=== PATIENT | male | born 1960 | race Caucasian/White ===

== ENCOUNTER → 2018-02-22 08:07 | Outpatient (CLI) | payer MEDICAID, SELFPAY | PROVIDERS: PCP Family Medicine; Visit Provider Orthopaedic Surgery | DX: M25.512 Pain in left shoulder (principal); M19.012 Primary osteoarthritis, left shoulder; I10 Essential (primary) hypertension; E11.9 Type 2 diabetes mellitus without complications; Z01.818 Encounter for other preprocedural examination ==

== ENCOUNTER 2018-03-05 10:50 | Outpatient (RCR) | payer MEDICAID, SELFPAY ==
--- NOTE | 2018-02-28 08:13 | NT_ITS ---
02/28/18 Pt no showed for todays scheduled PT appt.
== END 2018-03-22 23:59 | disposition home or self-care (01) ==
LOC: PT 10:50
PROVIDERS: PCP Family Medicine; Referring Provider Orthopaedic Surgery; Visit Provider Orthopaedic Surgery
DX: M25.512 Pain in left shoulder (principal); M75.42 Impingement syndrome of left shoulder; M75.32 Calcific tendinitis of left shoulder
CPT/HCPCS: J1885

== ENCOUNTER → 2018-03-14 09:10 | Outpatient (CLI) | payer MEDICAID, SELFPAY ==
[2018-03-14 10:52] LABS: TSH (W/Ref FT4) 0.27 uIU/mL (0.358-3.74); Vitamin B12 366 pg/mL (193-986)
[2018-03-14 11:23] LABS: FREE T4 1.19 ng/dL (0.76-1.46)
[2018-03-15 12:14] LABS: Albumin 55.8 % (55.8-66.1)
== END ==
PROVIDERS: PCP Family Medicine; Visit Provider Psychiatry & Neurology Neurology
DX: G62.9 Polyneuropathy, unspecified (principal)
CPT/HCPCS: 36415; 82607; 84165; 84439; 84443

== ENCOUNTER 2018-06-11 13:38 | Outpatient (CLI) | payer MEDICAID, SELFPAY ==
--- NOTE | 2018-06-11 11:45 | DI.RAD_ITS ---
SYMPTOMS/DIAGNOSIS: RECURRENCE OF OLD BACK PAIN, LOW BACK STRAIN, S39.012A LUMBOSACRAL SPINE: Five views were obtained. There is a slight left convex lumbar scoliosis. There is bilateral L5 spondylosis with spondylolisthesis of L5 on S1 estimated at 15% of the vertebral width. Mild hypertrophic spurring of the vertebral endplates and facet joints is noted, particularly in the lower lumbar region. CONCLUSION: Mild DJD, bilateral L5 spondylolysis with associated mild spondylolisthesis of L5 on S1.
== END 2018-06-11 13:58 ==
PROVIDERS: PCP Family Medicine; Visit Provider Family Medicine
DX: M54.5 Low back pain (principal); M47.816 Spondylosis without myelopathy or radiculopathy, lumbar region; M43.17 Spondylolisthesis, lumbosacral region; S39.012A Strain of muscle, fascia and tendon of lower back, initial encounter
CPT/HCPCS: 72110

== ENCOUNTER 2018-10-21 01:08 | Outpatient (CLI) | payer MEDICAID, SELFPAY ==
--- NOTE | 2018-10-21 07:51 | DI.US_ITS ---
SYMPTOMS/DIAGNOSIS: WORSENING DIABETES, 16-POUND WEIGHT LOSS OVER 2 MONTHS, ? PANCREATIC CA ABDOMINAL ULTRASOUND: The liver shows increased echogenicity and decreased through transmission consistent with hepatic steatosis. Significant portions of the liver are nonvisualized. There is cholelithiasis. Gallbladder wall does not appear appreciably thickened and there is no pericholecystic fluid collection or biliary dilatation. Pancreas appears intact as visualized but is poorly seen. Spleen is unremarkable. Kidneys appear intact with no evidence of hydronephrosis or nephrolithiasis. Abdominal aorta and IVC of normal diameter as visualized. CONCLUSION: Technically limited study. Presumed hepatic steatosis. Cholelithiasis noted.
== END 2018-10-21 01:28 ==
PROVIDERS: PCP Family Medicine; Visit Provider Family Medicine
DX: E11.9 Type 2 diabetes mellitus without complications (principal); K80.20 Calculus of gallbladder without cholecystitis without obstruction
CPT/HCPCS: 76700

== ENCOUNTER 2018-10-23 09:43 | Outpatient (CLI) | payer MEDICAID, SELFPAY ==
--- NOTE | 2018-10-23 06:00 | DI.RAD_ITS ---
SYMPTOMS/DIAGNOSIS: LUMBAR RADICULOPATHY, TRANSFORAMINAL EPIDURAL STEROID INJECTION PAIN CLINIC: Fluoroscopy Time: 27 Images submitted from the pain clinic demonstrate needle positioning in the region of the left facet at L 4 - 5 for a left epidural steroid injection carried out by Dr. Barboza. Please see the procedure report for further information.
[2018-10-23 10:16] VITALS: BP 149/89; PULSE 97; RESP 18; TEMP 36.7; O2SAT 99
[2018-10-23] MEDS: Glycopyrrolate 0.2 MG/1 ML VIAL IJ (10:34)
[2018-10-23] MEDS: Bupivacaine 0.5% Pres-Free 10 ML VIAL IJ (10:42)
[2018-10-23] MEDS: Omnipaque 240 MG/ML 50 ML BTL IJ (10:42)
[2018-10-23 10:45] VITALS: BP 132/82; PULSE 80; RESP 20; O2SAT 97
--- NOTE | 2018-10-23 10:51 | PDOC.PAIN_ITS ---
Pain Clinic Procedure Note Current Active Problems Problem Status Onset Lumbar radiculitis Chronic LUMBAR / SACRAL TRANSFORAMINAL INJECTION ROSIO LEDESMA has been referred to the [facility] for a transforaminal nerve root block and steroid injection. COMMENTS: Patient has back pain to left lower extremity to his anterior thigh. He has disc bulging at L3-4. He had previous epidural injection for similar problem in 2014 and did well. He did have a vasovagal reaction at that time. His second injection he was pretreated with glycopyrrolate which prevented it. Of note his glucoses have been high today at 311. I spoke with PCP office and inform them and they will cover him accordingly if his glucose goes up secondary to the steroid injection. Patient was interviewed and the medical record reviewed. There were no medical, pharmacologic, radiographic or other structural contraindications to attempting fluoroscopically guided transforaminal nerve root block and epidural steroid injection. Risks and expected side effects as well as potential benefit of the procedure were reviewed and voiced concerns addressed. The printed consent form was signed and witnessed. Standard time-out procedure was performed. Patient was placed in the prone position on the fluoroscopy table and automated blood pressure cuff and pulse oximeter applied. Fluoroscopy was utilized to identify the { left/ } neural foramen between L3 and L4 . A skin jeimy was made for the needle insertion site. A Chlorhexadine prep was carried out, and sterile drapes were applied. Local anesthesia was achieved in the skin and subcutaneous tissues. A 22 gauge curved tip spinal needle was then inserted, advanced with fluoroscopic guidance into the neural foramen, confirmed on the lateral view. After negative aspiration, 2 ml of Omnipaque 240 was injected confirming position in A/P and lateral views. This showed a good spread of dye transforaminally into the epidural space. There was no vascular update with contrast injection under continuous fluoroscopy and digital substraction. 40 mg of Depo-Medrol was injected, followed by 0.5 ml of 0.5% bupivivcaine flush for the nerve root block, as well. There was no unusual discomfort expressed.The needle was withdrawn. The patient tolerated the procedure well. A Band-Aid was applied. Vital signs were stable throughout the procedure and were as recorded in nursing records. If given, dosages of intravenous drugs for anxiolysis and analgesia were documented in nursing records. Follow up plans and appointments were discussed. Post procedure instruction was given as documented in nursing records and patient was discharged in the care of an identified owner operator tanker truck driver. COMMENTS: Glycopyrrolate 0.2 mg IV given prior to Injection. Pain went from 11/29-09/01. He will follow-up as needed. He will follow-up with his PCP regarding his diabetes CC: Scott Valdes DO
[2018-10-23] MEDS: Lactated Ringers 1,000 ML 1000 ML IV (11:04)
[2018-10-23] MEDS: methylPREDNISolone ACETATE 80 MG/ML VIAL 40 MG IJ (11:04)
== END 2018-10-23 10:03 ==
PROVIDERS: PCP Family Medicine; Visit Provider Anesthesiology Pain Medicine
DX: M54.16 Radiculopathy, lumbar region (principal); E11.9 Type 2 diabetes mellitus without complications
CPT/HCPCS: 64483; 72100; J1040; Q9967

== ENCOUNTER 2018-12-17 00:08 | Outpatient (CLI) | payer MEDICAID, SELFPAY ==
[2018-12-17 12:13] VITALS: BP 130/89; PULSE 78; RESP 20; TEMP 36.6; O2SAT 100
[2018-12-17 12:59] VITALS: BP 129/80; PULSE 77; RESP 14; O2SAT 99
--- NOTE | 2018-12-17 13:00 | DI.US_ITS ---
SYMPTOMS/DIAGNOSIS: LEFT UPPER THIGH PAIN; ULTRASOUND-GUIDED NERVE BLOCK, LATERAL FEMORAL PAIN CLINIC NEEDLE GUIDANCE: Sonography was utilized by Dr. Adorno during an ultrasound-guided nerve block in the left upper thigh. Please refer to the procedure report for complete details.
--- NOTE | 2018-12-17 13:02 | PDOC.PAIN ---
Pain Clinic Procedure Note Current Active Problems Problem Status Onset Meralgia paresthetica of left side Acute ULTRASOUND GUIDED LEFT LATERAL FEMORAL CUTANEOUS NERVE BLOCK INJECTIONS Pre-Procedural Evaluation: ROSIO LEDESMA has been referred to the [facility] for an Ultrasound Guided left lateral femoral cutaneous nerve block injection for a chief complaint of left anterior thigh pain. Pre-procedure Pain Score = 6/10 Patient was interviewed and the medical record reviewed. There were no medical, pharmacologic, radiographic, or other structural contraindications to preforming an ultrasound guided injection. Risks and expected side effects as well as potential benefits of the procedure were reviewed. The patient consent form was signed and witnessed. Standard time-out procedure was performed. The use of direct ultrasound visualization of the needle (rather than a non-guided injection) was required to increase patient safety by excluding inadvertent intramuscular, intratendinous, or intraneural needle placement and minimizing bleeding by avoiding osteochondral or vascular injury from the needle. Additionally, the increased accuracy of placement may increase clinical effectiveness and will allow higher diagnostic specificity when evaluating effectiveness of this injection. Procedure Description: The patient was placed in the supine position and automated blood pressure cuff and pulse oximeter applied for monitoring during the procedure and recorded in the medical record. Pre-injection ultrasound scanning of the area of interest was performed using the linear transducer, identifying relevant anatomy, landmarks, and neurovascular structures allowing for optimal needle path. The site was then prepared in the usual sterile fashion, using thorough Chlorhexadine preparation of the skin and sterile draping. The same ultrasound transducer was then passed into the sterile field using sterile probe cover and sterile ultrasound gel. The injection target was again visualized. Skin and subcutaneous tissues were anesthetized with 2 mL of 1% Lidocaine. A 22 guage needle inch needle was placed under live ultrasound guidance, using an in-plane approach, to the target area. After visualization of the needle tip at the target area, a mixture of 4 mL 1% Lidocaine after negative aspiration for blood. Ultrasound images were captured and stored for documentation purposes. No steroid was used as his diabetes was in poor control. Post-procedure Pain Score: 0/10 Vital signs were stable throughout the procedure and were as recorded in the docflowsheet by the nursing staff. Follow up plans and appointments were discussed with the patient.Post procedure instruction was given as documented in nursing documentation and having met discharge criteria, they were discharged from the [facility]. COMMENTS: He will take it easy for a few days and then gradually increase his activity.
--- NOTE | 2018-12-17 13:08 | PDOC.PAIN_ITS ---
Pain Clinic Procedure Note Current Active Problems Problem Status Onset Meralgia paresthetica of left side Acute ULTRASOUND GUIDED LEFT LATERAL FEMORAL CUTANEOUS NERVE BLOCK INJECTIONS Pre-Procedural Evaluation: ROSIO LEDESMA has been referred to the [facility] for an Ultrasound Guided left lateral femoral cutaneous nerve block injection for a chief complaint of left anterior thigh pain. Pre-procedure Pain Score = 6/10 Patient was interviewed and the medical record reviewed. There were no medical, pharmacologic, radiographic, or other structural contraindications to preforming an ultrasound guided injection. Risks and expected side effects as well as potential benefits of the procedure were reviewed. The patient consent form was signed and witnessed. Standard time-out procedure was performed. The use of direct ultrasound visualization of the needle (rather than a non- guided injection) was required to increase patient safety by excluding inadvertent intramuscular, intratendinous, or intraneural needle placement and m inimizing bleeding by avoiding osteochondral or vascular injury from the needle. Additionally, the increased accuracy of placement may increase clinical effectiveness and will allow higher diagnostic specificity when evaluating effectiveness of this injection. Procedure Description: The patient was placed in the supine position and automated blood pressure cuff and pulse oximeter applied for monitoring during the procedure and recorded in the medical record. Pre-injection ultrasound scanning of the area of interest was performed using the linear transducer, identifying relevant anatomy, landmarks, and neurovascular structures allowing for optimal needle path. The site was then prepared in the usual sterile fashion, using thorough Chlorhexadine preparation of the skin and sterile draping. The same ultrasound transducer was then passed into the sterile field using sterile probe cover and sterile ultrasound gel. The injection target was again visualized. Skin and subcutaneous tissues were anesthetized with 2 mL of 1% Lidocaine. A 22 guage needle inch needle was placed under live ultrasound guidance, using an in- plane approach, to the target area. After visualization of the needle tip at the target area, a mixture of 4 mL 1% Lidocaine after negative aspiration for blood. Ultrasound images were captured and stored for documentation purposes. No steroid was used as his diabetes was in poor control. Post-procedure Pain Score: 0/10 Vital signs were stable throughout the procedure and were as recorded in the docflowsheet by the nursing staff. Follow up plans and appointments were discussed with the patient.Post procedure instruction was given as documented in nursing documentation and having met discharge criteria, they were discharged from the [facility]. COMMENTS: He will take it easy for a few days and then gradually increase his activity.
[2018-12-17] MEDS: Lidocaine 2% Pres-Free 5 ML VIAL IJ (13:24)
== END 2018-12-17 00:28 ==
PROVIDERS: PCP Family Medicine; Visit Provider Preventive Medicine Occupational Medicine
DX: G57.12 Meralgia paresthetica, left lower limb (principal)
CPT/HCPCS: 64450; 76942

== ENCOUNTER 2019-01-07 10:41 | Outpatient (REF) | payer MEDICAID, SELFPAY ==
[2019-01-07 13:10] LABS: Anion Gap 11.5 mmol/L (3-11); BUN 14 mg/dL (7-18); CO2 26.5 mmol/L (21.0-32.0); Calcium 9.2 mg/dL (8.5-10.1); Chloride 103 mmol/L (98-107); Glucose 182 mg/dL (70-100); Sodium 141 mmol/L (136-145)
== END 2019-01-07 11:01 ==
LOC: LBN 10:41
PROVIDERS: PCP Family Medicine; Visit Provider Family Medicine
DX: E11.9 Type 2 diabetes mellitus without complications (principal)
CPT/HCPCS: 80048

== ENCOUNTER 2019-02-28 02:24 | Outpatient (CLI) | payer MEDICAID, SELFPAY ==
--- NOTE | 2019-02-28 15:12 | DI.CT_ITS ---
SYMPTOMS/DIAGNOSIS: HEADACHE, FACIAL PAIN, 3 WEEKS PAIN BEHIND EYES AND SINUSES, CHRONIC SINUSITIS, SEASONAL ALLERGIC RHINITIS, R51, R68.89, J32.8, J30.[address]: CT examination of the paranasal sinuses was performed without contrast administration. The paranasal sinuses are clear. The ostiomeatal complexes of the maxillary antra appear intact bilaterally. The orbital structures appear intact. Appearance of the nasal cavity is unremarkable. Visualized brain is unremarkable. Mastoid air cells are well aerated and temporal bone structures appear intact. CONCLUSION: Negative sinus CT.
== END 2019-02-28 02:44 ==
PROVIDERS: PCP Family Medicine; Visit Provider Physician Assistant
DX: R51 Headache (principal); J32.8 Other chronic sinusitis; J30.2 Other seasonal allergic rhinitis
CPT/HCPCS: 70486

== ENCOUNTER 2019-05-13 01:59 | Outpatient (RCR) | payer MEDICAID, SELFPAY | END 2019-05-22 23:59 | disposition home or self-care (01) | LOC: INF 01:59 | PROVIDERS: PCP Family Medicine; Visit Provider Family Medicine | DX: E11.43 Type 2 diabetes mellitus with diabetic autonomic (poly)neuropathy (principal); Z79.4 Long term (current) use of insulin ==

== ENCOUNTER 2019-08-01 15:14 | Emergency (ER) | payer MEDICAID, SELFPAY ==
[2019-08-01 15:19] VITALS: BP 132/75; PULSE 98; RESP 18; TEMP 36.5; O2SAT 99
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
== END 2019-08-01 15:44 | disposition home or self-care (01) ==
PROVIDERS: Emergency Provider Emergency Medicine; PCP Family Medicine
DX: T82.898A Other specified complication of vascular prosthetic devices, implants and grafts, initial encounter (principal); S50.11XA Contusion of right forearm, initial encounter; Y84.8 Other medical procedures as the cause of abnormal reaction of the patient, or of later complication, without mention of misadventure at the time of the procedure; R60.0 Localized edema; E11.9 Type 2 diabetes mellitus without complications; Z79.4 Long term (current) use of insulin
CPT/HCPCS: 99282

== ENCOUNTER 2019-11-25 11:17 | Inpatient (IN) | payer MEDICAID, SELFPAY ==
[2019-11-25] VITALS (55 sets, daily range): BP systolic 86–148; BP diastolic 49–80; PULSE 76–115; RESP 13–36; TEMP 36.5–38.1; O2SAT 87–99
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
[2019-11-25] MEDS: Normal Saline 1,000 ML 1000 ML IV ×2 (11:41→12:50)
[2019-11-25 11:45] LABS: Abs Immature Grans 0.09 k/cumm (0.0-0.09); HCT 48.3 % (40.0-50.0); HGB 16.2 g/dL (13.5-17.5); Mean Corp. HGB Concentration 33.5 g/dL (32.0-36.0); Mean Corpuscular Hemoglobin 29.3 pg (27.0-33.0); Mean Corpuscular Volume 87.5 fL (80-95); Mean Platelet Volume 10.1 fL (8.0-11.0); Platelet Count 243 x1000/uL (130-400); RBC 5.52 m/cumm (4.50-6.00); RBC Distribution Width 13.7 % (11.8-14.1)
[2019-11-25 11:51] LABS: Lipase 59 U/L (73-393)
[2019-11-25 11:56] LABS: ALT 44 U/L (16-63); AST 26 U/L (15-37); Albumin 4.2 g/dL (3.4-5.0); Alkaline Phosphatase 105 U/L (46-116); Anion Gap 12.5 mmol/L (3-11); BUN 17 mg/dL (7-18); Bilirubin, Total 0.9 mg/dL (0.2-1.0); CO2 26.5 mmol/L (21.0-32.0); CREATININE 1.41 mg/dL (0.70-1.30); Calcium 9.5 mg/dL (8.5-10.1); Chloride 102 mmol/L (98-107); Estimated GFR 51.45 (mL/min/1.73m2); Glucose 213 mg/dL (74-106); Magnesium 1.8 mg/dL (1.8-2.4); Potassium 3.3 mmol/L (3.5-5.1); Sodium 141 mmol/L (136-145); Total Protein 8.3 g/dL (6.4-8.2); Troponin I < 0.05 ng/Ml (<0.06)
[2019-11-25 12:05] LABS: Absolute Eosinophil Count 0.53 k/cumm (0.0-0.7); Absolute Lymphocyte Count 0.79 k/cumm (1.2-3.4); Absolute Monocyte Count 2.37 k/cumm (0.11-0.7); Absolute Neutrophil Count 22.62 k/cumm (1.2-6.7); Diff Comment Manual Differential; RBC Morphology Normal
--- NOTE | 2019-11-25 12:15 | DI.CT_ITS ---
EXAM: CT CHEST/ABD/PEL W CLINICAL HISTORY: leukocytosis, LUQ and CP. TECHNIQUE: Imaging Protocol: Axial computed tomography images with coronal and sagittal reformatted images were created and reviewed CONTRAST MATERIAL: Intravenous: Omnipaque 350 Contrast volume:100 ml Oral: no COMPARISON: ABD PELVIS WO CONTRAST from 01/07/2018 FINDINGS: CHEST: Tracheobronchial tree: Patent where visualized. Mediastinum and Belle: No dominant adenopathy or fluid collection. Pulmonary parenchyma: No consolidation or dominant measurable mass. There is motion at the lung base s. Dependent changes and mild posterior atelectasis is present. Pleura: No effusion or pneumothorax. Lymph nodes: Within normal limits. Aorta: Thoracic portion non-dilated. There is motion at the aortic root. Heart: Coronary artery calcifications are seen. Bones: Endplate osteophytes ABDOMEN: Liver: Normal density. No measurable mass. Gallbladder and biliary tract: There is a large stone seen in the neck of the gallbladder. There is mild gallbladder wall thickening. There is no biliary dilatation.. Pancreas: Mildly atrophic. No abnormal calcifications or inflammatory process. Spleen: Normal. Kidneys: Normal size, contour and axis. No radiodense stones or obstructive uropathy. No masses seen. Small renal cysts. Adrenal glands: No masses seen. Aorta: Abdominal portion non-dilated. Mild calcification. Lymph nodes: Within normal limits. PELVIS: Bladder: Symmetric distention, no gross wall thickening. Bowel: No obstruction or bowel wall thickening. Normal appendix. Peritoneal cavity: No ascites, collection or mesenteric inflammatory response. Bones: Bilateral L5 spondylolysis and L5-S1 spondylolisthesis. Reproductive organs: Enlarged prostate.. Soft tissues: Bilateral fatty containing inguinal hernias. Evidence of prior right inguinal hernia r epair. Soft tissue edema in the anterior subcutaneous fat of the mid abdomen presumably secondary to injections. IMPRESSION: Distended gallbladder with mild wall thickening. Large stone which may be impacted in the neck of th e gallbladder. No biliary dilatation. RADIATION DOSE DELIVERED: Total DLP DATA REPOSITORY: All CT scans at this facility are submitted to the National Radiology Data Registry (NRDR) Dose Index Registry (DIR) with the [employer] (ACR). RADIATION OPTIMIZATION: All CT scans at this facility use at least one of these dose optimization te chniques: automated exposure control; mA and/or kV adjustment per patient size (includes targeted exa ms where dose is matched to clinical indication); or iterative reconstruction.
[2019-11-25] MEDS: Omnipaque 350 MG/ML 100 ML BTL IJ (13:03)
[2019-11-25] MEDS: Normal Saline - Diluent 50 ML VIAL IV (13:04)
[2019-11-25] MEDS: Ondansetron 4 MG/2 ML VIAL IVP ×2 (13:05→16:10)
[2019-11-25] MEDS: Normal Saline Flush 10 ML SYR IVP ×2 (13:06→20:57)
--- NOTE | 2019-11-25 13:08 | DI.US_ITS ---
EXAM: US ABDOMEN LIMITED CLINICAL HISTORY: RUQ pain, +[place] TECHNIQUE: Ultrasound performed using standard protocol. COMPARISON: CT CHEST/ABD/PEL W from 11/25/2019 FINDINGS: The gallbladder is distended and shows mild wall thickening. There is a trace amount of pericholecy stic fluid. The 2.2 centimeter stone is lodged in the gallbladder neck. No additional stones are se en. The common bile duct measures 4 millimeters. Patient was tender while scanning over the gallbla dder. IMPRESSION: Distended thick-walled gallbladder with stone impacted in the gallbladder neck. Findings are suspi cious for acute cholecystitis. DATA REPOSITORY:
[2019-11-25] MEDS: HYDROmorphone 2 MG/ML VIAL 1 MG IVP (14:32)
[2019-11-25] MEDS: PIPERACILLIN/TAZO 3.375 GM in Normal Saline 50 ML IVPB ×2 (14:32→21:09)
[2019-11-25 15:03] LABS: Troponin I < 0.05 ng/Ml (<0.06)
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
[2019-11-25] MEDS: Lactated Ringers 1,000 ML 100 ML IV (15:51)
[2019-11-25] MEDS: Lidocaine 1% Multi-Dose 50 ML VIAL (16:17)
[2019-11-25] MEDS: Bupivacaine LIPOSOME/PF 133 MG/10 ML VIAL IJ (16:33)
[2019-11-25] MEDS: Bupivacaine 0.5% Pres-Free 30 ML VIAL (16:36)
[2019-11-25] MEDS: Cellulose,Oxidized 4X8 1 PACKET MC (17:09)
--- NOTE | 2019-11-25 17:19 | GB_PTH ---
PATIENT: Marco Antonio Harris LOC: U#:[id number] AGE/SX: 59/M ROOM: [id number] RE11/25/[address]: Jenny Ridley MD : 1960 BED: A DIS: 11/30/2019 SPEC #: [id number] RECD: 11/26/19 11:06 STATUS: TIAN REQ #: [id number] ANETTE: 11/25/19 17:[address]: Jenny Ridley DEPT: Surgical Specimen RECD BY: Que Cha ENTERED: 11/26/19 11:07 SP TYPE: GB OTHR DR: Scott Valdes DO Tissues: 1 - GALLBLADDER Procedures: GROSS AND MICRO LEVEL 3 Comments: [id number]
--- NOTE | 2019-11-25 18:24 | W.PM.OP ---
Date of service: 11/25/19 Time of Service: 18:24 Operative Note Operative Note DATE OF PROCEDURE: 11/25/19 PRE-OP DIAGNOSIS: Acute Cholecystitis POST-OP DIAGNOSIS: same PROCEDURE: Laparoscopic Cholecystectomy SURGEON: Jenny Ridley ADMINISTRATIVE PROCESSOR: Krystyna Alston ANESTHESIA: GETA and local (1% Lidocaine 10 cc/ Exparel and 0.5% Bupivocaine mixed 50/50) ESTIMATED BLOOD LOSS: 100 PATHOLOGY: other (Gallbladder and contents) COMPLICATIONS: None Patient was transported to: floor Patient's condition: stable Implants: None Indications: 59 year old male with acute cholecystitis On US large non-mobile stone lodged in the neck of the Gallbladder recommended Laparoscopic Cholecystectomy, possible open Risks, benefits, complications were reviewed with the patient in the office. Complications include but are not limited to bleeding, infection, injury to stomach, small bowel and large bowel, injury to the pancreas, injury to the common bile duct necessitating drainage and referral to tertiary center for repair, bile leak, adverse reactions to the medications, complications of intubation including a sore throat or injury to the uvula, MD, stroke and even . Questions were entertained and answered to her satisfaction and she wished to proceed. No guarantees were given or implied Findings: large stone within the Gallbladder. severe inflammation and large amount of fat around the Gallbladder Procedure Description: After informed consent was obtained the patient was taken to the operating room, placed in a supine position and monitors were applied. SCDs were applied to his lower extremities and he was placed under general anesthesia and intubated without difficulty. COVID-19 precautions with proper PPE was used throughout the case due to the patients unknown COVID status. Once intubated a Robertson catheter was placed in a standard sterile fashion. His abdomen was then clipped of hair and prepped and draped in a sterile fashion using ChloraPrep. At this point a timeout was done and the patient's name, date of , procedure type, allergies to medications, metal in his body, antibiotic and DVT prophylaxis were reviewed. Fire risk was assessed. Next 1 percent Lidocaine plain was injected just above the umbilicus into the dermis and subcutaneous tissue. A 5 mm incision was made with an 11 blade. The skin next to the incision was grasped with penetrating towel clamps and while pulling up on the skin a 5 mm port was placed under direct visualization without complication. The abdomen was insuflated and then 3 more ports were placed. A 12 mm port was placed in the subxiphoid area and two 5 mm ports were placed in the right upper quadrant under direct visualization. The liver was inspected and looked grossly normal. The patient's bed was then turned to the left and his head was brought up. An attempt was made to grasp the Gallbladder but it was thickened and tense with Fluid. Using a Laparoscopic needle 50 cc of green bile was removed from the Gallbladder. After removing the bile the Gallbladder was decompressed and easy to grasp. The gallbladder was grasped at the body and pushed towards the right shoulder. The infundibulum was the grasped. There was a lot of fat noted around the Gallbladder. The fat was gently dissected away from the Gallbladder wall using a [place] dissector. I was then able to see the Lymph node which was enlarged. The Lymphnode was removed using cautery. Eventually after dissecting off the fat surrounding the Gallbladder I was able to visualize the cystic duct. The cystic duct was normal in size. The duct was carefully dissected 360 degrees using the [place] dissector and cautery in order for me to visualize its entrance into the gallbladder. Liver was noted behind it. The cystic artery was then identified and dissected 360 degrees. It was located just medial to the cystic duct. It was visualized going into the gallbladder. There were no other structures right behind. Critical view was achieved. 3 clips were placed one proximal and 2 distal on the cystic duct and the cystic artery and then both structures were cut with laparoscopic scissors. Using the hook dissector the gallbladder was then dissected away from the liver bed and placed into an Endo Catch bag. The stone within the gallbladder was large enough that the 12 mm port site had to be opened with an 11 blade to 3 cm. The gallbladder was then pulled through the incision. The 12 mm port was placed back into the abdomen under direct visualization. A penetrating towel clamp was placed next to the port and the skin was closed to be able to keep the abdomen insufflated. The liver bed was inspected and bleeding was noted. A piece of surgicel was placed on the liver bed and pressure was applied with a sponge. After 1 minute the surgicel and sponge were removed. A few areas of bleeding were identified and cauterized. The abdomen was then irrigated with a liter and a half of normal saline until the effluent was clear. Once all the fluid was suctioned out Floseal was injected onto the liver bed for added hemostasis. The 12 mm and the 2 right upper quadrant ports were removed under direct visualization and no bleeding was noted from the fascia. The abdomen was deflated completely and lastly the umbilical port was removed. The fascia of the 3 cm subxiphoid incision was closed with interrupted 0 vicryl. The subcutaneous tissue was cauterized were there was some oozing noted. The skin was cleaned and the incisions were closed with 4-0 Vicryl subcuticular running suture. The skin was dried and Mastasol and steri-strips were applied. Needle and sponge counts were correct at the end of the case. The Robertson catheter was removed. At this point the patient was moved over to the [facility] for rehab medicine and then woken up, extubated and recovered in the OR. Once he was in stage 2 recovery he was taken upstairs to the Medical/ Surgical unit. There were no immediate complications.
[2019-11-25] MEDS: Pantoprazole 40 MG VIAL IVP (20:56)
[2019-11-25] MEDS: Docusate Sodium 100 MG CAP PO (20:56)
[2019-11-25] MEDS: Pramipexole 0.25 MG TAB 0.125 MG PO (22:11)
[2019-11-25] MEDS: Montelukast 10 MG TAB PO (22:11)
[2019-11-25] MEDS: Pregabalin 25 MG CAP 75 MG PO (22:26)
[2019-11-25] MEDS: Acetaminophen 325 MG TAB 650 MG PO (23:30)
[2019-11-26] VITALS (9 sets, daily range): BP systolic 97–121; BP diastolic 59–75; PULSE 90–107; RESP 16–20; TEMP 36.5–38; O2SAT 90–93
[2019-11-26] MEDS: oxyCODONE 5 MG TAB PO ×4 (01:01→22:05)
[2019-11-26] MEDS: Normal Saline Flush 10 ML SYR IVP ×3 (01:56→20:15)
[2019-11-26] MEDS: PIPERACILLIN/TAZO 3.375 GM in Normal Saline 50 ML IVPB ×4 (01:57→20:14)
[2019-11-26 06:48] LABS: Abs Immature Grans 0.04 k/cumm (0.0-0.09); Absolute Basophil Count 0.02 k/cumm (0.0-0.2); Absolute Monocyte Count 0.95 k/cumm (0.11-0.7); Basophils % 0.1; Eosinophils % 0.1; HCT 45.9 % (40.0-50.0); HGB 15.2 g/dL (13.5-17.5); Immature Grans % 0.2 %; Lymphocytes % 8.3; Mean Corp. HGB Concentration 33.1 g/dL (32.0-36.0); Mean Corpuscular Hemoglobin 29.8 pg (27.0-33.0); Mean Platelet Volume 10.5 fL (8.0-11.0); Neutrophils % 86.3; Platelet Count 194 x1000/uL (130-400); RBC Distribution Width 13.9 % (11.8-14.1); White Blood Cell Count 19.01 k/cumm (4.4-10.8)
[2019-11-26 06:50] LABS: Absolute Eosinophil Count 0.02 k/cumm (0.0-0.7); Absolute Lymphocyte Count 1.58 k/cumm (1.2-3.4); Absolute Neutrophil Count 16.41 k/cumm (1.2-6.7)
[2019-11-26 06:57] LABS: Anion Gap 6.4 mmol/L (3-11); BUN 19 mg/dL (7-18); CO2 30.6 mmol/L (21.0-32.0); CREATININE 1.53 mg/dL (0.70-1.30); Calcium 8.4 mg/dL (8.5-10.1); Chloride 102 mmol/L (98-107); Estimated GFR 46.82 (mL/min/1.73m2); Glucose 192 mg/dL (74-106); Magnesium 1.9 mg/dL (1.8-2.4); Potassium 3.6 mmol/L (3.5-5.1); Sodium 139 mmol/L (136-145)
[2019-11-26 08:15] LABS: Glucose 171 mg/dL (74-106)
[2019-11-26 08:21] LABS: COVID-19 RT-PCR UVMMC Result Negative (Negative)
--- NOTE | 2019-11-26 08:35 | INITIAL_ITS ---
- If Service Date Differs Date of service: 11/26/19 Time of Service: 08:35 Care Management Initial Assess REASON FOR HOSPITALIZATION:: Acute Cholecystitis PAST MEDICAL HISTORY/PAST SURGICAL HISTORY:: Medical History (Updated 11/25/19 @ 15:39 by Jenny Ridley MD). Allergic rhinitis (Chronic 09/21/11). Allergic rhinitis due to food (Acute). Asthma (Chronic 05/08/13). 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 (Acute). BPH loc w urin obs/LUTS (Chronic 01/16/18). Cardiomyopathy (Chronic). Dermatitis due to ingested food (Acute). Diabetes mellitus type 2 in obese (Chronic 05/08/13). A1C goal 7.5. Diabetic polyneuropathy associated with type 2 diabetes mellitus (Chronic 03/14/18). DM (diabetes mellitus). Erectile dysfunction (Chronic 11/20/12). LEAH (generalized anxiety disorder) (Chronic 03/19/15). GERD (gastroesophageal reflux disease). Hyperlipidemia (Chronic 09/11/13). PCEq risk 7.8% LDL baseline 127. Insomnia, unspecified (Chronic 11/20/12). Leg cramps (Chronic 03/14/18). Migraine headache without aura (Acute). Nonintractable episodic headache (Chronic 01/20/16). Obesity. SHARRI (obstructive sleep apnea). Pre-ulcerative calluses (Acute). Restless leg syndrome (Acute). Shortness of breath (Chronic). Surgical History (Updated 11/25/19 @ 15:35 by Jenny Ridley MD). Colonoscopy - MAC (07/27/17). cortisone injection (03/17/14). lumbar. H/O chest tube placement (Acute) PREVIOUS FUNCTIONAL STATUS/SOCIAL/FAMILY SUPPORTS:: Marco Antonio lives in a mobile home in [facility] with his Nimisha and their 3 dogs and 4 cats. They have 3 children who live locally and are supportive. Marco Antonio is independent with all care but does not drive. He has been disabled for over 15 years since he had a heart attack and possibly a stroke. 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 CURRENT FUNCTIONAL STATUS:: Marco Antonio was sitting up in a chair when CM met with him. He was pleasant and engaged readily in conversation. He shared that he was likely to be discharged tomorrow.He stated that he is feeling well since his surgery, and that his pain is controlled. ADVANCE DIRECTIVES:: None on file Has patient been provided with information about the portal?: Yes Did the patient sign up for the portal?: Yes (previously) CODE STATUS:: Full Code INSURANCE COVERAGE / FINANCIAL ISSUES:: Medicaid CURRENT HOME/COMMUNITY SERVICES/EQUIPMENT:: None currently PRIMARY CARE PHYSICIAN:: Scott Valdes POTENTIAL DISCHARGE NEEDS:: Follow up with PCP and discharge plan of care PATIENT/FAMILY EDUCATION NEEDS:: Discharge plan, follow up, limitations, Ask Me Three. TRANSPORTATION:: via private vehicle with family PLAN:: Marco Antonio is likely to return home with no new services when ready. He will follow up with his surgeon and discharge plan of care and transport home via private vehicle with family. CM will continue to support patient, family and discharge planning needs.
[2019-11-26] MEDS: Insulin Aspart 300 UNITS/3 ML PEN SC ×2 (09:16→12:09)
[2019-11-26] MEDS: Docusate Sodium 100 MG CAP PO ×3 (09:18→20:15)
[2019-11-26] MEDS: Enoxaparin 40 MG/0.4 ML SYR SC (09:18)
[2019-11-26] MEDS: SITagliptin 100 MG TAB PO (09:18)
[2019-11-26] MEDS: Atorvastatin 20 MG TAB PO (09:18)
[2019-11-26] MEDS: Pregabalin 25 MG CAP 75 MG PO ×2 (09:18→20:15)
--- NOTE | 2019-11-26 09:43 | PGE_ITS ---
Date of Service Date of service: 11/26/19 Time of Service: 07:45 Assessment and Plan Assessment and plan (1) S/P laparoscopic cholecystectomy: Status: Acute Assessment and plan: A\\ POD #1 s/p Lap Cheryl for acute on chronic cholecystitis Doing well P\\ 1. Ambulate in the [place] today 2. Advance diet to soft DM, low fat 3. May shower 4. Pain- Start Oxycodon and I will add Toradol 5. Disposition: hopefully home tomorrow (2) Leukocytosis: Status: Acute Assessment and plan: A\\ Improvement from yesterday P\\ Continue antibiotics and recheck labs in am Will need to be sent home on antibiotics for 10 days Qualifiers: Leukocytosis type: lymphocytosis Qualified Code(s): D72.820 - Lymphocytosis (symptomatic) (3) DM (diabetes mellitus): Status: None Assessment and plan: A\\ Uncontrolled sugars in part due to infection P\\ Continue with Insulin sliding scale Will add his night time long acting insulin as well now that he is starting a diet Qualifiers: Diabetes mellitus type: type 2 Diabetes mellitus penitentiary insulin use: with penitentiary use Diabetes mellitus complication status: with neurologic complications Diabetes mellitus complication detail: with polyneuropathy Qualified Code(s): E11.42 - Type 2 diabetes mellitus with diabetic polyneuropathy; Z79.4 - intermodal owner operator truck driver (current) use of insulin Subjective Subjective Interval history since last seen: Mr. Harris is doing well. He is sitting in his chair comfortably. Pain is 7/10. Has been getting IV dilauded but no po pain medication. Tolerated Clear liquids. Unfortunately he was given multiple glasses of juice overnight which doesn't help with his Diabetes. Discussed with patient that he should only be drinking water or diet kristan angi. He is asking to take a shower Low grade fevers overnight. No fever this morning Exam HENAR Head: normocephalic and atraumatic Resp Effort & Inspection: normal respiratory effort Auscultation: clear to auscultation bilaterally Cardio Rate: regular rate Rhythm: regular rhythm GI Inspection: incision (c/d/i) Palpation: soft and tender (mild tenderness around the sub-xiphoid incision) Auscultation: normal bowel sounds Objective Objective Clinical Data: Abnormal lab results 11/25/19 11/25/19 11/26/19 Range/Units 11:30 11:30 06:30 WBC 26.30 H* (4.4-10.8) k/cumm Absolute Neutrophils 22.62 H (1.2-6.7) k/cumm Absolute Lymphocytes 0.79 L (1.2-3.4) k/cumm Absolute Monocytes 2.37 H (0.11-0.7) k/cumm Potassium 3.3 L (3.5-5.1) mmol/L Anion Gap 12.5 H (3-11) mmol/L BUN 19 H (7-18) mg/dL Creatinine 1.41 H 1.53 H (0.70-1.30) mg/dL Glucose 213 H 192 H (74-106) mg/dL Calcium 8.4 L (8.5-10.1) mg/dL Total Protein 8.3 H (6.4-8.2) g/dL 11/26/19 11/26/19 Range/Units 06:30 08:00 WBC 19.01 H (4.4-10.8) k/cumm Absolute Neutrophils 16.41 H (1.2-6.7) k/cumm Absolute Lymphocytes (1.2-3.4) k/cumm Absolute Monocytes 0.95 H (0.11-0.7) k/cumm Potassium (3.5-5.1) mmol/L Anion Gap (3-11) mmol/L BUN (7-18) mg/dL Creatinine (0.70-1.30) mg/dL Glucose 171 H (74-106) mg/dL Calcium (8.5-10.1) mg/dL Total Protein (6.4-8.2) g/dL Vital Signs Temperature 99.0 F 11/26/19 07:45 Temperature Source Tympanic 11/26/19 07:45 Pulse 96 H 11/26/19 07:45 Pulse Rhythm Regular 11/26/19 03:15 Pulse 106 H 11/25/19 15:20 Respiratory Rate 18 11/26/19 07:45 Respiratory Effort Non-Labored 11/26/19 03:15 Respiratory Depth Normal 11/26/19 03:15 Respiratory Pattern Normal 11/26/19 03:15 Blood Pressure 103/64 11/26/19 07:45 Blood Pressure Mean 86 11/25/19 15:16 Blood Pressure Position Sitting 11/25/19 11:20 Pulse Oximetry 93 L 11/26/19 07:45 Respiratory End-tidal CO2 37 11/25/19 18:50 Oxygen Delivery Method Room Air 11/26/19 07:45 Oxygen Flow Rate 0 11/26/19 07:45 Pain Level 8 11/26/19 07:45 Comment 11/25/19 19:32 Intake & Output 11/25/19 11/25/19 11/26/19 11:59 23:59 11:59 Intake Total 3050 / 3050 1320 / 1320 Output Total 900 / 900 400 / 400 Balance 2150 / 2150 920 / 920 Weight 241 lb 15.987 oz 241 lb 15.987 oz Intake: IV 2600 / 2600 550 / 550 Oral 450 / 450 770 / 770 Output: Urine 800 / 800 400 / 400 Estimated Blood Loss 100 / 100 Other: Urine Color Yellow Yellow Urine Appearance Clear Clear Urine Odor Normal None Emesis Description None Voiding Methods Urinal Urinal Laboratory Results WBC 19.01 k/cumm (4.4-10.8) H 11/26/19 06:30 RBC 5.10 m/cumm (4.50-6.00) 11/26/19 06:30 Hgb 15.2 g/dL (13.5-17.5) 11/26/19 06:30 Hct 45.9 % (40.0-50.0) 11/26/19 06:30 MCV 90.0 fL (80-95) 11/26/19 06:30 MCH 29.8 pg (27.0-33.0) 11/26/19 06:30 MCHC 33.1 g/dL (32.0-36.0) 11/26/19 06:30 RDW 13.9 % (11.8-14.1) 11/26/19 06:30 Plt Count 194 x1000/uL (130-400) 11/26/19 06:30 MPV 10.5 fL (8.0-11.0) 11/26/19 06:30 Immature Gran % 0.2 % 11/26/19 06:30 Neutrophils % 86.3 11/26/19 06:30 Band Neutrophils % 3.0 % 11/25/19 11:30 Lymphocytes % 8.3 11/26/19 06:30 Monocytes % 5.0 11/26/19 06:30 Eosinophils % 0.1 11/26/19 06:30 Basophils % 0.1 11/26/19 06:30 Absolute Neutrophils 16.41 k/cumm (1.2-6.7) H 11/26/19 06:30 Absolute Lymphocytes 1.58 k/cumm (1.2-3.4) 11/26/19 06:30 Absolute Monocytes 0.95 k/cumm (0.11-0.7) H 11/26/19 06:30 Absolute Eosinophils 0.02 k/cumm (0.0-0.7) 11/26/19 06:30 Absolute Basophils 0.02 k/cumm (0.0-0.2) 11/26/19 06:30 Differential Comment Manual differential 11/25/19 11:30 RBC Morphology Normal 11/25/19 11:30 Sodium 139 mmol/L (136-145) 11/26/19 06:30 Potassium 3.6 mmol/L (3.5-5.1) 11/26/19 06:30 Chloride 102 mmol/L (98-107) 11/26/19 06:30 Carbon Dioxide 30.6 mmol/L (21.0-32.0) 11/26/19 06:30 Anion Gap 6.4 mmol/L (3-11) 11/26/19 06:30 BUN 19 mg/dL (7-18) H 11/26/19 06:30 Creatinine 1.53 mg/dL (0.70-1.30) H 11/26/19 06:30 Estimated GFR/1.73 m2 46.82 (mL/min/1.73m2) 11/26/19 06:30 Glucose 171 mg/dL (74-106) H 11/26/19 08:00 Calcium 8.4 mg/dL (8.5-10.1) L 11/26/19 06:30 Magnesium 1.9 mg/dL (1.8-2.4) 11/26/19 06:30 Total Bilirubin 0.9 mg/dL (0.2-1.0) 11/25/19 11:30 AST 26 U/L (15-37) 11/25/19 11:30 ALT 44 U/L (16-63) 11/25/19 11:30 Alkaline Phosphatase 105 U/L (46-116) 11/25/19 11:30 Troponin I < 0.05 ng/Ml (<0.06) 11/25/19 14:23 Total Protein 8.3 g/dL (6.4-8.2) H 11/25/19 11:30 Albumin 4.2 g/dL (3.4-5.0) 11/25/19 11:30 Lipase 59 U/L (73-393) 11/25/19 11:30 COVID-19 PCR Negative (Negative) 11/25/19 15:15 Nasopharyn COVID-19 PCR Not Applicable 11/25/19 15:15 Ref Test Perform Site [facility] hospital lab 11/25/19 15:15
--- NOTE | 2019-11-26 14:50 | PHA.REVIEW ---
Pharmacy Admission Review - Admission Clinical Review (Last Reviewed 09/29/19 @ 12:55 by Chiara Massey) Leukocytosis (Acute) S/P laparoscopic cholecystectomy (Acute) Acute cholecystitis (Acute) procaine Allergy (Severe, Verified 11/25/19 11:50) swelling prednisone Adverse Reaction (Severe, Verified 11/25/19 11:50) gets violent alprazolam Adverse Reaction (Intermediate, Verified 11/25/19 11:50) Dizzy Height 5 ft 8 in Weight 109.769 kg - Renal Dosing Renal Dosing: BUN 19 mg/dL (7-18) H 11/26/19 06:30 Creatinine 1.53 mg/dL (0.70-1.30) H 11/26/19 06:30 Medications needing adjustments: Reviewed - Anticoagulation Anticoagulation: Hgb 15.2 g/dL (13.5-17.5) 11/26/19 06:30 Hct 45.9 % (40.0-50.0) 11/26/19 06:30 Plt Count 194 x1000/uL (130-400) 11/26/19 06:30 Creatinine 1.53 mg/dL (0.70-1.30) H 11/26/19 06:30 DVT Prohphylaxis: Reviewed Medications: Enoxaparin - Opiate Usage Evaluate Pain Scale/Pains Meds: Reviewed Scheduled Bowel Reg ordered if on Opiates?: Yes - Relevant Labs Sodium 139 mmol/L (136-145) 11/26/19 06:30 Potassium 3.6 mmol/L (3.5-5.1) 11/26/19 06:30 Chloride 102 mmol/L (98-107) 11/26/19 06:30 Magnesium 1.9 mg/dL (1.8-2.4) 11/26/19 06:30 - DM Control DM Control: Glucose 171 mg/dL (74-106) H 11/26/19 08:00 Finger Stick Blood Glucose 190 Finger Stick Blood Glucose 190 Finger Stick Blood Glucose 171 Insulin Dosing: Reviewed (Aspart + Detemir BID) - Heart Failure/MA Heart Failure/MA: Troponin I < 0.05 ng/Ml (<0.06) 11/25/19 14:23 EF%, TAMMY's, B-Blockers, Diuretics: Reviewed - BP Control BP Control: Blood Pressure 109/64 Blood Pressure 103/64 Blood Pressure 109/67 If elevated: Reviewed - IV to PO Switch IV Medications: Reviewed (PO by tomorrow) - Home Meds Home Med List reviewed: Reviewed
[2019-11-26] MEDS: Acetaminophen 325 MG TAB 650 MG PO (15:38)
[2019-11-26] MEDS: Pantoprazole 40 MG VIAL IVP (20:14)
[2019-11-26] MEDS: Pramipexole 0.25 MG TAB 0.125 MG PO (22:05)
[2019-11-26] MEDS: Montelukast 10 MG TAB PO (22:05)
[2019-11-27] VITALS (11 sets, daily range): BP systolic 114–129; BP diastolic 69–77; PULSE 97–114; RESP 16–20; TEMP 37–38.4; O2SAT 91–94
[2019-11-27] MEDS: HYDROmorphone 2 MG/ML VIAL 1 MG IVP ×3 (02:15→21:26)
[2019-11-27] MEDS: PIPERACILLIN/TAZO 3.375 GM in Normal Saline 50 ML IVPB ×4 (02:15→20:28)
[2019-11-27] MEDS: Normal Saline Flush 10 ML SYR IVP ×3 (02:16→20:26)
[2019-11-27] MEDS: Acetaminophen 325 MG TAB 650 MG PO ×3 (03:48→15:52)
[2019-11-27] MEDS: oxyCODONE 5 MG TAB PO ×2 (03:49→10:13)
[2019-11-27] MEDS: Lactated Ringers 1,000 ML 75 ML IV (03:51)
[2019-11-27 06:48] LABS: Abs Immature Grans 0.04 k/cumm (0.0-0.09); Absolute Eosinophil Count 0.11 k/cumm (0.0-0.7); Absolute Lymphocyte Count 1.33 k/cumm (1.2-3.4); Absolute Monocyte Count 0.87 k/cumm (0.11-0.7); Basophils % 0.1; Eosinophils % 0.8; HCT 42.9 % (40.0-50.0); HGB 14.6 g/dL (13.5-17.5); Immature Grans % 0.3 %; Lymphocytes % 9.5; Mean Corpuscular Hemoglobin 30.5 pg (27.0-33.0); Mean Corpuscular Volume 89.7 fL (80-95); Mean Platelet Volume 10.2 fL (8.0-11.0); Monocytes % 6.2; Neutrophils % 83.1; Platelet Count 198 x1000/uL (130-400); RBC 4.78 m/cumm (4.50-6.00); RBC Distribution Width 13.5 % (11.8-14.1); White Blood Cell Count 13.98 k/cumm (4.4-10.8)
[2019-11-27 06:51] LABS: Absolute Basophil Count 0.01 k/cumm (0.0-0.2); Absolute Neutrophil Count 11.62 k/cumm (1.2-6.7)
[2019-11-27 06:55] LABS: Anion Gap 8.1 mmol/L (3-11); BUN 18 mg/dL (7-18); CO2 28.9 mmol/L (21.0-32.0); CREATININE 1.34 mg/dL (0.70-1.30); Calcium 8.3 mg/dL (8.5-10.1); Chloride 100 mmol/L (98-107); Estimated GFR 54.56 (mL/min/1.73m2); Glucose 72 mg/dL (74-106); Potassium 3.3 mmol/L (3.5-5.1); Sodium 137 mmol/L (136-145)
[2019-11-27] MEDS: Pregabalin 25 MG CAP 75 MG PO ×2 (07:42→20:25)
[2019-11-27] MEDS: SITagliptin 100 MG TAB PO (07:42)
[2019-11-27] MEDS: metFORMIN 500 MG TAB PO ×2 (07:42→17:15)
[2019-11-27] MEDS: Omeprazole 20 MG CAPCR PO (07:42)
[2019-11-27] MEDS: Atorvastatin 20 MG TAB PO (07:42)
[2019-11-27] MEDS: Docusate Sodium 100 MG CAP PO ×3 (07:42→20:25)
[2019-11-27] MEDS: Enoxaparin 40 MG/0.4 ML SYR SC (07:44)
--- NOTE | 2019-11-27 11:47 | DM INPTCON_ITS ---
Date of service: 11/27/19 Time of Service: 11:48 Diabetes Inpatient Consult DESCRIPTION/ASSESSMENT: Met with Marco Antonio today to discuss diet post lap precious and ways to improve his diabetes management. Marco Antonio s/p lap chol, PMH: IDDM, HTN, neuropathy. Reports no digestive issues since surgery. Following Diabetic soft low fat diet. BMI indicates class 2 obesity. Marco Antonio reports he is retired and works around house daily. No routine exercise. Diet recall indicates mostly home cooked meals high in carbohydrates such as potatoes, milk, canned fruit. Home meds include SS novolog, 42 u levemir BID. Recent A1C (08/21/19) 7.5% indicating poorly controlled diabetes. Finger sticks while hospitalized range from 192 to 72 mg/dl. Reviewed with Marco Antonio principles of carbohydrate counting to optimize blood sugar control and how to follow an 1800 kcal ADA diet. Reviewed meal and snack idea and encouraged him to avoid drinking milk in excess of 8 ounces daily, avoid canned fruit, potatoes, spaghetti, rice all together and to increase intake of lean protein, non starchy vegetables and to start a formalized exercise program(when approved by MD to do so) such as walking 2 miles daily with goal of losing 10% of weight in 90 days. Reviewed importance of following low fat diet post op for optimal digestion post op. Provided education material: [facility] Diabetes Self Management Education Program with contact info. INTERVENTION: Diabetes Education: 1800 calorie ADA diet PLAN: Marco Antonio to count carbohydrates and to keep them to diet plan recommendations Marco Antonio will eat 3 meals, 1-2 snacks daily and exercise daily once MD clears him to do so. Marco Antonio will continue to check BS 3x daily and follow up with PCP for optimal BS control Time Spent in Nutritional Counseling and Treatment: 20 min spent face to face
--- NOTE | 2019-11-27 12:20 | W.PM.PROGNOT ---
Date of Service Date of service: 11/27/19 Time of Service: 12:20 Assessment and Plan Assessment and plan (1) S/P laparoscopic cholecystectomy: Status: Acute Assessment and plan: He is progressing nicely Encouraged to ambulate - he has already been on several walks today Continue IV antibiotics Anticipate he will need to stay until tomorrow based on elevated temp but will reassess later. Subjective Subjective Interval history since last seen: Slept poorly due to incision pain but reports good pain control currently. Tolerating PO [place] like he needed to void but bladder scan did not show much volume. Had 800cc UOP last night. Exam Narrative Exam Narrative: Alert Abdomen distended but soft. No generalized tenderness. Dressing with a small amount of drainage but no bleeding. Objective Objective Clinical Data: Abnormal lab results 11/27/19 11/27/19 Range/Units 06:25 06:25 WBC 13.98 H (4.4-10.8) k/cumm Absolute Neutrophils 11.62 H (1.2-6.7) k/cumm Absolute Monocytes 0.87 H (0.11-0.7) k/cumm Potassium 3.3 L (3.5-5.1) mmol/L Creatinine 1.34 H (0.70-1.30) mg/dL Glucose 72 L D (74-106) mg/dL Calcium 8.3 L (8.5-10.1) mg/dL Vital Signs Temperature 101.1 F H 11/27/19 11:23 Temperature Source Tympanic 11/27/19 11:23 Pulse 114 H 11/27/19 11:23 Pulse Rhythm Regular 11/27/19 07:45 Pulse 106 H 11/25/19 15:20 Respiratory Rate 18 11/27/19 11:23 Respiratory Effort Non-Labored 11/27/19 07:45 Respiratory Depth Normal 11/27/19 07:45 Respiratory Pattern Normal 11/27/19 07:45 Blood Pressure 128/77 11/27/19 11:23 Blood Pressure Mean 86 11/25/19 15:16 Blood Pressure Position Sitting 11/25/19 11:20 Pulse Oximetry 93 L 11/27/19 11:23 Respiratory End-tidal CO2 37 11/25/19 18:50 Oxygen Delivery Method Room Air 11/27/19 11:23 Oxygen Flow Rate 0 11/27/19 11:23 Pain Level 6 11/27/19 11:23 Comment 11/27/19 03:58 Intake & Output 11/26/19 11/27/19 11/27/19 23:59 11:59 23:59 Intake Total 1170 / 2540 995 / 995 Output Total 750 / 1650 1050 / 1050 Balance 420 / 890 -55 / -55 Intake: IV 100 / 700 515 / 515 Oral 1070 / 1840 480 / 480 Output: Urine 750 / 1650 1050 / 1050 Other: Urine Color Straw Light Bianca Urine Appearance Clear Clear Urine Odor Normal Normal Comment pt states earlier in shift that he feels like he has to void but cannot; bladder scanned for 16 cc at approximately 0800. pt encouraged to ambulate; 3 loops with staff. pt able to void after ambulation. Dr. Mills in to assess other pt's; RN reports information to MD Voiding Methods Toilet Urinal Laboratory Results WBC 13.98 k/cumm (4.4-10.8) H 11/27/19 06:25 RBC 4.78 m/cumm (4.50-6.00) 11/27/19 06:25 Hgb 14.6 g/dL (13.5-17.5) 11/27/19 06:25 Hct 42.9 % (40.0-50.0) 11/27/19 06:25 MCV 89.7 fL (80-95) 11/27/19 06:25 MCH 30.5 pg (27.0-33.0) 11/27/19 06:25 MCHC 34.0 g/dL (32.0-36.0) 11/27/19 06:25 RDW 13.5 % (11.8-14.1) 11/27/19 06:25 Plt Count 198 x1000/uL (130-400) 11/27/19 06:25 MPV 10.2 fL (8.0-11.0) 11/27/19 06:25 Immature Gran % 0.3 % 11/27/19 06:25 Neutrophils % 83.1 11/27/19 06:25 Band Neutrophils % 3.0 % 11/25/19 11:30 Lymphocytes % 9.5 11/27/19 06:25 Monocytes % 6.2 11/27/19 06:25 Eosinophils % 0.8 11/27/19 06:25 Basophils % 0.1 11/27/19 06:25 Absolute Neutrophils 11.62 k/cumm (1.2-6.7) H 11/27/19 06:25 Absolute Lymphocytes 1.33 k/cumm (1.2-3.4) 11/27/19 06:25 Absolute Monocytes 0.87 k/cumm (0.11-0.7) H 11/27/19 06:25 Absolute Eosinophils 0.11 k/cumm (0.0-0.7) 11/27/19 06:25 Absolute Basophils 0.01 k/cumm (0.0-0.2) 11/27/19 06:25 Differential Comment Manual differential 11/25/19 11:30 RBC Morphology Normal 11/25/19 11:30 Sodium 137 mmol/L (136-145) 11/27/19 06:25 Potassium 3.3 mmol/L (3.5-5.1) L 11/27/19 06:25 Chloride 100 mmol/L (98-107) 11/27/19 06:25 Carbon Dioxide 28.9 mmol/L (21.0-32.0) 11/27/19 06:25 Anion Gap 8.1 mmol/L (3-11) 11/27/19 06:25 BUN 18 mg/dL (7-18) 11/27/19 06:25 Creatinine 1.34 mg/dL (0.70-1.30) H 11/27/19 06:25 Estimated GFR/1.73 m2 54.56 (mL/min/1.73m2) 11/27/19 06:25 Glucose 72 mg/dL (74-106) L D 11/27/19 06:25 Calcium 8.3 mg/dL (8.5-10.1) L 11/27/19 06:25 Magnesium 1.9 mg/dL (1.8-2.4) 11/26/19 06:30 Total Bilirubin 0.9 mg/dL (0.2-1.0) 11/25/19 11:30 AST 26 U/L (15-37) 11/25/19 11:30 ALT 44 U/L (16-63) 11/25/19 11:30 Alkaline Phosphatase 105 U/L (46-116) 11/25/19 11:30 Troponin I < 0.05 ng/Ml (<0.06) 11/25/19 14:23 Total Protein 8.3 g/dL (6.4-8.2) H 11/25/19 11:30 Albumin 4.2 g/dL (3.4-5.0) 11/25/19 11:30 Lipase 59 U/L (73-393) 11/25/19 11:30 COVID-19 PCR Negative (Negative) 11/25/19 15:15 Nasopharyn COVID-19 PCR Not Applicable 11/25/19 15:15 Ref Test Perform Site [facility] hospital lab 11/25/19 15:15
--- NOTE | 2019-11-27 14:27 | CHAPLAIN ---
Marco Antonio was sitting up watching tv when I visited. He hopes to be discharged to today. Marco Antonio shared photos and stories about his grandson and granddaughter whom he helps care for while their parents work.
--- NOTE | 2019-11-27 14:51 | PDOC.CMPRO ---
- If Service Date Differs Date of service: 11/27/19 Time of Service: 14:51 Care Management Progress Note S/O; Marco Antonio was sitting up in a chair when CM met with him. He stated that he was having a lot of incisional pain today and that he had difficulty sleeping last night as he could not get comfortable. Marco Antonio had thought he would be discharged today however he had a fever late this morning, so discharge plans are uncertain at this time. Marco Antonio did say that his pain is better and he has walked in the halls several times today. A: Marco Antonio is a 59 year old man admitted on 11/25/19 with cholecystitis P:Marco Antonio is likely to return home with no new services when ready. He will follow up with his surgeon and discharge plan of care and transport home via private vehicle with family. CM will continue to support patient, family and discharge planning needs.
[2019-11-27] MEDS: Pantoprazole 40 MG VIAL IVP (20:25)
[2019-11-27] MEDS: Pramipexole 0.25 MG TAB 0.125 MG PO (21:22)
[2019-11-27] MEDS: Montelukast 10 MG TAB PO (21:23)
[2019-11-28] VITALS (8 sets, daily range): BP systolic 112–145; BP diastolic 64–84; PULSE 90–106; RESP 15–20; TEMP 37.1–38.1; O2SAT 93–97
--- NOTE | 2019-11-28 | DI.CT_ITS ---
EXAM: CT ABDOMEN PELVIS W CLINICAL HISTORY: spiking temp postOp. TECHNIQUE: Imaging Protocol: Axial computed tomography images with coronal and sagittal reformatted images were created and reviewed CONTRAST MATERIAL: Intravenous: Omnipaque 350 Contrast volume:100 cc Oral: yes COMPARISON: CT CT CHEST/ABD/PEL W from 11/25/2019 FINDINGS: ABDOMEN: Lung Bases: Small right pleural effusion and adjacent basilar atelectasis. Liver: Normal density. No measurable mass. Gallbladder and biliary tract: Patient is now status post cholecystectomy. Surgical clips are noted in the gall bladder fossa. In the gallbladder fossa, there is a fluid collection as well as air. Th ere is no surrounding peripheral enhancement. No biliary dilatation is seen. There is small amount of air and soft tissue stranding in the right upper quadrant subcutaneous fat related to recent surge ry. Pancreas: Normal density, no abnormal calcifications or inflammatory process. Spleen: Normal. Kidneys: Normal size, contour and axis. No radiodense stones or obstructive uropathy. No masses seen. Small bilateral renal cysts. Adrenal glands: No masses seen. Abdominal Aorta: Abdominal portion non-dilated. PELVIS: Bladder: Symmetric distention, no gross wall thickening. Small amount of air is seen within the bladd er presumably secondary to catheterization. Bowel: No obstruction or bowel wall thickening. The appendix appears normal. A tiny diverticulum is seen in the descending duodenum. Peritoneal cavity: No ascites, collection or mesenteric inflammatory response. Bones: Degenerative disc changes. L5 spondylolysis and mild L5-S1 spondylolisthesis. Reproductive organs: Mildly enlarged prostate. Lymph nodes: Unremarkable. Previous right inguinal hernia repair. Small fatty containing left inguinal hernia. Impression: Gas and fluid in the gallbladder fossa suspicious for a developing abscess. RADIATION DOSE DELIVERED: Total DLP DATA REPOSITORY: All CT scans at this facility are submitted to the National Radiology Data Registry (NRDR) Dose Index Registry (DIR) with the [employer] (ACR). RADIATION OPTIMIZATION: All CT scans at this facility use at least one of these dose optimization te chniques: automated exposure control; mA and/or kV adjustment per patient size (includes targeted exa ms where dose is matched to clinical indication); or iterative reconstruction.
[2019-11-28] MEDS: oxyCODONE 5 MG TAB PO ×4 (00:46→20:10)
[2019-11-28] MEDS: Acetaminophen 325 MG TAB 650 MG PO ×4 (00:48→21:31)
[2019-11-28] MEDS: Normal Saline Flush 10 ML SYR IVP ×2 (02:06→20:09)
[2019-11-28] MEDS: PIPERACILLIN/TAZO 3.375 GM in Normal Saline 50 ML IVPB ×4 (02:06→20:09)
--- NOTE | 2019-11-28 07:02 | PGE_ITS ---
Date of Service Date of service: 11/28/19 Time of Service: 07:03 Assessment and Plan Assessment and plan (1) S/P laparoscopic cholecystectomy: Status: Acute Assessment and plan: A\\ POD#3 s/p Laparoscopic Cholecystectomy Doing well. Febrile yesterday. No fevers since 8 pm last night P\\ If he stays afebrile then will D/C home later today on antibiotics (2) Diabetes mellitus type 2 in obese: Status: Chronic Assessment and plan: NO changes Subjective Subjective Interval history since last seen: Mr. Harris is doing well. He has pain around his incisions only. He is eating without N/V. He had a BM last night. He has been ambulating. HAs had low grade tems all of yesterday. No temps since 8 pm last night. Labs are pending this morning. WBC count has been trending down. Exam Const General: cooperative, comfortable and no acute distress Orientation: alert and oriented x3 HENMT Head: normocephalic and atraumatic Resp Effort & Inspection: normal respiratory effort Auscultation: clear to auscultation bilaterally Cardio Rate: regular rate Rhythm: regular rhythm GI Inspection: incision (c/d/i) Palpation: soft and nontender Auscultation: normal bowel sounds Objective Objective Clinical Data: Vital Signs Temperature 98.8 F 11/28/19 03:35 Temperature Source Tympanic 11/28/19 03:35 Pulse 98 H 11/28/19 03:35 Pulse Rhythm Regular 11/28/19 00:50 Pulse 106 H 11/25/19 15:20 Respiratory Rate 19 11/28/19 03:35 Respiratory Effort 11/28/19 00:50 Respiratory Depth Normal 11/28/19 00:50 Respiratory Pattern Normal 11/28/19 00:50 Blood Pressure 145/64 H 11/28/19 03:35 Blood Pressure Mean 86 11/25/19 15:16 Blood Pressure Position Sitting 11/25/19 11:20 Pulse Oximetry 93 L 11/28/19 03:35 Respiratory End-tidal CO2 37 11/25/19 18:50 Oxygen Delivery Method Room Air 11/28/19 03:35 Oxygen Flow Rate 0 11/28/19 03:35 Pain Level 4 11/28/19 01:48 Comment 11/27/19 03:58 Intake & Output 11/27/19 11/27/19 11/28/19 11:59 23:59 11:59 Intake Total 995 / 1815 820 / 1815 50 / 50 Output Total 105 / 1949 / 1949 1000 / 1000 Balance -55 / -135 -80 / -135 -950 / -950 Intake: IV 515 / 615 100 / 615 50 / 50 Oral 480 / 1200 720 / 1200 Output: Urine 105 / 1949 / 1949 1000 / 1000 Other: Urine Color Light Bianca Straw Yellow Urine Appearance Clear Sediment Cloudy Urine Odor Normal None Normal Comment pt states earlier in shift that he feels like he has to void but cannot; bladder scanned for 16 cc at approximately 0800. pt encouraged to ambulate; 3 loops with staff. pt able to void after ambulation. Dr. Mills in to assess other pt's; RN reports information to PT STATES 600CC WAS FROM SUPPER TIME TIL NOW AND 4-5 VOIDS. Voiding Methods Urinal Toilet Laboratory Results WBC 13.98 k/cumm (4.4-10.8) H 11/27/19 06:25 RBC 4.78 m/cumm (4.50-6.00) 11/27/19 06:25 Hgb 14.6 g/dL (13.5-17.5) 11/27/19 06:25 Hct 42.9 % (40.0-50.0) 11/27/19 06:25 MCV 89.7 fL (80-95) 11/27/19 06:25 MCH 30.5 pg (27.0-33.0) 11/27/19 06:25 MCHC 34.0 g/dL (32.0-36.0) 11/27/19 06:25 RDW 13.5 % (11.8-14.1) 11/27/19 06:25 Plt Count 198 x1000/uL (130-400) 11/27/19 06:25 MPV 10.2 fL (8.0-11.0) 11/27/19 06:25 Immature Gran % 0.3 % 11/27/19 06:25 Neutrophils % 83.1 11/27/19 06:25 Band Neutrophils % 3.0 % 11/25/19 11:30 Lymphocytes % 9.5 11/27/19 06:25 Monocytes % 6.2 11/27/19 06:25 Eosinophils % 0.8 05/07/20 06:25 Basophils % 0.1 11/27/19 06:25 Absolute Neutrophils 11.62 k/cumm (1.2-6.7) H 11/27/19 06:25 Absolute Lymphocytes 1.33 k/cumm (1.2-3.4) 11/27/19 06:25 Absolute Monocytes 0.87 k/cumm (0.11-0.7) H 11/27/19 06:25 Absolute Eosinophils 0.11 k/cumm (0.0-0.7) 11/27/19 06:25 Absolute Basophils 0.01 k/cumm (0.0-0.2) 11/27/19 06:25 Differential Comment Manual differential 11/25/19 11:30 RBC Morphology Normal 11/25/19 11:30 Sodium 137 mmol/L (136-145) 11/27/19 06:25 Potassium 3.3 mmol/L (3.5-5.1) L 11/27/19 06:25 Chloride 100 mmol/L (98-107) 11/27/19 06:25 Carbon Dioxide 28.9 mmol/L (21.0-32.0) 11/27/19 06:25 Anion Gap 8.1 mmol/L (3-11) 11/27/19 06:25 BUN 18 mg/dL (7-18) 11/27/19 06:25 Creatinine 1.34 mg/dL (0.70-1.30) H 11/27/19 06:25 Estimated GFR/1.73 m2 54.56 (mL/min/1.73m2) 11/27/19 06:25 Glucose 72 mg/dL (74-106) L D 11/27/19 06:25 Calcium 8.3 mg/dL (8.5-10.1) L 11/27/19 06:25 Magnesium 1.9 mg/dL (1.8-2.4) 11/26/19 06:30 Total Bilirubin 0.9 mg/dL (0.2-1.0) 11/25/19 11:30 AST 26 U/L (15-37) 11/25/19 11:30 ALT 44 U/L (16-63) 11/25/19 11:30 Alkaline Phosphatase 105 U/L (46-116) 11/25/19 11:30 Troponin I < 0.05 ng/Ml (<0.06) 11/25/19 14:23 Total Protein 8.3 g/dL (6.4-8.2) H 11/25/19 11:30 Albumin 4.2 g/dL (3.4-5.0) 11/25/19 11:30 Lipase 59 U/L (73-393) 11/25/19 11:30 COVID-19 PCR Negative (Negative) 11/25/19 15:15 Nasopharyn COVID-19 PCR Not Applicable 11/25/19 15:15 Ref Test Perform Site [facility] hospital lab 11/25/19 15:15
[2019-11-28 07:16] LABS: Abs Immature Grans 0.03 k/cumm (0.0-0.09); Absolute Basophil Count 0.01 k/cumm (0.0-0.2); Absolute Monocyte Count 0.93 k/cumm (0.11-0.7); Absolute Neutrophil Count 9.27 k/cumm (1.2-6.7); Basophils % 0.1; Eosinophils % 1.6; HGB 14.3 g/dL (13.5-17.5); Immature Grans % 0.3 %; Lymphocytes % 9.5; Mean Corpuscular Hemoglobin 29.8 pg (27.0-33.0); Mean Corpuscular Volume 87.5 fL (80-95); Monocytes % 8.1; Neutrophils % 80.4; Platelet Count 223 x1000/uL (130-400); RBC Distribution Width 13.2 % (11.8-14.1); White Blood Cell Count 11.53 k/cumm (4.4-10.8)
[2019-11-28 07:20] LABS: Absolute Eosinophil Count 0.18 k/cumm (0.0-0.7)
[2019-11-28 07:23] LABS: Anion Gap 9.5 mmol/L (3-11); BUN 15 mg/dL (7-18); CO2 28.5 mmol/L (21.0-32.0); CREATININE 1.22 mg/dL (0.70-1.30); Calcium 8.6 mg/dL (8.5-10.1); Chloride 100 mmol/L (98-107); Glucose 66 mg/dL (74-106); Sodium 138 mmol/L (136-145)
[2019-11-28] MEDS: Atorvastatin 20 MG TAB PO (08:16)
[2019-11-28] MEDS: Pregabalin 25 MG CAP 75 MG PO ×2 (08:16→20:10)
[2019-11-28] MEDS: Docusate Sodium 100 MG CAP PO ×3 (08:16→20:10)
[2019-11-28] MEDS: SITagliptin 100 MG TAB PO (08:16)
[2019-11-28] MEDS: Omeprazole 20 MG CAPCR PO (08:16)
[2019-11-28] MEDS: metFORMIN 500 MG TAB PO (08:17)
[2019-11-28] MEDS: Enoxaparin 40 MG/0.4 ML SYR SC (08:25)
[2019-11-28] MEDS: Omnipaque 350 MG/ML 50 ML BTL IV (09:29)
--- NOTE | 2019-11-28 11:13 | DI.RAD_ITS ---
EXAM: XR CHEST 1V IN DI DEPT CLINICAL HISTORY: spiking temps postOP TECHNIQUE: 2D digital imaging was performed. COMPARISON: CR CHEST 2 VIEWS PA,LAT from 09/25/2017 CR LEFT SHOULDER COMPLETE from 01/10/[address] CHEST/ABD/PEL W from 11/25/2019 FINDINGS: Heart size is normal. The lungs are suboptimally inflated. There there are mildly increased densit ies above the right diaphragm which could represent infiltrate versus atelectasis. There is minimal blunting at the left costophrenic angle. IMPRESSION: Right lower lobe infiltrate versus atelectasis. Tiny left pleural effusion.
[2019-11-28] MEDS: Omnipaque 350 MG/ML 100 ML BTL IV (12:02)
[2019-11-28] MEDS: Normal Saline - Diluent 50 ML VIAL IV (12:02)
[2019-11-28 12:14] LABS: Bilirubin Negative (Negative); Blood Negative (Negative); Clarity Clear (Clear); Glucose 250 mg/dL (Negative); Ketones Negative (Negative); Leukocyte Esterase Negative (Negative); Nitrite Negative (Negative); Urobilinogen 0.2 EU/dL (Up TO 0.2)
--- NOTE | 2019-11-28 13:40 | CMPROGNOTE_ITS ---
Care Management Progress Note S/O: Per MD, Marco Antonio will have additional imaging done today to determine if an abscess has formed. CM continues to follow. A: Marco Antonio is a 59 year old man admitted to [facility] on 11/25/19 with cholecystitis P: Marco Antonio is likely to return home with no new services when ready, per MD. He will follow up with his PCP, surgical services and his plan of care as prescribed. He will transport home via private vehicle with his , Nimisha. CM will continue to follow.
[2019-11-28] MEDS: Pantoprazole 40 MG VIAL IVP (20:10)
[2019-11-28] MEDS: Montelukast 10 MG TAB PO (21:31)
[2019-11-28] MEDS: Pramipexole 0.25 MG TAB 0.125 MG PO (21:31)
[2019-11-29] VITALS (8 sets, daily range): BP systolic 105–131; BP diastolic 68–85; PULSE 79–102; RESP 16–19; TEMP 36.5–37.6; O2SAT 95–97
[2019-11-29] MEDS: PIPERACILLIN/TAZO 3.375 GM in Normal Saline 50 ML IVPB ×4 (01:54→20:14)
[2019-11-29] MEDS: Normal Saline Flush 10 ML SYR IVP ×2 (01:54→20:13)
[2019-11-29] MEDS: Acetaminophen 325 MG TAB 650 MG PO ×2 (03:35→15:35)
[2019-11-29 06:51] LABS: Abs Immature Grans 0.03 k/cumm (0.0-0.09); Absolute Basophil Count 0.01 k/cumm (0.0-0.2); Absolute Eosinophil Count 0.21 k/cumm (0.0-0.7); Absolute Lymphocyte Count 0.91 k/cumm (1.2-3.4); Absolute Monocyte Count 0.93 k/cumm (0.11-0.7); Absolute Neutrophil Count 7.11 k/cumm (1.2-6.7); Basophils % 0.1; Eosinophils % 2.3; HCT 40.1 % (40.0-50.0); HGB 13.8 g/dL (13.5-17.5); Immature Grans % 0.3 %; Lymphocytes % 9.9; Mean Corp. HGB Concentration 34.4 g/dL (32.0-36.0); Mean Corpuscular Volume 87.2 fL (80-95); Mean Platelet Volume 10.1 fL (8.0-11.0); Monocytes % 10.1; Neutrophils % 77.3; Platelet Count 267 x1000/uL (130-400); RBC Distribution Width 13.1 % (11.8-14.1)
[2019-11-29 06:57] LABS: C-Reactive Protein 11.57 mg/dL (0.0-0.3)
[2019-11-29] MEDS: SITagliptin 100 MG TAB PO (07:27)
[2019-11-29] MEDS: Pregabalin 25 MG CAP 75 MG PO ×2 (07:27→20:14)
[2019-11-29] MEDS: Atorvastatin 20 MG TAB PO (07:27)
[2019-11-29] MEDS: Omeprazole 20 MG CAPCR PO (07:27)
[2019-11-29] MEDS: Docusate Sodium 100 MG CAP PO ×3 (07:28→20:13)
[2019-11-29] MEDS: Enoxaparin 40 MG/0.4 ML SYR SC (07:28)
[2019-11-29 07:36] LABS: Procalcitonin 3.2 ng/mL
--- NOTE | 2019-11-29 08:27 | RESPIRATORY ---
Spoke with patient concerning the history of SHARRI listed in his medical record. Patient stated he does have SHARRI but just deals with it as he's been unsuccessful with getting the right equipment from his DME. The patient's DME is [facility] in which set him up with a full face mask which he doesn't like to use. Patient was told to contact [employer] to try and get a different size mask or be re-fitted for a different device. Patient stated he's tried to contact [employer] numerous times and is unsuccessful or they aren't helping him to get a different fitting mask. Patient stated his son or son-in-law switched to [facility] [place] and he's think about doing the same thing. Patient stated that's he's willing to try a CPAP machine is he's not discharge today.
[2019-11-29] MEDS: Simethicone 80 MG CHEW PO (08:45)
[2019-11-29] MEDS: Insulin Aspart 300 UNITS/3 ML PEN SC (11:57)
--- NOTE | 2019-11-29 12:29 | CMPROGNOTE_ITS ---
- If Service Date Differs Date of service: 11/29/19 Time of Service: 12:29 Care Management Progress Note S/O: Marco Antonio was sitting up in his chair when CM met with him. He reported that he was feeling much better today, but he had a fever yesterday. CM discussed the pt with MD, who reported that he will remain here overnight on IV abx. Marco Antonio requested that when he is ready for discharge, his daughter be called to pick him up, as he would like to surprise his with his return. CM will continue to follow. A: Marco Antonio is a 59 year old man admitted to [facility] on 11/25/19 with cholecystitis P: Marco Antonio is likely to return home with no new services when ready, per MD. He will follow up with his PCP, surgical services and his plan of care as prescribed. He will transport home via private vehicle with his daughter, Vale. CM will continue to follow.
--- NOTE | 2019-11-29 13:24 | PGE_ITS ---
Date of Service Date of service: 11/29/19 Time of Service: 13:24 Assessment and Plan Assessment and plan (1) S/P laparoscopic cholecystectomy: Status: Acute (2) Acute cholecystitis: Status: Acute Assessment and plan: Patient states that his fever broke last late last night. His white blood count is down to normal today. He is feeling good for the first time. Because only been 12 hours, I do want to keep him in the hospital and IV antibiotics until tomorrow. Then he should be able to be discharged. I did discuss this with the patient and the rationale. And the concern for possible abscess. I think most likely this is a seroma this point. We discussed wound care activity and diet at home. He is doing well and will m ost likely go home tomorrow on oral antibiotics. 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: Status: Acute (6) Cardiomyopathy: Status: Acute (7) Gastroesophageal reflux disease with esophagitis: Status: Acute (8) SHARRI (obstructive sleep apnea): Status: Acute (9) DM (diabetes mellitus): Status: None Qualifiers: Diabetes mellitus complication detail: with polyneuropathy Diabetes mellitus complication status: with neurologic complications Diabetes mellitus nursing home insulin use: with medical terminologist use Diabetes mellitus type: type 2 Qualified Code(s): E11.42 - Type 2 diabetes mellitus with diabetic polyneuropathy; Z79.4 - buttermaker helper (current) use of insulin Subjective Subjective Interval history since last seen: Pt is doing well. no headaches. No CP or SOB. no productive cough. no dysuria. no leg pain or swelling. pt fever broke last night. He feels much better today. Pain is improved. He has been up walking. He ate gravy last pm and had a loose BM today. no blood. He has been up walking and feeling stronger. no temps today either. Exam HENMT Teeth and gingiva: bridge and fair dentition Throat: posterior oropharynx normal Other: no thrush no jaundice or eye pain. Neck Neck: no JVD Chest Chest: normal inspection of the chest Resp Effort & Inspection: normal respiratory effort and able to speak in complete sentences Auscultation: clear to auscultation bilaterally Cardio Jugular venous pressure: no JVD Rate: regular rate Rhythm: regular rhythm GI Inspection: normal to inspection and incision (c/d/i) Palpation: soft, no hepatosplenomegaly and No ascites Auscultation: normal bowel sounds Skin Other: intact Extrem General: normal to inspection and no clubbing, cyanosis or edema Objective Objective Clinical Data: Abnormal lab results 11/29/19 11/29/19 Range/Units 06:20 06:20 Absolute Neutrophils 7.11 H (1.2-6.7) k/cumm Absolute Lymphocytes 0.91 L (1.2-3.4) k/cumm Absolute Monocytes 0.93 H (0.11-0.7) k/cumm C-Reactive Protein 11.57 H (0.0-0.3) mg/dL Vital Signs Temperature 37.3 C 11/29/19 11:35 Temperature Source Tympanic 11/29/19 11:35 Pulse 95 H 11/29/19 11:35 Pulse Rhythm Regular 11/29/19 07:20 Pulse 106 H 11/25/19 15:20 Respiratory Rate 16 11/29/19 11:35 Respiratory Effort Non-Labored 11/29/19 07:20 Respiratory Depth Normal 11/29/19 07:20 Respiratory Pattern Normal 11/29/19 07:20 Blood Pressure 114/71 11/29/19 11:35 Blood Pressure Mean 86 11/25/19 15:16 Blood Pressure Position Sitting 11/25/19 11:20 Pulse Oximetry 97 11/29/19 11:35 Respiratory End-tidal CO2 37 11/25/19 18:50 Oxygen Delivery Method Room Air 11/29/19 11:35 Oxygen Flow Rate 0 11/29/19 11:35 Pain Level 1 11/29/19 11:35 Comment 11/28/19 15:30 Intake & Output 11/28/19 11/29/19 11/29/19 23:59 11:59 23:59 Intake Total 860 / 1510 1310 / 1550 240 / 1550 Output Total 300 / 2500 Balance 560 / -990 1310 / 1550 240 / 1550 Intake: IV 120 / 220 100 / 100 Oral 740 / 1290 1210 / 1450 240 / 1450 Output: Urine 300 / 2500 Other: Urine Color Straw Yellow Urine Appearance Clear Clear Urine Odor None None Comment Per patient rate. Per patient rate Stool Size Large Stool Characteristics Formed Hard Brown Black Voiding Methods Toilet Toilet Laboratory Results WBC 9.20 k/cumm (4.4-10.8) 11/29/19 06:20 RBC 4.60 m/cumm (4.50-6.00) 11/29/19 06:20 Hgb 13.8 g/dL (13.5-17.5) 11/29/19 06:20 Hct 40.1 % (40.0-50.0) 11/29/19 06:20 MCV 87.2 fL (80-95) 11/29/19 06:20 MCH 30.0 pg (27.0-33.0) 11/29/19 06:20 MCHC 34.4 g/dL (32.0-36.0) 11/29/19 06:20 RDW 13.1 % (11.8-14.1) 11/29/19 06:20 Plt Count 267 x1000/uL (130-400) 11/29/19 06:20 MPV 10.1 fL (8.0-11.0) 11/29/19 06:20 Immature Gran % 0.3 % 11/29/19 06:20 Neutrophils % 77.3 11/29/19 06:20 Band Neutrophils % 3.0 % 11/25/19 11:30 Lymphocytes % 9.9 11/29/19 06:20 Monocytes % 10.1 11/29/19 06:20 Eosinophils % 2.3 11/29/19 06:20 Basophils % 0.1 11/29/19 06:20 Absolute Neutrophils 7.11 k/cumm (1.2-6.7) H 11/29/19 06:20 Absolute Lymphocytes 0.91 k/cumm (1.2-3.4) L 11/29/19 06:20 Absolute Monocytes 0.93 k/cumm (0.11-0.7) H 11/29/19 06:20 Absolute Eosinophils 0.21 k/cumm (0.0-0.7) 11/29/19 06:20 Absolute Basophils 0.01 k/cumm (0.0-0.2) 11/29/19 06:20 Differential Comment Manual differential 11/25/19 11:30 RBC Morphology Normal 11/25/19 11:30 Sodium 138 mmol/L (136-145) 11/28/19 06:40 Potassium 3.0 mmol/L (3.5-5.1) L 11/28/19 06:40 Chloride 100 mmol/L (98-107) 11/28/19 06:40 Carbon Dioxide 28.5 mmol/L (21.0-32.0) 11/28/19 06:40 Anion Gap 9.5 mmol/L (3-11) 11/28/19 06:40 BUN 15 mg/dL (7-18) 11/28/19 06:40 Creatinine 1.22 mg/dL (0.70-1.30) 11/28/19 06:40 Estimated GFR/1.73 m2 >= 60.00 (mL/min/1.73m2) 11/28/19 06:40 Glucose 66 mg/dL (74-106) L 11/28/19 06:40 Calcium 8.6 mg/dL (8.5-10.1) 11/28/19 06:40 Magnesium 1.9 mg/dL (1.8-2.4) 11/26/19 06:30 Total Bilirubin 0.9 mg/dL (0.2-1.0) 11/25/19 11:30 AST 26 U/L (15-37) 11/25/19 11:30 ALT 44 U/L (16-63) 11/25/19 11:30 Alkaline Phosphatase 105 U/L (46-116) 11/25/19 11:30 Troponin I < 0.05 ng/Ml (<0.06) 11/25/19 14:23 C-Reactive Protein 11.57 mg/dL (0.0-0.3) H 11/29/19 06:20 Total Protein 8.3 g/dL (6.4-8.2) H 11/25/19 11:30 Albumin 4.2 g/dL (3.4-5.0) 11/25/19 11:30 Lipase 59 U/L (73-393) 11/25/19 11:30 Procalcitonin 3.2 ng/mL 11/29/19 06:20 Urine Color Straw (Yellow) 11/28/19 12:00 Urine Clarity Clear (Clear) 11/28/19 12:00 Urine pH 7.0 (5-8) 11/28/19 12:00 Ur Specific Ariel 1.010 (1.005-1.025) 11/28/19 12:00 Urine Protein Negative mg/dL (Negative) 11/28/19 12:00 Urine Ketones Negative mg/dL (Negative) 11/28/19 12:00 Urine Blood Negative (Negative) 11/28/19 12:00 Urine Nitrite Negative (Negative) 11/28/19 12:00 Urine Bilirubin Negative (Negative) 11/28/19 12:00 Urine Urobilinogen 0.2 EU/dL (Up TO 0.2) 11/28/19 12:00 Ur Leukocyte Esterase Negative (Negative) 11/28/19 12:00 Urine Glucose 250 mg/dL (Negative) H 11/28/19 12:00 COVID-19 PCR Negative (Negative) 11/25/19 15:15 Nasopharyn COVID-19 PCR Not Applicable 11/25/19 15:15 Ref Test Perform Site [facility] lab 11/25/19 15:15
[2019-11-29] MEDS: Pantoprazole 40 MG VIAL IVP (20:13)
[2019-11-29] MEDS: hydrOXYzine HCL 25 MG TAB PO (20:21)
[2019-11-29] MEDS: Pramipexole 0.25 MG TAB 0.125 MG PO (21:20)
[2019-11-29] MEDS: Montelukast 10 MG TAB PO (21:21)
[2019-11-29] MEDS: oxyCODONE 5 MG TAB PO (21:25)
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
[2019-11-30] MEDS: PIPERACILLIN/TAZO 3.375 GM in Normal Saline 50 ML IVPB ×2 (02:28→09:13)
[2019-11-30] MEDS: Normal Saline Flush 10 ML SYR IVP ×2 (02:28→09:14)
[2019-11-30] MEDS: hydrOXYzine HCL 25 MG TAB PO (03:39)
[2019-11-30 03:54] VITALS: BP 116/80; PULSE 87; RESP 16; TEMP 37.4; O2SAT 94
[2019-11-30 06:48] LABS: Abs Immature Grans 0.05 k/cumm (0.0-0.09); Absolute Basophil Count 0.01 k/cumm (0.0-0.2); Absolute Eosinophil Count 0.34 k/cumm (0.0-0.7); Absolute Lymphocyte Count 1.18 k/cumm (1.2-3.4); Absolute Neutrophil Count 8.63 k/cumm (1.2-6.7); Basophils % 0.1; HCT 41.7 % (40.0-50.0); HGB 14.1 g/dL (13.5-17.5); Immature Grans % 0.4 %; Lymphocytes % 10.4; Mean Corp. HGB Concentration 33.8 g/dL (32.0-36.0); Mean Corpuscular Hemoglobin 29.6 pg (27.0-33.0); Mean Corpuscular Volume 87.4 fL (80-95); Mean Platelet Volume 9.9 fL (8.0-11.0); Monocytes % 9.7; Neutrophils % 76.4; Platelet Count 311 x1000/uL (130-400); RBC 4.77 m/cumm (4.50-6.00); RBC Distribution Width 13.4 % (11.8-14.1)
[2019-11-30 06:59] LABS: C-Reactive Protein 8.78 mg/dL (0.0-0.3)
[2019-11-30 08:12] VITALS: BP 117/71; PULSE 89; RESP 20; TEMP 37; O2SAT 94
[2019-11-30] MEDS: Omeprazole 20 MG CAPCR PO (09:11)
[2019-11-30] MEDS: SITagliptin 100 MG TAB PO (09:11)
[2019-11-30] MEDS: metFORMIN 500 MG TAB PO (09:12)
[2019-11-30] MEDS: Atorvastatin 20 MG TAB PO (09:12)
[2019-11-30] MEDS: Docusate Sodium 100 MG CAP PO (09:12)
[2019-11-30] MEDS: oxyCODONE 5 MG TAB PO (09:12)
[2019-11-30] MEDS: Enoxaparin 40 MG/0.4 ML SYR SC (09:12)
[2019-11-30] MEDS: Pregabalin 25 MG CAP 75 MG PO (09:23)
--- NOTE | 2019-11-30 11:25 | W.PM.PROGNOT ---
Date of Service Date of service: 11/30/19 Time of Service: 11:26 Assessment and Plan Assessment and plan (1) S/P laparoscopic cholecystectomy: Status: Acute Assessment and plan: Patient is going to be discharged home today. He will be discharged home on Augmentin with probiotic therapy for 30 days. I discussed wound care activity and warning signs and diet with him. He will follow-up with Dr. Ridley on Sunday. If he has increasing pain, fever chills, chest pain or shortness of breath, he should return the ED. He did well with surgery and did not have any cardiac problems. He does have a cardiac history and has not had a recent follow-up with a stress test or echo. He should probably do that. He is appointment with his PCP this week and can discuss that with him. He will resume his normal diabetic regimen at home. His blood sugars have been lower in the hospital but that is probably because he is following a better diet. He notes his neuropathy is been better in the hospital, but again that is probably because his blood sugars have been under better control. He has had no fever or chills for 24 hours. We will discharge him home on oral antibiotics and follow him closely. He needs to maintain very close control of his blood sugars. I did discuss the importance of this with him. 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: Status: Acute (5) Meralgia paresthetica of left side: Status: Acute (6) SHARRI (obstructive sleep apnea): Status: Acute (7) Gastroesophageal reflux disease with esophagitis: Status: Acute (8) Obesity: Status: Acute Qualifiers: Obesity type: due to excess calories Obesity classification: adult class 1 (BMI 30 - 34.9) Serious obesity comorbidity presence: without serious comorbidity Body mass index: BMI 31.0-31.9 Qualified Code(s): E66.09 - Other obesity due to excess calories; Z68.31 - Body mass index (BMI) 31.0-31.9, adult (9) DM (diabetes mellitus): Status: None Qualifiers: Diabetes mellitus type: type 2 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 no headaches. No CP or SOB. no productive cough. no dysuria. no leg pain or swelling. He had a formed BM today. We had to go down on his insulin in the hosp- but I think that is b/c he is following a strict diabetic diet He has no temps for the past 24 hrs and is doing well. Labs are stable. I d/w diet and activity. He has a F/u in am w/ his PCP. He should f/u w/ Dr. Ridley on sunday- he will need to call for appt. Exam Chest Chest: normal inspection of the chest Cardio Jugular venous pressure: no JVD Rate: regular rate Rhythm: regular rhythm Other: one of the RN's told him they heard a murmur. I do not here any today. He has had an CA in the past- and has not followed up w/ cards in at least 10 yrs. He should brought have a stress test. GI Inspection: incision (c/d/i. No redness draining swelling or bruising. Good bowel sounds. Mini) Palpation: soft, no hernias, No ascites and other Auscultation: normal bowel sounds Skin General skin exam: no rashes or lesions noted Extrem General: normal to inspection and no clubbing, cyanosis or edema Other: He notes his neuropathy has been better while he was in the hosp- prob from tight control of blood sugars. Objective Objective Clinical Data: Abnormal lab results 11/30/19 11/30/19 Range/Units 06:17 06:17 WBC 11.30 H (4.4-10.8) k/cumm Absolute Neutrophils 8.63 H (1.2-6.7) k/cumm Absolute Lymphocytes 1.18 L (1.2-3.4) k/cumm Absolute Monocytes 1.10 H (0.11-0.7) k/cumm C-Reactive Protein 8.78 H (0.0-0.3) mg/dL Vital Signs Temperature 37 C 11/30/19 08:12 Temperature Source Temporal Artery Scan 11/30/19 08:12 Pulse 89 11/30/19 08:12 Pulse Rhythm Regular 11/30/19 02:15 Pulse 106 H 11/25/19 15:20 Respiratory Rate 20 11/30/19 08:12 Respiratory Effort Non-Labored 11/30/19 02:15 Respiratory Depth Normal 11/30/19 02:15 Respiratory Pattern Normal 11/30/19 02:15 Blood Pressure 117/71 11/30/19 08:12 Blood Pressure Mean 86 11/25/19 15:16 Blood Pressure Position Sitting 11/25/19 11:20 Pulse Oximetry 94 L 11/30/19 08:12 Respiratory End-tidal CO2 37 11/25/19 18:50 Oxygen Delivery Method Room Air 11/30/19 08:12 Oxygen Flow Rate 0 11/30/19 08:12 Pain Level 8 11/30/19 09:12 Comment 11/28/19 15:30 Intake & Output 11/29/19 11/29/19 11/30/19 11:59 23:59 11:59 Intake Total 1360 / 1940 580 / 1940 50 / 50 Balance 1360 / 1940 580 / 1940 50 / 50 Intake: IV 150 / 250 100 / 250 50 / 50 Oral 1210 / 1690 480 / 1690 Other: Urine Color Yellow Urine Appearance Clear Clear Clear Urine Odor None Comment Per patient rate Voiding Methods Toilet Laboratory Results WBC 11.30 k/cumm (4.4-10.8) H 11/30/19 06:17 RBC 4.77 m/cumm (4.50-6.00) 11/30/19 06:17 Hgb 14.1 g/dL (13.5-17.5) 11/30/19 06:17 Hct 41.7 % (40.0-50.0) 11/30/19 06:17 MCV 87.4 fL (80-95) 11/30/19 06:17 MCH 29.6 pg (27.0-33.0) 11/30/19 06:17 MCHC 33.8 g/dL (32.0-36.0) 11/30/19 06:17 RDW 13.4 % (11.8-14.1) 11/30/19 06:17 Plt Count 311 x1000/uL (130-400) 11/30/19 06:17 MPV 9.9 fL (8.0-11.0) 11/30/19 06:17 Immature Gran % 0.4 % 11/30/19 06:17 Neutrophils % 76.4 11/30/19 06:17 Band Neutrophils % 3.0 % 11/25/19 11:30 Lymphocytes % 10.4 11/30/19 06:17 Monocytes % 9.7 11/30/19 06:17 Eosinophils % 3.0 11/30/19 06:17 Basophils % 0.1 11/30/19 06:17 Absolute Neutrophils 8.63 k/cumm (1.2-6.7) H 11/30/19 06:17 Absolute Lymphocytes 1.18 k/cumm (1.2-3.4) L 11/30/19 06:17 Absolute Monocytes 1.10 k/cumm (0.11-0.7) H 11/30/19 06:17 Absolute Eosinophils 0.34 k/cumm (0.0-0.7) 11/30/19 06:17 Absolute Basophils 0.01 k/cumm (0.0-0.2) 11/30/19 06:17 Differential Comment Manual differential 11/25/19 11:30 RBC Morphology Normal 11/25/19 11:30 Sodium 138 mmol/L (136-145) 11/28/19 06:40 Potassium 3.0 mmol/L (3.5-5.1) L 11/28/19 06:40 Chloride 100 mmol/L (98-107) 11/28/19 06:40 Carbon Dioxide 28.5 mmol/L (21.0-32.0) 11/28/19 06:40 Anion Gap 9.5 mmol/L (3-11) 11/28/19 06:40 BUN 15 mg/dL (7-18) 11/28/19 06:40 Creatinine 1.22 mg/dL (0.70-1.30) 11/28/19 06:40 Estimated GFR/1.73 m2 >= 60.00 (mL/min/1.73m2) 11/28/19 06:40 Glucose 66 mg/dL (74-106) L 11/28/19 06:40 Calcium 8.6 mg/dL (8.5-10.1) 11/28/19 06:40 Magnesium 1.9 mg/dL (1.8-2.4) 11/26/19 06:30 Total Bilirubin 0.9 mg/dL (0.2-1.0) 11/25/19 11:30 AST 26 U/L (15-37) 11/25/19 11:30 ALT 44 U/L (16-63) 11/25/19 11:30 Alkaline Phosphatase 105 U/L (46-116) 11/25/19 11:30 Troponin I < 0.05 ng/Ml (<0.06) 11/25/19 14:23 C-Reactive Protein 8.78 mg/dL (0.0-0.3) H 11/30/19 06:17 Total Protein 8.3 g/dL (6.4-8.2) H 11/25/19 11:30 Albumin 4.2 g/dL (3.4-5.0) 11/25/19 11:30 Lipase 59 U/L (73-393) 11/25/19 11:30 Procalcitonin 3.2 ng/mL 11/29/19 06:20 Urine Color Straw (Yellow) 11/28/19 12:00 Urine Clarity Clear (Clear) 11/28/19 12:00 Urine pH 7.0 (5-8) 11/28/19 12:00 Ur Specific Amo 1.010 (1.005-1.025) 11/28/19 12:00 Urine Protein Negative mg/dL (Negative) 11/28/19 12:00 Urine Ketones Negative mg/dL (Negative) 11/28/19 12:00 Urine Blood Negative (Negative) 11/28/19 12:00 Urine Nitrite Negative (Negative) 11/28/19 12:00 Urine Bilirubin Negative (Negative) 11/28/19 12:00 Urine Urobilinogen 0.2 EU/dL (Up TO 0.2) 11/28/19 12:00 Ur Leukocyte Esterase Negative (Negative) 11/28/19 12:00 Urine Glucose 250 mg/dL (Negative) H 11/28/19 12:00 COVID-19 PCR Negative (Negative) 11/25/19 15:15 Nasopharyn COVID-19 PCR Not Applicable 11/25/19 15:15 Ref Test Perform Site [facility] lab 11/25/19 15:15
[2019-11-30] MEDS: Insulin Aspart 300 UNITS/3 ML PEN SC (12:00)
--- NOTE | 2019-11-30 15:44 | PDOC.CMDIS ---
- If Service Date Differs Date of service: 11/30/19 Time of Service: 15:44 LACE Index Scoring Tool - Questions: Length of Stay (in days): 4 - 6 Acuity (Admit via E.D.?): Yes Comorbidities: Diabetes w/o Complication E.D. Visits: 2 - Answers: Total Score: 10 Risk of Readmission: High Risk Care Management Discharge Reason for Hospitalization: Acute Cholecystitis Discharge Plan: Marco Antonio will return home with no additional services at this time. His will drive him home via private vehicle. He will follow up with his PCP and discharge plan of care. He is happy to be returning home today and stated that he is feeling much better. Patient/Family Education Needs: Review discharge instructions regarding activity levels and medications, discussion of self care needs including ask me three.
== END 2019-11-30 13:00 | disposition home or self-care (01) | DRG 418 ==
LOC: ER 16:49 → SUR 16:51 → MS 19:24
PROVIDERS: Emergency Medicine; Surgery; Admitting Provider Surgery; Emergency Provider Physician Assistant; PCP Family Medicine; Visit Provider Surgery
PROC: 0FT44ZZ Resection of Gallbladder, Percutaneous Endoscopic Approach (ICD-10-PCS; CPT 47562; principal; 2019-11-25 15:10)
DX: K80.00 Calculus of gallbladder with acute cholecystitis without obstruction (principal); I42.9 Cardiomyopathy, unspecified; N13.8 Other obstructive and reflux uropathy; K82.A1 Gangrene of gallbladder in cholecystitis; R50.82 Postprocedural fever; K05.319 Chronic periodontitis, localized, unspecified severity; E11.65 Type 2 diabetes mellitus with hyperglycemia; E11.42 Type 2 diabetes mellitus with diabetic polyneuropathy; E66.9 Obesity, unspecified; F41.9 Anxiety disorder, unspecified; N40.1 Benign prostatic hyperplasia with lower urinary tract symptoms; G47.33 Obstructive sleep apnea (adult) (pediatric); G25.81 Restless legs syndrome; Z71.3 Dietary counseling and surveillance; K21.0 Gastro-esophageal reflux disease with esophagitis; Z68.36 Body mass index [BMI] 36.0-36.9, adult; Z79.4 Long term (current) use of insulin
CPT/HCPCS: 47562; 36415; 74177; 80048; 80053; 82947; 83690; 84145; 93005; 96361; 96365; 96375; 99239; 99253; 99285; J1650; NC; U0003; 71045; 71260; 76705; 81003; 83735; 84484; 85025; 86140; 88304; 93010; 99284; J1885; J2001; J2405; J2543; J2704; J3490; Q9967

== ENCOUNTER 2019-12-02 11:04 | Outpatient (REF) | payer MEDICAID, SELFPAY | END 2019-12-02 11:24 | LOC: LBN 11:04 | PROVIDERS: PCP Family Medicine; Visit Provider Surgery | DX: T81.49XA Infection following a procedure, other surgical site, initial encounter (principal); L08.9 Local infection of the skin and subcutaneous tissue, unspecified | CPT/HCPCS: 87077; 87070; 87186; 87205 ==

== ENCOUNTER 2019-12-16 13:57 | Outpatient (REF) | payer MEDICAID, SELFPAY ==
[2019-12-16 15:05] LABS: Abs Immature Grans 0.04 k/cumm (0.0-0.09); Absolute Basophil Count 0.04 k/cumm (0.0-0.2); Absolute Eosinophil Count 0.16 k/cumm (0.0-0.7); Absolute Lymphocyte Count 2.62 k/cumm (1.2-3.4); Basophils % 0.4; Eosinophils % 1.5; HCT 47.5 % (40.0-50.0); HGB 15.8 g/dL (13.5-17.5); Immature Grans % 0.4 %; Lymphocytes % 23.9; Mean Corp. HGB Concentration 33.3 g/dL (32.0-36.0); Mean Corpuscular Hemoglobin 29.3 pg (27.0-33.0); Mean Platelet Volume 10.7 fL (8.0-11.0); Monocytes % 9.1; Neutrophils % 64.7; Platelet Count 314 x1000/uL (130-400); RBC Distribution Width 13.7 % (11.8-14.1); White Blood Cell Count 10.97 k/cumm (4.4-10.8)
[2019-12-16 15:37] LABS: ALT 42 U/L (16-63); AST 35 U/L (15-37); Albumin 3.7 g/dL (3.4-5.0); Alkaline Phosphatase 95 U/L (46-116); Anion Gap 7.7 mmol/L (3-11); BUN 18 mg/dL (7-18); Bilirubin, Total 0.6 mg/dL (0.2-1.0); CO2 29.3 mmol/L (21.0-32.0); CREATININE 0.89 mg/dL (0.70-1.30); Calcium 9.3 mg/dL (8.5-10.1); Chloride 102 mmol/L (98-107); Glucose 61 mg/dL (74-106); Potassium 3.9 mmol/L (3.5-5.1); Sodium 139 mmol/L (136-145); Total Protein 7.6 g/dL (6.4-8.2)
== END 2019-12-16 14:17 ==
LOC: LBN 13:57
PROVIDERS: PCP Family Medicine; Visit Provider Surgery
DX: K81.0 Acute cholecystitis (principal); R53.81 Other malaise; R53.83 Other fatigue; R63.0 Anorexia
CPT/HCPCS: 80053; 85025

== ENCOUNTER 2019-12-18 01:59 | Outpatient (CLI) | payer MEDICAID, SELFPAY ==
--- NOTE | 2019-12-18 07:00 | DI.CT_ITS ---
EXAM: CT ABDOMEN PELVIS W CLINICAL HISTORY: s/p lap. precious for gangrenous cholecystitis,MALAISE,FATIGUE,ANOREXIA,ACUTE. TECHNIQUE: Imaging Protocol: Axial computed tomography images with coronal and sagittal reformatted images were created and reviewed CONTRAST MATERIAL: Intravenous: Omnipaque 350 Contrast volume:100 ml Oral: yes COMPARISON: CT CT ABDOMEN PELVIS W from 11/28/2019 FINDINGS: ABDOMEN: Lung Bases: Normal where visualized. The previously noted small right pleural effusion and adjacent a telectasis has resolved. Liver: Normal density. No measurable mass. Gallbladder and biliary tract: The patient is status post cholecystectomy. Surgical clips are noted. In the gallbladder fossa, there is a low-density collection measuring 3.7 x 2.4 x 2.1 cm. This cou ld represent postsurgical collection. An abscess cannot be entirely excluded. There is no abnormal gas. The common bile duct is not dilated and appears unchanged.. There is no intrahepatic biliary d ilatation or air in the biliary tree. Pancreas: Normal density, no abnormal calcifications or inflammatory process. Spleen: Normal. Kidneys: Normal size, contour and axis. No radiodense stones or obstructive uropathy. No masses seen. Left renal cysts. Adrenal glands: No masses seen. Abdominal Aorta: Abdominal portion non-dilated. PELVIS: Bladder: Symmetric distention, no gross wall thickening. Bowel: A tiny diverticulum is seen of the descending duodenum, adjacent to the distal common bile paul t. No obstruction or bowel wall thickening. Normal appendix. Moderate quantity of stool. Peritoneal cavity: No ascites, collection or mesenteric inflammatory response. Bones: Degenerative disc changes, bilateral L5 spondylo lysis and grade 1 L5-S1 spondylolisthesis are again noted.. Reproductive organs: Within normal limits. Lymph nodes: Unremarkable. Prior right inguinal hernia repair. Small fatty containing left inguinal hernia. Impression: Fluid collection in the gallbladder fossa status post cholecystectomy. The findings could represent a postsurgical seroma. Abscess cannot be excluded. No abnormal gas is seen.. RADIATION DOSE DELIVERED: 909.85mGy.cm Total DLP DATA REPOSITORY: All CT scans at this facility are submitted to the National Radiology Data Registry (NRDR) Dose Index Registry (DIR) with the [employer] (A[employer]). RADIATION OPTIMIZATION: All CT scans at this facility use at least one of these dose optimization te chniques: automated exposure control; mA and/or kV adjustment per patient size (includes targeted exa ms where dose is matched to clinical indication); or iterative reconstruction.
[2019-12-18] MEDS: Breeza Beverage 473 ML BTL PO ×2 (07:35→07:36)
[2019-12-18] MEDS: Omnipaque 350 MG/ML 50 ML BTL PO (07:36)
[2019-12-18] MEDS: Normal Saline - Diluent 50 ML VIAL IV (09:13)
[2019-12-18] MEDS: Omnipaque 350 MG/ML 100 ML BTL IJ (09:14)
== END 2019-12-18 02:19 ==
PROVIDERS: PCP Family Medicine; Visit Provider Surgery
DX: R53.83 Other fatigue (principal); R53.81 Other malaise; R63.0 Anorexia; Z98.890 Other specified postprocedural states; Z90.49 Acquired absence of other specified parts of digestive tract
CPT/HCPCS: 74177; J3490; Q9967

== ENCOUNTER 2020-02-01 07:18 | Emergency (ER) | payer MEDICAID, SELFPAY ==
[2020-02-01 07:25] VITALS: BP 135/90; PULSE 85; RESP 16; TEMP 36.7; O2SAT 98
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
[2020-02-01] MEDS: Lidocaine 5% Patch 1 PATCH TP (08:18)
[2020-02-01] MEDS: Acetaminophen 500 MG TAB 1000 MG PO (08:18)
[2020-02-01] MEDS: Ibuprofen 600 MG TAB PO (08:18)
== END 2020-02-01 08:24 | disposition home or self-care (01) ==
PROVIDERS: Emergency Provider Physician Assistant; PCP Family Medicine
DX: M79.652 Pain in left thigh (principal); E11.42 Type 2 diabetes mellitus with diabetic polyneuropathy; Z79.4 Long term (current) use of insulin
CPT/HCPCS: 99282; 99283

== ENCOUNTER 2020-02-02 14:57 | Outpatient (CLI) | payer MEDICAID, SELFPAY ==
--- NOTE | 2020-02-02 15:00 | DI.RAD_ITS ---
EXAM: XR FEMUR LT CLINICAL HISTORY: Worsening upper thigh pain m79.606 TECHNIQUE: COMPARISON: No exams were available for comparison FINDINGS: Four views were obtained. There are mild degenerative changes of the left hip. There are severe deg enerative changes of the joints of the left knee, particularly at the medial tibiofemoral joint. No other significant bony or soft tissue abnormality seen. IMPRESSION:
--- NOTE | 2020-02-02 15:00 | DI.US_ITS ---
EXAM: US LOWER EXTREMITY VENOUS LT CLINICAL HISTORY: Worsening L leg pain, worst over femoral triangle M79.606 pain in leg TECHNIQUE: Left lower extremity venous ultrasound performed using grayscale, color-flow, and spectra l Doppler analysis. COMPARISON: No exams were available for comparison FINDINGS: The left common femoral, femoral and popliteal veins demonstrate normal compressibility, augmentation , and color Doppler. The posterior tibial veins are patent. The saphenofemoral junction is unremarka ble. There is no evidence of a [place] cyst. The soft tissues are unremarkable. IMPRESSION: No DVT. DATA REPOSITORY:
== END 2020-02-02 15:17 ==
PROVIDERS: PCP Family Medicine; Visit Provider Family Medicine
DX: M79.605 Pain in left leg (principal); M79.652 Pain in left thigh; M16.12 Unilateral primary osteoarthritis, left hip; M17.12 Unilateral primary osteoarthritis, left knee
CPT/HCPCS: 73552; 93971

== ENCOUNTER 2020-02-25 11:33 | Outpatient (CLI) | payer MEDICAID, SELFPAY ==
--- NOTE | 2020-02-25 11:15 | DI.RAD_ITS ---
EXAM: XR KNEE LT 2V AP,LAT CLINICAL HISTORY: pain TECHNIQUE: COMPARISON: No exams were available for comparison FINDINGS: Two views were obtained. There is severe narrowing of the cartilaginous joint space of tibiofemoral joint with slight medial subluxation the femur on tibia. There is mild subchondral sclerosis medial femoral condyle and medial tibial plateau. There moderate marginal osteophytes seen involving all 3 joints of knee. IMPRESSION: Severe DJD predominantly involving medial tibiofemoral joint
== END 2020-02-25 11:53 ==
PROVIDERS: PCP Family Medicine; Referring Provider Family Medicine; Visit Provider Orthopaedic Surgery
DX: M17.12 Unilateral primary osteoarthritis, left knee (principal); M25.762 Osteophyte, left knee
CPT/HCPCS: 73560

== ENCOUNTER 2020-05-20 08:07 | Outpatient (CLI) | payer MEDICAID, SELFPAY ==
[2020-05-21 15:12] LABS: SARS-CoV-2 RNA Not Detected (NotDetected); SARS-CoV-2 RNA Source Nasal/Nares
== END 2020-05-20 08:27 ==
PROVIDERS: PCP Family Medicine; Visit Provider Orthopaedic Surgery
DX: Z11.59 Encounter for screening for other viral diseases (principal); Z01.818 Encounter for other preprocedural examination; Z01.812 Encounter for preprocedural laboratory examination
CPT/HCPCS: 36415; U0003; 85025

== ENCOUNTER 2020-05-24 05:50 | Observation (INO) | payer MEDICAID, SELFPAY ==
[2020-05-24] VITALS (7 sets, daily range): BP systolic 95–159; BP diastolic 53–97; PULSE 83–103; RESP 18–25; TEMP 35.8–36.7; O2SAT 94–97
--- NOTE | 2020-05-24 | DI.RAD_ITS ---
EXAM: XR KNEE LT 2V AP,LAT CLINICAL HISTORY: check total knee components in RR. TECHNIQUE: 2D digital imaging was performed. COMPARISON: CR XR KNEE LT 2V AP,LAT from 02/25/2020 FINDINGS: BONES: The patient is now status post left total knee replacement. No fracture or dislocation. JOINTS: The joint spaces are well maintained. No joint effusion is present. SOFT TISSUE: Normal. IMPRESSION: Status post left total knee replacement. DATA REPOSITORY: RADIATION DOSE DELIVERED:
[2020-05-24] MEDS: Lactated Ringers 1,000 ML 80 ML IV ×2 (07:07→12:24)
[2020-05-24] MEDS: ceFAZolin 2 GM/50 ML BAG IVPB ×3 (07:55→17:11)
[2020-05-24] MEDS: Hydrogen Peroxide 3% 480 ML BTL (09:20)
[2020-05-24] MEDS: oxyCODONE-CR 10 MG TABCR PO (12:23)
[2020-05-24] MEDS: Normal Saline Flush 10 ML SYR IV ×2 (12:24→16:47)
[2020-05-24] MEDS: Docusate Sodium 100 MG CAP PO (13:22)
--- NOTE | 2020-05-24 13:45 | IN_ITS ---
Date of service: 05/24/20 Time of Service: 13:45 PT Notes Visit Reasons: L KNEE Physical Therapy Inpatient Initial Evaluation Date: 05/24/2020 Referring Doctor: Akash Bright MD PT Orders: PT CONSULT: Status post Ortho surgery. Get OOB ambulating this afternoon. WBAT to left leg. Precautions: Fall. Standard. WBAT on left LE. Patient Profile/Admitting Diagnosis: Marco Antonio is a 59-year-old male with primary unilateral osteoarthritis of the left knee and is status post left total knee arthroplasty on postoperative day 0. PMHX: Medical History (Updated 05/10/20 @ 10:17 by Rosalva Smith) Abscess of upper gum Acute ethmoidal sinusitis 04/14/[address] Smith (ENT) Acute recurrent maxillary sinusitis Allergic rhinitis due to food Allergic rhinitis due to pollen Allergy Injections - Dr. Smith Arthritis of knee, left Asthma (05/08/13) 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 BPH loc w urin obs/LUTS (01/16/18) Canker sore Cardiomyopathy (11/21/12) cath 2008 45%EF; 50%LAD, prior apical infarct echo 2009 EF 50%; MPI 2009 fixed A/S defect EF 49% Chronic migraine Receives therapeutic Botox by Dr Smith at [facility] Dermatitis due to ingested food Diabetes mellitus type 2 in obese (05/08/13) A1C goal 7.5 Diabetic polyneuropathy associated with type 2 diabetes mellitus (03/14/18) DM (diabetes mellitus) Environmental allergies Erectile dysfunction (11/20/12) LEAH (generalized anxiety disorder) (03/19/15) Gangrenous cholecystitis Gastroesophageal reflux disease with esophagitis (09/21/11) Hyperlipidemia (09/11/13) PCEq risk 7.8% LDL baseline 127 Insomnia, unspecified (11/20/12) Leg cramps (03/14/18) Lumbar radiculitis Meralgia paresthetica of left side Migraine headache without aura Myositis (05/07/13) Nonintractable episodic headache (01/20/16) Obesity SHARRI (obstructive sleep apnea) (09/02/14) Pain of left lower extremity (04/11/17) Peripheral neuropathy 07/01/19 sylvain Rosales f/u 07/30/19 Pre-ulcerative calluses Restless leg syndrome Shortness of breath Tensor fascia laura syndrome Surgical History (Updated 05/12/20 @ 13:11 by Rosalva Smith) Colonoscopy - MAC (07/27/17) cortisone injection (03/17/14) lumbar H/O chest tube placement History of cardiac catheterization x2 1980s History of repair of anterior cruciate ligament of left knee Osteoarthritis of left acromioclavicular joint (02/27/18) Status post excision of left distal clavicle S/P laparoscopic cholecystectomy (~11/25/19) acute hemorrhagic, gangrenous cholecystitis Status post arthroscopy of left knee Social History/Home Situation: Lives with in a private home with 3 steps to enter without rails. Verbalizes that he hopes to go home to his daughter's house with shorter step height but still with 2 steps to enter without rails. States that he has support from his daughters and his son as well as with while he recovers. Does woodworking. Equipment Owned/DME: None Subjective: Complains about the left knee being not fully stable. Reported lightheadedness in standing that subsided after several minutes. Denies headache and chest pain throughout session. Objective: General Observation: TAMMY wraps on the left LE. Knee immobilizer on left LE. TEDS on right LE. Antithromboembolic pumps on the right LE. Cryocuff on the left LE. IV in the right UE. Mental Status: Alert and oriented x4 Pain: Reports 5?6/10 pain in the left knee ROM: Right Upper Extremity: Shoulder Flexion WFL. Shoulder abduction WFL. Elbow flexion WFL. Wrist flexion WFL. Opening and closing of hand WFL. Left Upper Extremity: Shoulder Flexion WFL. Shoulder abduction WFL. Elbow flexion WFL. Wrist flexion WFL. Opening and closing of hand WFL. Right Lower Extremity: Hip flexion WFL. Hip abduction WFL. Knee flexion WFL. Ankle dorsiflexion WFL. Ankle plantarflexion WFL. Left Lower Extremity: Hip flexion WFL. Hip abduction WFL. Knee flexion 30 to 95 degrees. Knee extension -30 degrees. Ankle dorsiflexion WFL. Ankle plantarflexion WFL. Strength: Right Upper Extremity: Shoulder flexors 5/5. Shoulder abductors 5/5. Elbow flexors 5/5. Elbow extensors 5/5. Cad Intern strong. Left Upper Extremity: Shoulder flexors 5/5. Shoulder abductors 5/5. Elbow flexors 5/5. Elbow extensors 5/5. Cad Intern strong. Right Lower Extremity: Hip flexors 5/5. Hip abductors 5/5. Knee flexors 5/5. Knee extensors 5/5. Ankle dorsiflexors 5/5. Ankle plantarflexors 5/5. Left Lower Extremity:Hip flexors 4/5. Hip abductors 4/5. Knee flexors 3-/5. Knee extensors 3-/5, admitted quads activation during standing and ambulation activity. Ankle dorsiflexors 4/5. Ankle plantarflexors 5/5. Sensation: Intact as to pain and pressure on bilateral lower extremities. Bed Mobility/Transfers: Supine to sit SBA with HOB 45 degrees Sit to supine SBA with HOB 45 degrees Sit to stand contact-guard assist Stand to sit contact-guard assist Bed to chair minimal assist with cues for left LE placement and hand placement THERA EX: Tolerated lateral heel raises while holding onto front wheeled walker x 10. Only completed high marches x 3 with knee buckling on left knee with bending of the right hip and knee. Gait: Tolerated 100 feet +100 feet and wheeled walker with WBAT on the left LE requiring mostly contact-guard assist but with knee buckling x 3 required minimal assist for safety. Tolerated up-and-down 6 x 4-inch steps and 4 x 2- inch steps while holding onto bilateral rails with step to gait pattern requiring standby assist. With fatigue, patient had knee buckling on the left after stair negotiation requiring a short seated rest. Balance: Static Sitting: Normal Dynamic Sitting: Normal Static Standing: Fair Dynamic Standing: Fair Special Tests: Mobility Limitations Standardized Measure [facility] AM-PAC 6 clicks Basic Mobility Inpatient Short Form: Raw Score: 18 CMS Score: 47% deficit Informed Consent/Education: Patient instructed in purpose of PT consult and plan of care. Assessment: Marco Antoino demonstrates functional mobility decline requiring the use of front wheeled walker for all mobility ADL performance, weakness of the right hip and knee major muscle groups, poor right quadriceps activation, and increased fall risk due to postoperative status. His safety at home may be maximized with assist of 2 family members on each side to get through entrance steps as his daughter's house does not have rails. Patient presents with clinical signs and symptoms consistent with current/admitting diagnoses that have resulted to mobility limitations, gait instability, generalized weakness, and impairment of motor control as demonstrated by the following impairment level findings: 1. Decreased strength to right knee major muscle groups 2. Impaired standing balance 3. Impaired activity tolerance 4. Limitation of joint range of motion in right knee Impairments are contributing to the following functional limitations: 1. Increased dependence with transfers 2. Inability to safely ambulate without assistive device and physical assistance 3. Increase completion time for mobility ADL performance 4. Increased fall risk 5. Inability to negotiate steps alone safely Patient is assessed as a 06471 moderate complexity based on the following: History: 59-year-old male with impairment level findings, functional limitations, and past medical history as indicated above Examination: Demonstrable impairment in strength, balance, and mobility level with underlying impairments and functional limitations as documented above Presentation:Evolving Decision Makin moderate complexity Goals: Goals X 3 days 1. Supine-Sit independent 2. Sit-Supine independent 3. Sit-Stand independent 4. Stand-Sit independent 5. Bed-Chair independent 6. Chair-Bed independent 7. Independent gait on level surface with use of least restrictive device for at least 300 feet without report of pain nor dyspnea 8. Independent stair negotiation while holding onto bilateral rails for at least 10 steps without report of pain nor dyspnea 9. Independent with home exercise program 10. Good static and dynamic standing balance/tolerance Plan of Care/Treatment Plan: 1-2x/day for 3 days Plan of care has been reviewed with the PRODUCT DESIGN SPECIALIST providing the service under Physical Therapy direction. Initiate Physical Therapy intervention for strengthening, bed mobility, transfers, gait, stairs, balance training, use of assistive device. DISCHARGE RECOMMENDATIONS: Home when medically cleared by orthopedic surgeon. May benefit from the use of a front wheeled walker to maximize independence at discharge destination. Outpatient PT services to facilitate return to premorbid independent level. TREATMENT CODE/TIME: 37136 x 25 minutes, 55827 x 10 minutes beginning at 13:45 PM. Thank you for the opportunity to participate in the care of this patient. Isadora Spangler PT, DPT, CLT [facility] [place], [place]
[2020-05-24] MEDS: Acetaminophen 325 MG TAB 650 MG PO (14:19)
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
[2020-05-24] MEDS: metFORMIN C.R. 500 MG TABCR PO (16:47)
[2020-05-24] MEDS: Ketorolac 30 MG/ML VIAL IVP (16:47)
--- NOTE | 2020-05-24 22:10 | NUR.NOTE ---
Nursing Note: Pt was anxious to return home after cleared by provider. Pt attempted to dress himself on the stretcher and slid onto floor. Landed on buttocks with call bustamante landing in his lap. Pt summoned for help. With two assist, pt was transferred to a sitting position in the chair. Vs taken: T: 36.5 P:110 R:18 B/P:133/71 O2 98%. With 1 assist and a walker, pt transferred to the bed. Pt denied hitting his head or his left knee. Pt denied additional pain to surgical leg. Blood seepage was noted on dave wrap and was changed as well as underlying gauze pad. No seepage noted after dressing change. Pt encouraged to wait for assistance with further changing into home clothes. Pt compliant with the RN request.
--- NOTE | 2020-05-26 08:25 | INDS_ITS ---
Date of service: 05/26/20 Time of Service: 08:25 PT Notes Visit Reasons: L Total Knee Arthroplasty Physical Therapy Inpatient Discharge Summary Date: 05/26/2020 Date of service: 05/26/2020 only This is a clinical summary of care provided on the duration of dates listed above. No charge was made in the completion of this documentation. Referring Doctor: Akash Bright MD PT Orders: PT CONSULT: Status post Ortho surgery. Get OOB ambulating this afternoon. WBAT to left leg. Precautions: Fall. Standard. WBAT on left LE. Patient Profile/Admitting Diagnosis: Marco Antonio is a 59-year-old male with primary unilateral osteoarthritis of the left knee and is status post left total knee arthroplasty on postoperative day 0 upon discharge. PMHX: Medical History (Updated 05/10/20 @ 10:17 by Rosalva Smith) Abscess of upper gum Acute ethmoidal sinusitis 04/14/[address] Smith (ENT) Acute recurrent maxillary sinusitis Allergic rhinitis due to food Allergic rhinitis due to pollen Allergy Injections - Dr. Smith Arthritis of knee, left Asthma (05/08/13) 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 BPH loc w urin obs/LUTS (01/16/18) Canker sore Cardiomyopathy (11/21/12) cath 2008 45%EF; 50%LAD, prior apical infarct echo 2009 EF 50%; MPI 2009 fixed A/S defect EF 49% Chronic migraine Receives therapeutic Botox by Dr Smith at [facility] Dermatitis due to ingested food Diabetes mellitus type 2 in obese (05/08/13) A1C goal 7.5 Diabetic polyneuropathy associated with type 2 diabetes mellitus (03/14/18) DM (diabetes mellitus) Environmental allergies Erectile dysfunction (11/20/12) LEAH (generalized anxiety disorder) (03/19/15) Gangrenous cholecystitis Gastroesophageal reflux disease with esophagitis (09/21/11) Hyperlipidemia (09/11/13) PCEq risk 7.8% LDL baseline 127 Insomnia, unspecified (11/20/12) Leg cramps (03/14/18) Lumbar radiculitis Meralgia paresthetica of left side Migraine headache without aura Myositis (05/07/13) Nonintractable episodic headache (01/20/16) Obesity SHARRI (obstructive sleep apnea) (09/02/14) Pain of left lower extremity (04/11/17) Peripheral neuropathy 07/01/19 Dr Zaldivar, w f/u 07/30/19 Pre-ulcerative calluses Restless leg syndrome Shortness of breath Tensor fascia laura syndrome Surgical History (Updated 05/12/20 @ 13:11 by Rosalva Smith) Colonoscopy - MAC (07/27/17) cortisone injection (03/17/14) lumbar H/O chest tube placement History of cardiac catheterization x2 1980s History of repair of anterior cruciate ligament of left knee Osteoarthritis of left acromioclavicular joint (02/27/18) Status post excision of left distal clavicle S/P laparoscopic cholecystectomy (~11/25/19) acute hemorrhagic, gangrenous cholecystitis Status post arthroscopy of left knee Social History/Home Situation: Lives with in a private home with 3 steps to enter without rails. Verbalizes that he hopes to go home to his daughter's house with shorter step height but still with 2 steps to enter without rails. States that he has support from his daughters and his son as well as with while he recovers. Does woodworking. Equipment Owned/DME: None Subjective: NT. See most recent COMMUNITY ENGAGEMENT COORDINATOR notes. Objective: General Observation: NT. See most recent COMMUNITY ENGAGEMENT COORDINATOR notes. Mental Status: NT. See most recent COMMUNITY ENGAGEMENT COORDINATOR notes. Pain: NT. See most recent COMMUNITY ENGAGEMENT COORDINATOR notes. ROM: Right Upper Extremity: Shoulder Flexion WFL. Shoulder abduction WFL. Elbow flexion WFL. Wrist flexion WFL. Opening and closing of hand WFL. Left Upper Extremity: Shoulder Flexion WFL. Shoulder abduction WFL. Elbow flexion WFL. Wrist flexion WFL. Opening and closing of hand WFL. Right Lower Extremity: Hip flexion WFL. Hip abduction WFL. Knee flexion WFL. Ankle dorsiflexion WFL. Ankle plantarflexion WFL. Left Lower Extremity: Hip flexion WFL. Hip abduction WFL. Knee flexion 30 to 95 degrees. Knee extension -30 degrees. Ankle dorsiflexion WFL. Ankle plantarflexion WFL. Strength: Right Upper Extremity: Shoulder flexors 5/5. Shoulder abductors 5/5. Elbow flexors 5/5. Elbow extensors 5/5. Palletizer strong. Left Upper Extremity: Shoulder flexors 5/5. Shoulder abductors 5/5. Elbow flexors 5/5. Elbow extensors 5/5. Palletizer strong. Right Lower Extremity: Hip flexors 5/5. Hip abductors 5/5. Knee flexors 5/5. Knee extensors 5/5. Ankle dorsiflexors 5/5. Ankle plantarflexors 5/5. Left Lower Extremity:Hip flexors 4/5. Hip abductors 4/5. Knee flexors 3-/5. Knee extensors 3-/5, admitted quads activation during standing and ambulation activity. Ankle dorsiflexors 4/5. Ankle plantarflexors 5/5. Sensation: Intact as to pain and pressure on bilateral lower extremities. Bed Mobility/Transfers: Supine to sit SBA with HOB 45 degrees Sit to supine SBA with HOB 45 degrees Sit to stand contact-guard assist Stand to sit contact-guard assist Bed to chair minimal assist with cues for left LE placement and hand placement THERA EX: Tolerated lateral heel raises while holding onto front wheeled walker x 10. Only completed high marches x 3 with knee buckling on left knee with bending of the right hip and knee. Gait: Tolerated 100 feet +100 feet and wheeled walker with WBAT on the left LE requiring mostly contact-guard assist but with knee buckling x 3 required minimal assist for safety. Tolerated up-and-down 6 x 4-inch steps and 4 x 2- inch steps while holding onto bilateral rails with step to gait pattern requiring standby assist. With fatigue, patient had knee buckling on the left after stair negotiation requiring a short seated rest. Balance: Static Sitting: Normal Dynamic Sitting: Normal Static Standing: Fair Dynamic Standing: Fair Assessment: Marco Antonio continues to demonstrate functional mobility decline requiring the use of front wheeled walker for all mobility ADL performance, weakness of the right hip and knee major muscle groups, poor right quadriceps activation, and increased fall risk due to postoperative status. His safety at home may be maximized with assist of 2 family members on each side to get through entrance steps as his daughter's house does not have rails. Patient continues to present with clinical signs and symptoms consistent with current/admitting diagnoses that have resulted to mobility limitations, gait instability, generalized weakness, and impairment of motor control as demonstrated by the following impairment level findings: 1. Decreased strength to right knee major muscle groups 2. Impaired standing balance 3. Impaired activity tolerance 4. Limitation of joint range of motion in right knee Impairments are continuing to contribute to the following functional limitations: 1. Increased dependence with transfers 2. Inability to safely ambulate without assistive device and physical assistance 3. Increase completion time for mobility ADL performance 4. Increased fall risk 5. Inability to negotiate steps alone safely Patient is assessed as a 47616 moderate complexity based on the following: History: 59-year-old male with impairment level findings, functional limitations, and past medical history as indicated above Examination: Demonstrable impairment in strength, balance, and mobility level with underlying impairments and functional limitations as documented above Presentation:Evolving Decision Makin moderate complexity Goals: Goals X 3 days 1. Supine-Sit independent NOT MET 2. Sit-Supine independent NOT MET 3. Sit-Stand independent NOT MET 4. Stand-Sit independent NOT MET 5. Bed-Chair independent NOT MET 6. Chair-Bed independent NOT MET 7. Independent gait on level surface with use of least restrictive device for at least 300 feet without report of pain nor dyspnea NOT MET 8. Independent stair negotiation while holding onto bilateral rails for at least 10 steps without report of pain nor dyspnea NOT MET 9. Independent with home exercise program NOT MET 10. Good static and dynamic standing balance/tolerance NOT MET DISCHARGE RECOMMENDATIONS: Home when medically cleared by orthopedic surgeon. May benefit from the use of a front wheeled walker to maximize independence at discharge destination. Outpatient PT services to facilitate return to premorbid independent level. TREATMENT CODE/TIME: NC Thank you for the opportunity to participate in the care of this patient. Isadora Spangler PT, DPT, CLT [facility] [place], [place]
--- NOTE | 2020-05-27 11:15 | ROE_ITS ---
Date of service: 05/24/20 Time of Service: 08:15 Operative Note Operative Note DATE OF PROCEDURE: 05/24/20 PRE-OP DIAGNOSIS: Osteoarthritis left knee with varus deformity. POST-OP DIAGNOSIS: same PROCEDURE: Left total knee arthroplasty SURGEON: Akash Bright DRIVER MEDIC: Krystyna Alston ANESTHESIA: spinal PATHOLOGY: none sent TOURNIQUET TIME: 120 COMPLICATIONS: None Patient was transported to: PACU Patient's condition: stable Implants: Size 4 left femoral posterior cruciate substituting component, size 4 tibial component, size 4 polyethylene insert, rotating platform, posterior cruciate substituting. 35 mm triprong patella. Indications: This is a 59-year-old white male with a 20-year history of left knee pain. His pain is been successfully managed over the years until the last couple of years. His activities walking have been dramatically limited by the pain. Nonsteroidal anti-inflammatory medications no longer help. Even Percocet he was given by his PCP does not help. In February he received a intra-articular steroid injection only provided 1 to 2 weeks of relief. Serial x-rays have shown progressive loss of medial joint space down to [id number] contact. Moderate medial osteophytes are noted. He also has narrowing of the patellofemoral joint with proximal and distal spurs on the patella. His knee has drifted into varus over time. Because of failure of conservative treatment to control his pain and with decrease in mobility and function, total knee replacement is recommended. Risk and complication procedure have been explained to patient in detail preoperatively. He wished to progress to soon as possible to total knee replacement. Procedure Description: Patient was taken the operating room on 05/24/2020. A long-acting femoral nerve block using Exparel was performed. Then a spinal anesthetic was performed. He was placed supine on the operating table proximal tourniquet was applied to the left thigh and then the left lower extremity was prepped from toes to tourniquet and draped free in the usual sterile fashion. An anterior midline incision was made beginning 4 inches proximal to the patella and extending distally to the tibial tubercle. Incision was carried down through the skin and subcu cutaneous tissue to the fascia. A medial parapatellar capsular incision was then made into the left knee and then this incision was extended proximally longitudinally in line with the quadriceps tendon. Patella was mobilized and then everted. A complete medial subperiosteal release was performed to compensate for the varus deformity. The knee was hyperflexed exposing the articular surfaces of the knee. Medial and lateral meniscectomies were performed. Anterior and posterior cruciate ligaments were sacrificed. The distal femur was resected using intramedullary alignment guides and jigs. The box was cut out for posterior cruciate sacrificing component. Trial component was then applied and showed that a size 4 femoral component provide excellent fit. The proximal tibia was then resected using the damaged medial plateau as the reference. Extra medullary guides were used to make the resection. After resection the proximal tibia was measured and was found to be well covered with a size 4 tibial insert. Using the tibial guide the stem and keel for the tibial component was then reamed and punched on proper rotation alignment. Trial reduction was performed with the trial components. It appeared that a 10 mm insert provided the best stability while still allowing full extension. Finally, the patella was resected using the patellar resection guide. Care was taken to preserve at least 16 to 17 mm of thickness of the patella following resection. Using the drill guide for the triprong patella 35 mm the holes for the pegs were reamed out in proper rotation alignment. The proximal tibia was prepared for cementing with pulse irrigation lavage of saline solution and drying with peroxide soaked strip sponges. 1 batch of gentamicin impregnated methylmethacrylate was vacuum mixed. The more liquid methylmethacrylate was placed on the undersurface of the tibial component. The month methylmethacrylate there was more cured was then hand packed onto the prepared proximal tibia. Tibial component was then inserted and impacted in the place with impactor mallet. Excess cement was trimmed from the margins of the tibial component while cement was still soft. Trial components were inserted the knee was extended further pressurized the methylmethacrylate. When the first batch of methylmethacrylate had cured the trial components were removed. The distal femur and patella were prepared for cementing with pulse irrigation lavage of saline solution and drying with peroxide soaked strip sponges. Another batch of gentamicin impregnated methylmethacrylate was vacuum mixed and the more liquid met methylmethacrylate was applied to the back of the femoral component and patella. The more cured cement was then impacted onto the distal femur and patella. Trial insert was placed in the knee extended the pressurized the femoral component. The patella clamp was applied to pressurized patella. Excess cement was trimmed from the margins of the femoral and patellar co mponents while cement was still soft using the plastic cement removal tool. When the second batch of cured the patella clamp was removed the trial insert was removed. The knee was irrigated with Betadine and saline solution. Dilute solution was allowed to stay for 60 seconds before suctioning. The wound margins were infiltrated 0.5% Marcaine with epinephrine solution. The actual insert 10 mm rotating platform posterior cruciate substituting size 4 was then placed in the tibial component and reduced on the femoral condyles. Patella tracking was checked. Patella tracked anatomically using the rule of no thumb. The left knee was flexed over soft goods and closure was begun. Medial capsule was a approximated with interrupted [id number] sutures of #1 Vicryl suture material. Quadriceps tendon was repaired with interrupted [id number] sutures of #1 Vicryl suture. Subcu was approximated interrupted 2-0 Vicryl sutures. The skin edges were approximated a running subcuticular suture of 3-0 Monocryl supplemented with tissue glue. Mepilex dressing was applied. ABD pads were applied to the knee and there were wrapped with 6 inch Williams bandages. Tourniquet was released at this point there is no breakthrough bleeding to the dressings. Patient taught procedure well was discharged to recovery room in good condition.
== END 2020-05-24 18:59 | disposition home or self-care (01) ==
LOC: PDS 11:04 → MS 11:05
PROVIDERS: Admitting Provider Orthopaedic Surgery; PCP Family Medicine; Visit Provider Orthopaedic Surgery
PROC: (CPT 27447; principal; 2020-05-24 07:30)
DX: M17.12 Unilateral primary osteoarthritis, left knee (principal); E11.9 Type 2 diabetes mellitus without complications; J45.909 Unspecified asthma, uncomplicated; I42.9 Cardiomyopathy, unspecified; E66.9 Obesity, unspecified
CPT/HCPCS: 27447; 76942; 97162; 97530; NC; 73560; G0378; J0131; J0690; J1100; J1885; J2001; J2405; J3490; L1830

== ENCOUNTER 2020-06-08 12:54 | Outpatient (REF) | payer MEDICAID, SELFPAY ==
[2020-06-08 13:32] LABS: Clarity Bloody; Nucleated Cells 1640 uL (0)
[2020-06-08 13:41] LABS: Mononuclear Cells 45 %; Polynuclear Cells 55 %
== END 2020-06-08 13:14 ==
LOC: LBN 12:54
PROVIDERS: PCP Family Medicine; Visit Provider Orthopaedic Surgery
DX: Z96.652 Presence of left artificial knee joint (principal)
CPT/HCPCS: 87070; 87205; 89051

== ENCOUNTER 2020-07-26 13:34 | Emergency (ER) | payer MEDICAID, SELFPAY ==
[2020-07-26] VITALS (38 sets, daily range): BP systolic 120–146; BP diastolic 72–92; PULSE 79–97; RESP 14–26; TEMP 36.8–37; O2SAT 92–98
--- NOTE | 2020-07-26 13:30 | RT.EKG_ITS ---
APPROVED REPORT Exam: Resting ECG Patient Location: E HR:80 bpm ECG Measurements Heart Rate 80 AXIS KS 177 P 13 QRSd 81 QRS -17 QT 355 T 23 QTc 409 Conclusion Sinus rhythm...normal P axis, V-rate 60- 99 Anterolateral infarct, old...Q>40mS, abnrm ST-T, V3-V6,I,aVL I have reviewed and interpreted ECG and agree with software generated interpretation.
[2020-07-26] MEDS: Normal Saline Flush 10 ML SYR IVP ×2 (13:50→17:19)
--- NOTE | 2020-07-26 14:00 | DI.RAD_ITS ---
EXAM: XR PORTABLE CHEST AP CLINICAL HISTORY: sob. TECHNIQUE: 2D digital imaging was performed. COMPARISON: CR XR CHEST 1V IN DI DEPT from 11/28/2019 FINDINGS: Heart size is normal. The mediastinum is not widened. Lungs are clear. No infiltrates nor obvious pleural effusions. IMPRESSION: No acute pulmonary findings on this single AP portable view of the chest. DATA REPOSITORY: RADIATION DOSE DELIVERED:
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
[2020-07-26 14:38] LABS: Abs Immature Grans 0.05 10^3/uL (0.0-0.06); Absolute Eosinophil Count 0.17 10^3/uL (0.0-0.7); Absolute Lymphocyte Count 2.38 10^3/uL (1.2-3.4); Absolute Monocyte Count 0.62 10^3/uL (0.1-0.8); Absolute Neutrophil Count 7.75 10^3/uL (1.2-6.7); Basophils % 0.5; Eosinophils % 1.5; HCT 54.1 % (40.0-50.0); HGB 17.2 g/dL (13.5-17.5); Immature Grans % 0.5; Lymphocytes % 21.6; MCH 28.4 pg (27.0-33.0); MCHC 31.8 % (32.0-36.0); MCV 89.4 fL (80-95); MPV 10.2 fL (8.0-11.0); Monocytes % 5.6; Neutrophils % 70.3; Nucleated RBC 0 %; Platelet Count 270 10^3/uL (130-400); RBC 6.05 10^6/uL (4.36-5.78); RDW 13.4 % (11.8-14.1); RDW-SD 43.7 fL; WBC 11.02 10^3/uL (4.4-10.8)
[2020-07-26 14:41] LABS: Absolute Basophil Count 0.06 10^3/uL (0.0-0.2)
[2020-07-26 14:50] LABS: ALT 42 U/L (16-63); AST 22 U/L (15-37); Albumin 4.8 g/dL (3.4-5.0); Alkaline Phosphatase 120 U/L (46-116); Anion Gap 9.7 mmol/L (3-11); BUN 22 mg/dL (7-18); Bilirubin, Total 0.8 mg/dL (0.2-1.0); CO2 28.3 mmol/L (21.0-32.0); CREATININE 1.07 mg/dL (0.70-1.30); Calcium 9.5 mg/dL (8.5-10.1); Chloride 100 mmol/L (98-107); Glucose 131 mg/dL (74-106); Magnesium 1.9 mg/dL (1.8-2.4); Potassium 3.4 mmol/L (3.5-5.1); Sodium 138 mmol/L (136-145); Total Protein 9.4 g/dL (6.4-8.2); Troponin I < 0.05 ng/mL (<0.06)
[2020-07-26 14:51] LABS: INR 1.1 (0.9-1.1)
[2020-07-26 14:59] LABS: Diff Comment RBC Morph Reviewed; Polychromasia Present
[2020-07-26 15:09] LABS: NT-proBNP 46 pg/mL (<300)
--- NOTE | 2020-07-26 15:15 | DI.CT_ITS ---
EXAM: CT CHEST PE CTA CLINICAL HISTORY: sob, dimer over 3,000. TECHNIQUE: Imaging Protocol: Axial CT angiography was performed with multi-slice acquisition and mu lti-planar and/or 3D reconstructions. CONTRAST MATERIAL: Intravenous: Omnipaque 350 Contrast volume:100 mL COMPARISON: CT CT CHEST/ABD/PEL W from 11/25/[address] ABDOMEN PELVIS W from 12/18/2019 FINDINGS: Pulmonary Arteries: No evidence of filling defect to suggest pulmonary emboli. Tracheobronchial tree: Patent where visualized. Mediastinum and Belle: No dominant adenopathy or fluid collection. The hypodense nodule in the inferio r aspect of the left lobe of the thyroid gland is stable compared to 11/25/2019. Pulmonary parenchyma: No consolidation or dominant measurable mass. No architectural distortion. Pleura: No effusion or pneumothorax. Heart: The heart is not dilated. Coronary artery calcifications are present. No significant pericard ial effusion. Aorta: Thoracic aorta non-dilated. Mild atherosclerosis. No evidence of dissection. Upper abdomen: Status post cholecystectomy. There is a stable simple cyst in the superior pole of t he left kidney. Bones: Degenerative changes. Soft tissues: Unremarkable. IMPRESSION: 1. No evidence of pulmonary embolism, thoracic aortic dissection or aneurysm. 2. No evidence of pneumonia. RADIATION DOSE DELIVERED: 486.32mGy.cm Total DLP DATA REPOSITORY: All CT scans at this facility are submitted to the National Radiology Data Registry (NRDR) Dose Index Registry (DIR) with the [employer] (ACR). RADIATION OPTIMIZATION: All CT scans at this facility use at least one of these dose optimization te chniques: automated exposure control; mA and/or kV adjustment per patient size (includes targeted exa ms where dose is matched to clinical indication); or iterative reconstruction.
[2020-07-26 15:18] LABS: D-Dimer 3009 ng/mlFEU (<500)
[2020-07-26] MEDS: Omnipaque 350 MG/ML 100 ML BTL IJ (17:18)
[2020-07-26] MEDS: Normal Saline - Diluent 50 ML VIAL IV (17:19)
--- NOTE | 2020-07-26 17:37 | DI.VRAD_ITS ---
PROCEDURE INFORMATION: Exam: CT Angiography Chest With Contrast Exam date and time: 07/26/2020 5:11 PM Age: 59 years old Clinical indication: Shortness of breath; Patient HX: D dimer over 3000 TECHNIQUE: Imaging protocol: Computed tomographic angiography of the chest with intravenous contrast. 3D rendering (Not supervised by radiologist): MIP and/or 3D reconstructed images were created by the technologist. COMPARISON: CT CHEST/ABD/PEL W 11/25/2019 12:37 PM FINDINGS: Pulmonary arteries: Normal. No pulmonary emboli. Aorta: Unremarkable. No aortic aneurysm. No aortic dissection. Thyroid: 9 mm round hypodense nodule left thyroid gland. Lungs: Unremarkable. No consolidation. No masses. Pleural space: Unremarkable. No pneumothorax. No pleural effusion. Heart: Unremarkable. No cardiomegaly. No pericardial effusion. Lymph nodes: Unremarkable. No enlarged lymph nodes. Kidneys and ureters: 12 mm cyst superior cortex left kidney. No change from prior study. Bones/joints: Unremarkable. No acute fracture. Soft tissues: Unremarkable. IMPRESSION: 1. No evidence of pulmonary embolism. 2. No evidence of pneumonia. 3. Stable left renal cyst. 4. 9 mm round hypodense nodule left thyroid gland.No follow-up is recommended. Dictated and Authenticated by: Ayad Gallegos MD. Ordering:TATIANNA Christopher MD
[2020-07-26 18:25] LABS: Troponin I < 0.05 ng/mL (<0.06)
[2020-07-27 21:29] LABS: COVID-19 RT-PCR Result NEGATIVE (Negative)
== END 2020-07-26 18:54 | disposition home or self-care (01) ==
PROVIDERS: Physician Assistant; Emergency Provider Physician Assistant; PCP Family Medicine
DX: J06.9 Acute upper respiratory infection, unspecified (principal); R79.1 Abnormal coagulation profile; R94.31 Abnormal electrocardiogram [ECG] [EKG]; E11.9 Type 2 diabetes mellitus without complications; Z79.4 Long term (current) use of insulin; Z03.818 Encounter for observation for suspected exposure to other biological agents ruled out
CPT/HCPCS: 36415; 71275; 80053; 93005; 99285; U0003; 71045; 83735; 83880; 84484; 85025; 85379; 85610; 93010; J3490

== ENCOUNTER 2020-09-13 03:06 | Outpatient (CLI) | payer MEDICAID, SELFPAY ==
[2020-09-13 10:59] LABS: Abs Immature Grans 0.02 10^3/uL (0.0-0.06); Absolute Basophil Count 0.04 10^3/uL (0.0-0.2); Absolute Eosinophil Count 0.17 10^3/uL (0.0-0.7); Absolute Lymphocyte Count 1.65 10^3/uL (1.2-3.4); Absolute Monocyte Count 0.52 10^3/uL (0.1-0.8); Absolute Neutrophil Count 5.13 10^3/uL (1.2-6.7); Basophils % 0.5; Eosinophils % 2.3; HCT 49.3 % (40.0-50.0); HGB 16.1 g/dL (13.5-17.5); Immature Grans % 0.3; Lymphocytes % 21.9; MCH 28.4 pg (27.0-33.0); MCHC 32.7 % (32.0-36.0); MCV 86.9 fL (80-95); MPV 9.6 fL (8.0-11.0); Monocytes % 6.9; Neutrophils % 68.1; Nucleated RBC 0 %; Platelet Count 212 10^3/uL (130-400); RBC 5.67 10^6/uL (4.36-5.78); RDW-SD 44.5 fL; WBC 7.53 10^3/uL (4.4-10.8)
[2020-09-13 12:11] LABS: ALT 43 U/L (16-63); AST 23 U/L (15-37); Albumin 3.8 g/dL (3.4-5.0); Alkaline Phosphatase 101 U/L (46-116); Anion Gap 9.4 mmol/L (3-11); BUN 20 mg/dL (7-18); Bilirubin, Total 0.5 mg/dL (0.2-1.0); CO2 29.6 mmol/L (21.0-32.0); CREATININE 1.1 mg/dL (0.70-1.30); Calcium 9.6 mg/dL (8.5-10.1); Chloride 103 mmol/L (98-107); Glucose 206 mg/dL (74-106); Potassium 4.1 mmol/L (3.5-5.1); Sodium 142 mmol/L (136-145); Total Protein 7.6 g/dL (6.4-8.2)
== END 2020-09-13 03:07 | disposition home or self-care (01) ==
LOC: LBO 03:06
PROVIDERS: PCP Family Medicine; Visit Provider Family Medicine
DX: E11.42 Type 2 diabetes mellitus with diabetic polyneuropathy (principal); Z79.4 Long term (current) use of insulin; B34.8 Other viral infections of unspecified site; J06.9 Acute upper respiratory infection, unspecified
CPT/HCPCS: 36415; 80053; 84443; 85025

== ENCOUNTER 2020-12-02 15:21 | Outpatient (CLI) | payer MEDICAID, SELFPAY ==
--- NOTE | 2020-12-02 08:34 | DI.RAD_ITS ---
Exam(s) XR KNEE LT 3V AP,LAT,KATE EXAM: XR KNEE LT 3V AP,LAT,KATE CLINICAL HISTORY: left knee pain. TECHNIQUE: 2D digital imaging was performed. COMPARISON: CR XR KNEE LT 2V AP,LAT from 02/25/2020 CR XR KNEE LT 2V AP,LAT from 05/24/2020 FINDINGS: Position and alignment of the components of the recently placed prosthesis remain stable. No fractur e nor loosening evident. On the lateral view there is posterior bowing of the posterior capsule evid ent, questionable significance. There is no radiographic evidence of osteomyelitis. IMPRESSION: DATA REPOSITORY: RADIATION DOSE DELIVERED:
== END 2020-12-02 15:22 | disposition home or self-care (01) ==
LOC: DIORS 15:22
PROVIDERS: PCP Family Medicine; Referring Provider Family Medicine; Visit Provider Physician Assistant
DX: M25.562 Pain in left knee (principal); Z96.652 Presence of left artificial knee joint
CPT/HCPCS: 73562

== ENCOUNTER 2020-12-23 10:51 | Outpatient (CLI) | payer MEDICAID, SELFPAY ==
--- NOTE | 2020-12-23 09:15 | DI.RAD_ITS ---
Exam(s) XR KNEE LT 3V AP,LAT,KATE EXAM: XR KNEE LT 3V AP,LAT,KATE CLINICAL HISTORY: left TKA; fall; ?quad injury. TECHNIQUE: 2D digital imaging was performed. COMPARISON: CR XR KNEE LT 3V AP,LAT,KATE from 12/02/2020 FINDINGS: There is no change in appearance of the left total knee arthroplasty. No lucencies are seen in or ab out the orthopedic hardware to suggest loosening or infection. The bones are intact and normally min eralized. There does appear to be a joint effusion. Atherosclerosis is present. The soft tissues a re otherwise unremarkable. No acute fracture or dislocation. IMPRESSION: No acute abnormality. DATA REPOSITORY: RADIATION DOSE DELIVERED:
[2020-12-23 10:53] LABS: Clarity Cloudy; Nucleated Cells 516 uL (0)
[2020-12-23 11:14] LABS: Crystals (BF) No Crystals seen
[2020-12-23 11:20] LABS: Mononuclear Cells 84 %; Polynuclear Cells 16 %
== END 2020-12-23 10:52 | disposition home or self-care (01) ==
LOC: DIORS 10:51
PROVIDERS: Student in an Organized Health Care Education/Training Program; PCP Family Medicine; Referring Provider Family Medicine; Visit Provider Physician Assistant
DX: M25.562 Pain in left knee (principal); Z96.652 Presence of left artificial knee joint; M25.462 Effusion, left knee
CPT/HCPCS: 73562; 87070; 87205; 89051; 89060

== ENCOUNTER 2021-02-07 02:55 | Outpatient (CLI) | payer MEDICAID, SELFPAY ==
[2021-02-07 11:41] LABS: Source Nasal/Nares
[2021-02-07 16:50] LABS: COVID-19 PCR Negative (Negative)
== END 2021-02-07 02:56 | disposition home or self-care (01) ==
LOC: LBO 02:55
PROVIDERS: PCP Family Medicine; Visit Provider Student in an Organized Health Care Education/Training Program
DX: Z20.822 Contact with and (suspected) exposure to COVID-19 (principal); Z01.818 Encounter for other preprocedural examination
CPT/HCPCS: 87635

== ENCOUNTER 2021-02-09 10:49 | Day surgery (SDC) | payer MEDICAID, SELFPAY ==
[2021-02-09] VITALS (9 sets, daily range): BP systolic 103–146; BP diastolic 60–87; PULSE 70–77; RESP 10–20; TEMP 36.1–36.4; O2SAT 97–99; BMI 30.7
--- NOTE | 2021-02-09 07:51 | W.PM.DSUDISC ---
Discharge Plan Disposition Patient Disposition: HOME Condition: Good Discharge Details Reason For Visit: Painful left TKA Attending Provider: Wesly Sanchez Primary Care Provider: Scott Valdes Home Meds and New Rx's Prescriptions: New hydrocodone-acetaminophen 5-325 mg tablet 1 tab PO Q6H PRN (Reason: severe pain) Qty: 4 RF: 0 Continued lidocaine HCl 2 % jelly 1 applic TP BID-QID PRNRF: 0 (DME) blood sugar diagnostic Strip See Rx Instructions .ROUTE .MEDSUPPLY Qty: 200 RF: 6 omeprazole 20 mg capsule,delayed release(DR/EC) 40 mg PO DAILY Qty: 90 RF: 3 simethicone [Gas Relief (simethicone)] 125 mg capsule 250 mg PO TID-QID PRNRF: 0 Pepto-Bismol Max St 525 mg/15 mL suspension 525 mg PO Q30-60M PRNRF: 0 Levemir FlexTouch U-100 Insuln 100 unit/mL (3 mL) insulin pen See Rx Instructions SC BID Qty: 10 RF: 12 polyethylene glycol 3350 17 gram/dose powder 17 gm PO BID RF: 0 naproxen sodium 220 mg capsule 220 mg PO BID PRNRF: 0 montelukast 10 mg tablet 10 mg PO DAILY RF: 0 cetirizine 10 mg tablet 10 mg PO DAILY RF: 0 Januvia 100 mg tablet 100 mg PO DAILY Qty: 90 RF: 3 multivitamin [Multi-Day] 1 EACH tablet 1 ea PO DAILY RF: 0 botox RF: 0 Aspirin/Acetaminophen/Caffeine [Excedrin Migraine Caplet] 1 EACH tablet 1 ea PO PRN PRNRF: 0 fluticasone propionate 50 mcg/actuation spray,suspension 2 spray THEO DAILY PRNRF: 0 fexofenadine 60 mg tablet 180 mg PO DAILY RF: 0 Farxiga 10 mg tablet 10 mg PO DAILY Qty: 90 RF: 3 metformin 500 mg tablet extended release 24hr 500 mg PO BID Qty: 180 RF: 3 hydroxyzine HCl 25 mg tablet 25 mg PO Q6H PRN PRN (Reason: headache) Qty: 90 RF: 3 ibuprofen 800 mg tablet 800 mg PO BID-TID PRN (Reason: pain) Qty: 90 RF: 3 pramipexole 0.125 mg tablet 0.125 mg PO QHS Qty: 90 RF: 3 pregabalin [Lyrica] 75 mg capsule 75 mg PO BID Qty: 60 RF: 5 atorvastatin 20 mg tablet 20 mg PO DAILY Qty: 90 RF: 3 (DME) lancets [OneTouch Delica Lancets] 33 gauge misc 1 ea Miscellaneous BID Qty: 200 RF: 3 (DME) pen needle, diabetic [Lite Touch Insulin Pen [place]] 31 gauge x 3/16 needle See Rx Instructions .ROUTE .MEDSUPPLY Qty: 100 RF: 6 insulin lispro [Humalog KwikPen Insulin] 100 unit/mL insulin pen See Rx Instructions SC TID Qty: 15 RF: 6 aspirin [Aspirin Low Dose] 81 mg Tablet,Delayed Release (Dr/Ec) 81 mg PO DAILY RF: 0 lidocaine [Lidoderm] 5 % adhesive patch,medicated 1 patch TP DAILY PRN (Reason: pain) Qty: 15 RF: 0 (DME) Allergy Syringe 1 EACH syringe 1 ea Miscellaneous RF: 0 Discharge Instructions Additional Instructions: Knee Manipulation Discharge Instructions Activity: You should begin moving as soon as possible. You may work on flexion but also equally maintain extension. You may bear weight as tolerated, using crutches only for support/comfort. You should apply ice to help with swelling and elevate when possible (especially in the first few days). Dressings: The knee dressing may come down after 48 hours. You may shower and get the wound wet at that time. You should keep the wounds covered with a band-aide until follow-up. Medications: - Recommend to take up to 1000mg of Acetaminophen (Tylenol) and 600mg of Ibuprofen (Advil) every 8 hours as needed. These larger strength tablets were called in but you also may use [id number]. - You were prescribed hydrocodone-acetaminophen, a narcotic pain medication, to for take for severe pain as needed. Follow-up: 7-10 days Equipment/Supplies: Partial Weight Bearing Crutches Activity:: Elevate Remove Dressings/Wound Care:: 48 hours Shower/Bathe:: 48 hours Diet:: As Tolerated Discharge Orders Discharge Orders: Discharge Order (Routine); Ordered 02/09/21 Ordered By: Rosalva Smith DS: Diagnosis Discharge Diagnosis (1) Painful total knee replacement, left: Status: Acute
--- NOTE | 2021-02-09 11:51 | ANES.PREOP_ITS ---
General Info Date of Service Date Performed: 02/09/21 Height: 5 ft 9.5 in Weight: 95.7 kg Body Mass Index (BMI): 30.7 Surgical Procedure: Operation Date: 02/09/21 12:40 Proposed Procedures Side Surgeon p Knee Arthroscopy Left Wesly Sanchez MD Meds Allergies and Home Medications Allergies Allergy/AdvReac Type Severity Reaction Status Date / Time procaine Allergy Severe swelling Verified 02/09/21 11:07 prednisone AdvReac Severe gets Verified 02/09/21 11:07 violent alprazolam AdvReac Intermediate Dizzy Verified 02/09/21 11:07 Home Medication Medication Instructions Recorded multivitamin [Multi-Day] 1 ea PO DAILY 10/15/12 Botox 05/09/17 Aspirin/Acetaminophen/Caffeine 1 ea PO PRN PRN 07/20/17 [Excedrin Migraine Caplet] Allergy Syringe 02/27/18 fluticasone propionate 50 2 spray THEO DAILY PRN 01/27/19 mcg/actuation nasal spray,suspension lidocaine HCl 2 % mucosal jelly 1 applic TP BID-QID PRN 09/29/19 blood sugar diagnostic #200 each 11/20/19 polyethylene glycol 3350 17 17 gm PO BID 01/05/20 gram/dose oral powder aspirin [Aspirin Low Dose] 81 mg PO DAILY 02/01/20 lidocaine [Lidoderm] 1 patch TP DAILY PRN #15 each 02/01/20 fexofenadine 60 mg tablet 180 mg PO DAILY tab 05/17/20 atorvastatin 20 mg tablet 20 mg PO DAILY #90 tab 05/31/20 dapagliflozin 10 mg tablet 10 mg PO DAILY #90 tab 05/31/20 hydroxyzine HCl 25 mg tablet 25 mg PO Q6H PRN PRN #90 tab-cap 05/31/20 ibuprofen 800 mg tablet 800 mg PO BID-TID PRN #90 tab 05/31/20 metformin 500 mg tablet,extended 500 mg PO BID #180 tab 05/31/20 release 24hr pramipexole 0.125 mg tablet 0.125 mg PO QHS #90 tab 05/31/20 pregabalin 75 mg capsule 75 mg PO BID #60 cap 05/31/20 omeprazole 20 mg capsule,delayed 40 mg PO DAILY #90 cap 11/05/20 release bismuth subsalicylate 525 mg/15 mL 525 mg PO Q30-60M PRN 11/16/20 oral suspension simethicone 125 mg capsule 250 mg PO TID-QID PRN cap 11/16/20 insulin detemir U-100 100 unit/mL See Rx Instructions SC BID #10 12/06/20 (3 mL) subcutaneous pen syringe cetirizine 10 mg tablet 10 mg PO DAILY 01/10/21 montelukast 10 mg tablet 10 mg PO DAILY 01/10/21 naproxen sodium 220 mg capsule 220 mg PO BID PRN 01/10/21 sitagliptin 100 mg tablet 100 mg PO DAILY #90 tab 01/10/21 lancets 33 gauge #200 ea 01/13/21 insulin lispro 100 unit/mL See Rx Instructions SC TID #15 ml 02/04/21 subcutaneous pen pen needle, diabetic 31 gauge x #100 ea 02/04/2110/05 hydrocodone-acetaminophen 1 tab PO Q6H PRN #4 tab 02/09/21 Current Visit Medications: Current Medications Generic Name Dose Route Start Last Admin Trade Name Freq PRN Reason Stop Dose Admin Acetaminophen 1,000 mg 02/09/21 06:00 Acetaminophen 500 Mg Tab PO 02/09/21 16:00 PREOP GERI Acetaminophen 650 mg 02/09/21 07:49 Acetaminophen 325 Mg Tab PO Q4H PRN PRN Hydrocodone Bitart/Acetaminophen 0 tab 02/09/21 07:49 Hydrocodone 5/Acetaminophen 325 Tab PO Q3H PRN PRN Pain Celecoxib 400 mg 02/09/21 06:00 Celecoxib 200 Mg Cap PO 02/09/21 16:00 PREOP GERI Gabapentin 300 mg 02/09/21 06:00 Gabapentin 300 Mg Cap PO 02/09/21 16:00 PREOP GERI Ringer's Solution 1,000 mls @ 80 mls/hr 02/09/21 06:00 IV 03/10/21 23:59 INFUSION GERI Cefazolin Sodium/Dextrose 2 gm in 50 mls @ 100 mls/hr 02/09/21 06:00 Ancef Duplex IVPB 03/10/21 23:59 PREOP GERI IV Miscellaneous Supplies 1 each 02/09/21 06:00 Iv Access IV 03/10/21 23:59 DIRECTED GERI Sodium Chloride 0 ml 02/09/21 06:00 Normal Saline Flush 10 Ml Syr IV 03/10/21 23:59 PRN PRN Sodium Chloride 0 ml 02/09/21 06:00 Normal Saline 10 Ml Vial IJ 03/10/21 23:59 DIRECTED PRN Sterile Water 0 ml 02/09/21 06:00 Water,Injection,Sterile 10 Ml Vial IJ 03/10/21 23:59 DIRECTED PRN PFSH Active Problems Active Problems: Problem Status Onset Code Painful total knee replacement, left T84.84XA, Z96.652 Tendinitis of left quadriceps tendon M76.892 Pes anserinus bursitis of left knee M70.52 Chronic migraine G43.709 History of total left knee replacement (TKR) 05/24/20 Z96.652 Environmental allergies Z91.09 Anorexia R63.0 Constipation K59.00 Allergic rhinitis due to pollen J30.1 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 Smith Arthritis of knee, left Asthma (05/08/13) 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 Valdes 03/2020-states that he was told by Dr. Massey told patient if he has symptoms he should f/u with cardiology but othersise to f/u with PCP Chronic migraine Receives therapeutic Botox by Dr Smith at [facility] Dermatitis due to ingested food Diabetes mellitus type 2 in obese (05/08/13) A1C goal 7.5 Diabetic polyneuropathy associated with type 2 diabetes mellitus (03/14/18) DM (diabetes mellitus) Pt. states he blood sugars are all over the place, states they can go as high as 300, and low as 48. Environmental allergies Erectile dysfunction (11/20/12) LEAH (generalized anxiety disorder) (03/19/15) Gangrenous cholecystitis Gastroesophageal reflux disease with esophagitis (09/21/11) Hyperlipidemia (09/11/13) PCEq risk 7.8% LDL baseline 127 Insomnia, unspecified (11/20/12) Leg cramps (03/14/18) Lumbar radiculitis Meralgia paresthetica of left side Migraine headache without aura Myositis (05/07/13) Nonintractable episodic headache (01/20/16) Obesity SHARRI (obstructive sleep apnea) (09/02/14) Pain of left lower extremity (04/11/17) Peripheral neuropathy 07/01/19 Dr Zaldivar, w f/u 07/30/19 Pes anserinus bursitis of left knee Pre-ulcerative calluses Restless leg syndrome Shortness of breath Tendinitis of left quadriceps tendon Tensor fascia laura syndrome Surgical History Surgical History Colonoscopy - MAC (07/27/17) cortisone injection (03/17/14) lumbar H/O chest tube placement per pt. this was when he had his gall bladder out History of cardiac catheterization x2 1980s History of repair of anterior cruciate ligament of left knee History of total left knee replacement (TKR) (05/24/20) Osteoarthritis of left acromioclavicular joint (02/27/18) Status post excision of left distal clavicle S/P laparoscopic cholecystectomy (~11/25/19) acute hemorrhagic, gangrenous cholecystitis Status post arthroscopy of left knee Tobacco Smoking/Tobacco Use Status: Never Alcohol Alcohol Intake: current Alcohol intake frequency: holidays/special occasions only Substance Use Substance use: Never Substance use type: does not use Vital Signs and Lab Results Vital Signs Most Recent Vital Signs in EMR: Most Recent Vital Signs Temp Pulse Resp BP Pulse Ox 36.3 C L 74 17 116/79 97 02/09/21 11:20 02/09/21 11:20 02/09/21 11:20 02/09/21 11:20 02/09/21 11:20 Lab Results Blood Type / Crossmatch: No Data to Display Complete Blood Count: No Data to Display Complete Metabolic Panel: No Data to Display Liver Function Panel: No Data to Display Coagulation Panel: No Data to Display Cardiac Panel: No Data to Display Arterial Blood Gas: No Data to Display Venous Blood Gas: No Data to Display Pancreas Panel: No Data to Display Thyroid Panel: No Data to Display Infectious Disease: Coronavirus (COVID-19)(PCR) Negative (Negative) 02/07/21 09:20 02/07/21 Coronavirus 2019 Source Nasal/Nares 02/07/21 09:20 02/07/21 Blood Cultures: No Data to Display Toxicology Panel: No Data to Display Imaging and Studies Imaging and Studies EKG Summary: 07/26/20 Conclusion Sinus rhythm...normal P axis, V-rate 60- 99 Anterolateral infarct, old...Q>40mS, abnrm ST-T, V3-V6,I,aVL I have reviewed and interpreted ECG and agree with software generated interpretation. Anesthesia Assessment and Plan Anesthesia History Personal History: No History of Anesthesia Complications Family History: No Family History of Anesthesia Complications Exercise Tolerance Exercise Tolerance: Metabolic Equivalents>4 Pertinent Negatives Pertinent Negatives: No Symptoms of GERD, No Major Cardiovascular Symptoms or Complaints, No Major Pulmonary Symptoms or Complaints and No History of CVA/TIA Cardiac & Pulmonary Exam Cardiac Exam: Normal S1/S2 Heart Sounds Pulmonary Exam: Clear Bilateral Breath Sounds Airway Exam Known Difficult Airway: No Mallampati Class: 2 Mouth Opening: Normal (> 3cm) Thyromental Distance: Greater than 3 cm Neck Range of Motion: Full ROM Neck Circumference: Normal Teeth Condition: Normal Dentition Airway Comments: Multiple missing teeth Remaining teeth broken and chipped ASA Classification ASA Score: ASA 2 Emergency Case?: No NPO Status NPO Status: NPO Clears >2 hours, Solids >8 hours Anesthesia Plan Resuscitation Status: Full Code Anesthesia Technique: General Anesthesia Airway Planned: LMA Pain Management: Intrathecal Analgesia Monitors Used: Standard Monitors
[2021-02-09] MEDS: Gabapentin 300 MG CAP PO (12:21)
[2021-02-09] MEDS: Acetaminophen 500 MG TAB 1000 MG PO (12:21)
[2021-02-09] MEDS: Celecoxib 200 MG CAP 400 MG PO (12:21)
[2021-02-09] MEDS: Lactated Ringers 1,000 ML 80 ML IV (12:23)
[2021-02-09] MEDS: ceFAZolin 2 GM/50 ML BAG IVPB (13:01)
[2021-02-09] MEDS: Bupivacaine 0.5% Pres-Free 30 ML VIAL (13:34)
--- NOTE | 2021-02-09 14:46 | W.ANESPOSTOP ---
Postoperative Evaluation Date, Time and Location Date Performed: 02/09/21 Time Performed: 14:46 Patient Location: Day Surgery Unit Vital Signs Most Recent Imported Vital Signs: Most Recent Vital Signs Temp Pulse Resp BP Pulse Ox 36.3 C L 72 10 L 109/65 97 02/09/21 14:29 02/09/21 14:29 02/09/21 14:29 02/09/21 14:29 02/09/21 14:29 Pain Score Most Recent Pain Score: Most Recent Pain Score Pain Level 3 02/09/21 14:29 Assessment Mental Status: Awake (Alert & Oriented to Patient Baseline) Airway and Respiratory Function: Patent airway with normal (patient baseline) respiratory exam Cardiovascular Function: Hemodynamically Stable Hydration Status: Adequately Hydrated Nausea & Vomiting: No Nausea or Vomiting Pain: Pt. Denies Any Pain Peripheral Nerve Block: Patient did not receive a nerve block
--- NOTE | 2021-02-09 22:35 | W.PM.OP ---
Date of service: 02/09/21 Time of Service: 13:35 Operative Note Operative Note DATE OF PROCEDURE: 02/09/21 PRE-OP DIAGNOSIS: Arthrofibrosis and Pain s/p Knee Replacement - LEFT POST-OP DIAGNOSIS: same PROCEDURE: Arthroscopic Synovectomy of 3 Compartments - LEFT Knee SURGEON: Wesly Sanchez ANESTHESIA TYPE: General LMA/ETT Refer to Anesthesia Record ESTIMATED BLOOD LOSS: 5 PATHOLOGY: none sent TOURNIQUET TIME: 0 COMPLICATIONS: None Patient was transported to: PACU Patient's condition: stable Indications: I have seen Marco Antonio in clinic for symptoms of arthrofibrosis pain of the knee following knee replacement surgery. Nonoperative measures were exhausted but disability due to lack of motion and pain persisted. I discussed knee arthroscopy with synovectomy with the patient. I reviewed the risks of the procedure to include, but not limited to, bleeding, infection, pain, continued stiffness, recurrence, blood clot. Despite these risks, the patient elected to proceed. Findings: There is notable synovitis in the knee, mostly around the patella and in the suprapatellar pouch. Preoperative flexion was approximately 110? and is able to get about 125? at the conclusion of the case. Procedure Description: Marco Antonio was greeted in the preoperative holding area where the correct side was identified and marked. The consent was reviewed with the patient and signed. The history and physical was updated. All questions were answered. Marco Antonio was taken back to the operating room. The patient was placed into the supine position on the operating room table. All bony prominences were well padded. Prophylactic antibiotics in the form of cefazolin were administered. Preoperative range of motion was assessed as 0 -110. The left leg was then prepped with Chloraprep and draped in a standard fashion with stockinette and extremity drape. A timeout to confirm correct identity, side and site, procedure, allergies, anesthesia, and medical concerns was performed. The leg was placed into a pneumatic leg michel, [id number]. A standard lateral portal was made at the lateral border of the patella tendon in line with the inferior pole of the patella, soft spot. The skin and deep tissue was incised sharply and the blunt trochar was inserted atraumatically. At this point had visualization of the femoral component. A superolateral portal was then established with spinal needle localization just superior and lateral to the patella. A knife was taken down through the skin and soft tissue to enter the knee joint. Starting in the superior compartment above the femoral component and anterior to the femur I released all scarring between the anterior femoral synovium and the overlying extensor mechanism. This was taken through all of any noticeable scar tissue until the superior patellar pouch was fully released and mobile. This resection was carried out mostly with electrocautery as well as shaver. There is notable hypertrophic synovium seen around the patella. This was quite swollen and thick and interposed between the patella and the femur. Once this was released fully from lateral to medial superiorly I then continue working down the lateral gutter. All scar tissue in the lateral gutter was released so there is normal space and movement between the capsular tissues and the edge of the femoral component and femur. This was taken down through the lateral gutter such that I was able to identify the polyethylene to its posterior corner. Once again, all scar tissue in this area was resected so the polyethylene was easily visible and there is no interposed tissue in the back or the polyethylene was identified. I continued to work anteriorly. To continue the synovectomy from the lateral compartment to the anterior compartment into the medial compartment, I placed a medial portal under spinal needle localization. Once this was in place it became another working portal and I continued the synovectomy through the anterior compartment to the medial compartment. Once again, I freed up the medial gutter so I was able to visualize the polyethylene from the anterior posterior margins. There is no interposed tissue after full synovectomy was performed. In general, the scarring and synovitis was much less in the gutters. Adhesions between the capsule and the femur were released. This was continued up the medial gutter until it met up with the releases performed previously in the superior compartment. Any remnant scar tissue from around the patella was then removed with a shaver and electrocautery. The arthroscope was brought back into the suprapatellar pouch and the leg was in full extension. The knee was thoroughly irrigated with the arthroscopic fluid on high flow and pressure. Inflow was stopped and excess fluid was removed. The leg was removed from the spider leg michel and manipulation was performed. I first push the knee into flexion and was able to obtain 125 degrees. The wounds were closed with 4-0 Nylon. 0.25% ropivacaine was injected around the portal sites and into the knee. The wounds were dressed with Xeroform, 4x4 gauze, ABD pad, Kerlix and an TAMMY wrap. A cryo-cuff was applied. The patient tolerated the procedure well and was returned to the Same Day Surgery area in a stable condition suffering no known complication..
== END 2021-02-09 16:10 | disposition home or self-care (01) ==
LOC: SUR 10:49
PROVIDERS: PCP Family Medicine; Visit Provider Student in an Organized Health Care Education/Training Program
PROC: (CPT 29870; principal; 2021-02-09 12:30)
DX: T84.84XA Pain due to internal orthopedic prosthetic devices, implants and grafts, initial encounter (principal); Z96.652 Presence of left artificial knee joint
CPT/HCPCS: 29876; J0690; J2001; J2250

== ENCOUNTER 2021-05-26 15:09 | Outpatient (CLI) | payer MEDICAID, SELFPAY ==
--- NOTE | 2021-05-26 08:49 | DI.RAD_ITS ---
Exam(s) XR KNEE LT 2V AP,LAT EXAM: XR KNEE LT 2V AP,LAT CLINICAL HISTORY: ANNUAL F/U L TKA. TECHNIQUE: 2D digital imaging was performed. COMPARISON: CR XR KNEE LT 3V AP,LAT,KATE from 12/23/2020 FINDINGS: Two views of the left knee compared to 12/23/[address] prosthesis in place. Femoral componen t appears unremarkable and stable. There is linear lucency subjacent to the medial tibial plateau co mponent, not evident on the prior study. Correlation any clinical signs of loosening recommended. T here is no obvious radiographic evidence of osteomyelitis. In addition, on the lateral view there a 5 6 millimeter osteophytic density just behind the patella on lateral view, not previously present. IMPRESSION: DATA REPOSITORY: RADIATION DOSE DELIVERED:
== END 2021-05-26 15:10 | disposition home or self-care (01) ==
LOC: DIORS 15:10
PROVIDERS: PCP Family Medicine; Referring Provider Family Medicine; Visit Provider Student in an Organized Health Care Education/Training Program
DX: Z96.652 Presence of left artificial knee joint (principal); Z47.1 Aftercare following joint replacement surgery; M25.762 Osteophyte, left knee
CPT/HCPCS: 73560

== ENCOUNTER 2021-07-29 19:38 | Outpatient (CLI) | payer MEDICAID, SELFPAY ==
--- NOTE | 2021-07-29 12:19 | DI.RAD_ITS ---
Exam(s) XR SHOULDER RT COMPLETE 2+V EXAM: XR SHOULDER RT COMPLETE 2+V CLINICAL HISTORY: PAIN RT SHOULDER, M25.511, SLIP/FALL, DEC ROM, ? FX. TECHNIQUE: 2D digital imaging was performed of the right shoulder. Five images were obtained. AP, Grashey, Y-view and axillary views were obtained. COMPARISON: CR LEFT SHOULDER COMPLETE from 10/06/2014 CR CHEST 2 VIEWS PA,LAT from 05/10/2015 CR LEFT SHOULDER COMPLETE from 01/10/2018 CR XR CHEST 1V IN DI DEPT from 11/28/2019 CR XR PORTABLE CHEST AP from 07/26/2020 FINDINGS: BONES: No bony destructive lesion is seen. There is a density projected over the inferior the glenoid . The possibility of a small avulsed fracture cannot be excluded. CT scan of the shoulder is recomm ended for further evaluation. JOINTS: No dislocation present. Degenerative changes are seen at the acromioclavicular joint. SOFT TISSUE: Normal. IMPRESSION: DATA REPOSITORY: RADIATION DOSE DELIVERED:
== END 2021-07-29 19:58 ==
PROVIDERS: PCP Family Medicine; Visit Provider Physician Assistant Medical
DX: M25.511 Pain in right shoulder (principal); M19.011 Primary osteoarthritis, right shoulder
CPT/HCPCS: 73030

== ENCOUNTER 2021-08-15 01:50 | Outpatient (CLI) | payer MEDICAID, SELFPAY ==
--- NOTE | 2021-08-15 06:30 | DI.MRI_ITS ---
Exam(s) MR UPPER JOINT RT WO EXAM: MR UPPER JOINT RT WO CLINICAL HISTORY: Pain and motion restriction after a fall,SPRAIN,S43.409A TECHNIQUE: Multiplanar multisequence MRI of the shoulder was performed. COMPARISON: MR MRI R UPPER JOINT WO CONT from 04/27/2015 CR XR SHOULDER RT COMPLETE 2+V from 07/29/2021 FINDINGS: MARROW:There is no evidence of fracture, Hill-Sachs deformity, nor ominous osseous lesions. ROTATOR CUFF MECHANISM: AC JOINT/ACROMIUM: There is significant degenerative changes in the AC joint including downgoing oste ophytes causing some impingement. Undersurface of the acromion is flat. There is no undersurface im pingement hook. There is no evidence of os acromiale. Supraspinatus: Mild increased signal. No full-thickness tear Infraspinatus: Abnormal signal. There is full-thickness tearing including retraction of the more ant erior aspect of the infraspinatus tendon most posterior aspect appears intact. There is abnormal sig nal in the muscle belly of the infraspinatus. Teres Minor: Intact. No evidence of tear nor muscle atrophy. Subscapularis/anterior cuff: There is tendinitis signal in the sub scapularis tendon anterior to less er tuberosity. BICEPS TENDON: Normally position in the intertubercular groove. No evidence of tear. No prominent tenosynovitis. LABRUM: No labral tear identified. No evidence of paralabral cyst. GLENOHUMERAL JOINT: Some degenerative changes including small osteophyte on the inferior articular cruz rface of the humeral head . focal bone bruise just above the greater tuberosity. No evidence of caps ular tear. The inferior glenohumeral ligament is intact. QUADRILATERAL SPACE: No evidence of mass in the region of the axillary nerve and dorsal circumflex hu meral vessels. Visualized triceps muscle at this level appears unremarkable. IMPRESSION: 1. Main findings here are at the level of the infraspinatus where there is full-thickness tearing of the more anterior aspect of fibers as well as edema throughout the muscle belly. There is minimal in volvement of the supraspinatus which is intact. Teres minor is intact. There is some signal abnorma lity in the anterior cuff-subscapularis consistent with tendinitis. 2. No biceps tendon tear nor obvious labral tears. 3. Advanced degenerative changes noted in the acromioclavicular joint with downgoing osteophytes. 4. Moderate degenerative changes in the glenohumeral joint. DATA REPOSITORY:
== END 2021-08-15 02:10 ==
PROVIDERS: PCP Family Medicine; Visit Provider Family Medicine
DX: M25.511 Pain in right shoulder (principal); S43.491A Other sprain of right shoulder joint, initial encounter; X58.XXXA Exposure to other specified factors, initial encounter; M75.121 Complete rotator cuff tear or rupture of right shoulder, not specified as traumatic; M19.011 Primary osteoarthritis, right shoulder
CPT/HCPCS: 73221

== ENCOUNTER 2021-09-09 00:22 | Outpatient (CLI) | payer MEDICAID, SELFPAY ==
--- NOTE | 2021-09-09 07:30 | DI.MRI_ITS ---
Exam(s) MR UPPER EXTREMITY RT WO MR UPPER JOINT RT WO EXAM: MRI of the right elbow and right humerus without contrast CLINICAL HISTORY: Chronic distal biceps rupture,STRAIN. TECHNIQUE: Multiplanar multisequence MRI was performed. COMPARISON: None. FINDINGS: Bones: There is no fracture or contusion. There is normal marrow signal. There are no erosive change s seen. There is no appreciable joint effusion. Ligaments: The ligaments about the elbow are intact. Musculoskeletal Structures: There is a complete tear of the biceps tendon with retraction proximally. The tip of the torn tendon lies 11.5 cm from the elbow. (Series [id number], image 13: MRI of the humeru s). There is moderate atrophy of the distal aspect of the biceps muscle. There is mild hyperintense signal seen within the biceps muscle which may represent muscle soreness/muscle strain. No signific ant edema is seen around the end of the biceps tendon or along the tract. This may represent a chron ic biceps tendon tear. There is hyperintense signal seen within the common extensor tendon consisten t with a partial tear. Soft tissues: No significant edema in the soft tissues. IMPRESSION: 1. Complete tear of the biceps tendon with retraction proximally. The tendon lies approximately 11.5 cm from the elbow. There does appear to be a short may be 3 cm length of tendon left. 2. Mild hyperintense signal seen in the common extensor tendon which may represent a partial tear. 3. Results of this exam have been verbally communicated with provider. DATA REPOSITORY:
== END 2021-09-09 00:42 ==
PROVIDERS: PCP Family Medicine; Visit Provider Student in an Organized Health Care Education/Training Program
DX: S46.211A Strain of muscle, fascia and tendon of other parts of biceps, right arm, initial encounter (principal); X58.XXXA Exposure to other specified factors, initial encounter
CPT/HCPCS: 73218; 73221

== ENCOUNTER 2021-09-28 02:08 | Outpatient (CLI) | payer MEDICAID, SELFPAY ==
[2021-09-28 13:35] LABS: Source Nasal/Nares
[2021-09-28 16:49] LABS: COVID-19 PCR Negative (Negative)
== END 2021-09-28 02:09 | disposition home or self-care (01) ==
LOC: LBO 02:09
PROVIDERS: PCP Family Medicine; Visit Provider Student in an Organized Health Care Education/Training Program
DX: Z20.822 Contact with and (suspected) exposure to COVID-19 (principal)
CPT/HCPCS: 87635

== ENCOUNTER 2021-09-30 07:17 | Day surgery (SDC) | payer MEDICAID, SELFPAY ==
[2021-09-30] VITALS (10 sets, daily range): BP systolic 111–140; BP diastolic 76–95; PULSE 78–95; RESP 16–24; TEMP 36.2–36.6; O2SAT 94–98; BMI 33.1
[2021-09-30] MEDS: Lactated Ringers 1,000 ML 100 ML IV (08:42)
--- NOTE | 2021-09-30 08:49 | ANES.PREOP_ITS ---
General Info Date of Service Date Performed: 09/30/21 Height: 5 ft 9 in Weight: 101.9 kg Body Mass Index (BMI): 33.1 Surgical Procedure: Operation Date: 09/30/21 09:40 Proposed Procedure Side Surgeon p Shoulder Rotator Cuff Arthroscopic w/Extensive Debridement, Biceps Tenodesis, Subacromial Decompression Right Trace Gillis MD Meds Allergies and Home Medications Allergies Allergy/AdvReac Type Severity Reaction Status Date / Time procaine Allergy Severe swelling Verified 09/30/21 07:42 prednisone AdvReac Severe gets Verified 09/30/21 07:42 violent alprazolam AdvReac Intermediate Dizzy Verified 09/30/21 07:42 Home Medication Medication Instructions Recorded multivitamin (Multi-Day) 1 ea PO DAILY 10/15/12 Botox 05/09/17 Aspirin/Acetaminophen/Caffeine 1 ea PO PRN PRN 07/20/17 [Excedrin Migraine Caplet] syringe with needle 1 mL 27 x 1/2 02/27/18 (Allergy Syringe) fluticasone propionate 50 2 spray THEO DAILY PRN 01/27/19 mcg/actuation nasal spray,suspension lidocaine HCl 2 % mucosal jelly 1 applic TP BID-QID PRN 09/29/19 blood sugar diagnostic #200 each 11/20/19 polyethylene glycol 3350 17 17 gm PO BID 01/05/20 gram/dose oral powder aspirin 81 mg tablet,delayed 81 mg PO DAILY 02/01/20 release (Aspirin Low Dose) fexofenadine 60 mg tablet 180 mg PO DAILY tab 05/17/20 hydroxyzine HCl 25 mg tablet 25 mg PO Q6H PRN PRN #90 tab-cap 05/31/20 bismuth subsalicylate 525 mg/15 mL 525 mg PO Q30-60M PRN 11/16/20 oral suspension (Pepto-Bismol Max St) simethicone 125 mg capsule (Gas 250 mg PO TID-QID PRN cap 11/16/20 Relief (simethicone)) cetirizine 10 mg tablet 10 mg PO DAILY 01/10/21 montelukast 10 mg tablet 10 mg PO DAILY 01/10/21 sitagliptin 100 mg tablet (Januvia) 100 mg PO DAILY #90 tab 01/10/21 lancets 33 gauge (OneTouch Delica #200 ea 01/13/21 Lancets) pen needle, diabetic 31 gauge x #100 ea 02/04/21 3/ (Lite Touch Insulin Pen [place]) insulin lispro 100 unit/mL See Rx Instructions SC BID #15 ml 02/11/21 subcutaneous pen (Humalog KwikPen (U-100) Insulin) blood sugar diagnostic (Blood #400 ea 02/14/21 Glucose Test) pramipexole 0.125 mg tablet 0.125 mg PO QHS #90 tab 02/14/21 insulin degludec 200 unit/mL (3 75 unit (0.375 mL) SUBCUT QHS #9 ml 04/07/21 mL) subcutaneous pen (Tresiba FlexTouch U-200 insulin) omeprazole 40 mg capsule,delayed 40 mg PO DAILY #90 cap 05/05/21 release atorvastatin 20 mg tablet 20 mg PO DAILY #90 tab 06/09/21 flash glucose sensor (FreeStyle #1 ea 06/10/21 Sushant 14 Day Sensor) metformin 500 mg tablet,extended 500 mg PO BID #180 tab 07/29/21 release 24hr dapagliflozin 10 mg tablet 10 mg PO DAILY #90 tab 08/05/21 (Farxiga) pregabalin 75 mg capsule (Lyrica) 75 mg PO BID #60 cap 09/05/21 aspirin 81 mg tablet,delayed 81 mg PO DAILY 14 Days #14 tab 09/30/21 release naproxen 250 mg tablet 250 - 500 mg PO BID PRN #40 tab 09/30/21 oxycodone 5 mg tablet 5 - 10 mg PO Q4H PRN #18 tab MDD 09/30/21 30 mg Current Visit Medications: Current Medications Generic Name Dose Route Start Last Admin Trade Name Freq PRN Reason Stop Dose Admin Ringer's Solution 1,000 mls @ 100 mls/hr 09/30/21 06:00 09/30/21 08:42 IV 10/20/21 23:59 100 mls/hr INFUSION GERI Administration Cefazolin Sodium 3,000 mg/ 100 mls @ 200 mls/hr 09/30/21 06:00 Sodium Chloride IVPB 09/30/21 16:00 PREOP GERI IV Miscellaneous Supplies 1 each 09/30/21 06:00 Iv Access IV 10/20/21 23:59 DIRECTED GERI Naproxen 250 - 500 mg 09/30/21 07:09 Naproxen 500 Mg Tab PO BID PRN PRN Oxycodone HCl 5 - 10 mg 09/30/21 07:09 Oxycodone 5 Mg Tab PO Q4H PRN PRN Sodium Chloride 0 ml 09/30/21 06:00 Normal Saline Flush 10 Ml Syr IV 10/20/21 23:59 PRN PRN Sodium Chloride 0 ml 09/30/21 06:00 Normal Saline 10 Ml Vial IJ 10/20/21 23:59 DIRECTED PRN Sterile Water 0 ml 09/30/21 06:00 Water,Injection,Sterile 10 Ml Vial IJ 10/20/21 23:59 DIRECTED PRN PFSH Active Problems Active Problems: Problem Status Onset Code Bursitis of right shoulder M75.51 Tendonitis of long head of biceps brachii of right shoulder M75.21 Traumatic tear of right rotator cuff ~07/2021 S46.011A Rupture of right distal biceps tendon S46.211A Chronic maxillary sinusitis J32.0 Hypertrophy of nasal turbinates J34.3 Deviated nasal septum J34.2 Strain of left quadriceps muscle S76.112A Arthrofibrosis of total knee arthroplasty T84.82XA Painful total knee replacement, left T84.84XA, Z96.652 Tendinitis of left quadriceps tendon M76.892 Pes anserinus bursitis of left knee M70.52 Chronic migraine G43.709 History of total left knee replacement (TKR) 05/24/20 Z96.652 Environmental allergies Z91.09 Anorexia R63.0 Constipation K59.00 Allergic rhinitis due to pollen J30.1 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 Valdes 03/2020-states that he was told by Dr. Massey told patient if he has symptoms he should f/u with cardiology but othersise to f/u with PCP Dermatitis due to ingested food Diabetes mellitus type 2 in obese (05/08/13) A1C goal 7.5 Diabetic polyneuropathy associated with type 2 diabetes mellitus (03/14/18) Environmental allergies Erectile dysfunction (11/20/12) LEAH (generalized anxiety disorder) (03/19/15) Gangrenous cholecystitis Gastroesophageal reflux disease with esophagitis (09/21/11) Hyperlipidemia (09/11/13) PCEq risk 7.8% LDL baseline 127 Insomnia, unspecified (11/20/12) Leg cramps (03/14/18) Lumbar radiculitis Meralgia paresthetica of left side Migraine headache without aura Myositis (05/07/13) Nonintractable episodic headache (01/20/16) Obesity SHARRI (obstructive sleep apnea) (09/02/14) Pain of left lower extremity (04/11/17) Peripheral neuropathy 07/01/19 sylvain Rosales f/u 07/30/19 Pre-ulcerative calluses Restless leg syndrome Shortness of breath Medical History Comments:: glucometer patch in upper (L) arm. Only 6 teeth, lower. Doesn't use CPAP. Surgical History Surgical History Colonoscopy - MAC (07/27/17) cortisone injection (03/17/14) lumbar H/O chest tube placement per pt. this was when he had his gall bladder out History of cardiac catheterization x2 1980s History of repair of anterior cruciate ligament of left knee Osteoarthritis of left acromioclavicular joint (02/27/18) Status post excision of left distal clavicle S/P laparoscopic cholecystectomy (~11/25/19) acute hemorrhagic, gangrenous cholecystitis S/P nasal septoplasty (08/18/21) Status post arthroscopy of left knee Tobacco Smoking/Tobacco Use Status: Never Alcohol Alcohol Intake: current Alcohol intake frequency: holidays/special occasions only Alcohol type: hard liquor Substance Use Substance use: Never Substance use type: does not use Vital Signs and Lab Results Vital Signs Most Recent Vital Signs in EMR: Most Recent Vital Signs Temp Pulse Resp BP Pulse Ox 36.6 C 95 H 18 140/95 H 96 09/30/21 08:04 09/30/21 08:04 09/30/21 08:04 09/30/21 08:04 09/30/21 08:04 Lab Results Blood Type / Crossmatch: No Data to Display Complete Blood Count: No Data to Display Complete Metabolic Panel: No Data to Display Liver Function Panel: No Data to Display Coagulation Panel: No Data to Display Cardiac Panel: No Data to Display Arterial Blood Gas: No Data to Display Venous Blood Gas: No Data to Display Pancreas Panel: No Data to Display Thyroid Panel: No Data to Display Infectious Disease: Coronavirus (COVID-19)(PCR) Negative (Negative) 09/28/21 09:48 09/28/21 Coronavirus 2019 Source Nasal/Nares 09/28/21 09:48 09/28/21 Blood Cultures: No Data to Display Toxicology Panel: No Data to Display Imaging and Studies Imaging and Studies Study information below may be from another EMR and interpreted by another provider. Please see original notes in EMR for more complete details. EKG Summary: 07/26/20 Conclusion Sinus rhythm...normal P axis, V-rate 60- 99 Anterolateral infarct, old...Q>40mS, abnrm ST-T, V3-V6,I,aVL I have reviewed and interpreted ECG and agree with software generated interpretation. Anesthesia Assessment and Plan Anesthesia History Personal History: No History of Anesthesia Complications Family History: No Family History of Anesthesia Complications Exercise Tolerance Exercise Tolerance: Metabolic Equivalents>4 Pertinent Negatives Pertinent Negatives: No Symptoms of GERD, No Major Cardiovascular Symptoms or Complaints, No Major Pulmonary Symptoms or Complaints and No History of CVA/TIA Cardiac & Pulmonary Exam Cardiac Exam: Normal S1/S2 Heart Sounds Pulmonary Exam: Clear Bilateral Breath Sounds Implantable Cardiac Device Does patient have a Pacemaker or an ICD?: No Airway Exam Known Difficult Airway: No Mallampati Class: 2 Mouth Opening: Normal (> 3cm) Thyromental Distance: Greater than 3 cm Neck Range of Motion: Full ROM Neck Circumference: Normal Teeth Condition: Normal Dentition (6 bottom teeth) Airway Comments: Multiple missing teeth Remaining teeth broken and chipped ASA Classification ASA Score: ASA 3 Emergency Case?: No NPO Status NPO Status: NPO Clears >2 hours, Solids >8 hours Anesthesia Plan Resuscitation Status: Full Code Anesthesia Technique: General Anesthesia Airway Planned: Endotracheal Tube Monitors Used: Standard Monitors
[2021-09-30] MEDS: ceFAZolin 3,000 MG in Normal Saline 100 ML 200 MG IVPB (10:45)
[2021-09-30] MEDS: EPINEPHrine 30 MG/30 ML VIAL (12:00)
--- NOTE | 2021-09-30 12:00 | ROE_ITS ---
Operative Note Operative Note DATE OF PROCEDURE: 09/30/21 PRE-OP DIAGNOSIS: Right: 1. Rotator cuff tear 2. LHB tendinopathy 3. Bursitis POST-OP DIAGNOSIS: same PROCEDURE: Right: 1. Arthroscopic biceps tenodesis, CPT# 76813. This involved arthroscopically suturing and reattaching the long head of the biceps tendon to the proximal humerus at the superior margin of the bicipital groove with a screw at the correct tension. 2. Extensive debridement, CPT# 38580. This involved using arthroscopic hand instruments, power instruments, and radiofrequency instruments to release the long head of the biceps tendon and debride areas of labral tearing, synovitis, and chondromalacia about the humeral head, and partial subscapularis and articular sided supraspinatus tearing working within the glenohumeral joint anteriorly, superiorly and posteriorly. 3. Subacromial decompression with partial acromioplasty, CPT# 22329. This involved using arthroscopic power instruments and a radiofrequency wand to complete a bursectomy and remove bone spurs on the undersurface of the acromion. The front end assistant was medically required in order to help assist in techniques above, which require positioning the arm, holding the arthroscope, and manipulating multiple instruments and sutures at the same time. This cannot be done without the help of an experienced front end assistant. SURGEON: Trace Gillis HAUNTED HISTORY TOUR GUIDE: Mina Lombardo ANESTHESIA TYPE: General LMA/ETT and Primary Nerve Block Refer to Anesthesia Record ESTIMATED BLOOD LOSS: 5 PATHOLOGY: none sent COMPLICATIONS: None Patient was transported to: PACU Patient's condition: stable Implants: Arthrex: 4.75mm SwiveLocks x 1 Indications: The patient was diagnosed with the above conditions and appropriately indicated for surgical intervention. Please see complete medical record for details. Findings: Exam under anesthesia: Distal full, symmetrical range of motion. No instability. Obvious biceps deformity with distal biceps rupture stump measured about 12 cm from the antecubital fossa. Glenohumeral joint: Significant biceps intra-articular injection inflammation with surrounding synovitis and degenerative type SLAP tear with loose free edges. Mild upper margin subscapularis fraying. Mild supraspinatus articular fraying. No articular sided infraspinatus injury. Subacromial space: Significant bursitis. No apparent bursal rotator cuff supraspinatus or infraspinatus injury. Procedure Description: In the operating room, general anesthesia was induced. Bilateral shoulders were examined. The patient was positioned in the beachchair position. All bony prominences were well-padded. Preoperative antibiotics were administered. The shoulder was prepped and draped in the usual sterile fashion. The correct patient, procedure, and side of the procedure were all verified prior to incision. Starting through the posterior portal a standard complete diagnostic arthroscopy was performed of the glenohumeral joint including inspection of the long head of the biceps, anterior and superior labrum, subscapularis tendon, supraspinatus and infraspinatus tendons, and axillary recess. The glenoid and humeral head cartilage as well as the posterior labrum were inspected from an anterior viewing portal. Significant findings and interventions noted above. An all-arthroscopic suprapectoral biceps tenodesis was performed through an anterior portal using a Loop N Tack method with a SutureTape FiberLink cinched around and through the tendon. The biceps was tenotomized from the labrum and fixated with a suture anchor at the superior margin of the bicipital groove. Starting through the posterior portal, the arthroscope was directed into the subacromial space. A lateral 50 yard line lateral portal was created. A combination of power instruments and a radiofrequency ablator were used to debride bursitis anteriorly, posteriorly, and laterally as well as expose and smooth bone spurring on the undersurface of the acromion. Coracoacromial ligament was preserved. The bursectomy was completed viewing laterally and working from posteriorly and the rotator cuff was thoroughly inspected with findings noted above. Of note there was no obvious rotator cuff in particular infraspinatus muscle, musculotendinous, or tendinous injury. Probed and inspected thoroughly on both sides repeatedly. Stable to motion probing with good trampoline. No indication for takedown or repair of any intrasubstance degeneration, which was not apparent. The shoulder was drained of arthroscopic fluid. All portal sites were copiously irrigated. These incisions were closed using 3-0 Monocryl in a buried fashion and then covered with Mastisol, Steri-Strips, Xeroform, dry gauze, and ABDs. The dressings were covered and secured with Medipore tape. The operative extremity was placed into a sling for immobilization. The patient awoke from anesthesia without complication and was transferred to the recovery room in a stable condition.
--- NOTE | 2021-09-30 12:00 | PDOC.DSDIS_ITS ---
Discharge Plan Disposition Patient Disposition: HOME Condition: Stable Discharge Details Reason For Visit: Right shoulder surgery Attending Provider: Trace Gillis Primary Care Provider: Scott Valdes Home Meds and New Rx's Prescriptions: New aspirin 81 mg tablet,delayed release (DR/EC) 81 mg PO DAILY 14 Days Qty: 14 0RF naproxen 250 mg tablet 250 - 500 mg PO BID PRNQty: 40 0RF Rx Instructions: take with a meal oxycodone 5 mg tablet 5 - 10 mg PO Q4H MDD 30 mg PRN (Reason: moderate to severe pain) Qty: 18 0RF Continued lidocaine HCl 2 % jelly 1 applic TP BID-QID PRN0RF (DME) blood sugar diagnostic Strip See Rx Instructions .ROUTE .MEDSUPPLY Qty: 200 6RF Rx Instructions: For E11.9 to maintain A1C <7.0. Use w/Verio Flex. TID daily testing simethicone [Gas Relief (simethicone)] 125 mg capsule 250 mg PO TID-QID PRN0RF Label Comments: Pt takes 2 capsules after meals and before bed usually, has taken as many as 4 capsules at a time though. Pepto-Bismol Max St 525 mg/15 mL suspension 525 mg PO Q30-60M PRN0RF Label Comments: Pt uses when feeling bloated as well Rx Instructions: do not exceed 8 doses in a 24 hour period (DME) Blood Glucose Test Strip See Rx Instructions .ROUTE .MEDSUPPLY Qty: 400 3RF Rx Instructions: As directed to check blood glucose four times daily. On insulin. Dispense covered brand. pramipexole 0.125 mg tablet 0.125 mg PO QHS Qty: 90 3RF Tresiba FlexTouch U-200 200 unit/mL (3 mL) insulin pen 75 unit subcut QHS Qty: 9 12RF polyethylene glycol 3350 17 gram/dose powder 17 gm PO BID 0RF montelukast 10 mg tablet 10 mg PO DAILY 0RF cetirizine 10 mg tablet 10 mg PO DAILY 0RF Januvia 100 mg tablet 100 mg PO DAILY Qty: 90 3RF multivitamin [Multi-Day] 1 EACH tablet 1 ea PO DAILY 0RF botox 0RF Label Comments: q 6 weeks,pt repors last had botox mid july 2021 Rx Instructions: q 6-8w (Chiara Massey) Aspirin/Acetaminophen/Caffeine [Excedrin Migraine Caplet] 1 EACH tablet 1 ea PO PRN PRN0RF fluticasone propionate 50 mcg/actuation spray,suspension 2 spray THEO DAILY PRN0RF Label Comments: 01/27/19 Dr. Smith RH fexofenadine 60 mg tablet 180 mg PO DAILY 0RF hydroxyzine HCl 25 mg tablet 25 mg PO Q6H PRN PRN (Reason: headache) Qty: 90 3RF Rx Instructions: Take 1-2 tabs every 6 hours as needed for headache. (DME) lancets [OneTouch Delica Lancets] 33 gauge misc 1 ea Miscellaneous BID Qty: 200 3RF Rx Instructions: to check BS TID for DM/E11.9 to keep A1c at or below 7. (DME) pen needle, diabetic [Lite Touch Insulin Pen [place]] 31 gauge x 3/16 needle See Rx Instructions .ROUTE .MEDSUPPLY Qty: 100 6RF Rx Instructions: Use QID, Dx:E11.9, to keep HbA1c less than 6.5% insulin lispro [Humalog KwikPen Insulin] 100 unit/mL insulin pen See Rx Instructions SC BID Qty: 15 6RF Rx Instructions: 6 units in AM 6 units at Dinner 11/16/20 omeprazole 40 mg capsule,delayed release(DR/EC) 40 mg PO DAILY Qty: 90 3RF atorvastatin 20 mg tablet 20 mg PO DAILY Qty: 90 3RF (DME) FreeStyle Sushant 14 Day Sensor Kit See Rx Instructions .ROUTE .MEDSUPPLY Qty: 1 12RF Rx Instructions: As directed metformin 500 mg tablet extended release 24hr 500 mg PO BID Qty: 180 3RF Farxiga 10 mg tablet 10 mg PO DAILY Qty: 90 3RF pregabalin [Lyrica] 75 mg capsule 75 mg PO BID Qty: 60 5RF aspirin [Aspirin Low Dose] 81 mg Tablet,Delayed Release (Dr/Ec) 81 mg PO DAILY 0RF (DME) Allergy Syringe 1 EACH syringe 1 ea Miscellaneous 0RF Label Comments: pt. reports he gets a weekly allergy shot Discontinued naproxen sodium 220 mg capsule 220 mg PO BID PRN0RF ibuprofen 800 mg tablet 800 mg PO BID-TID PRN (Reason: pain) Qty: 90 3RF Discharge Instructions Additional Instructions: Surgery: Right shoulder arthroscopy with biceps tenodesis, extensive debridement, and subacromial decompression. Activity: You should gradually increase range of motion motion and use of your shoulder. Please perform daily stretching exercises. You may use your shoulder for all regular activities. Avoid heavy lifting, reaching overhead, and lifting away from body for approximately 6 to 8 weeks. You may use the sling whenever you are out of the house for a few weeks. At home it is best to remove the sling and rest the arm on a pillow at your side or support the operative side with your other hand. A physical therapy prescription will be sent electronically to start in about 2 weeks. Prescriptions: Aspirin 81 mg take 1 daily to prevent a blood clot for 2 weeks Naproxen 250 mg take 1-2 every 12 hours with a meal as needed for moderate pain Oxycodone 5 mg take 1-2 every 4-6 hours as needed for severe pain You may use [id number] Tylenol (acetaminophen) as needed for mild pain. These pain medications may be taken all at once or in different combinations as needed. Also, recommend Colace (docusate) as a stool softener as surgery and pain medicine cause constipation. Dressings: Remove shoulder bandage after 3 days. Leave the sticky Steri-Strips in place until they fall off or remove them after you shower. Cover the incisions with Band-Aids or leave them open to air. You may shower after 5 days. Follow-up: 10-[address] Gillis You may take off the leg compression stockings this evening at home. You may also leave them on a few days longer if you have a history of leg swelling or edema. Let us know right away if you develop any redness, drainage, fevers, chest pain, or trouble breathing. Do not drink alcohol or drive for at least 24 hours after anesthesia. Please call the office during business hours with any questions or concerns. Referrals: Trace Gillis MD [ [facility] STAFF PHYSICIAN] - Discharge Orders Discharge Orders: Discharge Order (Routine); Ordered 09/30/21 Ordered By: Trace Gillis DS: Diagnosis Discharge Diagnosis (1) Traumatic tear of right rotator cuff: Status: Acute (2) Tendonitis of long head of biceps brachii of right shoulder: Status: Acute (3) Bursitis of right shoulder: Status: Acute
--- NOTE | 2021-09-30 13:16 | W.ANESPOSTOP ---
Postoperative Evaluation Date, Time and Location Date Performed: 09/30/21 Time Performed: 13:16 Patient Location: PACU Vital Signs Most Recent Imported Vital Signs: Most Recent Vital Signs Temp Pulse Resp BP Pulse Ox 36.4 C L 80 21 126/84 94 09/30/21 13:04 09/30/21 13:04 09/30/21 13:04 09/30/21 13:04 09/30/21 13:04 Pain Score Most Recent Pain Score: Most Recent Pain Score Pain Level 0 09/30/21 13:04 Assessment Mental Status: Awake (Alert & Oriented to Patient Baseline) Airway and Respiratory Function: Patent airway with normal (patient baseline) respiratory exam Cardiovascular Function: Hemodynamically Stable Hydration Status: Adequately Hydrated Nausea & Vomiting: No Nausea or Vomiting Pain: Pt. Denies Any Pain Peripheral Nerve Block: Patient did not receive a nerve block
--- NOTE | 2021-10-01 07:12 | W.ANESNERVE ---
Nerve Block Single Injection Procedure Date and Time Date Performed: 09/30/21 Procedure Start: 09:10 Location Where Procedure Performed Procedure Location: Day Surgery Unit Reason Performed: Postoperative Analgesia Requesting Provider: Trace Gillis Timeout Performed Timeout Performed: Yes Monitoring Used ECG, Blood Pressure and SpO2 Sterility Sterility: Hand Hygiene, Surgical Cap, Surgical Mask, Sterile Gloves, Eye Protection and Chlorhexidine Sedation Given During Procedure Sedation Given (Indicate Dose Given): Versed IV Dose:: 2 mg Patient Mental Status Patient Mental Status: Sedate with meaningful communication Nerve Block 1st Nerve Block: Laterality: Right Block Type: Interscalene Needle / Catheter Used: 100mm SonoPlex II Local Anesthetic Bolus (Indicate Dose Given): Lidocaine used for local infiltration of skin, Injected in 3-5ml increments after negative blood aspiration, Bupivacaine 0.5% Dose:: 10cc and Exparel Dose:: 10cc Additives (Indicate Dose Given): None Ultrasound: Sterile probe cover and gel used Ultrasound Image Saved?: Yes Nerve Stimulator: Not Used Paresthesia: None Post Procedure Pain score (0-10): 0 Procedure Tolerated: No Complications and Patient tolerated well Procedure Outcome: Successful Performed By: Stephen Cunningham
== END 2021-09-30 15:36 | disposition home or self-care (01) ==
LOC: SUR 07:17
PROVIDERS: PCP Family Medicine; Visit Provider Student in an Organized Health Care Education/Training Program
PROC: (CPT 29827; principal; 2021-09-30 09:30)
DX: S46.011A Strain of muscle(s) and tendon(s) of the rotator cuff of right shoulder, initial encounter (principal); M75.51 Bursitis of right shoulder; M75.21 Bicipital tendinitis, right shoulder; M24.111 Other articular cartilage disorders, right shoulder; M65.811 Other synovitis and tenosynovitis, right shoulder; X58.XXXA Exposure to other specified factors, initial encounter
CPT/HCPCS: 29828; 29823; 29826; 76942; J0131; J0690; J1100; J1885; J2001; J2250; J2405

== ENCOUNTER 2021-10-26 01:58 | Outpatient (CLI) | payer MEDICAID, SELFPAY ==
[2021-10-26 16:30] LABS: Source Nasal/Nares
[2021-10-27 00:27] LABS: COVID-19 PCR Negative (Negative)
== END 2021-10-26 01:59 | disposition home or self-care (01) ==
PROVIDERS: PCP Family Medicine; Visit Provider Student in an Organized Health Care Education/Training Program
DX: Z20.822 Contact with and (suspected) exposure to COVID-19 (principal); Z01.818 Encounter for other preprocedural examination
CPT/HCPCS: 87635

== ENCOUNTER 2021-10-28 07:12 | Day surgery (SDC) | payer MEDICAID, SELFPAY ==
[2021-10-28] VITALS (11 sets, daily range): BP systolic 88–134; BP diastolic 54–83; PULSE 78–96; RESP 12–20; TEMP 36–37.2; O2SAT 92–98; BMI 32.7
[2021-10-28] MEDS: Lactated Ringers 1,000 ML 100 ML IV (08:13)
--- NOTE | 2021-10-28 08:38 | ANES.PREOP_ITS ---
General Info Date of Service Date Performed: 10/28/21 Height: 5 ft 9 in Weight: 100.6 kg Body Mass Index (BMI): 32.7 Surgical Procedure: Operation Date: 10/28/21 09:55 Proposed Procedure Side Surgeon p Shoulder Distal Biceps Tendon Repair Allograft Reconstruction Right Trace Gillis MD Meds Allergies and Home Medications Allergies Allergy/AdvReac Type Severity Reaction Status Date / Time procaine Allergy Severe swelling Verified 10/28/21 07:40 prednisone AdvReac Severe gets Verified 10/28/21 07:40 violent alprazolam AdvReac Intermediate Dizzy Verified 10/28/21 07:40 Home Medication Medication Instructions Recorded multivitamin (Multi-Day) 1 ea PO DAILY 10/15/12 Botox 05/09/17 Aspirin/Acetaminophen/Caffeine 1 ea PO PRN PRN 07/20/17 [Excedrin Migraine Caplet] syringe with needle 1 mL 27 x /2 02/27/18 (Allergy Syringe) fluticasone propionate 50 2 spray THEO DAILY PRN 01/27/19 mcg/actuation nasal spray,suspension lidocaine HCl 2 % mucosal jelly 1 applic TP BID-QID PRN 09/29/19 blood sugar diagnostic #200 each 11/20/19 polyethylene glycol 3350 17 17 gm PO BID 01/05/20 gram/dose oral powder aspirin 81 mg tablet,delayed 81 mg PO DAILY 02/01/20 release (Aspirin Low Dose) fexofenadine 60 mg tablet 180 mg PO DAILY tab 05/17/20 hydroxyzine HCl 25 mg tablet 25 mg PO Q6H PRN PRN #90 tab-cap 05/31/20 bismuth subsalicylate 525 mg/15 mL 525 mg PO Q30-60M PRN 11/16/20 oral suspension (Pepto-Bismol Max St) simethicone 125 mg capsule (Gas 250 mg PO TID-QID PRN cap 11/16/20 Relief (simethicone)) cetirizine 10 mg tablet 10 mg PO DAILY 01/10/21 montelukast 10 mg tablet 10 mg PO DAILY 01/10/21 sitagliptin 100 mg tablet (Januvia) 100 mg PO DAILY #90 tab 01/10/21 lancets 33 gauge (OneTouch Delica #200 ea 01/13/21 Lancets) pen needle, diabetic 31 gauge x #100 ea 02/04/21/ (Lite Touch Insulin Pen [place]) insulin lispro 100 unit/mL See Rx Instructions SC BID #15 ml 02/11/21 subcutaneous pen (Humalog KwikPen (U-100) Insulin) blood sugar diagnostic (Blood #400 ea 02/14/21 Glucose Test) pramipexole 0.125 mg tablet 0.125 mg PO QHS #90 tab 02/14/21 omeprazole 40 mg capsule,delayed 40 mg PO DAILY #90 cap 05/05/21 release atorvastatin 20 mg tablet 20 mg PO DAILY #90 tab 06/09/21 flash glucose sensor (FreeStyle #1 ea 06/10/21 Sushant 14 Day Sensor) metformin 500 mg tablet,extended 500 mg PO BID #180 tab 07/29/21 release 24hr dapagliflozin 10 mg tablet 10 mg PO DAILY #90 tab 08/05/21 (Farxiga) pregabalin 75 mg capsule (Lyrica) 75 mg PO BID #60 cap 09/05/21 naproxen 250 mg tablet 250 - 500 mg PO BID PRN #40 tab 09/30/21 oxycodone 5 mg tablet 5 - 10 mg PO Q4H PRN #18 tab MDD 09/30/21 30 mg insulin degludec 200 unit/mL (3 76 unit SUBCUT QHS 10/26/21 mL) subcutaneous pen (Tresiba FlexTouch U-200 insulin) aspirin 81 mg tablet,delayed 81 mg PO DAILY 14 Days #14 tab 10/28/21 release naproxen 250 mg tablet 250 - 500 mg PO BID PRN #40 tab 10/28/21 oxycodone 5 mg tablet 5 - 10 mg PO Q4H PRN #18 tab MDD 10/28/21 30 mg Current Visit Medications: Current Medications Generic Name Dose Route Start Last Admin Trade Name Freq PRN Reason Stop Dose Admin Ringer's Solution 1,000 mls @ 100 mls/hr 10/28/21 06:00 10/28/21 08:13 IV 11/26/21 23:59 100 mls/hr INFUSION GERI Administration Cefazolin Sodium/Dextrose 2 gm in 50 mls @ 100 mls/hr 10/28/21 06:00 Ancef Duplex IVPB PREOP GERI IV Miscellaneous Supplies 1 each 10/28/21 06:00 Iv Access IV 11/26/21 23:59 DIRECTED GERI Naproxen 250 - 500 mg 10/28/21 07:27 Naproxen 500 Mg Tab PO BID PRN PRN Oxycodone HCl 5 - 10 mg 10/28/21 07:27 Oxycodone 5 Mg Tab PO Q4H PRN PRN Sodium Chloride 0 ml 10/28/21 06:00 Normal Saline Flush 10 Ml Syr IV 11/26/21 23:59 PRN PRN Sodium Chloride 0 ml 10/28/21 06:00 Normal Saline 10 Ml Vial IJ 11/26/21 23:59 DIRECTED PRN Sterile Water 0 ml 10/28/21 06:00 Water,Injection,Sterile 10 Ml Vial IJ 11/26/21 23:59 DIRECTED PRN PFSH Active Problems Active Problems: Problem Status Onset Code Bursitis of right shoulder M75.51 Tendonitis of long head of biceps brachii of right shoulder M75.21 Traumatic tear of right rotator cuff ~07/2021 S46.011A Rupture of right distal biceps tendon S46.211A Chronic maxillary sinusitis J32.0 Hypertrophy of nasal turbinates J34.3 Deviated nasal septum J34.2 Strain of left quadriceps muscle S76.112A Arthrofibrosis of total knee arthroplasty T84.82XA Painful total knee replacement, left T84.84XA, Z96.652 Tendinitis of left quadriceps tendon M76.892 Pes anserinus bursitis of left knee M70.52 Chronic migraine G43.709 History of total left knee replacement (TKR) 05/24/20 Z96.652 Environmental allergies Z91.09 Anorexia R63.0 Constipation K59.00 Allergic rhinitis due to pollen J30.1 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 Valdes 03/2020-states that he was told by Dr. Massey told patient if he has symptoms he should f/u with cardiology but othersise to f/u with PCP Dermatitis due to ingested food Diabetes mellitus type 2 in obese (05/08/13) A1C goal 7.5 Diabetic polyneuropathy associated with type 2 diabetes mellitus (03/14/18) Environmental allergies Erectile dysfunction (11/20/12) LEAH (generalized anxiety disorder) (03/19/15) Gangrenous cholecystitis Gastroesophageal reflux disease with esophagitis (09/21/11) Hyperlipidemia (09/11/13) PCEq risk 7.8% LDL baseline 127 Insomnia, unspecified (11/20/12) Leg cramps (03/14/18) Lumbar radiculitis Meralgia paresthetica of left side Migraine headache without aura Myositis (05/07/13) Nonintractable episodic headache (01/20/16) Obesity SHARRI (obstructive sleep apnea) (09/02/14) Pain of left lower extremity (04/11/17) Peripheral neuropathy 07/01/19 sylvain Rosales f/u 07/30/19 Pre-ulcerative calluses Restless leg syndrome Shortness of breath Medical History Comments:: glucometer patch in upper (L) arm. Only 6 teeth, lower. Doesn't use CPAP. Surgical History Surgical History Colonoscopy - MAC (07/27/17) cortisone injection (03/17/14) lumbar H/O chest tube placement per pt. this was when he had his gall bladder out History of cardiac catheterization x2 1980s History of repair of anterior cruciate ligament of left knee Osteoarthritis of left acromioclavicular joint (02/27/18) Status post excision of left distal clavicle S/P laparoscopic cholecystectomy (~11/25/19) acute hemorrhagic, gangrenous cholecystitis S/P nasal septoplasty (08/18/21) Status post arthroscopy of left knee Tobacco Smoking/Tobacco Use Status: Never Alcohol Alcohol Intake: current Alcohol intake frequency: holidays/special occasions onl y Alcohol type: hard liquor Substance Use Substance use: Never Substance use type: does not use Vital Signs and Lab Results Vital Signs Most Recent Vital Signs in EMR: Most Recent Vital Signs Temp Pulse Resp BP Pulse Ox 36.0 C L 96 H 18 134/82 96 10/28/21 07:54 10/28/21 07:54 10/28/21 07:54 10/28/21 07:54 10/28/21 07:54 Lab Results Blood Type / Crossmatch: No Data to Display Complete Blood Count: No Data to Display Complete Metabolic Panel: No Data to Display Liver Function Panel: No Data to Display Coagulation Panel: No Data to Display Cardiac Panel: No Data to Display Arterial Blood Gas: No Data to Display Venous Blood Gas: No Data to Display Pancreas Panel: No Data to Display Thyroid Panel: No Data to Display Infectious Disease: Coronavirus (COVID-19)(PCR) Negative (Negative) 10/26/21 10:29 10/26/21 Coronavirus 2019 Source Nasal/Nares 10/26/21 10:29 10/26/21 Blood Cultures: No Data to Display Toxicology Panel: No Data to Display Imaging and Studies Imaging and Studies Study information below may be from another EMR and interpreted by another provider. Please see original notes in EMR for more complete details. EKG Summary: 07/26/20 Conclusion Sinus rhythm...normal P axis, V-rate 60- 99 Anterolateral infarct, old...Q>40mS, abnrm ST-T, V3-V6,I,aVL I have reviewed and interpreted ECG and agree with software generated interpretation. Anesthesia Assessment and Plan Anesthesia History Personal History: No History of Anesthesia Complications Family History: No Family History of Anesthesia Complications Exercise Tolerance Exercise Tolerance: Metabolic Equivalents>4 Pertinent Negatives Pertinent Negatives: No Major Cardiovascular Symptoms or Complaints, No Major Pulmonary Symptoms or Complaints and Other (Some allergy-related nasal congestion) Cardiac & Pulmonary Exam Cardiac Exam: Normal S1/S2 Heart Sounds Pulmonary Exam: Clear Bilateral Breath Sounds Implantable Cardiac Device Does patient have a Pacemaker or an ICD?: No Airway Exam Known Difficult Airway: No Mallampati Class: 2 Mouth Opening: Normal (> 3cm) Thyromental Distance: Greater than 3 cm Neck Range of Motion: Full ROM Neck Circumference: Thick Teeth Condition: Normal Dentition Airway Comments: Multiple missing teeth Remaining teeth broken and chipped ASA Classification ASA Score: ASA 3 Emergency Case?: No NPO Status NPO Status: NPO Clears >2 hours, Solids >8 hours Anesthesia Plan Resuscitation Status: Full Code Anesthesia Technique: General Anesthesia Airway Planned: Endotracheal Tube Pain Management: Surgeon and patient request nerve block Monitors Used: Standard Monitors Preoperative Comments:: Gluc check 136 at [id number]
--- NOTE | 2021-10-28 09:15 | DI.RAD_ITS ---
Exam(s) XR SHOULDER RT 1V EXAM: XR SHOULDER RT 1V CLINICAL HISTORY: CHRONIC RIGHT DISTAL BICEPS TENDON RUPTURE. TECHNIQUE: 2D digital imaging was performed. COMPARISON: No exams were available for comparison FINDINGS: Fluoroscopy provided during distal biceps tendon repair. Single submitted image reveals a fixation d evice/channel at the level of the radial tuberosity. Total cumulative dose= 0.2756mGy IMPRESSION: DATA REPOSITORY: RADIATION DOSE DELIVERED:
[2021-10-28] MEDS: ceFAZolin 2 GM/50 ML BAG IVPB (10:27)
[2021-10-28] MEDS: Bupivacaine 0.25% Pres-Free 30 ML VIAL (10:46)
--- NOTE | 2021-10-28 11:02 | W.ANESNERVE ---
Nerve Block Single Injection Procedure Date and Time Date Performed: 10/28/21 Procedure Start: 09:09 Location Where Procedure Performed Procedure Location: Day Surgery Unit Reason Performed: Postoperative Analgesia Requesting Provider: Trace Gillis Timeout Performed Timeout Performed: Yes Monitoring Used ECG, Blood Pressure, SpO2 and See EMR for corresponding vital signs Sterility Sterility: Hand Hygiene, Surgical Cap, Surgical Mask, Sterile Gloves and Chlorhexidine Sedation Given During Procedure Sedation Given (Indicate Dose Given): Versed IV Dose:: 2 mg Patient Mental Status Patient Mental Status: Sedate with meaningful communication Nerve Block 1st Nerve Block: Laterality: Right Block Type: Supraclavicular Needle / Catheter Used: 100mm SonoPlex II Local Anesthetic Bolus (Indicate Dose Given): Lidocaine used for local infiltration of skin, Injected in 3-5ml increments after negative blood aspiration, Bupivacaine 0.5% Dose:: 15 ml and Exparel Dose:: 10 ml Additives (Indicate Dose Given): None Ultrasound: Sterile probe cover and gel used Ultrasound Image Saved?: Yes Nerve Stimulator: Not Used Paresthesia: Right Paresthesia Duration: Transient Post Procedure Pain score (0-10): 0 Procedure Tolerated: No Complications and Patient tolerated well Procedure Outcome: Successful Performed By: Arabella Power
--- NOTE | 2021-10-28 13:32 | PDOC.DSDIS_ITS ---
Discharge Plan Disposition Patient Disposition: HOME Condition: Stable Discharge Details Reason For Visit: Right biceps surgery Attending Provider: Trace Gillis Primary Care Provider: Scott Valdes Home Meds and New Rx's Prescriptions: New oxycodone 5 mg tablet 5 - 10 mg PO Q4H MDD 30 mg PRN (Reason: moderate to severe pain) Qty: 18 0RF aspirin 81 mg tablet,delayed release (DR/EC) 81 mg PO DAILY 14 Days Qty: 14 0RF naproxen 250 mg tablet 250 - 500 mg PO BID PRNQty: 40 0RF Rx Instructions: take with a meal Continued lidocaine HCl 2 % jelly 1 applic TP BID-QID PRN0RF (DME) blood sugar diagnostic Strip See Rx Instructions .ROUTE .MEDSUPPLY Qty: 200 6RF Rx Instructions: For E11.9 to maintain A1C <7.0. Use w/Verio Flex. TID daily testing simethicone [Gas Relief (simethicone)] 125 mg capsule 250 mg PO TID-QID PRN0RF Label Comments: Pt takes 2 capsules after meals and before bed usually, has taken as many as 4 capsules at a time though. Pepto-Bismol Max St 525 mg/15 mL suspension 525 mg PO Q30-60M PRN0RF Label Comments: Pt uses when feeling bloated as well Rx Instructions: do not exceed 8 doses in a 24 hour period (DME) Blood Glucose Test Strip See Rx Instructions .ROUTE .MEDSUPPLY Qty: 400 3RF Rx Instructions: As directed to check blood glucose four times daily. On insulin. Dispense covered brand. pramipexole 0.125 mg tablet 0.125 mg PO QHS Qty: 90 3RF polyethylene glycol 3350 17 gram/dose powder 17 gm PO BID 0RF montelukast 10 mg tablet 10 mg PO DAILY 0RF cetirizine 10 mg tablet 10 mg PO DAILY 0RF Januvia 100 mg tablet 100 mg PO DAILY Qty: 90 3RF multivitamin [Multi-Day] 1 EACH tablet 1 ea PO DAILY 0RF botox 0RF Label Comments: q 6 weeks,pt repors last had botox mid july 2021 Rx Instructions: q 6-8w (Chiara Massey) Aspirin/Acetaminophen/Caffeine [Excedrin Migraine Caplet] 1 EACH tablet 1 ea PO PRN PRN0RF fluticasone propionate 50 mcg/actuation spray,suspension 2 spray THEO DAILY PRN0RF Label Comments: 01/27/19 Dr. Smith RH fexofenadine 60 mg tablet 180 mg PO DAILY 0RF hydroxyzine HCl 25 mg tablet 25 mg PO Q6H PRN PRN (Reason: headache) Qty: 90 3RF Rx Instructions: Take 1-2 tabs every 6 hours as needed for headache. (DME) lancets [OneTouch Delica Lancets] 33 gauge misc 1 ea Miscellaneous BID Qty: 200 3RF Rx Instructions: to check BS TID for DM/E11.9 to keep A1c at or below 7. (DME) pen needle, diabetic [Lite Touch Insulin Pen [place]] 31 gauge x 3/16 needle See Rx Instructions .ROUTE .MEDSUPPLY Qty: 100 6RF Rx Instructions: Use QID, Dx:E11.9, to keep HbA1c less than 6.5% insulin lispro [Humalog KwikPen Insulin] 100 unit/mL insulin pen See Rx Instructions SC BID Qty: 15 6RF Rx Instructions: 6 units in AM 6 units at Dinner 11/16/20 omeprazole 40 mg capsule,delayed release(DR/EC) 40 mg PO DAILY Qty: 90 3RF atorvastatin 20 mg tablet 20 mg PO DAILY Qty: 90 3RF (DME) FreeStyle Sushant 14 Day Sensor Kit See Rx Instructions .ROUTE .MEDSUPPLY Qty: 1 12RF Rx Instructions: As directed metformin 500 mg tablet extended release 24hr 500 mg PO BID Qty: 180 3RF Farxiga 10 mg tablet 10 mg PO DAILY Qty: 90 3RF pregabalin [Lyrica] 75 mg capsule 75 mg PO BID Qty: 60 5RF aspirin [Aspirin Low Dose] 81 mg Tablet,Delayed Release (Dr/Ec) 81 mg PO DAILY 0RF naproxen 250 mg tablet 250 - 500 mg PO BID PRNQty: 40 0RF Rx Instructions: take with a meal oxycodone 5 mg tablet 5 - 10 mg PO Q4H MDD 30 mg PRN (Reason: moderate to severe pain) Qty: 18 0RF Tresiba FlexTouch U-200 200 unit/mL (3 mL) insulin pen 76 unit subcut QHS 0RF (DME) Allergy Syringe 1 EACH syringe 1 ea Miscellaneous 0RF Label Comments: pt. reports he gets a weekly allergy shot Discharge Instructions Additional Instructions: Surgery: Right distal biceps tendon allograft reconstruction Activity: Non-weightbearing in splint at all times. Recommend elevation to minimize swelling discomfort. May use sling when up and about, or out of the home. Encourage range of motion all fingers and thumb to minimize stiffness. A physical therapy prescription will be sent electronically to begin in about 4 weeks. Prescriptions: Aspirin 81 mg take 1 daily to prevent a blood clot for 2 weeks Naproxen 250 mg take 1-2 every 12 hours with a meal as needed for moderate pain Oxycodone 5 mg take 1-2 every 4-6 hours as needed for severe pain You may use [id number] Tylenol (acetaminophen) as needed for mild pain. These pain medications may be taken all at once or in different combinations as needed. Also, recommend Colace (docusate) as a stool softener as surgery and pain medicine cause constipation. Dressings: Leave splint and dressing in place until follow-up. Keep clean and dry at all times. Follow-up: 10-14 days with an orthopedic physician operations manager assistant and [address] Gillis Let us know right away if you develop any redness, drainage, fevers, chest pain, or trouble breathing. Do not drink alcohol or drive for at least 24 hours after anesthesia. Please call the office during business hours with any questions or concerns. Referrals: Trace Gillis MD [ [facility] STAFF PHYSICIAN] - Discharge Orders Discharge Orders: Discharge Order (Routine); Ordered 10/28/21 Ordered By: Trace Gillis DS: Diagnosis Discharge Diagnosis (1) Rupture of right distal biceps tendon: Status: Acute
--- NOTE | 2021-10-28 15:32 | W.ANESPOSTOP ---
Postoperative Evaluation Date, Time and Location Date Performed: 10/28/21 Time Performed: 14:35 Patient Location: PACU Vital Signs Most Recent Imported Vital Signs: Most Recent Vital Signs Temp Pulse Resp BP Pulse Ox 36.1 C L 81 16 111/76 92 10/28/21 14:48 10/28/21 14:48 10/28/21 14:48 10/28/21 14:48 10/28/21 14:48 Pain Score Most Recent Pain Score: Most Recent Pain Score Pain Level 0 10/28/21 14:48 Assessment Mental Status: Awake (Alert & Oriented to Patient Baseline) Airway and Respiratory Function: Patent airway with normal (patient baseline) respiratory exam Cardiovascular Function: Hemodynamically Stable Hydration Status: Adequately Hydrated Nausea & Vomiting: No Nausea or Vomiting Pain: Pt. Denies Any Pain Peripheral Nerve Block: Regional nerve block not resolved at time of post operative discharge
--- NOTE | 2021-10-28 16:25 | ROE_ITS ---
Date of service: 10/28/21 Time of Service: 12:00 Operative Note Operative Note DATE OF PROCEDURE: 10/28/21 PRE-OP DIAGNOSIS: Right chronic distal biceps tendon rupture POST-OP DIAGNOSIS: same PROCEDURE: Right distal biceps tendon allograft reconstruction, CPT #83244 with with modifier 22 due to increased work associated with reconstruction of chronic injury versus repair. This surgery required significantly more time and effort and will require more frequent postop visits and closer monitoring rehabilitation then the standard primary tendon repair. Significant time was spent mobilizing and freeing the proximal biceps tendon stump from chronic scarring to neurovascular structures as well as preparing allograft tissue for reconstruction. SURGEON: Trace Gillis SPONGE PRESS OPERATOR: Krystyna Alston Refer to Anesthesia Record ESTIMATED BLOOD LOSS: 20 TOURNIQUET TIME: 0 COMPLICATIONS: None Patient was transported to: PACU Patient's condition: stable Implants: Arthrex distal biceps button Indications: Please see complete medical record for details. Findings: Significantly retracted scarred distal biceps tendon remnant. Procedure Description: In the operating room, general anesthesia was induced. The patient was positioned supine on the operating room table. All bony prominences were well- padded. Preoperative antibiotics were administered. The right upper extremity was prepped and draped in the usual sterile fashion. The correct patient, procedure, and side of the procedure were all verified prior to incision. The radial tuberosity was localized using fluoroscopy and full supination and the distal biceps tendon stump localized by palpation with these surgical sites preinjected with mixture bupivacaine and lidocaine containing epinephrine superficially. Longitudinal incisions a few centimeters each were used followed by careful spreading through subcutaneous tissues, meticulously mobilizing neurovascular structures more deeply, and avoiding any vigorous retraction. Distally, the radial tuberosity was identified and was devoid of biceps tendon remnant. Direct palpation through pronation supination was used to confirm appropriate placement of the guidepin to bone and trajectory confirmed using fluoroscopy. The guidepin was drilled carefully bicortical fashion taking care not to over penetrate the far side. The path of the biceps tendon was digitally explored past the antecubital fossa region proximally with the elbow bent. Care was taken to avoid trauma, tearing, or injury to adjacent neurovascular structures. This wound was packed with a moist lap. Proximally, the biceps tendon muscle and stump was readily identified. Meticulously in a systematic fashion the biceps tendon remnant was freed from significant scarring and adhesions to adjacent neurovascular structures as well as subcutaneously more distally about the site of the pucker lesion. The stump was barely a couple centimeters and remained significantly retracted with improved excursion but no chance of reapproximation anywhere near the elbow. The allograft Achilles was prepared on the back table. It was presoaked in vancomycin saline. The distal end was suture tape fiber looped and tubularized. About 2 cm of the distal end was compressed in an 8 mm graft tube. The remainder measured 18 cm. The radial tuberosity was socket was then drilled with an 8 mm reamer carefully in a unicortical fashion. The reamings were copiously irrigated from the wound. The button loaded with the ends of the Achilles graft suture tape and then passed back through the tendon proximally using a free needle in the modified tension?slide fashion. The graft was brought over to the forearm and spade tip drill removed and button easily passed through the hole on the far cortex and flipped. Carefully and using a Wilson to aid in graft passage the graft was tensioned into the socket with excellent interference fit. The form was cycled and tension confirmed again and the suture secured with knots over the graft insertion. Digitally the biceps tendon path was made tunneling carefully between neurovascular structures and subcutaneous tissue along the path past the antecubital fossa, into the distal arm, and eventually reaching the mid?arm stump site. A fiber stick was then passed proximally distally. The proximal end of the graft provisionally secured using suture tape and these suture shuttled from distal to proximal with the graft readily tunneled into the proximal incision. A Juani clamp was secured to the distal biceps tendon stump and passing sutures used to maintain moderate tension and apposition of the tendon remnant and allograft reconstruction. The elbow was placed in about 60 degrees of flexion and supination. The stump was passed through the middle of the Achilles and then secured with this moderate tension in arm position maintained with numerous suture tape [id number] and circumferential sutures centrally and peripherally well securing the graft to the biceps tendon remnant and musculotendinous junction. The graft was trimmed at the level of the muscle removing a couple centimeters of the fanning out tissue. The thinner fanned out graft proximally was laid over the biceps tendon muscle and tacked down using 2- 0 Monocryl. There is excellent fixation strength of the graft proximally and distally. Tension on the graft appropriately flexed and supinated the forearm and elbow. The elbow could reach full extension and tension without any loosening or elongation of the reconstruction. Neurovascular structures were inspected proximally and distally and all appropriately maintained. Both wounds were copiously irrigated with Betadine followed by saline. The wounds were dried and then 1 g of vancomycin powder was distributed in both appr oximately and deeply. 2-0 Monocryl was used to close subcutaneous tissue followed by 3-0 Monocryl running subcuticular. Skin glue was applied over both incisions followed by Mepilex Band-Aids and sterile soft roll. A posterior long-arm plaster splint was then applied maintaining the elbow in 90 degrees of flexion and forearm in neutral rotation. The patient awoke from anesthesia without complication and was transferred to the recovery room in a stable condition.
== END 2021-10-28 16:32 | disposition home or self-care (01) ==
PROVIDERS: PCP Family Medicine; Visit Provider Student in an Organized Health Care Education/Training Program
PROC: (CPT 24341; principal; 2021-10-28 09:45)
DX: M75.21 Bicipital tendinitis, right shoulder (principal); M75.51 Bursitis of right shoulder; I42.9 Cardiomyopathy, unspecified; J45.909 Unspecified asthma, uncomplicated; E11.42 Type 2 diabetes mellitus with diabetic polyneuropathy; Z79.4 Long term (current) use of insulin
CPT/HCPCS: 24342; 76942; 73020; J0690; J1100; J1885; J2250; J2405; J2704

== ENCOUNTER 2021-10-29 12:24 | Emergency (ER) | payer MEDICAID, SELFPAY ==
[2021-10-29 12:29] VITALS: BP 141/67; PULSE 99; RESP 14; TEMP 36.7; O2SAT 96
--- NOTE | 2021-10-29 12:29 | ED.GENADUL_ITS ---
Discharge Plan Disposition Patient Disposition: HOME Condition: Stable Discharge Details Clinical Impression: Postop check, Hand edema Primary Care Provider: Scott Valdes ED Provider: Yesica Causey Home Meds and New Rx's Prescriptions: Continued lidocaine HCl 2 % jelly 1 applic TP BID-QID PRN0RF (DME) blood sugar diagnostic Strip See Rx Instructions .ROUTE .MEDSUPPLY Qty: 200 6RF Rx Instructions: For E11.9 to maintain A1C <7.0. Use w/Verio Flex. TID daily testing simethicone [Gas Relief (simethicone)] 125 mg capsule 250 mg PO TID-QID PRN0RF Label Comments: Pt takes 2 capsules after meals and before bed usually, has taken as many as 4 capsules at a time though. Pepto-Bismol Max St 525 mg/15 mL suspension 525 mg PO Q30-60M PRN0RF Label Comments: Pt uses when feeling bloated as well Rx Instructions: do not exceed 8 doses in a 24 hour period (DME) Blood Glucose Test Strip See Rx Instructions .ROUTE .MEDSUPPLY Qty: 400 3RF Rx Instructions: As directed to check blood glucose four times daily. On insulin. Dispense covered brand. pramipexole 0.125 mg tablet 0.125 mg PO QHS Qty: 90 3RF polyethylene glycol 3350 17 gram/dose powder 17 gm PO BID 0RF montelukast 10 mg tablet 10 mg PO DAILY 0RF cetirizine 10 mg tablet 10 mg PO DAILY 0RF Januvia 100 mg tablet 100 mg PO DAILY Qty: 90 3RF multivitamin [Multi-Day] 1 EACH tablet 1 ea PO DAILY 0RF botox 0RF Label Comments: q 6 weeks,pt repors last had botox mid july 2021 Rx Instructions: q 6-8w (Chiara Massey) Aspirin/Acetaminophen/Caffeine [Excedrin Migraine Caplet] 1 EACH tablet 1 ea PO PRN PRN0RF fluticasone propionate 50 mcg/actuation spray,suspension 2 spray THEO DAILY PRN0RF Label Comments: 01/27/19 Dr. Smiht RH fexofenadine 60 mg tablet 180 mg PO DAILY 0RF hydroxyzine HCl 25 mg tablet 25 mg PO Q6H PRN PRN (Reason: headache) Qty: 90 3RF Rx Instructions: Take 1-2 tabs every 6 hours as needed for headache. (DME) lancets [OneTouch Delica Lancets] 33 gauge misc 1 ea Miscellaneous BID Qty: 200 3RF Rx Instructions: to check BS TID for DM/E11.9 to keep A1c at or below 7. (DME) pen needle, diabetic [Lite Touch Insulin Pen [place]] 31 gauge x 3/16 needle See Rx Instructions .ROUTE .MEDSUPPLY Qty: 100 6RF Rx Instructions: Use QID, Dx:E11.9, to keep HbA1c less than 6.5% insulin lispro [Humalog KwikPen Insulin] 100 unit/mL insulin pen See Rx Instructions SC BID Qty: 15 6RF Rx Instructions: 6 units in AM 6 units at Dinner 11/16/20 omeprazole 40 mg capsule,delayed release(DR/EC) 40 mg PO DAILY Qty: 90 3RF atorvastatin 20 mg tablet 20 mg PO DAILY Qty: 90 3RF (DME) FreeStyle Sushant 14 Day Sensor Kit See Rx Instructions .ROUTE .MEDSUPPLY Qty: 1 12RF Rx Instructions: As directed metformin 500 mg tablet extended release 24hr 500 mg PO BID Qty: 180 3RF Farxiga 10 mg tablet 10 mg PO DAILY Qty: 90 3RF pregabalin [Lyrica] 75 mg capsule 75 mg PO BID Qty: 60 5RF aspirin [Aspirin Low Dose] 81 mg Tablet,Delayed Release (Dr/Ec) 81 mg PO DAILY 0RF oxycodone 5 mg tablet 5 - 10 mg PO Q4H MDD 30 mg PRN (Reason: moderate to severe pain) Qty: 18 0RF Tresiba FlexTouch U-200 200 unit/mL (3 mL) insulin pen 76 unit subcut QHS 0RF naproxen 250 mg tablet 250 - 500 mg PO BID PRNQty: 40 0RF Rx Instructions: take with a meal (DME) Allergy Syringe 1 EACH syringe 1 ea Miscellaneous 0RF Label Comments: pt. reports he gets a weekly allergy shot Discharge Instructions Instructions: Edema (ED) Additional Instructions: Your hand swelling, tingling and numbness are expected symptoms after your surgery. Keep your sling in place at all times and be sure to keep it in good p osition to prevent your hand from hanging downward. You should rest and keep your right upper extremity and sling propped up onto a couple of pillows while sitting or lying to help keep it elevated. You may shower today but be sure to use a plastic cover over your right arn. Follow-up with orthopedics with any further questions or concerns. Return immediately to the emergency department if you develop any worsening or new concerning symptoms. Referrals: Trace Gillis MD [ [facility] STAFF PHYSICIAN] - Discharge Data Discharge Date/Time-TO BE ENTERED AT DEPARTURE: 10/29/21 13:20 Discharge Physician: Yesica Causey Medical Decision Making 60-year-old male who is 1 day status post right distal biceps tendon allograft reconstruction with Dr. Gillis presents for a c/o hand turning green and numbness and numbness and tingling in his right thumb and index finger since yes terday. Images obtained of patient's hand with patient's consent and reviewed and discussed with Dr. Sanchez --patient's hand was also noted to be hanging low and his sling was not in proper position with keeping his distal upper extremity elevated. He has mild to moderate edema of the hand but he has normal capillary refill and no focal deficits. His right hand has a greenish discoloration co nsistent with the tinted anesthetic scrub from yesterday. Discussed that these are his likely expected postoperative symptoms. Patient is encouraged to keep the sling on at all times and in proper position, and encourage use of pillows to help with elevation. Advised to follow-up with orthopedics. Usual and customary return precautions given prior to discharge. Medical Records Medical records reviewed: Yes I reviewed the patient's medical records. HPI General Mode of arrival: ambulatory . Date/Time Provider Initiated Documentation: 10/29/21 12:26 . Limitations to Documentation: no limitations . Information obtained by: patient . HPI Narrative: Patient is a 6-year-old male who is 1 day status post right distal biceps tendon allograft reconstruction with Dr. Gillis presents for a c/o hand turning green and hand numbness and tingling this morning. Patient states he noted that the green color on his hands which was from the antiseptic used on his surgery yesterday appeared to be more dark green today and he felt that the tingling and numbness in his right thumb and right index finger is worse this morning. He denies any significant worsening of pain, fever or any new injury. He states he came here for further evaluation as his was concerned about his symptoms. Related Data Home Medications Medication Instructions Recorded Confirmed multivitamin (Multi-Day) 1 ea PO DAILY 10/15/12 10/28/21 Botox 05/09/17 10/12/21 Aspirin/Acetaminophen/Caffeine 1 ea PO PRN PRN 07/20/17 10/29/21 [Excedrin Migraine Caplet] syringe with needle 1 mL 27 x 1/2 02/27/18 10/26/21 (Allergy Syringe) fluticasone propionate 50 2 spray THEO DAILY PRN 01/27/19 10/29/21 mcg/actuation nasal spray,suspension lidocaine HCl 2 % mucosal jelly 1 applic TP BID-QID PRN 09/29/19 10/29/21 blood sugar diagnostic #200 each 11/20/19 10/26/21 polyethylene glycol 3350 17 17 gm PO BID 01/05/20 10/29/21 gram/dose oral powder aspirin 81 mg tablet,delayed 81 mg PO DAILY 02/01/20 10/29/21 release (Aspirin Low Dose) fexofenadine 60 mg tablet 180 mg PO DAILY tab 05/17/20 10/29/21 hydroxyzine HCl 25 mg tablet 25 mg PO Q6H PRN PRN #90 tab-cap 05/31/20 10/29/21 bismuth subsalicylate 525 mg/15 mL 525 mg PO Q30-60M PRN 11/16/20 10/29/21 oral suspension (Pepto-Bismol Max St) simethicone 125 mg capsule (Gas 250 mg PO TID-QID PRN cap 11/16/20 10/29/21 Relief (simethicone)) cetirizine 10 mg tablet 10 mg PO DAILY 01/10/21 10/29/21 montelukast 10 mg tablet 10 mg PO DAILY 01/10/21 10/29/21 sitagliptin 100 mg tablet (Januvia) 100 mg PO DAILY #90 tab 01/10/21 10/29/21 lancets 33 gauge (OneTouch Delica #200 ea 01/13/21 10/26/21 Lancets) pen needle, diabetic 31 gauge x #100 ea 02/04/21 10/26/2110/05 (Lite Touch Insulin Pen [place]) insulin lispro 100 unit/mL See Rx Instructions SC BID #15 ml 02/11/21 10/29/21 subcutaneous pen (Humalog KwikPen (U-100) Insulin) blood sugar diagnostic (Blood #400 ea 02/14/21 10/26/21 Glucose Test) pramipexole 0.125 mg tablet 0.125 mg PO QHS #90 tab 02/14/21 10/29/21 omeprazole 40 mg capsule,delayed 40 mg PO DAILY #90 cap 05/05/21 10/29/21 release atorvastatin 20 mg tablet 20 mg PO DAILY #90 tab 06/09/21 10/29/21 flash glucose sensor (FreeStyle #1 ea 06/10/21 10/26/21 Sushant 14 Day Sensor) metformin 500 mg tablet,extended 500 mg PO BID #180 tab 07/29/21 10/29/21 release 24hr dapagliflozin 10 mg tablet 10 mg PO DAILY #90 tab 08/05/21 10/29/21 (Farxiga) pregabalin 75 mg capsule (Lyrica) 75 mg PO BID #60 cap 09/05/21 10/29/21 oxycodone 5 mg tablet 5 - 10 mg PO Q4H PRN #18 tab MDD 09/30/21 10/29/21 30 mg insulin degludec 200 unit/mL (3 76 unit SUBCUT QHS 10/26/21 10/29/21 mL) subcutaneous pen (Tresiba FlexTouch U-200 insulin) naproxen 250 mg tablet 250 - 500 mg PO BID PRN #40 tab 10/28/21 10/29/21 Previous Rx's Medication Instructions Recorded blood sugar diagnostic #200 each 11/20/19 hydroxyzine HCl 25 mg tablet 25 mg PO Q6H PRN PRN #90 tab-cap 05/31/20 sitagliptin 100 mg tablet (Januvia) 100 mg PO DAILY #90 tab 01/10/21 lancets 33 gauge (OneTouch Delica #200 ea 01/13/21 Lancets) pen needle, diabetic 31 gauge x #100 ea 02/04/2110/05 (Lite Touch Insulin Pen [place]) insulin lispro 100 unit/mL See Rx Instructions SC BID #15 ml 02/11/21 subcutaneous pen (Humalog KwikPen (U-100) Insulin) blood sugar diagnostic (Blood #400 ea 02/14/21 Glucose Test) pramipexole 0.125 mg tablet 0.125 mg PO QHS #90 tab 02/14/21 omeprazole 40 mg capsule,delayed 40 mg PO DAILY #90 cap 05/05/21 release atorvastatin 20 mg tablet 20 mg PO DAILY #90 tab 06/09/21 flash glucose sensor (FreeStyle #1 ea 06/10/21 Sushant 14 Day Sensor) metformin 500 mg tablet,extended 500 mg PO BID #180 tab 07/29/21 release 24hr dapagliflozin 10 mg tablet 10 mg PO DAILY #90 tab 08/05/21 (Farxiga) pregabalin 75 mg capsule (Lyrica) 75 mg PO BID #60 cap 09/05/21 oxycodone 5 mg tablet 5 - 10 mg PO Q4H PRN #18 tab MDD 09/30/21 30 mg naproxen 250 mg tablet 250 - 500 mg PO BID PRN #40 tab 10/28/21 Allergies Allergy/AdvReac Type Severity Reaction Status Date / Time procaine Allergy Severe swelling Verified 10/29/21 12:36 prednisone AdvReac Severe gets Verified 10/29/21 12:36 violent alprazolam AdvReac Intermediate Dizzy Verified 10/29/21 12:36 General Stated Complaint: Orthopedic [place]: 2 Review of Systems All systems reviewed & are unremarkable except as noted in HPI and below Constitutional Constitutional: Reports as per HPI, Denies chills and Denies fever(s) Eyes Eyes: Denies blurry vision ENT Ears, Nose, Mouth, and Throat: Denies dizziness, Denies sore throat and Denies throat swelling Cardiovascular Cardiovascular: Denies chest pain and Denies dyspnea Respiratory Respiratory: Denies cough and Denies dyspnea Gastrointestinal Gastrointestinal: Denies abdominal pain, Denies diarrhea and Denies vomiting Genitourinary Genitourinary: Denies hematuria and Denies dysuria Musculoskeletal Musculoskeletal: Denies back pain, Reports numbness and Reports tingling Integumentary/Breasts Skin/Breast: Denies lesions and Denies rash Neurologic Neurologic: Denies dizziness, Denies localized weakness, Reports numbness and Reports tingling Allergic/Immunologic Allergic/Immunologic: Denies throat swelling PFSH All Active Problems (Updated 10/29/21 @ 13:11 by Yesica Causey DO) Postop check (Acute) Hand edema (Acute) Bursitis of right shoulder (Acute) Tendonitis of long head of biceps brachii of right shoulder (Acute) Traumatic tear of right rotator cuff (Acute ~07/2021) Rupture of right distal biceps tendon (Acute) Chronic maxillary sinusitis (Acute) Hypertrophy of nasal turbinates (Acute) Deviated nasal septum (Acute) Repair done w/removal of turbinate bones/Dr. Smith 08/18/21 Strain of left quadriceps muscle (Acute) Arthrofibrosis of total knee arthroplasty (Acute) s/p arthroscopic synovectomy of left TKA DOS: 02/09/21 Painful total knee replacement, left (Acute) Tendinitis of left quadriceps tendon (Acute) Pes anserinus bursitis of left knee (Acute) Chronic migraine (Acute) Receives therapeutic Botox by Dr Smith at [facility] ENT History of total left knee replacement (TKR) (Acute 05/24/20) Environmental allergies (Acute) Anorexia (Acute) Constipation (Acute) Allergic rhinitis due to pollen (Acute) Allergy Injections - Dr. Smith Tensor fascia laura syndrome (Acute) DM (diabetes mellitus) (Acute) Pt. states he blood sugars are all over the place, states they can go as high as 300, and low as 48. 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 Valdes 03/2020-states that he was told by Dr. Massey told patient if he has symptoms he should f/u with cardiology but othersise to f/u with PCP Dermatitis due to ingested food Diabetes mellitus type 2 in obese (05/08/13) A1C goal 7.5 Diabetic polyneuropathy associated with type 2 diabetes mellitus (03/14/18) Environmental allergies Erectile dysfunction (11/20/12) LEAH (generalized anxiety disorder) (03/19/15) Gangrenous cholecystitis Gastroesophageal reflux disease with esophagitis (09/21/11) Hyperlipidemia (09/11/13) PCEq risk 7.8% LDL baseline 127 Insomnia, unspecified (11/20/12) Leg cramps (03/14/18) Lumbar radiculitis Meralgia paresthetica of left side Migraine headache without aura Myositis (05/07/13) Nonintractable episodic headache (01/20/16) Obesity SHARRI (obstructive sleep apnea) (09/02/14) Pain of left lower extremity (04/11/17) Peripheral neuropathy 07/01/19 Dr Zaldivar, w f/u 07/30/19 Pre-ulcerative calluses Restless leg syndrome Shortness of breath Surgical History Colonoscopy - MAC (07/27/17) cortisone injection (03/17/14) lumbar H/O chest tube placement per pt. this was when he had his gall bladder out History of cardiac catheterization x2 1980s History of repair of anterior cruciate ligament of left knee Osteoarthritis of left acromioclavicular joint (02/27/18) Status post excision of left distal clavicle S/P laparoscopic cholecystectomy (~11/25/19) acute hemorrhagic, gangrenous cholecystitis S/P nasal septoplasty (08/18/21) Status post arthroscopy of left knee Family History Mother , LUNG CA at age 65. Hyperlipidemia Diabetes Lung cancer Father , LUNG CA at age 58. Hypertension Coronary artery disease Alcohol abuse Lung cancer Social History Smoking/Tobacco Use Status: Never Smoking risk assessment performed?: Yes Alcohol Intake: current Alcohol Intake frequency: holidays/special occasions only Alcohol type: hard liquor Drug use: Never Substance use type: does not use Adopted: No Caregiver/Support person: Yes (for grandson) Household members: spouse Housing: house Number of Children: 3 number of grandchildren: 1 Communication Needs: None current occupation: self employed crafter Pets and animals: Yes Current gender identity: male What is your relationship status?: How often do you talk on the phone with friends or family?: three or more times per week Panel score (0-1 are the most socially isolated patients): 2 What type of physical activity do you participate in: none, walking and irregular exercise Duration: 45-60 minutes/day Seatbelt use: always Helmet use: Yes Drive intox or ride w/intox form setter/driver: No Water heater temp set <120 deg: Yes Working smoke detector in home: Yes Fire extinguisher in home: No Carbon monox detector in home: Yes Firearms in home: No Do you feel safe at home: Yes Do you feel safe in your relationship?: Yes Victim of physical abuse: No Victim of emotional abuse: No Victim of sexual abuse: No Exam Const General: cooperative and no acute distress Orientation: alert, awake and oriented x3 HENMT Head: normal to inspection Mouth: oral mucosae normal Eyes General: appearance normal, both eyes and all related structures Neck Neck: normal visual inspection Resp Effort & Inspection: normal respiratory effort and able to speak in complete sentences Cardio Rate: regular rate Skin General skin exam: no rashes or lesions noted Neuro General: patient alert, patient awake and patient oriented x3 Motor: muscle tone normal throughout Extrem Other: Right upper extremity in sling. His right distal upper extremity is wrapped in splint and Williams wrap. His right hand has a greenish discoloration consistent likely with the tinted anesthetic scrub from yesterday. Normal capillary refill of right hand. There is mild to moderate edema of the fingers but there is no evidence of vesicles, blisters, erythema or induration. Motor/sensory grossly intact. Psych Appearance: grossly normal Affect: normal affect
[2021-10-29 12:33] VITALS: RESP 14
== END 2021-10-29 13:20 | disposition home or self-care (01) ==
PROVIDERS: Emergency Provider Physician Assistant; PCP Family Medicine
DX: R60.0 Localized edema (principal); R20.2 Paresthesia of skin; Z98.890 Other specified postprocedural states
CPT/HCPCS: 99281; 99282

== ENCOUNTER 2022-01-30 10:14 | Outpatient (CLI) | payer MEDICAID, SELFPAY ==
--- NOTE | 2022-01-30 08:00 | DI.RAD_ITS ---
Exam(s) XR KNEE LT 3V AP,LAT,KATE EXAM: XR KNEE LT 3V AP,LAT,KATE CLINICAL HISTORY: L TKA pain. TECHNIQUE: 2D digital imaging was performed. COMPARISON: CR XR KNEE LT 2V AP,LAT from 05/26/2021 FINDINGS: 3 views There is stable position and alignment of the components of the prosthesis. Previously described thin linear lucency subjacent to the medial tibial plateau component is unchange d. On the lateral view is triangular bone density measuring 8 by 6 millimeters again noted posterior to inferior aspect patella, unchanged in size and position. IMPRESSION: Unchanged appearance compared to 05/26. Findings subjacent to the medial tibial plateau component ar e unchanged and there is again noted triangular 8 x 6 millimeter osteophytic density just behind the inferior aspect of patella again noted. DATA REPOSITORY: RADIATION DOSE DELIVERED:
== END 2022-01-30 10:15 | disposition home or self-care (01) ==
LOC: DIORS 10:14
PROVIDERS: PCP Family Medicine; Referring Provider Family Medicine; Visit Provider Physician Assistant
DX: T84.84XA Pain due to internal orthopedic prosthetic devices, implants and grafts, initial encounter (principal)
CPT/HCPCS: 73562

== ENCOUNTER → 2022-03-10 23:11 | Outpatient (CLI) | payer MEDICAID, SELFPAY ==
--- NOTE | 2022-03-10 09:30 | DI.RAD_ITS ---
Exam(s) XR HIP RT COMPLETE AP PELVIS EXAM: XR HIP RT COMPLETE AP PELVIS INDICATION: Eval for arthritis/r/o femoral neck frx M25.559 PAIN IN HIP. COMPARISON: CR XR lumbar spine complete from 06/11/2018 TECHNIQUE: 2D digital imaging was performed. Three views. FINDINGS: There is no evidence of acute fracture or old fracture deformity. The hip joint spaces are maintaine d. There is bilateral acetabular spurring. The SI joints and pubic symphysis are unremarkable. IMPRESSION: Bilateral acetabular spurring. No hip joint space narrowing or fracture. DATA REPOSITORY: RADIATION DOSE DELIVERED:
--- OUTSIDE RECORDS SUMMARY | 2022-03-10 23:14 | XMS_ITS | Encounter Summary ---
:1960 Author Organization [facility] [place] [address] Care Team Providers Name Role Phone None Primary Care Provider Unavailable Reason for Referral Consultation (Routine) - Specialty Diagnoses / Procedures Referred By Contact Refer red To Contact Diagnoses Left lumbar radiculitis [place] [address] Referral ID Status Reason Start Date Expiration Date Visits V isits Requested Authorized [id number] Consult, 09/03/2018 03/02/2019 1 1 Test & Treat Reason for Visit Reason Comments Follow-up Back Pain Encounter Details Date Type Department Care Team Description 09/03/2018 Office Visit [facility] Left lum [facility] [place] Wolf APRN radiculitis [place] [id number] [phone] Social History Tobacco Use Types Packs/Day Years Used Date Never Smoker Smokeless Tobacco: Never Used Alcohol Use Standard Drinks/Week Comments Yes 0 (1 standard drink = 0.6 oz pure alcoho l) Sex Assigned at Date Recorded Not on file documented as of this encounter Progress Notes Nixon Marcano APRN - 09/03/2018 8:40 AM EST SUBJECTIVE: Marco Antonio Harris is a 57 y.o. year old male with a chief complaint of low back and left leg pain being seen in follow up. Patient states that he continues to experience pain in his low back and left leg with back and leg being equally disruptive and confirms his back pain is midline from the mid to low lumbar spine and the leg pain is primarily anterior left thigh. He returns today in follow-up to MRI. OBJECTIVE: Lumbar spine MRI of 08/30/2018 is reviewed. At L2-3 there is disc bulge left greater than right the results and severe lateral recessed stenosis likely contacting the traversing L3 root. At L3-4 there tammie midline disc protrusion overlying disc bulge and resulting in mild foraminal stenosis on the left.At L4- 5 there is disc bulge at L5-S1 there is grade 1 isthmic spondylolisthesis with significant disc height loss and resultant severe bilateral foraminal stenosis. These images were reviewed with the patient. ASSESSMENT: This is a 57 y.o. year old male with age-related degenerative change in the low lumbar spine and a grade 1 isthmic spondylolisthesis at L5-S1 with severe bilateral foraminal stenosis. At L2-3 he has protruding disc that appears to contact the traversing left L3 nerve root in the lateral recess which could be concord with his anterior left thigh pain. The patient continues to report that he obtained excellent relief for several months from an epidural steroid injection performed by Dr. Bright in [place] and he would like to repeat that procedure. 25 of this 30 minute encounter was spent in face to face counseling as outlined above. PLAN: 1/referral to Dr. Bright and [facility] for lumbar epidural steroid injection. I suggest he consider repeating the same approach as he used with this patient previously which I understand occurredover one year ago.. 2/I encouraged the patient to call the spine center if injections with Dr. Bright become ineffectiveand I would see the patient in follow-up to discuss other treatment options. I would anticipate possibly considering bilateral pars injections but were explained to the patient that would be most likely helpful for his back pain and unlikely helpful for his anterior left thigh pain.. documented in this encounter Plan of Treatment Scheduled Referrals Name Type Priority Associated Diagnoses Order S chedule Referral to Pain Outpatient Referral Routine Left lumbar Orde red: Clinic radiculitis 09/03/2018 documented as of this encounter Visit Diagnoses Diagnosis Left lumbar radiculitis Thoracic or lumbosacral neuritis or radi culitis, unspecified documented in this encounter Care Teams Streetcar Repairer Relationship Specialty Start Date End Date None PCP - General 08/19/18 None documented as of this encounter
--- OUTSIDE RECORDS SUMMARY | 2022-03-10 23:14 | XMS_ITS | Encounter Summary ---
:1960 Author Organization [facility] [place] [address] Care Team Providers Name Role Phone Alexandre Pittman MD Primary Care Provider [phone] Encounter Details Date Type Department Care Team Description 05/12/2011 [facility] [place] [address] [facility] CL[facility] [phone] [place] [id number] (Wo rk) Social History Tobacco Use Types Packs/Day Years Used Date Never Smoker Smokeless Tobacco: Never Used Alcohol Use Standard Drinks/Week Comments Yes 0 (1 standard drink = 0.6 oz pure alcoho l) Sex Assigned at Date Recorded Not on file documented as of this encounter Plan of Treatment Not on filedocumented as of this encounter Visit Diagnoses Not on filedocumented in this encounter Care Teams Special Systems Technician Relationship Specialty Start Date End Date Alexandre Pittman MD PCP - General 06/14/10 05/01/[address] [place] [address] documented as of this encounter
--- OUTSIDE RECORDS SUMMARY | 2022-03-10 23:14 | XMS_ITS | Encounter Summary ---
:1960 [place] [address] Care Team Providers Name Role Phone Alexandre Pittman MD Primary Care Provider [phone] Encounter Details Date Type Department Care Team Description 11/05/2015 Ancillary Procedure Radiology Library [facility] (D-SCHED at [facility] J, BEREAVEMENT COUNSELOR ERROR / CORRECTION ) [facility] [place] [id number] [phone] Social History Tobacco Use Types Packs/Day Years [...] on filedocumented in this encounter Care Teams Master Carpenter Relationship Specialty Start Date End Date Alexandre Pittman MD PCP - General 06/14/10 05/01/[address] [place] [id number] documented as of this encounter
--- OUTSIDE RECORDS SUMMARY | 2022-03-10 23:14 | XMS_ITS | Encounter Summary ---
:1960 Author Organization [facility] [place] [address] Care Team Providers Name Role Phone Alexandre Pittman MD Primary Care Provider [phone] Encounter Details Date Type Department Care Team Description 06/08/2011 Orders Only Pain Management at Nicho Levy MD [facility] [place] [address] PAIN CLINIC [phone] [place] [phone] (Wo rk) Social History Tobacco Use Types Packs/Day Years Used Date Never Smoker Smokeless Tobacco: Never Used Alcohol Use Standard Drinks/Week Comments Yes 0 (1 standard drink = 0.6 oz pure alcoho l) Sex Assigned at Date Recorded Not on file documented as of this encounter Plan of Treatment Not on filedocumented as of this encounter Procedures Procedure Name Priority Date/Time Associated Diagnosis Comme nts FILM LIBRARY Routine 06/08/2011 7:45 AM Results f or this STORAGE ONLY PAIN EST procedure are in CLINIC C ARM the results section. documented in this encounter Results FILM LIBRARY-STORAGE ONLY PAIN CLINIC C-ARM (06/08/2011 7:45 AM EST) Specimen (Source) Anatomical Collection Method Collection Time Re ceived Time Location / / Volume Laterality 06/08/2011 7:45 AM EST Narrative [facility] - 12/16/2013 11:32 AM EDT This is a non-reportable exam. Procedure Note Matt Langston - 12/16/2013Formatting of t his note might be different from the original. This is a non-reportable exam. Nicho Barboza MD IMG FILM LIBRARY ORDERABLES Performing Organization Address City/State/ZIP Code [facility] e Number [facility] [address] [address] documented in this encounter Visit Diagnoses Not on filedocumented in this encounter Care Teams Sales Development Associate Relationship Specialty Start Date End Date Alexandre Pittman MD PCP - General 06/14/10 05/01/[address] [place] [address] documented as of this encounter
--- OUTSIDE RECORDS SUMMARY | 2022-03-10 23:14 | XMS_ITS | Encounter Summary ---
:1960 Author Organization [facility] [place] [address] Care Team Providers Name Role Phone Alexandre Pittman MD Primary Care Provider [phone] Encounter Details Date Type Department Care Team Description 05/15/2011 Hospital Encounter XRay at [facility] Mechanical low back [address] [place] [address] [place] [address] Social History Tobacco Use Types Packs/Day Years Used Date Never Smoker Smokeless Tobacco: Never Used Alcohol Use Standard Drinks/Week Comments Yes 0 (1 standard drink = 0.6 oz pure alcoho l) Sex Assigned at Date Recorded Not on file documented as of this encounter Medications at Time of Discharge Medication Sig Dispensed Refills Start Date End Date aspirin 81 mg EC tablet Take 81 mg by mouth 0 daily. MULTIVITAMIN ORAL Take 1 tablet by 0 mouth daily. metFORMIN (GLUCOPHAGE) 500 Take 1,000 mg by 0 mg tablet mouth 2 times daily (with meals). gabapentin (NEURONTIN) 800 Take 800 mg by mouth 0 mg tablet every morning. ranitidine (ZANTAC) 150 mg Take 150 mg by mouth 0 tablet daily. documented as of this encounter Plan of Treatment Not on filedocumented as of this encounter Procedures Procedure Name Priority Date/Time Associated Diagnosis Comme nts XR LUMBAR SPINE MIN Routine 05/15/2011 8:58 AM Lumbago Re sults for this 4 VIEW EDT procedure are i n the results section. documented in this encounter Results XR LUMBAR SPINE MINIMUM 4 VIEW (05/15/2011 8:58 AM EDT) Anatomical Region Laterality Modality L-spine N/A Radiographic Imaging Specimen (Source) Anatomical Collection Method Collection Time Re ceived Time Location / / Volume Laterality 05/15/2011 8:58 AM EDT Impressions 05/16/2011 10:39 AM EDT IMPRESSION: L5 spondylolysus with Grade 1 anterolist hesis of L5 on S1 but no instability at this level. Narrowed L4-L5 disc space. ?? Slight subluxation at other lower lumbar levels with minimal motion. Narrative 05/16/2011 10:39 AM EDT AP LATERAL AND FLEXION EXTENSION IMAGES OF THE LUMBAR SPINE, 05/15/11: HISTORY: ??pain COMPARISON STUDY: ?? MRI of the lumbar s pine from 2002. ?? FINDINGS: ??There are five flv-gqm-xufyl ng lumbar-type vertebral bodies. ??The vertebral heights are preserved. ??There is Grade I anterolisthesis of L5 on S1 with bilateral pars defects, already doc umented on the patient's MRI. ??No instability at this level. ??There is L4 to S1 facet arthropathy. ??Small osteophytes arise from L3-L4 and L5 vert ebral bodies. ??The pedicles are intact. ?? L3-L4: ??5.2 mm retrolisthesis of L3 on L4 on standing, 5.1 mm on flexion, and 7.8 mm on extension. ?? L4-L5: ??5 mm retrolisthesis of L4 on L5 on standing, 4.7 mm on flexion and 4.4 mm on extension. ??There is eccentric di sc space narrowing. ?? L5-S1: ??9.8 mm anterolisthesis of L5 on S1 on standing, 10.5 mm on flexion, and 10.7 mm on extension. ?? Procedure Note Abimbola Valdes MD - 05/16/2011Formatt ing of this note might be different from the original. AP LATERAL AND FLEXION EXTENSION IMAGES OF THE LUMBAR SPINE, 05/15/11: HISTORY: pain COMPARISON STUDY: MRI of the lumbar spin e from 2002. FINDINGS: There are five phd-hfx-zvqccyi lumbar-type vertebral bodies. The vertebral heights are preserved. There i s Grade I anterolisthesis of L5 on S1 with bilateral pars defects, already doc umented on the patient's MRI. No instability at this level. There is L4 t o S1 facet arthropathy. Small osteophytes arise from L3-L4 and L5 vert ebral bodies. The pedicles are intact. L3-L4: 5.2 mm retrolisthesis of L3 on L4 on standing, 5.1 mm on flexion, and 7.8 mm on extension. L4-L5: 5 mm retrolisthesis of L4 on L5 o n standing, 4.7 mm on flexion and 4.4 mm on extension. There is eccentric disc space narrowing. L5-S1: 9.8 mm anterolisthesis of L5 on S 1 on standing, 10.5 mm on flexion, and 10.7 mm on extension. IMPRESSION IMPRESSION: L5 spondylolysus with Grade 1 anterolist hesis of L5 on S1 but no instability at this level. Narrowed L4-L5 disc space. Slight subluxation at other lower lumbar levels with minimal motion. Jose Rafael To MD IMG DX ORDERABLES documented in this encounter Visit Diagnoses Diagnosis Mechanical low back pain Lumbago documented in this encounter Care Teams Brushing Operator Relationship Specialty Start Date End Date Alexandre Pittman MD PCP - General 06/14/10 05/01/[address] [place] [address] documented as of this encounter
--- OUTSIDE RECORDS SUMMARY | 2022-03-10 23:14 | XMS_ITS | Encounter Summary ---
:1960 Author Organization [facility] Address [place] [id number] Care Team Providers Name Role Phone Alexandre Pittman MD Primary Care Provider Reason for Visit Reason Comments Back Pain Encounter Details Date Type Department Care Team Description 04/01/2014 Office Visit Spine Center at Paulette Shepherd APRN radiculitis (Primary [facility] Dx) Drive [address] [place], [place] [facility] [address] [place] [address] [phone] Social History Tobacco Use Types Packs/Day Years Used Date Never Smoker Smokeless Tobacco: Never Used Alcohol Use Standard Drinks/Week Comments Yes 0 (1 standard drink = 0.6 oz pure alcoho l) Sex Assigned at Date Recorded Not on file documented as of this encounter Last Filed Vital Signs Vital Sign Reading Time Taken Comments Blood Pressure - - Pulse - - Temperature - - Respiratory Rate - - Oxygen Saturation - - Inhaled Oxygen Concentration - - Weight 106.1 kg (234 lb) 04/01/2014 4:19 PM EDT Height 175.3 cm (5' 9) 04/01/2014 4:19 PM EDT Body Mass Index 34.56 04/01/2014 4:19 PM EDT documented in this encounter Progress Notes Paulette Shepherd APRN - 04/01/2014 4:56 PM EDT INTERVAL HISTORY: Marco Antonio Harris is a 53 y.o. male seen in the Spine Center today for follow-up office visit of his left>right anterior thigh pain. Current pain level is 0/10, improved from 01/29 last visit here on 03/11/14. He had a Left L3-4 transforaminal epidural steroid injection at [facility] about 2.5 weeks ago and reports almost complete resolution of his pain with the exception of a, cramping/aquiles horse, in his anterior thighs that occurs several times/day, especially if he lifts greater than 50 lbs. He finds heat is helpful at reducing his symptoms. He notes he also has a history of RLS. He has been feeling great and been working 10-14 hour days with no pain at the end of a long work day. His blood sugars have been in 120-130 range and only lisbet as high as 150 range after his LESI. REVIEW OF SYSTEMS: negative for any GI or symptoms, constitutional symptoms, saddle anesthesia orloss of bowel or bladder control. He denies myelopathic symptoms such as gait disturbance, gait imbalance, or difficulty with fine motor control. MEDICATIONS & ALLERGIES: reviewed with the patient and are in eD-H. PHYSICAL EXAMINATION: This was a counseling based visit and I did not repeat an exam today given that the patient is pain free. IMAGIN11/26/13 Lumbar MRI w/o contrast: Multilevel DDD & facet arthropathy. Spondylolysis of L5 with grade 1 spondylolisthesis of L5 on S1. Severe bilateral foraminal stenosis at L5-S1. L3- 4: Mild central canal stenosis due to small to moderate sized disc bulge and degenerative changes. L2-3: Mild central canal stenosis due to degenerative changes. ASSESSMENT: Left L3 radiculitis, responsive to LESI. PLAN: Non-surgical options including PT, NSAIDs and injections were reviewed with the patient. 1) I reviewed with him he may have up to 3-4 LESIs annually and have encouraged him to f/u at [facility] for another injection if his symptoms return. 2) I have suggested a trial of a magnesium supplement 250mg daily and/or adding bananas into his regular diet to help reduce muscle cramps. Follow-Up: As needed if his pain returns, changes or worsens. All questions were answered and the patient is in agreement with the above treatment plan. This was a counseling dominated visit with approximately 15 minutes of this 20 minute encounter spent in face to face counseling, medical decision making, and review of imaging and treatment options. Thank you for the opportunity to participate in the care of this patient. Paulette Shepherd MS, BREEDING MANAGER, SIGNAL OPERATOR TECHNICAL-C [facility] documented in this encounter Plan of Treatment Not on filedocumented as of this encounter Visit Diagnoses Diagnosis Left lumbar radiculitis - Primary Thoracic or lumbosacral neuritis or radi culitis, unspecified documented in this encounter Care Teams Mechanical Striper Relationship Specialty Start Date End Date Alexandre Pittman MD PCP - General 06/14/10 05/01/[address] [place] [address] documented as of this encounter
--- OUTSIDE RECORDS SUMMARY | 2022-03-10 23:14 | XMS_ITS | Encounter Summary ---
:1960 Author Organization [facility] Address [facility] [place] [address] Care Team Providers Name Role Phone Alexandre Pittman MD Primary Care Provider [phone] Reason for Referral Consultation (Routine) - Complete - Patient Will Schedule External Appt Specialty Diagnoses / Procedures Referred By Contact Refer red To Contact Pain Management Diagnoses Left lumbar radiculitis Paulette Shepherd APRN [facility] [place] [address] Referral ID Status Reason Start Expiration Visits Visits Date Date Requested Authorized [id number] Complete - Consult, 03/11/2014 09/07/2014 1 1 Patient Will Test & Schedule Treat External Appt Reason for Visit Reason Comments Left Leg Pain Encounter Details Date Type Department Care Team Description 03/11/2014 Office Visit Spine Center at KiPaulette finney APRN radiculitis (Primary [facility] Dx) Drive [address] [place], [place] [facility] [address] [place] [address] [phone] Social History Tobacco Use Types Packs/Day Years Used Date Never Smoker Smokeless Tobacco: Never Used Tobacco Cessation: Ready to Quit: Not As ked Alcohol Use Standard Drinks/Week Comments Yes 0 (1 standard drink = 0.6 oz pure alcoho l) Sex Assigned at Date Recorded Not on file documented as of this encounter Last Filed Vital Signs Vital Sign Reading Time Taken Comments Blood Pressure 120/72 03/11/2014 1:05 PM EDT Pulse - - Temperature - - Respiratory Rate - - Oxygen Saturation - - Inhaled Oxygen Concentration - - Weight - - Height 175.3 cm (5' 9) 03/11/2014 1:05 PM EDT Body Mass Index - - documented in this encounter Progress Notes Paulette Shepherd APRN - 03/11/2014 1:18 PM EDT CHIEF COMPLAINT: Left anterior thigh pain. HISTORY OF PRESENT ILLNESS: Marco Antonio Harris is a 53 y.o. male seen in the Spine Center today in consultation for Alexandre Pittman. He is accompanied by his today and presents with a chief complaint of anterior left thigh pain, described as, cramping, aquiles horse, or tightening of a rope which has been present for several years. He does occasionally experience some tingling in his left anterior thigh but primarily experiences pain in this area. He feels the pain in his left anterior thigh is radiating from his left low back where he does have pain as well. Pain in this area is aggravated at the end of the day after being on his feet or periods of extended sitting, and relieved by drinking whiskey. If he is very active, as times he will experience symptoms in his right anterior thigh as well. Current pain level is 7/10. He denies hip, buttock, or groin pain. Treatments to date have included: TENS unit-no relief, Icy Hot-no relief, gabapentin-no relief, naproxen-no relief, and injection at [facility] in December (unsure what type) with 3 days of relief. REVIEW OF SYSTEMS: negative for any GI (except GERD) or symptoms, fevers, night sweats, chills, weight loss, saddle anesthesia or loss of bowel or bladder control. He denies myelopathic symptoms such as gait disturbance, gait imbalance, or difficulty with fine motor control. Sleep is limited to 2-3 hours/day. PAST MEDICAL HISTORY: Hx. Of KS, RLS, diabetes mellitus type 2 (blood sugars average in 130 range), GERD, hyperlipidemia, asthma, ADHD & nervous system disorder. PAST SURGICAL HISTORY: Right ACL repair w/allograft, hernia repair, deviated septum repair, & cardiac catheterization with angioplasty. FAMILY HISTORY: Heart disease and lung cancer. SOCIAL HISTORY: He is on SSDI for ADHD, asthma, back pain/spondylolysis and intellectually challenged since 1986. He does not smoke cigarettes and drinks about 2-3 alcoholic drinks a week. MEDICATIONS & ALLERGIES: reviewed with the patient and are in eD-H. PHYSICAL EXAMINATION: Height: 5'9. Weight: 234 lbs. BMI: 34.6. This is an obese middle aged male who speaks with a stutter and is in no acute distress. He ambulates with a steady gait. He is able to walk on his heels and toes without weakness. He is able to perform tandem heel-toe walk without ataxia. He stands with a dextroscoliosis in the thoracic spine that then corrects to a levoscoliosis in the lumbar spine with his left shoulder and hip higher than his right. His mid lumbar spine is tender to palpation. His bilateral sciatic notches and greater trochanters are non-tender to palpation. Trunk flexion is 50 degrees and painful. Trunk extension is 15 degreesand pain free. Straight leg raise and cross straight leg raise are negative bilaterally. Strength is5/5 in all lower extremity muscles groups and bilateral EHLs. Touch sensation is normal and symmetrical in bilateral lower extremities. Deep tendon reflexes are 2/4 at the knees and 2/4 at the ankles bilaterally. There is no clonus. Babinski is with down-going toes bilaterally. Liane's sign is absent bilaterally. Lhermitte's sign is absent. Hip range of motion is full and pain free bilaterally in sitting position. IMAGIN11/26/13 Lumbar MRI w/o contrast: Multilevel DDD & facet arthropathy. Spondylolysis of L5 with grade 1 spondylolisthesis of L5 on S1. Severe bilateral foraminal stenosis at L5-S1. L3- 4: Mild central canal stenosis due to small to moderate sized disc bulge and degenerative changes. L2-3: Mild central canal stenosis due to degenerative changes. ASSESSMENT: Left L3 radiculitis. PLAN: 1) Non-surgical options including PT, NSAIDs, FRP and injections as well as the option for surgical consult were reviewed with the patient. 2) External referral to Pain Clinic for Left L3-4 transforaminal [place]. Patient advised he will need adriver and his blood sugar will need to be below 180 range prior to injection. He has tolerated other steroid injections with local anesthetics such as lidocaine without side effect in the past although he has a remote Hx. Of adverse reaction to novocaine. He has an appointment for an injection scheduled at [facility] and I advised the patient he should receive steroid injections from only 1 facility in order to properly limit his steroid exposure. 3) I've advised him to avoid chronic NSAID use given his Hx. Of KS and diabetes. I've advised him max recommended daily acetaminophen dose is 3,000mg and that this would be a safer alternative analgesic for him. 4) I've re-assured him he is not at risk of doing any damage to his spine and have encouraged him toremain active. Follow-Up: 2 weeks after injection. All questions were answered and the patient is in agreement with the above treatment plan. This was a counseling dominated visit with approximately 25 minutes of this 40 minute encounter spent in face to face counseling, medical decision making, and review of imaging and treatment options. Thank you for the opportunity to participate in the care of this patient. Paulette Shepherd MS, SAP PORTAL DEVELOPER, POLICE OFFICER-C [facility] documented in this encounter Plan of Treatment Scheduled Referrals Name Type Priority Associated Diagnoses Order S chedule Referral to Pain Outpatient Referral Routine Left Lumbar Orde red: Clinic Radiculitis 03/11/2014 documented as of this encounter Visit Diagnoses Diagnosis Left lumbar radiculitis - Primary Thoracic or lumbosacral neuritis or radi culitis, unspecified documented in this encounter Care Teams Veneer Sorter Relationship Specialty Start Date End Date Alexandre Pittman MD PCP - General 06/14/10 05/01/17 [address] [place] [address] documented as of this encounter
--- OUTSIDE RECORDS SUMMARY | 2022-03-10 23:14 | XMS_ITS | Encounter Summary ---
:1960 Author Organization [facility] [place] [address] Care Team Providers Name Role Phone Alexandre Pittman MD Primary Care Provider [phone] Reason for Visit Reason Comments Other ? schedule RFA Encounter Details Date Type Department Care Team Description 06/19/2011 Telephone Pain Management at [facility], Other (? schedule RFA) [place] [phone] Social History Tobacco Use Types Packs/Day Years Used Date Never Smoker Smokeless Tobacco: Never Used Alcohol Use Standard Drinks/Week Comments Yes 0 (1 standard drink = 0.6 oz pure alcoho l) Sex Assigned at Date Recorded Not on file documented as of this encounter Miscellaneous Notes Telephone Encounter - Aure Moreau RN - 06/19/2011 2:37 PM EST Mr. Harris left a message regarding his MBB's from 06/08/11 stating they didn't work and wanted to schedule the next set of injections. Although no phone note was made, Juana Jarrell RN, took his post procedure information which she documented on the schedule as pain reduction from 6/10 to 2/10 which increased to 4/10 within 1 hour. He stayed at that level for 3 hours then increased back to baseline. She states she told him he did not meet criteria to proceed with the radiofrequency. Call placed to Mr. Harris and message left with this information and instructions to call for an appointment with Erika, providing him with the number. Patient knows how to contact the Pain Management Center with any further questions or concerns. documented in this encounter Plan of Treatment Not on filedocumented as of this encounter Visit Diagnoses Not on filedocumented in this encounter Care Teams Cnc Wood Lathe Operator Relationship Specialty Start Date End Date Alexandre Pittman MD PCP - General 06/14/10 05/01/17 [address] [place] [address] documented as of this encounter
--- OUTSIDE RECORDS SUMMARY | 2022-03-10 23:14 | XMS_ITS | Encounter Summary ---
:1960 Author Organization [facility] [place] [address] Care Team Providers Name Role Phone Alexandre Pittman MD Primary Care Provider [phone] Reason for Visit Reason Comments Cognitive Decline Neuropsychological Assessmen t Encounter Details Date Type Department Care Team Description 02/12/2012 Office Visit Psychiatry and Rosalva Lopez, Cogniti ve disorder Behavioral Health at PhD (Primary Dx) [facility] NEUROPSYCHOLOGY [facility] [place] [address] [place] [address] [phone] Social History Tobacco Use Types Packs/Day Years Used Date Never Smoker Smokeless Tobacco: Never Used Alcohol Use Standard Drinks/Week Comments Yes 0 (1 standard drink = 0.6 oz pure alcoho l) Sex Assigned at Date Recorded Not on file documented as of this encounter Progress Notes Rosalva Lopez, PhD - 03/08/2012 9:04 AM EDT CONFIDENTIAL NEUROPSYCHOLOGICAL EVALUATION Patient Name: Marco Antonio Gutierrez#: [id number] Date of Evaluation: 02/12/2012 Sex: Male Date of : 1960 Age: 51 Education: 11 years (GED) Lateral Dominance: Right-handed Occupation: Disability Referred By: Tim Comer M.D. REASON FOR REFERRAL AND BACKGROUND: This is Marco Antonio Harris???s first [facility] clinical neuropsychological evaluation, for which he was referred in the context of cognitive complaints of unknown etiology. Information was obtained from an interview with Mr. Harris and his , who appeared to be reliable historians, and from a review of theavailable medical records. As his history is well known to you, it will only be briefly reviewed here for our records. Mr. Harris and his reported the onset of cognitive changes in 2007, and indicated this was in temporal proximity to an asymptomatic myocardial infarct. Specifically, they described problems with memory, attention/concentration, distractibility, planning/organization, and tangentiality. Difficulties with attention/concentration and distractibility were noted as lifelong; however, they endorsed amarked decline in the problems beginning in 2007. They were unsure whether his symptoms have progressed since their onset; however, he reported being more aware of them, having recently returned to school. He denied that these changes have in any way impacted his ability to complete activities of daily living, and he continues to function independently; he has never held a emt driver???s license and doesnot drive. Emotionally, he denied symptoms of depression, and denied thoughts of suicide or self-harm. He endorsed subtle problems with anxiety throughout his life, but did not feel they interfered with his daily functioning and denied any changes. Mr. Harris reported that he was the product of an uncomplicated gestation, but was born at low weight (~4 pounds), and had encephalitis and associated coma at 18 months. He reported struggling academically, receiving special services until eighth grade, and repeating the fourth grade. He also reportedly received speech therapy services. He reported achieving average to low average grades, and left school after the eleventh grade; he later completed his GED. Currently, he is enrolled in a program inpursuit of an associate???s degree, and indicated that he has struggled due to his above cognitive complaints. He has been receiving SSI disability compensation since 1984. Medical history is otherwise reportedly remarkable for diabetes, heart disease, asthma, seasonal allergies, and hernia repair. He was also diagnosed with restless leg syndrome (RLS), period limb movement disorder (PLMD), and moderate to severe obstructive sleep apnea (SHARRI) within the past several years. He reported that he does not use a CPAP. He stated that he averages 3-4 hours of sleep per night, and frequently naps during the day due to hypersomnolence. Medical workup (including MRI, EEG, thyroid, and vitamin B) was unremarkable. He denied any instances of trauma to the head with associated loss of consciousness or symptoms of concussion. He reported consuming approximately one alcoholic drinkper month, and denied any history of alcohol abuse or dependence. He also denied use of tobacco or illicit substances. Family medical history is reportedly remarkable for cancer, diabetes, hypertension, heart disease, myocardial infarct, emphysema, anxiety, and alcoholism. At the time of the current evaluation, his medications reportedly included Aspirin 81mg, metformin, ibuprofen, ranitidine, lovastatin, and pramipexole. BEHAVIORAL OBSERVATIONS: Mr. Harris arrived on time for his appointment and was casually dressed and appropriately groomed. He was alert and oriented to person, place, and time, and understood the purpose of the current evaluation. Gait was somewhat slow and antalgic; gross motor functions were otherwise generally intact to informal observation. Spontaneous speech was fluent with normal prosody, and without evidence of wordfinding difficulties, paraphasias, or dysarthria. He demonstrated a broad range of affect, and reported his mood as euthymic. He was cooperative with interview and the testing process, and appeared to put forth his best effort on testing. As such, the current findings are considered to accurately reflect his current level of cognitive functioning. PROCEDURES ADMINISTERED: Clinical Interview Lateral Dominance Exam Sheela Adult Intelligence Scale - 4th edition (WAIS-IV) Jie-Levy Executive Function System (D-KEFS, selected subtests) [place] Card Sorting Test (WCST) Comprehension of Complex Ideational Material (from BDAE) Wide Range Achievement Test - Revision 4, Reading subtest (WRAT-4) [place] Naming Test (BNT) Sheela Memory Scale, Fourth Edition (WMS-IV, selected subtests) Brief Visuospatial Memory Test-Revised (BVMT-R) [place] Verbal Learning Test, Second Edition (CVLT-II) Grooved Pegboard Test [place] Depression Inventory-2nd Edition (BDI-II); State-Trait Anxiety Inventory (STAI) TEST RESULTS: Note: All tests were administered by a art glass designer. Descriptors are based on appropriate normativedata and the chart below, and are adjusted based on clinical judgment. DESCRIPTOR Percentile Rank DESCRIPTOR Percentile Rank Very Superior 98 and above Extremely Low 1.9 and below Superior 91 to 97 Mildly Impaired 0.38 to 1.9 High Average 75 to 90 Moderately Impaired 0.13 to 0.37 Average 25 to 74 Severely Impaired 0.12 and below Low Average 10 to 24 Borderline 2 to 9 General Intellectual Functioning: WAIS-IV: Age-Scaled Scores Descriptor RANGE Full Scale IQ 87 Low Average General Ability Index (GAI) 81 Low Average Verbal Comprehension Index: 76 Borderline Similarities 5 Borderline Vocabulary 4 Borderline Information 8 Average Perceptual Reasoning Index: 92 Average Block Design 6 Low Average Matrix Reasoning 8 Average Visual Puzzles 12 High Average Working Memory Index: 100 Average Digit Span 8 Average Arithmetic 12 High Average Processing Speed Index: 97 Average Symbol Search 9 Average Coding 10 Average Attention/Executive Functioning: D-KEFS [place] Making Test: Raw Score (scaled score) Visual Scanning 40 Secs., 0 err (3) Mildly Impaired Number Sequencing 45 Secs., 0 err (9) Average Letter Sequencing 34 Secs., 0 err (11) Average Number-Letter Switching 78 Secs., 0 err (11) Average Motor Speed 33 Secs., 0 err (10) Average WAIS-IV Digit Span Scaled Score Forward 9 Average Backward 8 Average Sequencing 8 Average [place] Card Sorting Test: Raw Score Categories (trials) 5/6 (128) Low Average Perseverative Errors 26 Low Average Failure to Maintain Set 2 Within Normal Limits Language: Raw Score Sentence Comprehension / Borderline WRAT-4 Reading Recognition Std. Score = 83 Low Average Confrontation Naming 56/60 Average D-KEFS Verbal Fluency Test: Raw Score (scaled score) Letter Total Correct 27 (7) Low Average Correct Total Correct 20 (3) Mildly Impaired Category Switching Correct 12 (9) Average Category Switching Accuracy 11 (9) Average Visuoperceptual/Spatial Ability Raw Score BVMT-R Copy / Within Normal Limits Memory: WMS-IV Sheela Memory Scale-IV: Raw Score (scaled score) Logical Memory I 10/50 (3) Mildly Impaired II 3/50 (2) Mildly Impaired Recognition 22/30 Low Average Brief Visuospatial Memory Test - R: Raw Score Trial 1 2 Borderline Trial 2 6 Low Average Trial 3 4 Impaired Total Recall 12 Impaired Delayed Recall 1 Impaired Recognition Hits 6 Within Normal Limits False Positive Errors 0 Within Normal Limits Discriminability 6 Within Normal Limits [place] Verbal Learning Test-II: Raw Score Total Trials 1-5 30/80 (4-5-8-6-7) Borderline Short-Delay Free Recall 2/16 Borderline Short-Delay Cued Recall 4/16 Borderline 20??? Delayed Free Recall 2/16 Borderline 20??? Delayed Cued Recall 3/16 Mildly Impaired Recognition 9/16 Moderately Impaired False Positive Errors 7 Low Average Discriminability 0.9 Borderline Forced Choice 16/16 Within Normal Limits Sensory-Motor Functioning: Grooved Pegboard Test: Raw Score Right Hand (Dominant) 92 sec., 1 drops Borderline Left Hand 91 sec., 0 drops Low Average Emotion/Personality: Raw Score [place] Depression Inventory (BDI-II) 33 Severe State-Trait Anxiety - State Scale 22 Within Normal Limits - Trait Scale 37 Within Normal Limits REVIEW OF TEST RESULTS: Intellectual Functioning: Overall intellectual functioning, based on the WAIS- IV, was estimated to fall within the low average range, with significantly better perceptual than verbal abilities. Among his perceptual abilities, complex visuoperception and mental rotation were relative strengths. Baseline abilities were estimated to fall in the low average range based on a word reading test and demographic characteristics. This suggests he is currently functioning at a level relatively commensurate with his baseline abilities. Attention and Executive Functions: Basic auditory attention and psychomotor speed were intact. Performance on a visual scanning task was in the mildly impaired range, although problems with scanning were not noted on any other measure. Executive functions were characterized by intact cognitive flexibility, nonverbal abstract reasoning, novel problem solving, and working memory; verbal abstract reasoning was a relative weakness, falling in the borderline range. Language Skills: Expressive language was somewhat variable, with intact word reading, object naming,and rapid word generation to phonemic cues, while semantic fluency was in the impaired range, and expressive vocabulary knowledge was in the borderline range. Receptive language was also a relative weakness, falling in the borderline range when listening to brief paragraphs. Visuospatial / Visuoconstruction Skills: Visuoperception and visuoconstruction were generally intact. Memory: Immediate and delayed memory for stories was in the mildly impaired range, and recall improved to the low average range when a recognition format was used. Learning and delayed recall of a wordlist were in the borderline range, without significant benefit from semantic cues. Recognition discri minability was also in the borderline range, with numerous false positive errors suggesting problemsdiscriminating new from previously learned information. Learning and delayed recall of visual information was in the impaired range, although recognition discriminability was intact. Overall, he demonstrated a pattern of retrieval impairment for both visual and verbal information, although subtle difficulties with encoding were also observed. Sensory-Motor Skills: Speeded manual dexterity was in the borderline range using his dominant (right) hand, and the low average range using his non-dominant hand. SELF-REPORT MEASURES: On self-report mood screening measures, Mr. Harris???s responses suggested severely elevated symptoms consistent with depression, and minimal anxiety at the time of the evaluation, and minimal anxietyin general. He denied thoughts of suicide or self-harm. SUMMARY AND RECOMMENDATIONS: In the context of low average range overall intellectual abilities (with significantly better perceptual than verbal abilities), Mr. Harris demonstrated impaired semantic fluency and encoding/retrieval memory for both visual and verbal material. While not frankly impaired, relative weaknesses were noted in verbal abstract reasoning, expressive vocabulary knowledge, receptive language, and dominant (right) speeded manual dexterity. Finally, on self-report measures he endorsed significantly elevated symptoms of depression, but not anxiety, which is inconsistent with his report on interview, during which he denied symptoms of depression but reported problems with anxiety. Overall, the current findings suggest a pattern of mild frontal-temporal network dysfunction. While some of his difficulties are likely longstanding, and may be related to his history of encephalitis as an , there does appear to be some indication of at least a subtle decline in memory. The etiology of this decline is not entirely clear, although given his history it would be most parsimoniously explained by a combination of cardiovascular factors and currently untreated SHARRI. We recommend Mr. Harris discuss with his physicians the importance of sleep and treating sleep apnea, and treatment options be discussed. Continued efforts to manage cardiovascular health will also be important in order to minimize further declines that may be related to ischemic changes. Additionally, affective distress is likely contributing to the severity of his difficulties in daily life, and continued efforts to manage his mood may yield a relative improvement in his daily functioning. This could include both p harmacotherapy and a course of cognitive behaviorally based psychotherapy. In this therapy, it may be important to focus on improving insight into psychological symptoms, given the inconsistency noted above. Follow-up neuropsychological evaluation may be considered in approximately 18-24 months to follow his progress and update treatment recommendations. In light of the above findings, we offer the following recommendations: Given his reports of problems with episodic memory in daily life, Mr. Harris may wish to begin to use a day neighborhood planner to keep track of when he should complete a given task (e.g., taking his medication). In cooperation with his family, who may offer support as necessary, he should begin to develop a ???blueprint?? of his day with concrete goals, tasks he needs to complete as well as appointments. Formaximal benefit he should review his neighborhood planner at the beginning of each day and as needed throughout the day. He may also benefit from use of a timer that sounds to remind him to initiate a task. To aid with his learning and memory he might benefit from asking questions for clarification, for information to be repeated, or by repeating an explanation in his own words to ensure comprehension and promote encoding, especially given his difficulties with receptive language on formal assessment. Thank you for referring Mr. Harris for neuropsychological evaluation. We will review these results with him. If you would like additional information, please do not hesitate to contact us at . Rolly Watson Psy.D. Rosalva Lopez, Ph.D., [facility] Post-doctoral Fellow Board Certified in Clinical Neuropsychology Neuropsychology Program bike assembler Director, Neuropsychology Program This report was prepared by Rolly Watson Psy.D., Postdoctoral Fellow in Neuropsychology, under thesupervision of Rosalva Lopez, Ph.D., [facility]. documented in this encounter Plan of Treatment Not on filedocumented as of this encounter Visit Diagnoses Diagnosis Cognitive disorder - Primary Unspecified persistent mental disorders due to conditions classified elsewhere documented in this encounter Care Teams Stock Crane Operator Relationship Specialty Start Date End Date Alexandre Pittman MD PCP - General 06/14/10 05/01/17 [address] [place] [address] documented as of this encounter
--- OUTSIDE RECORDS SUMMARY | 2022-03-10 23:14 | XMS_ITS | Encounter Summary ---
:1960 Author Organization [facility] [place] [address] Care Team Providers Name Role Phone Unknown Primary Care Provider Unavailable Encounter Details Date Type Department Care Team Description 06/11/2018 Ancillary Procedure Radiology Library at Jose Rafael oT MD [facility] [place] [address] [place] [id number] [phone] (Wo rk) Social History Tobacco Use Types [...] Associated Diagnosis Comme nts FILM LIBRARY Routine 06/11/2018 12:00 AM Results for this STORAGE ONLY DX EST procedure ar e in SPINE the results section. documented in this encounter Results Film Library- Storage Only DX Spine (06/11/2018 12:00 AM EST) Specimen (Source) Anatomical Location Collection Method / Collectio n Time Received Time / Laterality Volume Narrative FAUSTINO - 08/15/2018 10:42 AM EST This exam is for storage only and is aut o-finalizing. Jose Rafael To MD G FILM LIBRARY ORDERABLES Performing Organization Address City/State/ZIP Code Phon e Number [place], [place] documented in this encounter Visit Diagnoses Not on filedocumented in this encounter Care Teams Violin Tutor Relationship Specialty Start Date End Date Unknown PCP - General 05/02/17 08/18/18 None documented as of this encounter
--- OUTSIDE RECORDS SUMMARY | 2022-03-10 23:14 | XMS_ITS | Encounter Summary ---
:1960 Author Organization [facility] Address [facility] [place] [address] Care Team Providers Name Role Phone Alexandre Pittman MD Primary Care Provider [phone] Encounter Details Date Type Department Care Team Description 09/04/2016 Office Visit Neurology at [facility] Estrella Ramos MD Headache, unspecified [facility] type [address] [place] [place]PT [address] [place] [address] [phone] Social History Tobacco Use Types Packs/Day Years Used Date Never Smoker Smokeless Tobacco: Never Used Alcohol Use Standard Drinks/Week Comments Yes 0 (1 standard drink = 0.6 oz pure alcoho l) Sex Assigned at Date Recorded Not on file documented as of this encounter Progress Notes Estrella Ramos MD - 09/04/2016 8:30 AM EST Patient did not show up for his scheduled appt: My summary for the provided documentation: Marco Antonio Harris is a 55 y.o. male with PMH diabetes type 2, hyperlipidemia, [place] 2010, headache, generalized anxiety disorder Patient has previously seems and evaluated by Dr. Cartwright for headaches. He is [facility] Community clinic - Dr. Pittman who is continuing the recommended medication from Dr. Cartwright and placed a referral for a second opinion here at [facility] headache clinic. I have reviewed the provided documentation: 10/25/2015 Dr. Cartwright Per documentation patient reported that on 18 October patient awoke with dizziness and lightheadedness and had a bad headache that lasted 10 minutes. Patient continued to have headaches for 4-5 months prior to the evaluation that got worse over the following 3 weeks. Patient???s diagnosis was headache and dizziness per documentation. He was started on amitriptyline and MRI brain was recommended. Medications tried: Amitriptyline Gabapentin Sertraline Acetaminophen Aspirin Oxycodone Naproxen Alprazolam (side effect dizziness) documented in this encounter Plan of Treatment Not on filedocumented as of this encounter Visit Diagnoses Diagnosis Headache, unspecified headache type documented in this encounter Care Teams Terrazzo Supervisor Relationship Specialty Start Date End Date Alexandre Pittman MD PCP - General 06/14/10 05/01/[address] [place] [address] documented as of this encounter
--- OUTSIDE RECORDS SUMMARY | 2022-03-10 23:14 | XMS_ITS | Encounter Summary ---
:1960 Author Organization [facility] [place] [address] Care Team Providers Name Role Phone None Primary Care Provider Unavailable Encounter Details Date Type Department Care Team Description 08/27/2018 Notes Only [facility] [place] [address] Social History Tobacco Use Types Packs/Day Years Used Date Never Smoker Smokeless Tobacco: Never Used Alcohol Use Standard Drinks/Week Comments Yes 0 (1 standard drink = 0.6 oz pure alcoho l) Sex Assigned at Date Recorded Not on file documented as of this encounter Progress Notes Olena Atkinson - 08/27/2018 3:07 PM EST Patient called to request MRI order be sent to [facility]. Insurance company updated. Authorization number: [id number]. Orders faxed and filed at exit. documented in this encounter Plan of Treatment Not on filedocumented as of this encounter Visit Diagnoses Not on filedocumented in this encounter Care Teams Liquor Rectifier Relationship Specialty Start Date End Date None PCP - General 08/19/18 None documented as of this encounter
--- OUTSIDE RECORDS SUMMARY | 2022-03-10 23:14 | XMS_ITS | Encounter Summary ---
:1960 Author Organization [facility] [address] Care Team Providers Name Role Phone Alexandre Pittman MD Primary Care Provider [phone] Reason for Referral Consultation (Routine) - Closed Specialty Diagnoses / Procedures Referred By Contact Refer red To Contact Pain Management Diagnoses Severe LBP Caterina Perez, KATIE Llanos [facility] [address] [place] [address] [place] [address] [place] [address] Referral ID Status Reason Start Date Expiration Date Visits V isits Requested Authorized [id number] Closed Consult, 05/22/2011 11/18/2011 1 1 Test & Treat Reason for Visit Reason Comments Back Pain Encounter Details Date Type Department Care Team Description 05/22/2011 Follow-Up Sp[facility] at Caterina Perez, Severe LBP (Primary Dx) [place] [facility] [place] [address] PAIN CLINIC [phone] [place] [id number] (Wo rk) Social History Tobacco Use Types Packs/Day Years Used Date Never Smoker Smokeless Tobacco: Never Used Alcohol Use Standard Drinks/Week Comments Yes 0 (1 standard drink = 0.6 oz pure alcoho l) Sex Assigned at Date Recorded Not on file documented as of this encounter Progress Notes Caterina Perez APRN - 05/22/2011 9:58 AM EDT Marco Antonio Harris is a 50 y.o. male returns to the spine center to discuss his ongoing LBP. He arrives 20 minutes into a 30 min appt. Sx are unchanged with all of his pain being in his lower back. He rates his pain at 8/10. Denies anysymptoms down his leg. He's been treated with physical therapy and anti-inflammatories with no improvement. Imagin. THORACIC SPINE: Degenerative disc disease with multilevel smalldisc protrusions, but no severe central canal stenosis. 2. MRI LUMBAR SPINE: Grade I L5-S1 anterolisthesis, with bilateral spondylolysis, with disc osteophyte causing bilateral neural foraminal stenosis and possible impingement on the exiting bilateral L5 nerve roots, if this correlates with physical exam. L4-L5 disc osteophyte narrowing the lateral recesses minimally abutting the traversing L5 nerve roots. 3. Left renal cystic lesion appears larger in size compared to prior study Observation: He is pleasant, has good eye contact, most of his pain seems to be from L3 to the sacrum. I can exacerbate this pain by extension at his waist lateral rotation, and twisting. Plan: We reviewed his imaging and discussed plan of care. Orders start with medial branch blocks andradiofrequency ablation. I did give him the brochures. documented in this encounter Plan of Treatment Scheduled Referrals Name Type Priority Associated Diagnoses Order S chedule REFERRAL TO PAIN Outpatient Referral Routine Severe LBP Orde red: CLINIC 05/22/2011 documented as of this encounter Visit Diagnoses Diagnosis Severe LBP - Primary Lumbago documented in this encounter Care Teams Land Management Supervisor Relationship Specialty Start Date End Date Alexandre Pittman MD PCP - General 06/14/10 05/01/17 [address] [place] [address] documented as of this encounter
--- OUTSIDE RECORDS SUMMARY | 2022-03-10 23:14 | XMS_ITS | Encounter Summary ---
:1960 Author Organization [facility] [place] [address] Care Team Providers Name Role Phone None Primary Care Provider Unavailable Encounter Details Date Type Department Care Team Description 05/20/2020 [place] [address] Social History Tobacco Use Types Packs/Day Years Used Date Never Smoker Smokeless Tobacco: Never Used Alcohol Use Standard Drinks/Week Comments Yes 0 (1 standard drink = 0.6 oz pure alcoho l) Sex Assigned at Date Recorded Not on file documented as of this encounter Medications at Time of Discharge Medication Sig Dispensed Refills Start Date End Date LYRICA 75 mg Capsule 1 capsule daily. 0 9 atorvastatin (LIPITOR) 20 mg 1 tablet daily. 3 Tablet cyclobenzaprine (FLEXERIL) Take 10 mg by mouth 0 10 mg Tablet 3 times daily as needed for Muscle spasms. sitaGLIPtin (JANUVIA) 100 mg Take 100 mg by 0 Tablet mouth daily. ondansetron (ZOFRAN) 4 mg Take 4 mg by mouth 0 Tablet every 8 hours as needed for Nausea. celecoxib (CELEBREX) 200 mg Take 200 mg by 0 Capsule mouth as needed for Pain. hydrOXYzine (VISTARIL) 25 mg Take 25 mg by mouth 0 Capsule as needed for Itching. montelukast (SINGULAIR) 10 Take 10 mg by mouth 0 mg Tablet nightly. loratadine (CLARITIN) 10 mg Take 10 mg by mouth 0 tablet daily. lovastatin (MEVACOR) 40 mg Take 40 mg by mouth 0 tablet nightly. aspirin 81 mg EC tablet Take 81 mg by mouth 0 daily. MULTIVITAMIN ORAL Take 1 tablet by 0 mouth daily. metFORMIN (GLUCOPHAGE) 500 Take 1,000 mg by 0 mg tablet mouth 2 times daily (with meals). gabapentin (NEURONTIN) 800 Take 800 mg by 0 mg tablet mouth every morning. ranitidine (ZANTAC) 150 mg Take 150 mg by 0 tablet mouth daily. documented as of this encounter Plan of Treatment Not on filedocumented as of this encounter Procedures Procedure Name Priority Date/Time Associated Diagnosis Comme nts COVID-19 PCR Routine 05/20/2020 10:32 AM Results for this EDT procedure are i n the results section . documented in this encounter Results COVID-19 PCR (05/20/2020 10:32 AM EDT) [facility] Method Time Signature SARS-CoV-2 Not Detected Not Detected [facility] Comment: This result should be interpreted in com bination with the clinical observations, patient history and epidem iological information in making a final diagnosis. For testing of asymptomatic i ndividuals, assay performance characteristics and clinical utility hav e not been evaluated. Testing for SARS-CoV-2 (Severe acute respiratory syn drome coronavirus 2, formerly known as 2019 novel coronavirus or 2019-nCoV) to aid in the diagnosis of COVID-19 is performed using the [employer] RealTime SARS -CoV-2 Assay as authorized by the FDA Emergency Use Authorization (EUA). This EUA assay is intended for In-vitro Diagnostic (IVD) use with respiratory sp ecimens such as nasopharyngeal swabs collected from individuals during the ac shoshone-paiute phase of infection. This assay is performed based on the instructions for use provided by [employer] and additional guidance provided by CDC and FDA. Testing is performed in the [facility] within the Department of Pathology and Laboratory Medicine at [facility], certified under the Clinical Laboratory Improvement Amendments of 1988 (CLIA), 42 U.S.C. 263a, to perform high complexi ty tests. Assay performance has been verified according to clinical laborator y regulatory requirements for use with specimens collected from individuals maynor pected of COVID-19. Test results are provided above. A result of ? Not Detected? indicates that the viral RNA target is not present above the limit of detect ion, but does not preclude SARS-CoV-2 infection. False negative results may oc cur if a specimen is improperly collected, transported or handled; if am plification inhibitors are present; or if inadequate numbers of viral particles are present in the specimen. When a diagnostic test is negative, the possibi lity of a false negative result should be considered in the context of a patien t? s recent exposures and the presence of clinical signs and symptoms consisten t with COVID-19. A result of ? Detected? indicates that RNA from SARS-CoV-2 was d etected and the patient is infected. As required or requested by [facility], positive specimens may be sent for additional testing. Positive an d negative predictive values for this test are highly dependent on disease pre valence. A result of ? Invalid? indicates that neither the viral RNA tar gets nor the internal control target was detected. An invalid result suggests the presence of inhibitors. Recollection and re-testing is recommend ed in the case of an invalid result. CDC COVID-19 criteria for testing on hum an specimens and clinical management guidance information are available at e CDC Coronavirus Disease 2019 (COVID-19) webpage under ? Information for Healthcare Professionals? (https://www.cdc.gov/coronavirus/2019-nc ov/hcp/index.html) Additional information about this and ot her EUA tests can be found in provider and patient fact sheets at the following FDA website: https://www.fda.gov/medical-devices/vgixwmnmhis-thxhjvq-6912-hjbcd-36-blhmovthv- mjj-dojxtkzhdueszp-thitpli-devices/xxqde-lyjsbfcsvlr-qang SARS-Cov-2 RNA Source SHIFT NURSE MANAGER Swab [facility] Specimen (Source) Anatomical Collection Method Collection Time Re ceived Time Location / / Volume Laterality Nasopharyngeal swab Other / Unknown 05/20/2020 10:32 1 (specimen) AM EDT 12:33 AM EDT Resulting Agency Comment Spec In Lab Akash Bright MD MICROBIOLOGY - GENERAL ORDER ELISE Performing Organization Address City/State/[place] [address] documented in this encounter Visit Diagnoses Not on filedocumented in this encounter Care Teams Inspector Wire Rope Relationship Specialty Start Date End Date None PCP - General 08/19/18 None documented as of this encounter
--- OUTSIDE RECORDS SUMMARY | 2022-03-10 23:14 | XMS_ITS | Encounter Summary ---
:1960 Author Organization [facility] [place] [address] Care Team Providers Name Role Phone Alexandre Pittman MD Primary Care Provider [phone] Encounter Details Date Type Department Care Team Description 07/18/[address] [facility] [place] [address] PAIN CLINIC [phone] [place] [id number] (Wo rk) Social History Tobacco Use Types [...] on filedocumented in this encounter Care Teams Communications Strategist Relationship Specialty Start Date End Date Alexandre Pittman MD PCP - General 06/14/10 05/01/17 [address] [place] [address] documented as of this encounter
--- OUTSIDE RECORDS SUMMARY | 2022-03-10 23:14 | XMS_ITS | Encounter Summary ---
:1960 Author Organization [facility] [place] [address] Care Team Providers Name Role Phone Alexandre Pittman MD Primary Care Provider [phone] Encounter Details Date Type Department Care Team Description 05/15/2011 Hospital Encounter MRI at [facility] Mechanical low back [facility] [place] [address] Social History Tobacco Use Types Packs/Day [...] Name Priority Date/Time Associated Diagnosis Comme nts MRI THORACIC SPINE Routine 05/15/2011 7:35 PM Mechanical low b ack Results for this WITHOUT CONTRAST EDT pain procedure a re in the results section. documented in this encounter Results MRI thoracic spine without contrast (05/15/2011 7:35 PM EDT) Anatomical Region Laterality Modality T-spine Magnetic Resonance Specimen (Source) Anatomical Collection Method Collection Time Re ceived Time Location / / Volume Laterality 05/15/2011 7:35 PM EDT Impressions 05/17/2011 9:24 AM EDT IMPRESSION: 1. ??THORACIC SPINE: ??Degenerative disc disease with multilevel smalldisc protrusions, but no severe central canal stenosis. ?? 2. ??MRI LUMBAR SPINE: ??Grade I L5-S1 a nterolisthesis, with bilateral spondylolysis, with disc osteophyte caus ing bilateral neural foraminal stenosis and possible impingement on the exiting bilateral L5 nerve roots, if this correlates with physical exam. ??L4-L5 d isc osteophyte narrowing the lateral recesses minimally abutting the traversi ng L5 nerve roots. ?? 3. ??Left renal cystic lesion appears la rger in size compared to prior study Narrative 05/17/2011 9:24 AM EDT MRI OF THE THORACIC SPINE WITHOUT CONTRA ST, MRI OF THE LUMBAR SPINE WITHOUT CONTRAST: ?? HISTORY: A 50-year-old male with chronic lower back pain. ?? TECHNIQUE: Multiplanar, multisequence MR I of the thoracic and lumbar spine was performed without intravenous contrast. ?? COMPARISON: MRI lumbar spine from , radiographs lumbar spine, 05/15/11. ?? FINDINGS: MRI THORACIC SPINE: ??The alignment of t he thoracic spine is maintained in the sagittal plane without subluxation. ??Ve rtebral body heights preserved without compression. ??Lesion in the T5 vertebra l body demonstrating high T1 and T2 signal intensity likely hemangioma. ??Ot herwise, normal bone marrow signal intensity. ?? T3-T4: ??Small left paracentral disc pro trusion. ??No stenosis. ?? T5-T6: ??Left paracentral disc protrusio n mildly flattening the left ventral thecal sac. ??No stenosis. ?? T7-T8: ??Right paracentral disc protrusi on, no stenosis. ?? T8-T9: ??Right paracentral disc protrusi on, no stenosis. ?? T9-T10: ??Right paracentral disc protrus ion, no stenosis. ?? The spinal cord is normal in caliber and contour, without abnormal intramedullary signal intensity to sugge st edema. ??The limited paravertebral soft tissues visualized are unremarkable . ?? MRI LUMBAR SPINE: ??Grade I L5-S1 trenton listhesis (5 mm), similar to prior MRI from 2003, with bilateral spondylolysis. ??Remainder of the alignment of the lumbar spine is maintained in the sagitt al plane. ??Vertebral body heights preserved without compression. ??Lesion in the L2 vertebral body demonstrating high T1 and T2 signal intensity likely h emangioma. ??Otherwise, normal bone marrow signal intensity. ?? Desiccation of discs and disc space loss from the L2-L3 to the L5-S1 levels. ?? The conus medullaris is normal in calibe r and contour, terminating normally at the L1-L2 level. ?? T12-L1: ??No stenosis. ?? L1-L2: ??No stenosis. ?? L2-L3: ??Small central disc protrusion, no central canal stenosis. ??Mild bilateral neural foraminal stenosis. ?? L3-L4: ??Annular disc bulge with small s uperimposed central disc protrusion, mild facet arthropathy, no central canal stenosis, mild neural foraminal stenosis. ?? L4-L5: ??Annular disc bulge, endplate os teophytic ridging, small superimposed central disc protrusion, and bilateral f acet arthropathy. ??No central canal stenosis, minimal bilateral neural forest inal stenosis. ??Mild narrowing of the bilateral lateral recesses, with a disc osteophyte minimally abutting the traversing left and right L5 nerve roots . ?? L5-S1: ??Grade I anterolisthesis with bi lateral spondylolysis, unroofing of the disc, widening of the central canal, wit h bilateral neural foraminal stenosis, with possible impingement on the exiting left and right L5 nerve roots, if this correlates with physical exam. ??No defi nite impingement on the traversing S1 nerve roots. ?? Left renal cystic lesion larger in size compared to prior study from 2002, but suboptimal imaging on MRI lumbar spine. Procedure Note Estrella Ly MD - 05/17/2011Formattin g of this note might be different from the original. MRI OF THE THORACIC SPINE WITHOUT CONTRA ST, MRI OF THE LUMBAR SPINE WITHOUT CONTRAST: HISTORY: A 50-year-old male with chronic lower back pain. TECHNIQUE: Multiplanar, multisequence MR I of the thoracic and lumbar spine was performed without intravenous contrast. COMPARISON: MRI lumbar spine from , radiographs lumbar spine, 05/15/11. FINDINGS: MRI THORACIC SPINE: The alignment of the thoracic spine is maintained in the sagittal plane without subluxation. Vert ebral body heights preserved without compression. Lesion in the T5 vertebral body demonstrating high T1 and T2 signal intensity likely hemangioma. Othe rwise, normal bone marrow signal intensity. T3-T4: Small left paracentral disc protr usion. No stenosis. T5-T6: Left paracentral disc protrusion mildly flattening the left ventral thecal sac. No stenosis. T7-T8: Right paracentral disc protrusion , no stenosis. T8-T9: Right paracentral disc protrusion , no stenosis. T9-T10: Right paracentral disc protrusio n, no stenosis. The spinal cord is normal in caliber and contour, without abnormal intramedullary signal intensity to sugge st edema. The limited paravertebral soft tissues visualized are unremarkable . MRI LUMBAR SPINE: Grade I L5-S1 anteroli sthesis (5 mm), similar to prior MRI from 2002, with bilateral spondylolysis. Remainder of the alignment of the lumbar spine is maintained in the sagitt al plane. Vertebral body heights preserved without compression. Lesion in the L2 vertebral body demonstrating high T1 and T2 signal intensity likely h emangioma. Otherwise, normal bone marrow signal intensity. Desiccation of discs and disc space loss from the L2-L3 to the L5-S1 levels. The conus medullaris is normal in calibe r and contour, terminating normally at the L1-L2 level. T12-L1: No stenosis. L1-L2: No stenosis. L2-L3: Small central disc protrusion, no central canal stenosis. Mild bilateral neural foraminal stenosis. L3-L4: Annular disc bulge with small sup erimposed central disc protrusion, mild facet arthropathy, no central canal stenosis, mild neural foraminal stenosis. L4-L5: Annular disc bulge, endplate oste ophytic ridging, small superimposed central disc protrusion, and bilateral f acet arthropathy. No central canal stenosis, minimal bilateral neural forest inal stenosis. Mild narrowing of the bilateral lateral recesses, with a disc osteophyte minimally abutting the traversing left and right L5 nerve roots . L5-S1: Grade I anterolisthesis with bila teral spondylolysis, unroofing of the disc, widening of the central canal, wit h bilateral neural foraminal stenosis, with possible impingement on the exiting left and right L5 nerve roots, if this correlates with physical exam. No defini te impingement on the traversing S1 nerve roots. Left renal cystic lesion larger in size compared to prior study from 2003, but suboptimal imaging on MRI lumbar spine. IMPRESSION IMPRESSION: 1. THORACIC SPINE: Degenerative disc dis ease with multilevel smalldisc protrusions, but no severe central canal stenosis. 2. MRI LUMBAR SPINE: Grade I L5-S1 anter olisthesis, with bilateral spondylolysis, with disc osteophyte caus ing bilateral neural foraminal stenosis and possible impingement on the exiting bilateral L5 nerve roots, if this correlates with physical exam. L4-L5 dis c osteophyte narrowing the lateral recesses minimally abutting the traversi ng L5 nerve roots. 3. Left renal cystic lesion appears larg er in size compared to prior study Jose Rafael To MD IMG MRI ORDERABLES documented in this encounter Visit Diagnoses Diagnosis Mechanical low back pain Lumbago documented in this encounter Care Teams Composition Floor Layer Relationship Specialty Start Date End Date Alexandre Pittman MD PCP - General 06/14/10 05/01/[address] [place] [address] documented as of this encounter
--- OUTSIDE RECORDS SUMMARY | 2022-03-10 23:14 | XMS_ITS | Clinical Summary ---
:1960 Author Organization [facility] [place] [address] Care Team Providers Name Role Phone None Primary Care Provider Unavailable Allergies Active Allergy Reactions Severity Noted Date Comments Alprazolam Barley Grass Other (See Comments) Allergi c Rhinitis Cat/Feline Products Other (See Comments) Allergic Rhinitis Couch Grass Other (See Comments) Allergi c Rhinitis Mays Eye Grass Other (See Comments) All ergic Rhinitis Grass Pollen-[place] Other (See Comments) Allergic Rhinitis Blue, Standard Grass Pollen-[place] Other (See Comments) Allergic Rhinitis Fescue, Standard Grass Pollen-Orchard Other (See Comments) High Allergic Rhinitis Grass, Standard Grass Pollen-Perennial Other (See Comments) Allergic Rhinitis Hawthorne, Standard Grass Pollen-Redtop, Other (See Comments) Allergic Rhinitis Standard Grass Pollen-Sweet Other (See Comments) Allergic Rhinitis Vernal, Standardized Grass Pollen-Keyur, Other (See Comments) Allergic Rhinitis Standard House Dust Other (See Comments) Allerg ic Rhinitis Unclassified Drug 03/11/2014 Novocaine- Chewed my tongue up, has tolerated stero id injections of h is knees w/o s/e. Stock Ragweed Pollen Other (See Comments) Allergic Rhinitis Mixture Medications Medication Sig Dispensed Refills Start Date End Date Status aspirin 81 mg EC tablet Take 81 mg by 0 Active mouth daily. MULTIVITAMIN ORAL Take 1 tablet by 0 Active mouth daily. metFORMIN (GLUCOPHAGE) Take 1,000 mg by 0 Active 500 mg tablet mouth 2 times daily (with meals). gabapentin (NEURONTIN) Take 800 mg by 0 Active 800 mg tablet mouth every morning. ranitidine (ZANTAC) 150 Take 150 mg by 0 Active mg tablet mouth daily. lovastatin (MEVACOR) 40 Take 40 mg by 0 Active mg tablet mouth nightly. loratadine (CLARITIN) 10 Take 10 mg by 0 Active mg tablet mouth daily. LYRICA 75 mg Capsule 1 capsule daily. 0 08/06/2018 Active atorvastatin (LIPITOR) 1 tablet daily. 3 06/28/2018 Active 20 mg Tablet cyclobenzaprine Take 10 mg by 0 Active (FLEXERIL) 10 mg Tablet mouth 3 times daily as needed for Muscle spasms. sitaGLIPtin (JANUVIA) Take 100 mg by 0 Active 100 mg Tablet mouth daily. ondansetron (ZOFRAN) 4 Take 4 mg by 0 Active mg Tablet mouth every 8 hours as needed for Nausea. celecoxib (CELEBREX) 200 Take 200 mg by 0 Active mg Capsule mouth as needed for Pain. hydrOXYzine (VISTARIL) Take 25 mg by 0 Active 25 mg Capsule mouth as needed for Itching. montelukast (SINGULAIR) Take 10 mg by 0 Active 10 mg Tablet mouth nightly. Active Problems Problem Noted Date Left lumbar radiculitis 03/11/2014 Family History Medical History Relation Comments Alcohol Use Disorder Brother Alcohol Use Disorder Father Cancer Father lung Coronary Artery Disease Father angina High Blood Pressure Father High Cholesterol Father High Blood Pressure Maternal Aunt 1 High Cholesterol Maternal Aunt 1 Osteoporosis Maternal Aunt 1 Alcohol Use Disorder Maternal Aunt 2 High Cholesterol Maternal Aunt 2 Osteoporosis Maternal Aunt 2 Alcohol Use Disorder Maternal Aunt 3 Cancer Maternal Aunt 3 lung Alcohol Use Disorder Maternal Aunt 4 Cancer Maternal Aunt 4 lung Alcohol Use Disorder Maternal Uncle 1 Cancer Maternal Uncle 1 lung Alcohol Use Disorder Maternal Uncle 2 Cancer Maternal Uncle 2 lung Diabetes Maternal Uncle 2 High Cholesterol Maternal Uncle 2 Alcohol Use Disorder Mother Cancer Mother lung Diabetes Mother High Cholesterol Mother Osteoporosis Mother Alcohol Use Disorder Paternal Aunt Alcohol Use Disorder Paternal Grandfather Coronary Artery Disease Paternal Grandfather Relation Status Comments Brother Father Maternal Aunt 1 Maternal Aunt 2 Maternal Aunt 3 Maternal Aunt 4 Maternal Uncle 1 Maternal Uncle 2 Mother Paternal Aunt Paternal Grandfather Social History Tobacco Use Types Packs/Day Years Used Date Never Smoker Smokeless Tobacco: Never Used Tobacco Cessation: Ready to Quit: Not As ked Alcohol Use Standard Drinks/Week Comments Yes 0 (1 standard drink = 0.6 oz pure alcoho l) Sex Assigned at Date Recorded Not on file Last Filed Vital Signs Vital Sign Reading Time Taken Comments Blood Pressure 134/84 08/19/2018 3:15 PM EST Pulse 71 06/08/2011 8:24 AM EST Temperature - - Respiratory Rate - - Oxygen Saturation 98% 06/08/2011 8:24 AM EST Inhaled Oxygen Concentration - - Weight 106.6 kg (235 lb) 08/19/2018 3:15 PM EST Height 176.5 cm (5' 9.5) 08/19/2018 3:15 PM EST Body Mass Index 34.21 08/19/2018 3:15 PM EST Plan of Treatment Health Maintenance Due Date Last Done Comments Covid-19 Vaccine (#1) 1965 HIV screen 1978 Hepatitis C Screening 1978 Tdap adult 11/16/1979 Tetanus vaccine 11/16/1979 Colonoscopy 2005 Zoster vaccine (1 of 2) 2010 Advance Directive 11/16/2015 Influenza (Flu) vaccine (1 of 1 - Influenza standard 03/23/2022 series) Insurance Payer Benefit Plan / Subscriber ID Effective Dates Phone Addre ss Type Group [place]ID [place]ICA[place] [id number] 2016-[place] [phone] [address] [facility] [address] [place], [place] [address] Care Teams Quarrying Specialist Relationship Specialty Start Date End Date None PCP - General 08/19/18 None
--- OUTSIDE RECORDS SUMMARY | 2022-03-10 23:14 | XMS_ITS | Encounter Summary ---
:1960 Author Organization [facility] [place] [address] Care Team Providers Name Role Phone None Primary Care Provider Unavailable Reason for Visit Reason Comments Back Pain Left Leg Pain Consultation (Routine) - Specialty Diagnoses / Procedures Referred By Contact Refer red To Contact Orthopaedics Diagnoses Lumbar spinal stenosis/ XR 05/2018 @ [facility] Scott Valdes DO [facility] [address] [place], [place] [id number] [place] [phone] Referral ID Status Reason Start Date Expiration Date Visits V isits Requested Authorized [id number] Consult, 07/25/2018 07/25/2019 1 1 [facility] Encounter Details Date Type Department Care Team Description 08/19/2018 [facility]ar Wolf APRN radiculitis Formerly [facility], [facility] [address] [place], [place], [place] [phone] Social History Tobacco Use Types Packs/Day Years Used Date Never Smoker Smokeless Tobacco: Never Used Alcohol Use Standard Drinks/Week Comments Yes 0 (1 standard drink = 0.6 oz pure alcoho l) Sex Assigned at Date Recorded Not on file documented as of this encounter Last Filed Vital Signs Vital Sign Reading Time Taken Comments Blood Pressure 134/84 08/19/2018 3:15 PM EST Pulse - - Temperature - - Respiratory Rate - - Oxygen Saturation - - Inhaled Oxygen Concentration - - Weight 106.6 kg (235 lb) 08/19/2018 3:15 PM EST Height 176.5 cm (5' 9.5) 08/19/2018 3:15 PM EST Body Mass Index 34.21 08/19/2018 3:15 PM EST documented in this encounter Progress Notes Nixon [facility], [employer] HISTORY TEACHER - 08/19/2018 2:20 PM EST SUBJECTIVE: Marco Antonio Harris is a 57 y.o. year old male being seen at the request of Scott Valdes with a chief complaint of left leg greater than low back pain. Patient states that he has had pain in his low back and left leg intermittently for 20 years which was initially insidious in onset and his current symptoms have been occurring for at least 2 months. He describes the pain is being midline in the upper lumbar spine with also pain in the midline low lumbar spine and pain in the anterior left thigh. Hedenies numbness or weakness in either lower extremity. His leg and back pain are aggravated by walking, standing, and sitting and are disruptive to his sleep. Prior treatments include gabapentin not helpful, Lyrica not helpful, cyclobenzaprine not helpful, ibuprofen helpful, Celebrex uncleared helpfulness, Percocet helpful, he has had 6-8 visits of physical therapy over the last few weeks which aggravated his pain and in the remote past he has had lumbar epi dural steroid injection which was very helpful. Review of systems negative constitutional, GI, symptoms. 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 Past medical history includes headache, chronic pain, and LEAH. OBJECTIVE: On examination the patient's affect is bright, his speech is good time to the point, he responds appropriate to questions and direction. Stands a level hips and straight lumbar spine with no obvious deformity. He is mildly tender in the midline low lumbar spine not tender in the bilateral paraspinals.Lumbar ROM is 30 degrees of flexion which aggravates his anterior left leg pain, and 10 degrees of extension which aggravates back pain. He walks with a steady gait, is able to toe walk, he will, tandem walk. Motor exam is 5/5 strength of all lower extremity muscle groups bilaterally. Sensation is intact in all dermatomes lower extremities. Reflexes are 0 at the knees, and 0 at the ankles. There is no clonus or Babinski. Hip ROM exam is negative straight leg raise exam aggravates his anterior left leg pain. Lumbar spine x-ray of 06/11/2018 is reviewed. There is grade 1 anterior listhesis of L5 on S1 with disc height loss and facet arthropathy. There is also significant facet arthropathy at L3-4 and L4-5 these images are reviewed with the patient. Lumbar spine MRI of 05/15/2011 is reviewed and there is a grade 1 anterior listhesis of L5 on S1 with foraminal stenosis severe bilaterally. There is also foraminal stenosis left greater than right at L4-5.. ASSESSMENT: This is a 57 y.o. year old male with chronic intermittent anterior left leg pain greater than low back pain with now 2 months of flareup unresponsive to 6-8 physical therapy visits and conservative treatments such as several medications including anti-inflammatory and muscle relaxant. I therefore explained that I would like to obtain a lumbar spine MRI to rule out nerve root impingement and to guide further treatment options to which the patient agrees. PLAN: 1/noncontrast MRI of the lumbar spine and a follow-up appoint with me to review those images and determine next steps in the treatment plan. documented in this encounter Miscellaneous Notes Addendum Note - Gianfranco Shah LNA - 08/19/2018 2:20 PM EST Addended by: GIANFRANCO SHAH on: 08/19/2018 03:21 PM Modules accepted: Orders documented in this encounter Plan of Treatment Not on filedocumented as of this encounter Visit Diagnoses Diagnosis Left lumbar radiculitis Thoracic or lumbosacral neuritis or radi culitis, unspecified documented in this encounter Care Teams Care Professional Relationship Specialty Start Date End Date None PCP - General 08/19/18 None documented as of this encounter
--- OUTSIDE RECORDS SUMMARY | 2022-03-10 23:14 | XMS_ITS | Encounter Summary ---
:1960 Author Organization [facility] [place] [address] Care Team Providers Name Role Phone None Primary Care Provider Unavailable Reason for Referral Diagnostic Test (Routine) - Closed Specialty Diagnoses / Procedures Referred By Contact Refer red To Contact Radiology Diagnoses Quadriceps muscle strain, left, initial encounter Wesly Sanchez MD [facility] Rad Ultrasound Procedures US Extremity Non Vascular MSK (Muscles Joints) Left [address] [phone] Referral ID Status Reason Start Date Expiration Date Visits V isits Requested Authorized [id number] Closed Specialty 06/02/2021 11/30/2022 1 1 Service Requested Reason for Visit Diagnostic Test (Routine) - Closed Specialty Diagnoses / Procedures Referred By Contact Refer red To Contact Radiology Diagnoses Quadriceps muscle strain, left, initial encounter Wesly Sanchez MD [facility] Rad Ultrasound Procedures US Extremity Non Vascular MSK (Muscles Joints) Left [address] [address] Referral ID Status Reason Start Date Expiration Date Visits V isits Requested Authorized [id number] Closed Specialty 06/02/2021 11/30/2022 1 1 Service Requested Encounter Details Date Type Department Care Team Description 06/07/2021 Hospital Encounter Ultrasound at [facility] [place], Quadriceps muscle [facility] MD Wesly strain, left, initial Drive [address] encounter [place], [address] [place] [address] [phone] Social History Tobacco Use Types Packs/Day Years [...] Name Priority Date/Time Associated Diagnosis Comme nts US EXTREMITY NON Routine 06/07/2021 10:43 AM Quadriceps muscle Results for this VASCULAR MSK EST strain, left, procedure are in (JOINTS MUSCLES) initial encounter the re sults LEFT section. documented in this encounter Results US Extremity Non Vascular MSK (Muscles Joints) Left (06/07/2021 10:43 AM EST) Anatomical Region Laterality Modality Arm, Shoulder, Elbow, Forearm, Wrist, Hand, Hip, Thigh, Knee , Left Ultrasound Leg, Ankle, Foot Specimen (Source) Anatomical Location Collection Method / Collectio n Time Received Time / Laterality Volume Impressions 06/07/2021 3:20 PM EST LEFT distal quadriceps tendinopathy but without tendon defect. Small LEFT knee effusion. Thank you for letting us participate in the care of this patient. ??If you are a health care provider and have any questi ons regarding this report, please contact the number below. ??For patients who have questions please contact the health child care education coordinator that requested your imaging first. ? Electronically signed by: Abimbola Valdes MD, [facility] ([phone]), at 06/07/2021 3:20 PM Narrative 06/07/2021 3:20 PM EST EXAMINATION: US EXTREMITY NON VASCULAR MSK (JOINTS MUSCLES) LEFT CLINICAL HISTORY: EVAL RECTUS FEMORIS AN D QUAD TENDON; ?MUSCLE RUPTURE TECHNIQUE: The soft tissues of the LEFT knee were e xamined using a high frequency transducer. Color doppler images were ac quired. FINDINGS: LEFT Quadriceps tendon-focal thickening of di stal quadriceps tendon with loss of normal striations represents tendinopath y. No tendon interruption or defect. Linear echogenic scar traversing the mid distal quadriceps tendon. Patella tendon normal Knee joint-small effusion in suprapatell ar recess. Patella-no fracture. Procedure Note Abimbola Valdes MD - 06/07/2021Formatt ing of this note might be different from the original. EXAMINATION: US EXTREMITY NON VASCULAR M SK (JOINTS MUSCLES) LEFT CLINICAL HISTORY: EVAL RECTUS FEMORIS AN D QUAD TENDON; ?MUSCLE RUPTURE TECHNIQUE: The soft tissues of the LEFT knee were e xamined using a high frequency transducer. Color doppler images were ac quired. FINDINGS: LEFT Quadriceps tendon-focal thickening of di stal quadriceps tendon with loss of normal striations represents tendinopath y. No tendon interruption or defect. Linear echogenic scar traversing the mid distal quadriceps tendon. Patella tendon normal Knee joint-small effusion in suprapatell ar recess. Patella-no fracture. IMPRESSION LEFT distal quadriceps tendinopathy but without tendon defect. Small LEFT knee effusion. Thank you for letting us participate in the care of this patient. If you are a health care provider and have any questi ons regarding this report, please contact the number below. For patients w ho have questions please contact the health child care education coordinator that requested your imaging first. Electronically signed by: Abimbola Valdes MD, [facility] ([phone]), at 06/07/2021 3:20 PM Wesly Sanchez MD IMG US GEN ORDERABLES documented in this encounter Visit Diagnoses Diagnosis Quadriceps muscle strain, left, initial encounter documented in this encounter Care Teams Supervisor Metalizing Relationship Specialty Start Date End Date None PCP - General 08/19/18 None documented as of this encounter
--- OUTSIDE RECORDS SUMMARY | 2022-03-10 23:14 | XMS_ITS | Encounter Summary ---
:1960 Author Organization [facility] [place] [address] Care Team Providers Name Role Phone Alexandre Pittman MD Primary Care Provider [phone] Encounter Details Date Type Department Care Team Description 11/26/2013 Ancillary Procedure Radiology Library at Jose Rafael oT MD [facility] [place] [address] [place] [address] [phone] (Wo rk) Social History Tobacco Use Types [...] Associated Diagnosis Comme nts FILM LIBRARY Routine 11/26/2013 12:00 AM Results for this STORAGE ONLY MR EDT procedure ar e in SPINE the results section. documented in this encounter Results Film Library- Storage Only MR Spine (11/26/2013 12:00 AM EDT) Specimen (Source) Anatomical Location Collection Method / Collectio n Time Received Time / Laterality Volume Narrative RAD - 08/15/2018 10:44 AM EST This exam is for storage only and is aut o-finalizing. Jose Rafael To MD IMG FILM LIBRARY ORDERABLES Performing Organization Address City/State/ZIP Code Phon e Number [facility] [place] documented in this encounter Visit Diagnoses Not on filedocumented in this encounter Care Teams Advisor [employer] Founder Relationship Specialty Start Date End Date Alexandre Pittman MD PCP - General 06/14/10 05/01/[address] [place] [address] documented as of this encounter
--- OUTSIDE RECORDS SUMMARY | 2022-03-10 23:16 | XMS_ITS | Encounter Summary ---
:1960 Author Organization [facility] Address [address] [place] [address] Care Team Providers Name Role Phone Alexandre Pittman MD Primary Care Provider [phone] Encounter Details Date Type Department Care Team Description 11/25/2019 Lab Requisition [facility] Outr Resulting Lab, Pathology & Laboratory Provider [facility] [address] [address] Social History Tobacco Use Types Packs/Day Years Used Date Never Assessed Sex Assigned at Date Recorded Not on file documented as of this encounter Plan of Treatment Not on filedocumented as of this encounter Procedures Procedure Name Priority Date/Time Associated Diagnosis Comme nts COVID-19 TEST [facility] STAT 11/25/2019 15:15 LAB PCR EDT COVID-19 TESTING STAT 11/25/2019 15:15 Results for this EDT procedure are i n the results section. documented in this encounter Results COVID-19 TEST [facility] LAB PCR (11/25/2019 15:15 EDT) Specimen Swab - Entire nasopharynx (body structur e) Performing Organization Address City/State/ZIP Code Phon e Number [facility] [address] [place] [address] SERVICES COVID-19 TESTING (11/25/2019 15:15 EDT) COVID-19 rt-PCR Negative Negative [facility] Result Comment: [facility] Negative results do not prec lude 2019-nCoV infection and should not be used as the sole basis for treatment or other patient management decisions. Negative results must be combined with clinical observa SERVICES tions, patient history, and epidemiological informatio n. This test has not been FDA c leared or approved. This test has been authorized by FDA under an EUA for use by authorized laboratories. This test has been authorized only for detection of nucleic acid fro m 2018-nCoV, not for any oth er viruses or pathogens. This test is only authorized for the duration of the declaration that circumstances exist justifying the authorization of emergency use of in vitro d iagnostic tests for detectio n and/or diagnosis of 2019-nCoV under section 564(b)(1) of Act, 21 U.S.C ?? 360bbb-3(b) (1), unless the authorization is terminated or revoked sooner. Performed on the [employer] Fusion instrument Performing Lab [facility] Lab [facility] SERVICES Specimen Swab - Entire nasopharynx (body structur e) Performing Organization Address City/State/ZIP Code Phon e Number [facility] [address] [place] [address] SERVICES documented in this encounter Visit Diagnoses Not on filedocumented in this encounter Care Teams Company Secretary Relationship Specialty Start Date End Date Alexandre Pittman MD PCP - General 04/07/[address] [place] [address] documented as of this encounter
--- OUTSIDE RECORDS SUMMARY | 2022-03-10 23:16 | XMS_ITS | Encounter Summary ---
:1960 Author Organization [facility] Address [address] [place] [address] Care Team Providers Name Role Phone Alexandre Pittman MD Primary Care Provider [phone] Encounter Details Date Type Department Care Team Description 06/16/2020 Lab Requisition [facility] Outr Resulting Lab, Pathology & Laboratory Provider [facility] [address] [place] [address] Social History Tobacco Use Types Packs/Day Years Used Date Never Assessed Sex Assigned at Date Recorded Not on file documented as of this encounter Plan of Treatment Not on filedocumented as of this encounter Visit Diagnoses Not on filedocumented in this encounter Care Teams Grid Operator Relationship Specialty Start Date End Date Alexandre Pittman MD PCP - General 04/07/16 [employer] [place] [address] [address] [place] [address] documented as of this encounter
--- OUTSIDE RECORDS SUMMARY | 2022-03-10 23:16 | XMS_ITS | Encounter Summary ---
:1960 Author Organization [facility] Address [address] [place] [address] Care Team Providers Name Role Phone Unavailable Primary Care Provider Unavailable Encounter Details Date Type Department Care Team Description 09/26/2010 Results Only [facility] Franklin Walls MD Laboratory Services - [address] [address] [address] [facility] [place] [address] Social History Tobacco Use Types Packs/Day Years Used Date Never Assessed Sex Assigned at Date Recorded Not on file documented as of this encounter Plan of Treatment Not on filedocumented as of this encounter Procedures Procedure Name Priority Date/Time Associated Diagnosis Comme [facility] SURGICAL PATHOLOGY Routine 09/26/2010 0:00 EST Re sults for this procedure are i n the results section. documented in this encounter Results SURGICAL PATHOLOGY (09/26/2010 0:00 EST) Pathology Report: SURGICAL PATHOLOGY REPORT ? [facility] Reports generated via electr Twones interface contain original data; ? LAB however they are lacking the format of the original report. ? Caution should be taken when reading/interpreting unformatted reports. ? Name: ? BALTAZAR, MARCO ANTONIO J ? Accession #: ? [id number] ? : ? 1960 (Age: 49) ??M ? Collec t Date: ? 09/26/2010 ? Location: ? [facility] ? R eceive Date: ? 09/26/2010 ? Provider: FRANKLIN WALLS MD ? Copy to: KRISTA JOHN MD ? Final Pathologic Diagnosis: ? A. ?Left turbin ate, inferior, excision: ? 1. ?Edematous a nd congested respiratory mucosa. ? B. ?Right turbi renée, inferior, excision: ? 1. ?Edematous a nd congested respiratory mucosa. ? Document reviewed and electr onically signed by: ? JOEL S JUANITA MD ? Report ??Date: 09/28/2010 15 :19 ? By the signature above, the attending physician certifies that he/she has ? personally conducted a gross and/or microscopic examination of the described ? specimens and rendered or co nfirmed the above diagnosis. ? Specimen(s) Received: ? A. ?Left turbin ate ??inferior ? B. ? Right inferior turb inate ? Clinical History: ? Deviated nasal septum , hypertrophy of inferior turbinates ? Gross Description: ? Received in formalin labelled Marco Antonio Harris and left inferior ? turbinate is a 3.2 x 1.3 x 1.1 cm, peterson-medina piece of mucosal tissue which is ?? almost completely encircling a thin piece of bone. ??The mucosa is generally ? smooth and two representativ e sections of the mucosa are submitted as (A). ? Received in formalin cliff d Marco Antonio Harris and right inferior turbinate ?? are three fragments of peterson-g ray to focally peterson-white mucosal tissue which are ?? partially surrounding thin p ieces of bone and which range from 2.0 x 0.7 x 0.5 ?? cm to 1.1 x 0.7 x 0.4 cm. ?? Two contracts representative sections of the mucosal tissue are submitted as (B). ??([facility] ? End of Report ? Specimen Performing Organization Address City/State/ZIP Code Phon e Number [facility] [address] [place] [address] SERVICES [facility] [address] [place] [address] documented in this encounter Visit Diagnoses Not on filedocumented in this encounter
--- OUTSIDE RECORDS SUMMARY | 2022-03-10 23:16 | XMS_ITS | Encounter Summary ---
:1960 Author Organization [facility] Address [address] [place] [address] Care Team Providers Name Role Phone Unavailable Primary Care Provider Unavailable Encounter Details Date Type Department Care Team Description 08/13/2001 Results Only [facility] - Craig Orta MD [employer] [address] [id number] [phone] Social History Tobacco Use Types Packs/Day Years Used Date Never Assessed Sex Assigned at Date Recorded Not on file documented as of this encounter Plan of Treatment Not on filedocumented as of this encounter Procedures Procedure Name Priority Date/Time Associated Diagnosis Comme nts SURGICAL PATHOLOGY Routine 08/13/2001 0:00 EST Re sults for this procedure are i n the results section. documented in this encounter Results SURGICAL PATHOLOGY (08/13/2001 0:00 EST) Pathology Report: SURGICAL PATHOLOGY REPORT [facility] Reports generated via electronic interface contain beto ginal data; LAB however they are lacking the format of the original re port. Caution should be taken when reading/interpreting unfo rmatted reports. Name: ? MARCO ANTONIO LEDESMA ? Accession #: ? [id number] ? : ? 1960 (Age: 40) ??M ? Collect Date: ? 08/13/2001 ? Location: ? [facility] ? Receive Date: ? 002 ? Provider: CRAIG ORTA MD Copy to: JERRY HERNANDEZ MD ? Final Pathologic Diagnosis: ? Omentum, partial omentectomy: 1. ?Omentum with focal fibrosis. ?? 2. ?Mesothelial lined dense fibrovascular connective tissue consistent with hernia sac. Document reviewed and electronically signed by: Ines Mccracken MD Report ??Date: 08/16/2001 07:27 By the signature above, the attending physician certif ies that he/she has personally conducted a gross and/or microscopic examin ation of the described specimens and rendered or confirmed the above diagnosi s. Specimen(s) Received: ? Omentum Clinical History: ? [facility] Gross Description: ? Received in formalin labelled Barry and om entum is a segment of peterson-yellow variably lobular adipose tissue consistent with omentum which weighs 115 grams and measures 32.0 x 12.5 x 6.5 cm in greates t dimension. ??Also received in the container is a peterson-brown linear segmen t of fibromembranous tissue which measures 15.0 cm in length and varies in thickness from 0.5 cm to 1.2 cm. ??Serial sections through the omentum reveal n o gross masses. Sap Specialist sections of omentum are submitted as (A 1) through (A5). Sap Specialist sections of f ibromembranous tissue are submitted as (A6). ??(Dr. Hogan)/evi End of Report Specimen Performing Organization Address City/State/ZIP Code Phon e Number [facility] [address] [place] [address] SERVICES [facility] [address] [place] [address] documented in this encounter Visit Diagnoses Not on filedocumented in this encounter
--- OUTSIDE RECORDS SUMMARY | 2022-03-10 23:16 | XMS_ITS | Clinical Summary ---
:1960 Author Organization [facility] Address [address] [place] [address] Care Team Providers Name Role Phone Alexandre Pittman MD Primary Care Provider [phone] Social History Tobacco Use Types Packs/Day Years Used Date Never Assessed Sex Assigned at Date Recorded Not on file Plan of Treatment Not on file Insurance Payer Benefit Plan Subscriber ID Effective Phone Address Typ e / Group Dates MEDICAID ACO MEDICAID ACO [id number] 2019-Pres [phone] [address] [place] [address] [facility] [id number] Care Teams Professional Soccer Player Relationship Specialty Start Date End Date Alexandre Pittman MD PCP - General 04/07/16 [facility] [place] [address] [place] [id number]
--- OUTSIDE RECORDS SUMMARY | 2022-03-10 23:16 | XMS_ITS | Encounter Summary ---
:1960 Author Organization [facility] Address [address] [place] [address] Care Team Providers Name Role Phone Alexandre Pittman MD Primary Care Provider [phone] Encounter Details Date Type Department Care Team Description 11/26/2019 Lab Requisition [facility] Samson Ridley for other Pathology & MD Abdirizak general examination Laboratory Medicine [address], [place] [address] [facility] [address] [place], [place] [address] Social History Tobacco Use Types Packs/Day Years Used Date Never Assessed Sex Assigned at Date Recorded Not on file documented as of this encounter Plan of Treatment Not on filedocumented as of this encounter Procedures Procedure Name Priority Date/Time Associated Diagnosis Comme nts SURGICAL PATHOLOGY Today 11/25/2019 17:19 Encounter for othe r Results for this EDT general examination procedur e are in the results section. documented in this encounter Results SURGICAL PATHOLOGY (11/25/2019 17:19 EDT) Final Diagnosis A. GALLBLADDER, CHOLECYSTECTOMY: [facility] Electronically - Severe acute erosive hemor rhagic and gangrenous cholecystitis with cholelithiasis. CENTER signed by Jc Mondragon, - Benign reactive lymph node. LABORATORY Nena Boyd MD on SERVICES 11/28/2019 at 124 4 Attestation By the signature [facility] Electronica lly below, the attending CENTER signed by Jc Mondragon, physician certifies LABORATORY Nena Boyd MD on that they have 1) SERVICES 11/28/2019 a t 1244 personally conducted a gross and/or microscopic examination of the described specimen(s), and/or personally interpreted the results of laboratory testing of the described specimen(s), and 2) personally rendered or confirmed the above diagnosis. Clinical History Acute cholecystitis [facility] SERVICES Gross Description A. Received in formalin labe lled with proper patient identification (initials G, D) and gallbladder is a focally fragmented, partially collapsed gallbladder and attached cystic duct, 10.4 x 4.8 x 3.8 [facility] cm. The serosa is glistening purple medina. An attached fragmented medina-brown lymph node is present, 0.7 cm in greatest dimension. The gallbladder lumen contains minimal bile and a single ovoid cholestero CENTER l pigment calculus, 3.5 cm i n greatest dimension. The cystic duct lumen is patent. The gallbladder mucosa is granular brown green. The gallbladder wall shows focal areas of medina-white slight induration. LABORATOR Y Recording Clerk sections are submitted in A1-A4 to include the cystic duct margin en face. SERVICES Estella Figueroa 11/27/2019 8:34 Scanned Images [facility] Specimen Tissue - Entire gallbladder (body struct ure) Performing Organization Address City/State/ZIP Code Phon e Number [facility] [address] [place] [address] SERVICES documented in this encounter Visit Diagnoses Diagnosis Encounter for other general examination documented in this encounter Care Teams Herpetology Teacher Relationship Specialty Start Date End Date Alexandre Pittman MD PCP - General 04/07/16 [address] [place] [address] documented as of this encounter
== END ==
PROVIDERS: PCP Family Medicine; Visit Provider Family Medicine
DX: M76.891 Other specified enthesopathies of right lower limb, excluding foot (principal)
CPT/HCPCS: 73502

== ENCOUNTER → 2022-04-20 03:01 | Outpatient (CLI) | payer MEDICAID, SELFPAY ==
--- NOTE | 2022-04-20 08:15 | DI.RAD_ITS ---
Exam(s) RF JOINT INJECTION FLUORO GUID EXAM: RF JOINT INJECTION FLUORO GUID CLINICAL HISTORY: R HIP INJ UNDER FLUORO,rt hip pain, m25.551 TECHNIQUE: 2D and realtime digital imaging was performed. CONTRAST MATERIAL: Water soluble contrast was administered. COMPARISON: No exams were available for comparison FINDINGS: Fluoroscopy was provided for Dr. Sanchez during the performance of a right hip injection. Please r efer to the procedure report for complete details. IMPRESSION: RADIATION DOSE DELIVERED: clare Morales=7.55 mGy
--- NOTE | 2022-04-20 13:37 | W.PROCNOTE ---
Date of service: 04/20/22 Time of Service: 13:38 Procedure Note Date of procedure: 04/20/22 Procedure: Right Hip Injection with Fluoroscopic Guidance Surgeon/Proceduralist/Physician: Wesly Sanchez Procedure Diagnosis: Right Hip Pain Procedure Indications: Marco Antonio has had persistent pain of the RIGHT hip and groin. Noninvasive measures have been tried. To serve as both diagnostic and therapeutic, an injection under fluoroscopy was recommended. I had discussed the risks of the procedure and the patient elected to proceed. Procedure Description: Marco Antonio was greeted in the flouroscopy room. The correct side was identified and the consent was reviewed with the patient and signed. The patient was then placed in the supine position on the fluoroscopy table. The RIGHT hip was then prepped with Chloraprep. The anterolateral injection starting point was identiifed by bony landmarks and fluoroscopy. The skin and soft tissue in the tract of the injection was anesthetized with 1% Lidocaine. A spinal needle was then inserted deep into the hip joint at the level of the lateral femoral neck under fluoroscopic guidance. A small amount of Omnipaque solution was injected to confirm intraarticular placement. Once confirmed, the hip was injected with 5cc of 0.5% Bupivicaine and 80mg of Depo-Medrol. A bandaid was placed on the injection site. The patient tolerated the procedure well.
[2022-04-20] MEDS: Omnipaque 300 MG/ML 10 ML BTL IJ (13:55)
[2022-04-20] MEDS: methylPREDNISolone ACETATE 80 MG/ML VIAL IM (13:56)
[2022-04-20] MEDS: Bupivacaine 0.5% Pres-Free 10 ML VIAL IJ (13:56)
== END ==
PROVIDERS: PCP Family Medicine; Visit Provider Student in an Organized Health Care Education/Training Program
DX: M25.551 Pain in right hip (principal)
CPT/HCPCS: 20610; 77002; J1040

== ENCOUNTER → 2022-06-13 02:05 | Outpatient (CLI) | payer MEDICAID, SELFPAY ==
--- NOTE | 2022-06-13 07:15 | DI.MRI_ITS ---
Exam(s) MR UPPER JOINT RT WO EXAM: MR UPPER JOINT RT WO CLINICAL HISTORY: Persistent pain,weakness,traumatic tear of rt rotator cuff,s46.011a. TECHNIQUE: Multiplanar multisequence MRI was performed. COMPARISON: MR MR UPPER JOINT RT WO from 08/15/2021 FINDINGS: BONES: There is no fracture or contusion pattern. An orthopedic screw is seen in the humeral head. JOINTS: Moderate hypertrophic changes are seen at the acromioclavicular joint. The glenohumeral join t is normal. TENDONS: Supraspinatus: There is tendinosis of the supraspinatus. There is also hyperintense signal seen with in the substance of the supraspinatus consistent with a partial tear. Infraspinatus: There is tendinosis of the infraspinatus tendon. There also is hyperintense signal no chapito within the substance of the tendon suspicious for tear. Subscapularis: There is increased signal seen at the subscapularis attachment consistent with a parti al intrasubstance tear. Teres Minor: Unremarkable. Biceps and [place]: The biceps tendon appears to be anchored in the bicipital groove. Please correlat e with patient's surgical history. MUSCLES: Unremarkable. GLENOID LABRUM: No evidence of a tear on this noncontrast examination. SOFT TISSUES: Unremarkable. LIGAMENTS: Unremarkable. OTHER: Subacromial and subdeltoid bursae are unremarkable. IMPRESSION: 1. Interval rotator cuff repair. 2. Hyperintense signal seen within the tendons of the supraspinatus, infraspinatus and subscapularis muscles suspicious for partial tears and or tendinosis. 3. Degenerative changes of the acromioclavicular joint. DATA REPOSITORY:
== END ==
PROVIDERS: PCP Family Medicine; Visit Provider Student in an Organized Health Care Education/Training Program
DX: S46.011D Strain of muscle(s) and tendon(s) of the rotator cuff of right shoulder, subsequent encounter (principal); M19.011 Primary osteoarthritis, right shoulder
CPT/HCPCS: 73221

== ENCOUNTER 2022-08-24 09:37 | Day surgery (SDC) | payer MEDICAID, SELFPAY ==
[2022-08-24 10:03] VITALS: BP 143/90; PULSE 105; RESP 20; TEMP 36.9; O2SAT 97
[2022-08-24] MEDS: Lactated Ringers 1,000 ML 30 ML IV (10:31)
--- NOTE | 2022-08-24 11:01 | W.ANESPRE ---
General Info Date of Service Date Performed: 08/24/22 Height: 5 ft 9 in Weight: 101 kg Body Mass Index (BMI): 32.8 Surgical Procedure: Operation Date: 08/24/22 11:25 Proposed Procedure Side Surgeon p Shoulder Possible Rotator Cuff Arthroscopic w/ Revision Extensive Debridement, Subacromial Decompression Right Trace Gillis MD Meds Allergies and Home Medications Allergies Allergy/AdvReac Type Severity Reaction Status Date / Time procaine Allergy Severe swelling Verified 08/23/22 13:48 prednisone AdvReac Severe gets Verified 08/23/22 13:48 violent alprazolam AdvReac Intermediate Dizzy Verified 08/23/22 13:48 Home Medication Medication Instructions Recorded multivitamin (Multi-Day tablet) 1 ea PO DAILY 10/15/12 Botox 05/09/17 Aspirin/Acetaminophen/Caffeine 1 ea PO PRN PRN 07/20/17 [Excedrin Migraine Caplet] syringe with needle 1 mL 27 x 1/2 02/27/18 (Allergy Syringe) fluticasone propionate 50 2 spray intranasal DAILY PRN 01/27/19 mcg/actuation nasal spray,suspension lidocaine HCl 2 % mucosal jelly 1 applic topical BID-QID PRN 09/29/19 aspirin 81 mg tablet,delayed 81 mg PO DAILY 02/01/20 release (Breana Low Dose Aspirin) fexofenadine 60 mg tablet 180 mg PO DAILY 05/17/20 hydroxyzine HCl 25 mg tablet 25 mg PO Q6H PRN PRN headache #90 05/31/20 tab-caps bismuth subsalicylate 525 mg/15 mL 525 mg PO Q30-60M PRN 11/16/20 oral suspension (Pepto-Bismol Max St) simethicone 125 mg capsule (Gas 250 mg PO TID-QID PRN 11/16/20 Relief (simethicone)) montelukast 10 mg tablet 10 mg PO DAILY 01/10/21 naproxen 250 mg tablet 250 - 500 mg PO BID PRN #40 tabs 10/28/21 insulin lispro 100 unit/mL See Rx Instructions subcut BID #15 11/04/21 subcutaneous pen (Humalog KwikPen mL (U-100) Insulin) pen needle, diabetic 31 gauge x #100 ea 01/10/2210/05 (Lite Touch Insulin Pen [place]) cetirizine 10 mg tablet (All Day 10 mg PO DAILY 05/15/22 Allergy (cetirizine)) sitagliptin phosphate 100 mg 100 mg PO DAILY #90 tabs 05/15/22 tablet (Januvia) flash glucose sensor (FreeStyle #1 ea 06/06/22 Sushant 14 Day Sensor kit) pregabalin 75 mg capsule 75 mg PO BID #180 caps 06/08/22 omeprazole 40 mg capsule,delayed 40 mg PO DAILY #90 caps 06/13/22 release metformin 500 mg tablet,extended 500 mg PO BID #180 tabs 07/13/22 release 24hr pramipexole 0.125 mg tablet 0.125 mg PO QHS #90 tabs 07/13/22 rosuvastatin 5 mg tablet 5 mg PO DAILY #90 tabs 07/13/22 dapagliflozin 10 mg tablet 10 mg PO DAILY #90 tabs 07/31/22 [facility] blood-glucose meter,continuous #1 ea 08/17/22 (Dexcom G6 Track Greaser) blood-glucose sensor (Dexcom G6 #3 ea 08/17/22 Sensor device) blood-glucose transmitter (Dexcom #1 ea 08/17/22 G6 Transmitter device) ibuprofen 800 mg tablet 800 mg PO TID PRN pain 08/17/22 insulin degludec 200 unit/mL (3 76 unit (0.38 mL) subcut QHS #9 mL 08/21/22 mL) subcutaneous pen (Tresiba FlexTouch U-200 insulin) Current Visit Medications: Current Medications Generic Name Dose Route Start Last Admin Trade Name Freq PRN Reason Stop Dose Admin Ringer's Solution 1,000 mls @ 30 mls/hr 08/24/22 06:00 08/24/22 10:31 IV 09/22/22 23:59 30 mls/hr INFUSION GERI Administration Cefazolin Sodium/Dextrose 2 gm in 50 mls @ 100 mls/hr 08/24/22 06:00 Ancef Duplex IVPB 08/24/22 16:00 PREOP GERI IV Miscellaneous Supplies 1 each 08/24/22 06:00 Iv Access IV 09/22/22 23:59 DIRECTED GERI Sodium Chloride 0 ml 08/24/22 06:00 Normal Saline Flush 10 Ml Syr IV 09/22/22 23:59 PRN PRN Sodium Chloride 0 ml 08/24/22 06:00 Normal Saline 10 Ml Vial IJ 09/22/22 23:59 DIRECTED PRN Sterile Water 0 ml 08/24/22 06:00 Water,Injection,Sterile 10 Ml Vial IJ 09/22/22 23:59 DIRECTED PRN PFSH Active Problems Active Problems: Problem Status Onset Code Diabetes mellitus E11.9 Statin myopathy G72.0, T46.6X5A Bursitis of right shoulder M75.51 Tendonitis of long head of biceps brachii of right shoulder M75.21 Traumatic tear of right rotator cuff ~07/2021 S46.011A Rupture of right distal biceps tendon S46.211A Chronic maxillary sinusitis J32.0 Hypertrophy of nasal turbinates J34.3 Deviated nasal septum J34.2 Strain of left quadriceps muscle S76.112A Arthrofibrosis of total knee arthroplasty T84.82XA Painful total knee replacement, left T84.84XA, Z96.652 Tendinitis of left quadriceps tendon M76.892 Pes anserinus bursitis of left knee M70.52 Chronic migraine G43.709 History of total left knee replacement (TKR) 05/24/20 Z96.652 Environmental allergies Z91.09 Anorexia R63.0 Constipation K59.00 Allergic rhinitis due to pollen J30.1 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 Valdes 03/2020-states that he was told by Dr. Massey told patient if he has symptoms he should f/u with cardiology but othersise to f/u with PCP Dermatitis due to ingested food Diabetes mellitus type 2 in obese (05/08/13) A1C goal 7.5 Diabetic polyneuropathy associated with type 2 diabetes mellitus (03/14/18) Environmental allergies Erectile dysfunction (11/20/12) LEAH (generalized anxiety disorder) (03/19/15) Gangrenous cholecystitis Gastroesophageal reflux disease with esophagitis (09/21/11) Hyperlipidemia (09/11/13) PCEq risk 7.8% LDL baseline 127 Insomnia, unspecified (11/20/12) Leg cramps (03/14/18) Lumbar radiculitis Meralgia paresthetica of left side Migraine headache without aura Myositis (05/07/13) Nonintractable episodic headache (01/20/16) Obesity SHARRI (obstructive sleep apnea) (09/02/14) Pain of left lower extremity (04/11/17) Peripheral neuropathy 07/01/19 Dr Zaldivar, w f/u 07/30/19 Pre-ulcerative calluses Restless leg syndrome Shortness of breath Medical History Comments:: glucometer patch in upper (L) arm. Only 6 teeth, lower. Doesn't use CPAP. Surgical History Surgical History Colonoscopy - MAC (07/27/17) cortisone injection (03/17/14) lumbar H/O chest tube placement per pt. this was when he had his gall bladder out History of cardiac catheterization x2 1980s History of repair of anterior cruciate ligament of left knee Osteoarthritis of left acromioclavicular joint (02/27/18) Status post excision of left distal clavicle S/P laparoscopic cholecystectomy (~11/25/19) acute hemorrhagic, gangrenous cholecystitis S/P nasal septoplasty (08/18/21) Status post arthroscopy of left knee Tobacco Smoking/Tobacco Use Status: Never Alcohol Alcohol Intake: current Alcohol intake frequency: holidays/special occasions only Alcohol type: hard liquor Substance Use Substance use: Never Substance use type: does not use Vital Signs and Lab Results Vital Signs Most Recent Vital Signs in EMR: Most Recent Vital Signs Temp Pulse Resp BP Pulse Ox 36.9 C 105 H 16 143/90 H 20 L 08/24/22 10:03 08/24/22 10:03 08/24/22 10:03 08/24/22 10:03 02/02/23 10:03 Lab Results Blood Type / Crossmatch: No Data to Display Complete Blood Count: No Data to Display Complete Metabolic Panel: No Data to Display Liver Function Panel: No Data to Display Coagulation Panel: No Data to Display Cardiac Panel: No Data to Display Arterial Blood Gas: No Data to Display Venous Blood Gas: No Data to Display Pancreas Panel: No Data to Display Thyroid Panel: No Data to Display Infectious Disease: No Data to Display Blood Cultures: No Data to Display Toxicology Panel: No Data to Display Imaging and Studies Imaging and Studies Study information below may be from another EMR and interpreted by another provider. Please see original notes in EMR for more complete details. EKG Summary: 07/26/20 Conclusion Sinus rhythm...normal P axis, V-rate 60- 99 Anterolateral infarct, old...Q>40mS, abnrm ST-T, V3-V6,I,aVL I have reviewed and interpreted ECG and agree with software generated interpretation. Anesthesia Assessment and Plan Anesthesia History Personal History: No History of Anesthesia Complications Family History: No Family History of Anesthesia Complications Exercise Tolerance Exercise Tolerance: Metabolic Equivalents>4 Pertinent Negatives Pertinent Negatives: No Symptoms of GERD and No History of CVA/TIA Cardiac & Pulmonary Exam Cardiac Exam: Normal S1/S2 Heart Sounds Pulmonary Exam: Clear Bilateral Breath Sounds Implantable Cardiac Device Does patient have a Pacemaker or an ICD?: No Airway Exam Known Difficult Airway: No Mallampati Class: 2 Mouth Opening: Normal (> 3cm) Thyromental Distance: Greater than 3 cm Neck Range of Motion: Full ROM Neck Circumference: Thick Teeth Condition: Generalized Poor Dentition Airway Comments: Multiple missing teeth- no uppers , missing bilateral lowers Remaining teeth broken and chipped ASA Classification ASA Score: ASA 3 Emergency Case?: No NPO Status NPO Status: NPO Clears >2 hours, Solids >8 hours Anesthesia Plan Resuscitation Status: Full Code Anesthesia Technique: General Anesthesia Airway Planned: Endotracheal Tube Monitors Used: Standard Monitors Preoperative Comments:: Hx heart attack approx 15 years ago with two stents Hx asthma albuterol used last summer d/t allergies Patient reports an episode of chest pain approximately 3 weeks ago while shoveling. Chest pain was located in left chest under breast and was associated with shortness of breath. Patient stopped activity and went inside to rest before the pain subsided. Patient acknowledges that he should have a filler picker given his history and how long it has been since his last cardiology appointment. Chest pain is not present at this time however concern for potential active ischemia under stress is had by anesthesia team. Recommended follow up with cardiology, especially before proceeding with an elective procedure. 12 lead Ekg ordered and performed and there is no evidence of active ischemia at this time so patient will be sent home with instructions to follow from Dr. Gillis's team on how to follow up with cardiology.
--- NOTE | 2022-08-24 11:15 | RT.EKG_ITS ---
APPROVED REPORT Exam: Resting ECG Reason for Exam: Recent chest pain Patient Location: O HR:87 bpm ECG Measurements Heart Rate [address] 177 P 52 QRSd 78 QRS -14 QT 335 T 43 QTc 403 Conclusion Sinus rhythm...normal P axis, V-rate 60- 99 Anterior infarct, old...Q >40mS, abnormal ST-T, V2-V5
--- NOTE | 2022-08-24 12:20 | NUR.NOTE ---
Nursing Note: After pt eval with anesthesia surgery cancelled to pt admitting hx of chest pain, ekg obtained, pt instructed to follow up with PCP/police liaison officer for surgery clearance, verbalized understanding. RN emphasized to pt risk of undiagosed chest pain when having surgery. Pt dc'd ambulatory in care of spouse
[2022-08-24 13:54] VITALS: BMI 32.8
== END 2022-08-24 09:38 | disposition home or self-care (01) ==
LOC: SUR 09:37
PROVIDERS: PCP Family Medicine; Visit Provider Student in an Organized Health Care Education/Training Program
DX: S46.011A Strain of muscle(s) and tendon(s) of the rotator cuff of right shoulder, initial encounter (principal); Z53.8 Procedure and treatment not carried out for other reasons; M75.51 Bursitis of right shoulder; E11.9 Type 2 diabetes mellitus without complications; I25.2 Old myocardial infarction; R07.89 Other chest pain
CPT/HCPCS: 93005; 93010; J1100; J2250; J2405; J2704

== ENCOUNTER 2022-08-31 00:45 | Outpatient (CLI) | payer MEDICAID, SELFPAY ==
--- NOTE | 2022-08-31 07:15 | DI.NM_ITS ---
APPROVED REPORT Exam: Exercise Treadmill Patient Location: Out-Patient Room/Bed: Stress Nurse: Shobha Batista RN Ordering Provider:JERRY YUNG, Contact Number: [phone] BMI: 32.92 Baseline Rhythm: Sinus Rhythm Comment: Rare PVC Indications: Pre-operative, History of DM, Exertional Angina Medical History Medical History: DM, statin myopathy, history of left total knee, GERD, SHARRI, PreHTN, asthma, obesity Cardiac Medications: Aspirin, Hydroxyzine HCL, Omeprazole, Rosuvastatin, Farxiga Allergies: Procaine, Prednisone, Alprazolam Cardiac Risk Factors: +family history, HTN, DM II, asthma, obesity Previous Cardiac Procedures: KERRY x2 in 2009` Pretest Chest Pain Characteristics: None Exercise History: Sedentary Physical Disabilities: Knee's, right shoulder Lung Sounds: LCTA Heart Sounds: Regular Stress Test Details Test: Exercise stress testing was per, Exercise stress testing was performed using a Leonardo protocol. formed using a Leonardo protocol. Nuclear Acquisition: Rest Tc-99m/Stress Tc-99m 1 day Rest Isotope: Tc-99m Sestamibi. Dose: 11.5 Date: 08/31/2022 Injection Time: 08:50 Stress Isotope: Tc-99m Sestamibi. Dose: 37.0 Date: 08/31/2022 Injection Time: 10:14 HR Resting HR Supine: 82 bpm Max Heart Rate (APMHR): 159.472436 bpm Resting HR Standin bpm Target HR (85% APMHR): 135.681658 bpm Max HR Achieved: 140 bpm % of APMHR: 88.05 Recovery HR: 94 bpm HR response to stress: Normal HR response to stress BP Resting BP Supine: 124/76 mmHg Resting BP Standin/74 mmHg Max BP: 158/72 mmHg Recovery BP: 128/80 mmHg BP response to stress: Normal blood pressure response to stress. ECG Resting ECG: Sinus Rhythm Ectopy: Rare PVC Stress ECG: Sinus Tachycardia ST Change: No significant ST segment changes noted Arrhythmia: Rare PVC Recovery ECG: Sinus Rhythm Recovery ST Change: No significant ST segment changes noted Recovery Arrhythmia: Rare PVC Clinical Reason for Termination: Fatigue, Target HR Achieved Stress Symptoms: General Fatigue Exercise duration: 4 min35 sec Highest Stage Reached: Stage 2: 2.5 mph at 12% grade. Exercise capacity: 6.52 METs Lang Treadmill Score: 4.7 Rate Pressure Product: 91303 Stress ECG Conclusion 1. Resting electrocardiogram showed sinus rhythm, poor R wave progression, possible old anterior infa rct 2. Patient exercised on the Leonardo protocol and completed a workload of 6.52 METS, stopping due to fat igue 3. Normal heart rate and blood pressure response to exercise. The patient achieved 88% of predicted heart rate for age 4. Electrocardiographic portion of the test was negative for myocardial ischemia 5. No significant dysrhythmias 6. See MPI report Lang Treadmill Score is 4.7 which is Moderate risk. Stress Test Summary STAGE Time (mins) Speed (mph) Grade (%) HR BP SpO2 SYMPTOMS METS Supine 82 124/76 Standing 92 126/74 1 3 1.7 10 122 142/78 4.5 2 6 2.5 12 140 158/72 7 1 min recovery 121 148/70 3 min recovery 98 128/80 6 min recovery 94 MPI Conclusion Myocardial perfusion is abnormal. There is anteroapical and apical infarction without additional isc hemia Ejection fraction is 32% with corresponding anteroapical and apical wall motion abnormalities Radiologist Interpretation Radiologist agrees with Layup Worker's Interpretation. Radiologist Interpretation by: Sergio Terry MD Interpretation Date/Time: 08/31/2022 18:48:21
== END 2022-08-31 01:05 ==
LOC: DI 00:45
PROVIDERS: PCP Family Medicine; Visit Provider Family Medicine
DX: I20.8 Other forms of angina pectoris (principal)
CPT/HCPCS: 78452; 93017

== ENCOUNTER 2022-09-05 13:52 | Outpatient (CLI) | payer MEDICAID, SELFPAY ==
--- NOTE | 2022-09-05 13:45 | RT.EKG_ITS ---
APPROVED REPORT Exam: Resting ECG Reason for Exam: CAD Patient Location: O HR:108 bpm ECG Measurements Heart Rate 108 AXIS GA 168 P 59 QRSd 98 QRS -16 QT 334 T 30 QTc 448 Conclusion Sinus tachycardia...rate> 99 Probable left atrial enlargement...P >50mS, <-0.10mV V1 Anterior infarct, old...Q >40mS, abnormal ST-T, V2-V5
== END 2022-09-05 13:53 | disposition home or self-care (01) ==
LOC: DI.CARD 13:54
PROVIDERS: PCP Family Medicine; Visit Provider Internal Medicine Cardiovascular Disease
DX: I25.10 Atherosclerotic heart disease of native coronary artery without angina pectoris (principal); R94.31 Abnormal electrocardiogram [ECG] [EKG]; I25.2 Old myocardial infarction; R00.0 Tachycardia, unspecified
CPT/HCPCS: 93010

== ENCOUNTER 2022-09-14 06:06 | Day surgery (SDC) | payer MEDICAID, SELFPAY ==
--- NOTE | 2022-09-13 18:38 | W.ANESPRE ---
General Info Date of Service Date Performed: 09/14/22 Height: 5 ft 9 in Weight: 102.058 kg Body Mass Index (BMI): 33.2 Surgical Procedure: Operation Date: 09/14/22 07:40 Proposed Procedure Side Surgeon p Shoulder arthroscopy with revision extensive debridement, subacromial decompression, and possible RCR Right Trace Gillis MD Meds Allergies and Home Medications Allergies Allergy/AdvReac Type Severity Reaction Status Date / Time procaine Allergy Severe swelling Verified 09/14/22 06:22 prednisone AdvReac Severe gets Verified 09/14/22 06:22 violent alprazolam AdvReac Intermediate Dizzy Verified 09/14/22 06:22 Home Medication Medication Instructions Recorded multivitamin (Multi-Day tablet) 1 ea PO DAILY 10/15/12 Botox 05/09/17 Aspirin/Acetaminophen/Caffeine 1 ea PO PRN PRN 07/20/17 [Excedrin Migraine Caplet] syringe with needle 1 mL 27 x 1/2 02/27/18 (Allergy Syringe) fluticasone propionate 50 2 spray intranasal DAILY PRN 01/27/19 mcg/actuation nasal spray,suspension lidocaine HCl 2 % mucosal jelly 1 applic topical BID-QID PRN 09/29/19 aspirin 81 mg tablet,delayed 81 mg PO DAILY 02/01/20 release (Breana Low Dose Aspirin) fexofenadine 60 mg tablet 180 mg PO DAILY 05/17/20 hydroxyzine HCl 25 mg tablet 25 mg PO Q6H PRN PRN headache #90 05/31/20 tab-caps bismuth subsalicylate 525 mg/15 mL 525 mg PO Q30-60M PRN 11/16/20 oral suspension (Pepto-Bismol Max St) simethicone 125 mg capsule (Gas 250 mg PO TID-QID PRN 11/16/20 Relief (simethicone)) montelukast 10 mg tablet 10 mg PO DAILY 01/10/21 naproxen 250 mg tablet 250 - 500 mg PO BID PRN #40 tabs 10/28/21 insulin lispro 100 unit/mL See Rx Instructions subcut BID #15 11/04/21 subcutaneous pen (Humalog KwikPen mL (U-100) Insulin) pen needle, diabetic 31 gauge x #100 ea 01/10/2210/05 (Lite Touch Insulin Pen [place]) cetirizine 10 mg tablet (All Day 10 mg PO DAILY 05/15/22 Allergy (cetirizine)) sitagliptin phosphate 100 mg 100 mg PO DAILY #90 tabs 05/15/22 tablet (Januvia) flash glucose sensor (FreeStyle #1 ea 06/06/22 Sushant 14 Day Sensor kit) pregabalin 75 mg capsule 75 mg PO BID #180 caps 06/08/22 omeprazole 40 mg capsule,delayed 40 mg PO DAILY #90 caps 06/13/22 release metformin 500 mg tablet,extended 500 mg PO BID #180 tabs 07/13/22 release 24hr pramipexole 0.125 mg tablet 0.125 mg PO QHS #90 tabs 07/13/22 rosuvastatin 5 mg tablet 5 mg PO DAILY #90 tabs 07/13/22 dapagliflozin 10 mg tablet 10 mg PO DAILY #90 tabs 07/31/22 [facility] blood-glucose meter,continuous #1 ea 08/17/22 (Dexcom G6 Office Machine Servicer Apprentice) blood-glucose transmitter (Dexcom #1 ea 08/17/22 G6 Transmitter device) ibuprofen 800 mg tablet 800 mg PO TID PRN pain 08/17/22 insulin degludec 200 unit/mL (3 76 unit (0.38 mL) subcut QHS #9 mL 08/21/22 mL) subcutaneous pen (Tresiba FlexTouch U-200 insulin) blood-glucose sensor (Dexcom G6 #3 ea 09/12/22 Sensor device) Current Visit Medications: Current Medications Generic Name Dose Route Start Last Admin Trade Name Freq PRN Reason Stop Dose Admin Ringer's Solution 1,000 mls @ 30 mls/hr 09/14/22 06:00 IV 10/13/22 23:59 INFUSION GERI Cefazolin Sodium/Dextrose 2 gm in 50 mls @ 100 mls/hr 09/14/22 06:00 Ancef Duplex IVPB 10/13/22 23:59 PREOP GERI IV Miscellaneous Supplies 1 each 09/14/22 06:00 Iv Access IV 10/13/22 23:59 DIRECTED GERI Sodium Chloride 0 ml 09/14/22 06:00 Normal Saline Flush 10 Ml Syr IV 10/13/22 23:59 PRN PRN Sodium Chloride 0 ml 09/14/22 06:00 Normal Saline 10 Ml Vial IJ 10/13/22 23:59 DIRECTED PRN Sterile Water 0 ml 09/14/22 06:00 Water,Injection,Sterile 10 Ml Vial IJ 10/13/22 23:59 DIRECTED PRN PFSH Active Problems Active Problems: Problem Status Onset Code CAD (coronary artery disease) I25.10 Exertional angina I20.8 Diabetes mellitus E11.9 Statin myopathy G72.0, T46.6X5A Bursitis of right shoulder M75.51 Tendonitis of long head of biceps brachii of right shoulder M75.21 Traumatic tear of right rotator cuff ~07/2021 S46.011A Rupture of right distal biceps tendon S46.211A Chronic maxillary sinusitis J32.0 Hypertrophy of nasal turbinates J34.3 Deviated nasal septum J34.2 Strain of left quadriceps muscle S76.112A Arthrofibrosis of total knee arthroplasty T84.82XA Painful total knee replacement, left T84.84XA, Z96.652 Tendinitis of left quadriceps tendon M76.892 Pes anserinus bursitis of left knee M70.52 Chronic migraine G43.709 History of total left knee replacement (TKR) 05/24/20 Z96.652 Environmental allergies Z91.09 Anorexia R63.0 Constipation K59.00 Allergic rhinitis due to pollen J30.1 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 Valdes 03/2020-states that he was told by Dr. Massey told patient if he has symptoms he should f/u with cardiology but othersise to f/u with PCP Dermatitis due to ingested food Diabetes mellitus type 2 in obese (05/08/13) A1C goal 7.5 Diabetic polyneuropathy associated with type 2 diabetes mellitus (03/14/18) Environmental allergies Erectile dysfunction (11/20/12) LEAH (generalized anxiety disorder) (03/19/15) Gangrenous cholecystitis Gastroesophageal reflux disease with esophagitis (09/21/11) Hyperlipidemia (09/11/13) PCEq risk 7.8% LDL baseline 127 Insomnia, unspecified (11/20/12) Leg cramps (03/14/18) Lumbar radiculitis Meralgia paresthetica of left side Migraine headache without aura Myositis (05/07/13) Nonintractable episodic headache (01/20/16) Obesity SHARRI (obstructive sleep apnea) (09/02/14) Pain of left lower extremity (04/11/17) Peripheral neuropathy 07/01/19 Dr Zaldivar, w f/u 07/30/19 Pre-ulcerative calluses Restless leg syndrome Shortness of breath Medical History Comments:: glucometer patch in upper (L) arm. Only 6 teeth, lower. Doesn't use CPAP. Surgical History Surgical History (Updated 09/14/22 @ 06:21 by Alex Napier) Colonoscopy - MAC (07/27/17) cortisone injection (03/17/14) lumbar H/O chest tube placement per pt. this was when he had his gall bladder out History of arthroscopic surgery of shoulder History of cardiac catheterization x2 1980s History of repair of anterior cruciate ligament of left knee Osteoarthritis of left acromioclavicular joint (02/27/18) Status post excision of left distal clavicle S/P laparoscopic cholecystectomy (~11/25/19) acute hemorrhagic, gangrenous cholecystitis S/P nasal septoplasty (08/18/21) Status post arthroscopy of left knee Tobacco Smoking/Tobacco Use Status: Never Alcohol Alcohol Intake: current Alcohol intake frequency: holidays/special occasions only Alcohol type: hard liquor Substance Use Substance use: Never Substance use type: does not use Vital Signs and Lab Results Vital Signs Most Recent Vital Signs in EMR: Temp Pulse Resp BP Pulse Ox 36.5 C 91 H 16 127/80 97 09/14/22 06:27 09/14/22 06:27 09/14/22 06:27 09/14/22 06:27 09/14/22 06:27 Lab Results Blood Type / Crossmatch: No Data to Display Complete Blood Count: No Data to Display Complete Metabolic Panel: No Data to Display Liver Function Panel: No Data to Display Coagulation Panel: No Data to Display Cardiac Panel: No Data to Display Arterial Blood Gas: No Data to Display Venous Blood Gas: No Data to Display Pancreas Panel: No Data to Display Thyroid Panel: No Data to Display Infectious Disease: No Data to Display Blood Cultures: No Data to Display Toxicology Panel: No Data to Display Imaging and Studies Imaging and Studies Study information below may be from another EMR and interpreted by another provider. Please see original notes in EMR for more complete details. EKG Summary: 09/05/22: sinus tach. Stress Test Summary: 08/31/22: 6.25 mets .EKG negative for ischemia. EF 32%. anteroapical/apical WMA/infarction Anesthesia Assessment and Plan Anesthesia History Personal History: No History of Anesthesia Complications Family History: No Family History of Anesthesia Complications Exercise Tolerance Exercise Tolerance: Metabolic Equivalents>4 Cardiac & Pulmonary Exam Cardiac Exam: Normal S1/S2 Heart Sounds Pulmonary Exam: Clear Bilateral Breath Sounds Implantable Cardiac Device Does patient have a Pacemaker or an ICD?: No Airway Exam Known Difficult Airway: No Mallampati Class: 3 Mouth Opening: Normal (> 3cm) Thyromental Distance: Greater than 3 cm Neck Range of Motion: Full ROM Neck Circumference: Thick Teeth Condition: Generalized Poor Dentition Airway Comments: Multiple missing teeth- no uppers , missing bilateral lowers Remaining teeth broken and chipped ASA Classification ASA Score: ASA 3 Emergency Case?: No NPO Status NPO Status: NPO Clears >2 hours, Solids >8 hours Anesthesia Plan Resuscitation Status: Full Code Anesthesia Technique: General Anesthesia Airway Planned: Endotracheal Tube Pain Management: Surgeon and patient request nerve block Monitors Used: Standard Monitors Preoperative Comments:: 61 yo male for shoulder scope. Sig PMHx: CAD (silent [place] 2008), DM with polyneuropathy (numb feet, likely gastroparesis, sleeps with the HOB elevated), asthma (states well controlled, rare inhaler use), GERD (omeprazole) Previous Anes: LMA 5, glide 3 grade 1, Nerve block, exp/bup good effect. Discussed brachial plexus block and GA for procedure. understands risks, would like to proceed. Plan: KIRAN brachial plexus block.
[2022-09-14] VITALS (10 sets, daily range): BP systolic 115–147; BP diastolic 74–98; PULSE 78–100; RESP 16–22; TEMP 36.3–36.7; O2SAT 92–97; BMI 33.2
[2022-09-14] MEDS: Lactated Ringers 1,000 ML 30 ML IV (07:02)
--- NOTE | 2022-09-14 07:16 | PDOC.DSDIS_ITS ---
Date of service: 09/14/22 Time of Service: 12:00 Discharge Plan Disposition Patient Disposition: Home Discharge Details Attending Provider: Trace Gillis Primary Care Provider: Scott Valdes Home Meds and New Rx's Prescriptions: New naproxen 250 mg tablet 250 - 500 mg PO BID PRNQty: 40 0RF Rx Instructions: take with a meal oxycodone 5 mg tablet 5 - 10 mg PO Q4H MDD 30 mg PRN (Reason: moderate to severe pain) Qty: 18 0RF Continued lidocaine HCl 2 % jelly 1 applic TP BID-QID PRN simethicone [Gas Relief (simethicone)] 125 mg capsule 250 mg PO TID-QID PRN Patient Comments: Pt takes 2 capsules after meals and before bed usually, has taken as many as 4 capsules at a time though. Pepto-Bismol Max St 525 mg/15 mL suspension 525 mg PO Q30-60M PRN Patient Comments: Pt uses when feeling bloated as well Rx Instructions: do not exceed 8 doses in a 24 hour period insulin lispro [Humalog KwikPen Insulin] 100 unit/mL insulin pen See Rx Instructions SC BID Qty: 15 6RF Rx Instructions: 10 units in AM 6 units at Dinner 11/16/20 cetirizine [All Day Allergy (cetirizine)] 10 mg tablet 10 mg PO DAILY Januvia 100 mg tablet 100 mg PO DAILY Qty: 90 3RF (DME) Dexcom G6 Hazardous Material Specialist Misc See Rx Instructions .Route Qty: 1 0RF Rx Instructions: TID and prn, to keep HbA1c less than 6.5%; Dx E11.9; On insulin (DME) Dexcom G6 Transmitter Device See Rx Instructions .Route Qty: 1 0RF Rx Instructions: TID and prn to keep HbA1c less than 6.5%; Dx: E11.9, on insulin montelukast 10 mg tablet 10 mg PO DAILY multivitamin [Multi-Day] 1 EACH tablet 1 ea PO DAILY botox Patient Comments: q 6 weeks,pt repors last had botox mid july 2021 Rx Instructions: q 6-8w (Chiara Massey) Aspirin/Acetaminophen/Caffeine [Excedrin Migraine Caplet] 1 EACH tablet 1 ea PO PRN PRN fluticasone propionate 50 mcg/actuation spray,suspension 2 spray THEO DAILY PRN Patient Comments: 01/27/19 Dr. Smith RH fexofenadine 60 mg tablet 180 mg PO DAILY hydroxyzine HCl 25 mg tablet 25 mg PO Q6H PRN PRN (Reason: headache) Qty: 90 3RF Rx Instructions: Take 1-2 tabs every 6 hours as needed for headache. (DME) pen needle, diabetic [Lite Touch Insulin Pen [place]] 31 gauge x 3/16 needle See Rx Instructions .ROUTE .MEDSUPPLY Qty: 100 6RF Rx Instructions: Use QID, Dx:E11.9, to keep HbA1c less than 6.5% (DME) FreeStyle Sushant 14 Day Sensor Kit See Rx Instructions .ROUTE .MEDSUPPLY Qty: 1 12RF Rx Instructions: As directed pregabalin 75 mg capsule 75 mg PO BID Qty: 180 1RF omeprazole 40 mg capsule,delayed release(DR/EC) 40 mg PO DAILY Qty: 90 3RF rosuvastatin 5 mg tablet 5 mg PO DAILY Qty: 90 0RF pramipexole 0.125 mg tablet 0.125 mg PO QHS Qty: 90 3RF metformin 500 mg tablet extended release 24hr 500 mg PO BID Qty: 180 3RF Farxiga 10 mg tablet 10 mg PO DAILY Qty: 90 3RF insulin degludec [Tresiba FlexTouch U-200] 200 unit/mL (3 mL) insulin pen 76 unit subcut QHS Qty: 9 6RF (DME) Dexcom G6 Sensor Device See Rx Instructions .Route Qty: 3 12RF Rx Instructions: TID and prn to keep HbA1c less than 6.5%; Dx E11.9, on insulin aspirin [Breana Low Dose Aspirin] 81 mg Tablet,Delayed Release (Dr/Ec) 81 mg PO DAILY naproxen 250 mg tablet 250 - 500 mg PO BID PRNQty: 40 0RF Rx Instructions: take with a meal (DME) Allergy Syringe 1 EACH syringe 1 ea Miscellaneous Patient Comments: pt. reports he gets a weekly allergy shot Discontinued ibuprofen 800 mg tablet 800 mg PO TID PRN (Reason: pain) Discharge Instructions Additional Instructions: Surgery: Right shoulder revision arthroscopy with rotator cuff repair (interstitial & infraspinatus), extensive debridement, and subacromial decompression. Activity: For 6 weeks, you should keep your arm at your side in a neutral position at all times except for physical therapy. Do not try to lift or raise your arm using your own muscles. You should use the sling whenever you are out of the house. You may have to adjust the abduction pillow or remove it for comfort. At home it is best to remove the sling and rest the arm on a pillow at your side or support the operative side with your other hand. You may allow the arm to dangle at your side. A physical therapy prescription will be sent electronically to begin in about 3 weeks. Prescriptions: Resume aspirin 81 mg daily tomorrow Naproxen 250 mg take 1-2 every 12 hours with a meal as needed for moderate pain (do not use at the same time as ibuprofen) Oxycodone 5 mg take 1-2 every 4-6 hours as needed for severe pain You may use [id number] Tylenol (acetaminophen) as needed for mild pain. These pain medications may be taken all at once or in different combinations as needed. Also, recommend Colace (docusate) as a stool softener as surgery and pain medicine cause constipation. You may try cjzz-hwt-[id number] diphenhydramine (Benadryl) 25-50 mg nightly as a sleep aid Dressings: Remove shoulder bandage after 3 days. Leave the sticky Steri-Strips in place until they fall off or remove them after you shower. Cover the incisions with Band-Aids or leave them open to air. You may shower after 5 days. Follow-up: 10-[address] Gillis You may take off the leg compression stockings this evening at home. You may also leave them on a few days longer if you have a history of leg swelling or edema. Let us know right away if you develop any redness, drainage, fevers, chest pain, or trouble breathing. Do not drink alcohol or drive for at least 24 hours after anesthesia. Please call the office during business hours with any questions or concerns. Discharge Orders Discharge Orders: Discharge Order (Routine); Ordered 09/14/22 Ordered By: Trace Gillis DS: Diagnosis Discharge Diagnosis (1) Traumatic tear of right rotator cuff: Status: Acute
--- NOTE | 2022-09-14 07:19 | W.PM.OP ---
Date of service: 09/14/22 Time of Service: 08:00 Operative Note Operative Note DATE OF PROCEDURE: 09/30/21 PRE-OP DIAGNOSIS: Right: 1. Rotator cuff tear 2. Impingement 3. Bursitis POST-OP DIAGNOSIS: same PROCEDURE: Right: 1. Arthroscopic rotator cuff repair, CPT #23519: This involved debridement of the concealed delaminated interstitial supraspinatus & infraspinatus rotator cuff tear and suture anchor repair across the greater tuberosity footprint. 2. Revision extensive debridement, CPT# 08019. This involved using arthroscopic hand instruments, power instruments, and radiofrequency instruments to debride areas of labral tearing, synovitis, partial articular rotator cuff tearing, and chondromalacia about the humeral head rotator cuff footprint working within the glenohumeral joint anteriorly, superiorly and posteriorly. 3. Revision subacromial decompression with partial acromioplasty, CPT# 65341. This involved using arthroscopic power instruments and a radiofrequency wand to complete a bursectomy and resect additional bone and smooth the undersurface of the acromion. The expanded function dental assistant was medically required in order to help assist in techniques above, which require positioning the arm, holding the arthroscope, and manipulating multiple instruments and sutures at the same time. This cannot be done without the help of an experienced expanded function dental assistant. SURGEON: Trace Gillis POWER PLANT OPERATIONS MANAGER: Trupti Lyon ANESTHESIA TYPE: Local By Surgeon, General LMA/ETT and Primary Nerve Block Refer to Anesthesia Record ESTIMATED BLOOD LOSS: 5 PATHOLOGY: none sent COMPLICATIONS: None Patient was transported to: PACU Patient's condition: stable Implants: Arthrex: 4.75mm SwiveLocks x Indications: The patient was diagnosed with the above conditions and appropriately indicated for surgical intervention. Please see complete medical record for details. Findings: Exam under anesthesia: Full range of motion, no instability Glenohumeral joint: Healed arthroscopic biceps tenodesis. Moderate anterior rotator interval synovitis. Mild to moderate anterior superior and posterior labral fraying. Stable partial superior lateral subscapularis tear. Moderate articular supraspinatus infraspinatus degenerative tissue and fraying with only very minimally exposed footprint that had chronic fibrinous bony changes. Subacromial space: Moderate lateral and posterior bursitis. Moderately diffuse bursal rotator cuff fraying and injection without any structural bursal tear. Procedure Description: In the operating room, general anesthesia was induced. Bilateral shoulders were examined. The patient was positioned in the beachchair position. All bony prominences were well-padded. Preoperative antibiotics were administered. The shoulder was prepped and draped in the usual sterile fashion. The correct patient, procedure, and side of the procedure were all verified prior to incision. Starting through the posterior portal a standard complete diagnostic arthroscopy was performed of the glenohumeral joint including inspection of the long head of the biceps, anterior and superior labrum, subscapularis tendon, supraspinatus and infraspinatus tendons, and axillary recess. The glenoid and humeral head cartilage as well as the posterior labrum were inspected from an anterior viewing portal. Significant findings and interventions noted above. The patient's symptoms were overwhelmingly rotator cuff and mechanical and the shoulder joint did not at all give the appearance of infection so although this was revision surgery no tissue samples were obtained. Extensive debridement was done with copious glenohumeral irrigation. The articular rotator cuff fraying tearing between the supraspinatus and infraspinatus was marked using a spinal needle placed percutaneous lateral to the acromion's at the central aspect of the tear would be marked in the bursal space given the high likelihood of a concealed interstitial tear. Starting through the posterior portal, the arthroscope was directed into the subacromial space. A lateral 50 yard line lateral portal was created. A posterior superior lateral and anterior superior lateral portals were also created. A combination of power instruments and a radiofrequency ablator were used to debride bursitis anteriorly, posteriorly, and laterally. The shaver was used to thoroughly resect an additional few millimeters and smooth the undersurface of the acromion to reduce impingement, reduce risk of additional bursal rotator cuff tearing, and for bone marrow stimulation to encourage healing. The coracoacromial ligament was partialyl released. The bursectomy was completed viewing laterally and working from posteriorly and the rotator cuff was thoroughly inspected. There is moderately diffuse bursal fraying, but this was thin and did not structurally penetrate the bursal substance. The spinal needle was centrally located in the area of most concern for tear as localized arthroscopically. This corresponded to the central posterior superior rotator cuff probably between the supraspinatus and infraspinatus. A needle and saline were used to confirm tear location using infiltration and positive bubble sign. Given the prior failure of debridement of this interstitial tear, decision was made to proceed with repair. In order to determine which tear would have yes, the elevator was started far laterally and directed centrally toward the tear. The lateral bursal layers were intact but able to be elevated preserving most of the length and following elevation of a moderate thickness bursal layer the elevator fell into the delaminated portion of the tear between the articular and bursal intact components. Spinal needle was removed. The elevator was used to demarcate the anterior posterior medial extent of the tear. The mechanical shaver was used to remove nonhealing tissue in this tear site. Rasp and elevator were then used to abrade the tissue and the shaver lastly to resect nonviable tissue again in order to optimize tendon healing. The self retrieving suture passer was then used to place an inverted horizontal mattress FiberTape widely anterior and posterior and appropriately medial spanning the tear zone. Suture tape FiberLink was then placed in cinch mode centrally in ripstop fashion. These repair sutures were then provisionally reduced using the rigid lateral cannula insert to a single central lateral anchor. The undersized punch was used followed by an oversized anchor to optimize suture anchor fixation strength taking care to avoid over tensioning this partial repair. There was excellent rotator cuff tear reapposition instability on testing. The shoulder was drained of arthroscopic fluid. All portal sites were copiously irrigated. These incisions were closed using 3-0 Monocryl in a buried fashion and then covered with Mastisol, Steri-Strips, Xeroform, dry gauze, and ABDs. The dressings were covered and secured with Medipore tape. The operative extremity was placed into a sling for immobilization. The patient awoke from anesthesia without complication and was transferred to the recovery room in a stable condition.
--- NOTE | 2022-09-14 07:21 | ANES.NERVE_ITS ---
Nerve Block Single Injection Procedure Date and Time Date Performed: 09/14/22 Procedure Start: 07:15 Location Where Procedure Performed Procedure Location: Day Surgery Unit Reason Performed: Postoperative Analgesia Requesting Provider: Trace Gillis Timeout Performed Timeout Performed: Yes Monitoring Used ECG, Blood Pressure, SpO2 and ETCO2 Sterility Sterility: Hand Hygiene, Surgical Cap, Surgical Mask, Sterile Gloves and Chlorhexidine Sedation Given During Procedure Sedation Given (Indicate Dose Given): Versed IV Dose:: 2 mg Patient Mental Status Patient Mental Status: Sedate with meaningful communication Nerve Block 1st Nerve Block: Laterality: Right Block Type: Adductor Canal Ultrasound Image Saved?: Yes Needle / Catheter Used: 100mm SonoPlex II Local Anesthetic Bolus (Indicate Dose Given): Lidocaine used for local infiltration of skin, Bupivacaine 0.5% Dose:: 15 mL and Exparel Dose:: 10 mL Additives (Indicate Dose Given): None Ultrasound: Sterile probe cover and gel used Nerve Stimulator: Supplement to Ultrasound use and No twitch or parasthes ia noted < 0.5 mA Paresthesia: None Procedure Tolerated: No Complications Procedure Outcome: Successful Performed By: Kendall Coello
[2022-09-14] MEDS: ceFAZolin 2 GM/50 ML BAG IVPB (07:30)
[2022-09-14] MEDS: Bupivacaine 0.25% Pres-Free W/EPI 30 ML VIAL (08:12)
[2022-09-14] MEDS: EPINEPHrine 30 MG/30 ML VIAL (09:00)
--- NOTE | 2022-09-14 10:01 | W.ANESPOSTOP ---
Postoperative Evaluation Date, Time and Location Date Performed: 09/14/22 Time Performed: 10:01 Patient Location: PACU Vital Signs Most Recent Imported Vital Signs: Most Recent Vital Signs Temp Pulse Resp BP Pulse Ox 36.3 C L 80 18 120/82 96 09/14/22 09:45 09/14/22 09:45 09/14/22 09:45 09/14/22 09:45 09/14/22 09:45 Pain Score Most Recent Pain Score: Most Recent Pain Score Pain Level 0 09/14/22 09:45 Assessment Mental Status: Awake (Alert & Oriented to Patient Baseline) Airway and Respiratory Function: Patent airway with normal (patient baseline) respiratory exam Cardiovascular Function: Hemodynamically Stable Hydration Status: Adequately Hydrated Nausea & Vomiting: No Nausea or Vomiting Pain: Pain is tolerable per patient Peripheral Nerve Block: Regional nerve block not resolved at time of post operative discharge
== END 2022-09-14 11:18 | disposition home or self-care (01) ==
PROVIDERS: PCP Family Medicine; Visit Provider Student in an Organized Health Care Education/Training Program
PROC: (CPT 29827; principal; 2022-09-14 07:30)
DX: S46.011A Strain of muscle(s) and tendon(s) of the rotator cuff of right shoulder, initial encounter (principal); M75.51 Bursitis of right shoulder; M75.41 Impingement syndrome of right shoulder; X58.XXXA Exposure to other specified factors, initial encounter
CPT/HCPCS: 29827; 29826; 29823; 76942; J0131; J0690; J1100; J1885; J2250; J2370; J2405

== ENCOUNTER 2022-11-09 03:36 | Outpatient (CLI) | payer MEDICAID, SELFPAY ==
[2022-11-09 10:24] LABS: ALT 54 U/L (16-63); AST 31 U/L (15-37); Albumin 3.9 g/dL (3.4-5.0); Alkaline Phosphatase 113 U/L (46-116); Anion Gap 8.2 mmol/L (3-11); BUN 18 mg/dL (7-18); Bilirubin, Total 0.5 mg/dL (0.2-1.0); CO2 30.8 mmol/L (21.0-32.0); CREATININE 1.2 mg/dL (0.70-1.30); Calcium 9.4 mg/dL (8.5-10.1); Chloride 103 mmol/L (98-107); Glucose 121 mg/dL (74-106); Potassium 3.9 mmol/L (3.5-5.1); Sodium 142 mmol/L (136-145); Total Protein 8.1 g/dL (6.4-8.2)
== END 2022-11-09 03:37 | disposition home or self-care (01) ==
LOC: LBO 03:36
PROVIDERS: PCP Family Medicine; Visit Provider Family Medicine
DX: E11.9 Type 2 diabetes mellitus without complications (principal); I10 Essential (primary) hypertension
CPT/HCPCS: 36415; 80053

== ENCOUNTER 2022-12-21 16:01 | Outpatient (CLI) | payer MEDICAID, SELFPAY ==
--- NOTE | 2022-12-21 11:45 | DI.RAD_ITS ---
Exam(s) XR LUMBAR SPINE COMP W FLEX/EX EXAM: XR LUMBAR SPINE COMP W FLEX/EX CLINICAL HISTORY: Low back pain M47.817 SPONDYLOSIS W/O MYELOPATHY. TECHNIQUE: 2D digital imaging was performed. COMPARISON: CT,NM,TMT NM MPI REST STRESS GRP from 08/31/2022 FINDINGS: Seven views There is no evidence compression fracture. There is multilevel disc space narrowing most prominent a t L5-S1. There is also anterolisthesis L5 upon S1 due to bilateral pars defects at L5 level. There is approximately 1.5 cm anterior slippage L5 upon S1. This is most prominent in extension. No listh esis at other levels. Bone density normal. No osseous lesions. Minimal facet degenerative changes. Sacroiliac joints unr emarkable. No osseous lesions. IMPRESSION: Anterior listhesis L5 upon S1 due to bilateral pars defects at L5 level. Multilevel moderate disc space narrowing. DATA REPOSITORY: RADIATION DOSE DELIVERED:
== END 2022-12-21 16:21 ==
LOC: DI 16:02
PROVIDERS: PCP Family Medicine; Visit Provider Preventive Medicine Occupational Medicine
DX: M47.817 Spondylosis without myelopathy or radiculopathy, lumbosacral region (principal)
CPT/HCPCS: 72114

== ENCOUNTER 2023-03-22 09:33 | Outpatient (CLI) | payer MEDICAID, SELFPAY ==
--- NOTE | 2023-03-22 06:00 | DI.RAD_ITS ---
Exam(s) XR PAIN CLINIC LUMBAR SP 2V EXAM: XR PAIN CLINIC LUMBAR SP 2V CLINICAL HISTORY: DX: lumbar spondylosis TECHNIQUE: 2D and realtime digital imaging was performed. CONTRAST MATERIAL: Refer to procedure report. COMPARISON: No exams were available for comparison FINDINGS: Fluoroscopy was provided for Dr. Adorno during the performance of a lumbar medial branch block. Stiven hyde refer to the procedure report for complete details. Ka,r=29.8 mGy IMPRESSION:
[2023-03-22 10:16] VITALS: BP 136/84; PULSE 98; RESP 20; TEMP 36.8; O2SAT 96
[2023-03-22] MEDS: Omnipaque 240 MG/ML 50 ML BTL IJ (11:06)
[2023-03-22] MEDS: Bupivacaine 0.5% Pres-Free 10 ML VIAL IJ (11:07)
[2023-03-22 11:09] VITALS: BP 118/97; PULSE 92; RESP 17; O2SAT 96
--- NOTE | 2023-03-27 06:50 | PDOC.PAIN_ITS ---
Date of service: 03/22/23 Time of Service: 12:00 Pain Managment Procedure Note Procedure Note Procedure Note: PROCEDURE NOTE Bilateral Lumbar Medial Branch Blocks Date of Service: March 22, 2023 Patient: Marco Antonio Harris Provider: Stephen Adorno DO, MPH Marco Antonio Harris has been [facility] to the [facility] for lumbar medial branch blocks. Pre-operative diagnosis: Lumbar Spondylosis without Myelopathy Post-operative diagnosis: Same Pre-procedure pain: VAS= 8/10 COMMENTS: I previously evaluated him in the office. Phylicia was interviewed and the medical records were reviewed. There were no medical, pharmacologic, radiographic or other structural contraindications to attempting fluoroscopically guided local anesthetic lumbar medial branch blocks. Risks and potential side effects were discussed. I also discussed the potential benefit(s) of the procedure with Marco Antonio, and voiced concerns were addressed. After Marco Antonio was completely informed about the procedure, the printed consent form was signed. A standard time-out procedure was performed. Marco Antonio was placed in the prone position on the fluoroscopy table. Automated blood pressure cuff and pulse oximeter were applied. The skin entry points for approaching the anatomic target points of the segmental medial branches of bilateral L2, L3,L4 were identified with fluoroscopy and marked. The skin at th e target site area was thoroughly prepared with Chlorhexadine. The skin was then draped. Next, a 25 gauge 3.5 spinal needle was placed under fluoroscopic guidance down on to the target point (the articular pillar) for each respective segmental medial branch. Position was confirmed in A/P and lateral views. Aspiration revealed no blood or clear fluid. Next, 0.25ml of omnipaque 240 was injected at each level. No contrast following a vascular or neural pattern was visualized under continuous fluoroscopy. Next, 0.25 ml of preservative-free 0.5% bupivicaine was injected at each level. There was no unusual discomfort expressed by Marco Antonio. The needles were withdrawn without difficulty. (49 mls of Omnipaque was wasted) Marco Antonio was observed and was without hemodynamic, neurologic, or allergic reactions.? Fluoroscopic images were digitally archived. Provacative testing using the Modified Cleveland's facet loading test- Left side Righ t Side Directly before the block VAS (0-10) = 8/10 VAS (0-10) = 8/10 Five minutes after the block VAS (0-10) = 0/10 VAS (0-10) = 0/10 Percentage relief obtained with this diagnostic block 100% 100% Any improved physical functioning directly after the blocks? Able to move his back with ease. Follow up plans and appointments were discussed with Marco Antonio. Marco Antonio was instructed to keep careful note of how the usual pain was modified by these injections. Specifically, to keep a pain diary for the next 4 hours using a numeric pain scale of 0-10 and report these results. Post procedure instruction was given as documented in the nursing documentation and having met discharge criteria, the patient was [facility]. Based on the medial branches blocked today, if they patient has adequate relief and we are able to proceed to radiofrequency ablation, the treatment should result in the denervation of the bilateral L3-L4 and L4-L5 facet joints. We would expect to denervate a total of 4 facets during the radiofrequency ablation. COMMENTS: No apparent complications. Post-procedure pain: VAS= 0/10 Marco Antonio will call back with 0-4 hour post-procedure pain scores. I personally performed the entire procedure. STEPHEN ADORNO DO, MPH ABPM&R-subspecialty board certification in Pain Medicine [facility] [facility]
== END 2023-03-22 09:34 | disposition home or self-care (01) ==
LOC: PC 09:33
PROVIDERS: PCP Family Medicine; Visit Provider Preventive Medicine Occupational Medicine
DX: M47.816 Spondylosis without myelopathy or radiculopathy, lumbar region (principal)
CPT/HCPCS: 64493; 64494; 72100; Q9967

== ENCOUNTER 2023-07-11 07:27 | Outpatient (CLI) | payer MEDICAID, SELFPAY ==
--- NOTE | 2023-07-11 06:00 | DI.RAD_ITS ---
Exam(s) XR PAIN CLINIC LUMBAR SP 2V EXAM: XR PAIN CLINIC LUMBAR SP 2V CLINICAL HISTORY: Dx: Lumbar Spondylosis TECHNIQUE: 2D and realtime digital imaging was performed. CONTRAST MATERIAL: Refer to procedure report. COMPARISON: No exams were available for comparison FINDINGS: Fluoroscopy was provided for Dr. Adorno during the performance of a lumbar medial branch block. Stiven hyde refer to the procedure report for complete details. Ka,r=20.8 mGy IMPRESSION:
[2023-07-11 07:47] VITALS: BP 109/79; PULSE 91; RESP 20; TEMP 36
[2023-07-11 08:43] VITALS: BP 139/88; PULSE 94; RESP 23; O2SAT 97
[2023-07-11] MEDS: Bupivacaine 0.5% Pres-Free 10 ML VIAL IJ (08:45)
[2023-07-11] MEDS: Omnipaque 240 MG/ML 50 ML BTL IJ (08:46)
--- NOTE | 2023-07-11 09:25 | PDOC.PAIN_ITS ---
Date of service: 07/11/23 Time of Service: 09:25 Pain Managment Procedure Note Procedure Note Procedure Note: PROCEDURE NOTE Bilateral Lumbar Medial Branch Blocks Date of Service: July 11, 2023 Patient: Marco Antonio Harris Provider: Stephen Adorno DO, MPH Marco Antonio Harris has been referred to the [facility] for lumbar medial branch blocks. Pre-operative diagnosis: Lumbar Spondylosis without Myelopathy Post-operative diagnosis: Same Pre-procedure pain: VAS= 9/10 COMMENTS: He did very well with his first LMBB. Marco Antonio? was interviewed and the medical records were reviewed. There were no medical, pharmacologic, radiographic or other structural contraindications to attempting fluoroscopically guided local anesthetic lumbar medial branch blocks. Risks and potential side effects were discussed. I also discussed the potential benefit(s) of the procedure with Marco Antonio, and voiced concerns were addressed. After Marco Antonio was completely informed about the procedure, the printed consent form was signed. A standard time-out procedure was performed. Marco Antonio was placed in the prone position on the fluoroscopy table. Automated blood pressure cuff and pulse oximeter were applied. The skin entry points for approaching the anatomic target points of the segmental medial branches of bilateral L3,L4,L5 were identified with fluoroscopy and marked. The skin at the target site area was thoroughly prepared with Chlorhexadine. The skin was then draped. Next, a 25 gauge 3.5 spinal needle was placed under fluoroscopic guidance down on to the target point (the articular pillar) for each respective segmental medial branch. Position was confirmed in A/P and lateral views. Aspiration revealed no blood or clear fluid. Next, 0.25ml of omnipaque 240 was injected at each level. No contrast following a vascular or neural pattern was visualized under continuous fluoroscopy. Next, 0.25 ml of preservative-free 0.5% bupivicaine was injected at each level. There was no unusual discomfort expressed by Marco Antonio. The needles were withdrawn without difficulty. (49 mls of Omnipaque was wasted) Marco Antonio was observed and was without hemodynamic, neurologic, or allergic reactions.? Fluoroscopic images were digitally archived. Provacative testing using the Modified Cleveland's facet loading test- Left side Right Side Directly before the block VAS (0-10) = 9/10 VAS (0-10) = 9/10 Five minutes after the block VAS (0-10) = 0/10 VAS (0-10) = 0/10 Percentage relief obtained with this diagnostic block 100% 100% Any improved physical functioning directly after the blocks? 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 Marco Antonio was instructed to keep careful note of how the usual pain was modified by these injections. Specifically, to keep a pain diary for the next 4 hours using a numeric pain scale of 0-10 and report these results. Post procedure instruction was given as documented in the nursing documentation and having met discharge criteria, the patient was [facility] from the [facility]. Based on the medial branches blocked today, if they patient has adequate relief and we are able to proceed to radiofrequency ablation, the treatment should result in the denervation of the bilateral L4-L5 and L5-S1 facet joints. We would expect to denervate a total of 4 facets during the radiofrequency ablation. COMMENTS: No apparent complications. Post-procedure pain: VAS= 0/10 Marco Antonio will call back with 0-4 hour post-procedure pain scores. I personally performed the entire procedure. STEPHEN ADORNO DO, MPH ABPM&R-subspecialty board certification in Pain Medicine [facility] [facility]
== END 2023-07-11 07:28 | disposition home or self-care (01) ==
LOC: PC 07:27
PROVIDERS: PCP Family Medicine; Visit Provider Preventive Medicine Occupational Medicine
DX: M47.816 Spondylosis without myelopathy or radiculopathy, lumbar region (principal)
CPT/HCPCS: 00123; 64493; 64494; 72100; Q9967

== ENCOUNTER 2023-10-03 08:18 | Outpatient (CLI) | payer MEDICAID, SELFPAY ==
--- NOTE | 2023-10-03 06:00 | DI.RAD_ITS ---
Exam(s) XR PAIN CLINIC LUMBAR SP 2V EXAM: XR PAIN CLINIC LUMBAR SP 2V CLINICAL HISTORY: DX: Lumbar spondylosis TECHNIQUE: 2D and realtime digital imaging was performed. CONTRAST MATERIAL: Refer to procedure report. COMPARISON: No exams were available for comparison FINDINGS: Fluoroscopy was provided for Dr. Adorno during the performance of a lumbar radiofrequency ablation. P lease refer to the procedure report for complete details. Ka,r=28.4 mGy IMPRESSION: RADIATION DOSE DELIVERED: 0.0 0.0 0
[2023-10-03 09:18] VITALS: BP 147/73; PULSE 89; RESP 20; TEMP 36.7; O2SAT 97
--- NOTE | 2023-10-03 09:40 | PDOC.PAIN ---
Date of service: 10/03/23 Time of Service: 09:40 Pain Managment Procedure Note Procedure Note Procedure Note: PROCEDURE NOTE BILATERAL LUMBAR RADIOFREQUENCY ABLATION Date of Service: October 03, 2023 Patient:Marco Antonio Hendricks? Provider:? Stephen Adorno DO, MPH Marco Antonio Harris has been [facility] to [facility] for Bilateral Lumbar Radiofrequency Ablation with the [employer] Machine.? Pre Operative Diagnosis: Lumbosacral Spondylosis without Myelopathy Post Operative Diagnosis: Same Pre procedure pain; VAS= 6/10 Comments: He did very well with the LMBBs. He does have DM and his last A1c about 6 weeks ago was 6.9. We will reduce the post-RFA steroid to 40 mg of Depomedrol PROCEDURE: Radiofrequency Ablation of medial branches - bilateral L3, L4, L5 and lateral branches of bilateral S1. Marco Antonio?was interviewed and the medical record was reviewed.? There were no medical, pharmacologic, radiographic or other structural contraindications to attempting fluoroscopically guided BILATERAL Lumbar Radiofrequency Ablation.?Risks and expected side effects as well as potential benefit of the procedure were reviewed with Marco Antonio, and the patient's voiced concerns were addressed.? The printed consent form was signed.? Standard time-out procedure was performed. Marco Antonio was brought into the fluoroscopy suite and positioned into the prone position on the fluoroscopy table and allowed to adjust to a position of comfort. A grounding pad was placed on the left abdomen. The sterile field was prepared using chlorhexidine preparation of the skin and sterile draping. Local anesthesia superficial and deep was provided by local infiltration of 2% lidocaine. A 17g 100 mm radiofrequency introducer needle was placed to the planned anatomic targets guided with intermittent fluoroscopy with a perpendicular approach to terminally place at the junction of the superior articular process and the transverse process of the bilateral L4, L5, the base of the sacral ala on the bilateral for the L5 medial branch nerve and the area between base of the sacral ala to the S1 foramen bilaterally. The stylets were removed and radiofrequency probes with a 4mm active tip were then inserted. Needle tip position of the probes was verified in the AP, oblique, and lateral views. At each site, the medial branch nerve was stimulated at 2 Hz to a maximum 1-2 volts determined to finalize safe needle and electrode placement. The patient was awake and responsive during this portion of the procedure. Each target was anesthetized with 1-2 mL of 2 % Lidocaine for anesthesia for lesioning and then each target was lesioned at 80 degrees Celsius for 2 minutes and 30 seconds. After each burn, I injected 1/8 cc of Depomedrol (40 mg/cc) at each site and this was followed by 1 cc of 0.5% Bupivacaine. Tissue impedances were noted to be between 250 and 500 Ohms. There was no unusual discomfort expressed by Marco Antonio. The needles were withdrawn without difficulty and bandages placed over the needle placement sites, the patient was observed and was without hemodynamic, neurologic, or allergic reactions. Fluoroscopic images were digitally archived. POST PROCEDURE EVALUATION: IMPRESSION: 1. Summary of procedure. Medication given is documented in the MAR. 2. Follow up plan: Marco Antonio to contact [facility] as needed.?This procedure may be repeated if the patient achieves at least 50% improvement in pain/function for at least 6 months. 3. Estimated Blood Loss: <5 mls 4. Fluoroscopy time: Documented in the EMR. Follow up plans and appointments were discussed with the Marco Antonio. Post procedure instruction was given as documented in nursing documentation and having met discharge criteria, Marco Antonio was discharged from the [facility]. COMMENTS: No apparent complications. Post-procedure pain: VAS= 1/10. I personally completed the entire procedure. STEPHEN ADORNO DO, MPH ABPM&R - Subspecialty board certification in Pain Medicine [facility]
[2023-10-03] MEDS: Midazolam 2 MG/2 ML VIAL IVP (09:50)
[2023-10-03] MEDS: fentaNYL 100 MCG/2 ML VIAL IVP (09:50)
[2023-10-03] MEDS: Nerve Block Tray 1 EACH MC ×2 (09:59→10:35)
[2023-10-03] MEDS: Lactated Ringers 500 ML 80 ML IV (09:59)
[2023-10-03] MEDS: Lidocaine 2% Pres-Free 5 ML VIAL IJ (10:34)
[2023-10-03] MEDS: methylPREDNISolone ACETATE 40 MG/ML VIAL IJ (10:34)
[2023-10-03] MEDS: Bupivacaine 0.5% Pres-Free 10 ML VIAL IJ (10:34)
[2023-10-03 10:35] VITALS: BP 112/80; PULSE 78; RESP 20; O2SAT 91
== END 2023-10-03 08:19 | disposition home or self-care (01) ==
LOC: PC 08:19
PROVIDERS: PCP Family Medicine; Visit Provider Preventive Medicine Occupational Medicine
DX: M47.817 Spondylosis without myelopathy or radiculopathy, lumbosacral region (principal)
CPT/HCPCS: 00123; 64635; 64636; 72100; J0665; J1030; J2250; J3010

== ENCOUNTER 2023-12-28 15:17 | Outpatient (CLI) | payer MEDICAID, SELFPAY ==
[2023-12-28 11:29] LABS: Creatine Kinase 337 U/L (39-308)
[2023-12-28 11:33] LABS: Iron 67 ug/dL (65-175); Total Iron Binding Capacity 340 ug/dL (250-450); Transferrin Sat 20 % (20-55)
[2023-12-28 11:52] LABS: ALT 54 U/L (16-63); AST 32 U/L (15-37); Albumin 3.7 g/dL (3.4-5.0); Alkaline Phosphatase 94 U/L (46-116); Anion Gap 9.4 mmol/L (3-11); BUN 17 mg/dL (7-18); Bilirubin, Total 0.6 mg/dL (0.2-1.0); CO2 29.6 mmol/L (21.0-32.0); CREATININE 1.2 mg/dL (0.70-1.30); Calculated LDL 44 mg/dL (<100); Chloride 106 mmol/L (98-107); Cholesterol 103 mg/dL (<200); Estimated GFR 67.95 (mL/min/1.73m2); Glucose 87 mg/dL (74-106); HDL Cholesterol 45 mg/dL (40-60); Magnesium 1.8 mg/dL (1.8-2.4); Potassium 3.6 mmol/L (3.5-5.1); Sodium 145 mmol/L (136-145); TSH (W/Ref FT4) 0.49 uIU/mL (0.36-3.74); Total Protein 7.4 g/dL (6.4-8.2); Triglyceride 71 mg/dL (<150); Vitamin B12 500 pg/mL (193-986)
[2023-12-28 12:07] LABS: PHOSPHORUS 3.3 mg/dL (2.6-4.7)
== END 2023-12-28 15:18 | disposition home or self-care (01) ==
LOC: LBO 15:18
PROVIDERS: PCP Family Medicine; Visit Provider Family Medicine
DX: G47.62 Sleep related leg cramps (principal); E78.5 Hyperlipidemia, unspecified
CPT/HCPCS: 36415; 80053; 80061; 82550; 82607; 83540; 83550; 83735; 84100; 84443

== ENCOUNTER 2024-04-01 12:56 | Outpatient (CLI) | payer MEDICAID, SELFPAY ==
--- NOTE | 2024-04-01 08:45 | DI.MRI_ITS ---
Exam(s) MR LUMBAR SPINE WO EXAM: MR LUMBAR SPINE WO CLINICAL HISTORY: Bilat L5 radiculopathy (R>L) - getting worse, M54.16. TECHNIQUE: Multiplanar multisequence MRI of the Lumbar spine was performed. COMPARISON: MR MRI - LUMBAR SPINE WO CONTRAST from 11/26/2013 CR XR LUMBAR SPINE COMP W FLEX/EX from 12/21/2022 FINDINGS: Bones: The last intervertebral disc space is designated the L5/S1 level for the numbering purpose of this ex amination. The vertebral body heights are well maintained. The marrow signal characteristics are unremarkable. Hemangioma noted in L2. Cord: The conus tip ends at the T12 level. It is of normal size and signal intensity. T12-L1: No focal disc herniation is present. No central spinal canal stenosis.No neural foraminal st enosis. L1-2: No focal disc herniation is present. No central spinal canal stenosis.No neural foraminal sten osis. L2-3:Mild concentric disc bulging. Small endplate osteophytes. No focal disc herniation is present. No central spinal canal stenosis. mild left neural foraminal stenosis. L3-4: Mild loss of disc height. Osteophytes which project posteriorly. Disc bulging. Facet degener ative changes.No focal disc herniation is present. Mild central spinal canal stenosis.mild left gisele ral foraminal stenosis. L4-5: Mild loss of disc height. Mild disc bulging. Small endplate osteophytes. No focal disc her niation is present. No central spinal canal stenosis.Mild bilateral neural foraminal stenosis. L5-S1: Bilateral L5 spondylolysis. On mild spondylolisthesis. Severe loss of disc height posteriorl y.No focal disc herniation is present. No central spinal canal stenosis.Severe bilateral neural for aminal stenosis. The visualized SI joints and sacrum are unremarkable. Soft tissues: The paraspinal soft tissues are unremarkable. IMPRESSION: L5 spondylolysis and mild L5-S1 spondylolisthesis. Severe bilateral neural foraminal narrowing at th is level. Mild central canal stenosis secondary to combination of degenerative changes at L3-4. DATA REPOSITORY:
== END 2024-04-01 13:16 ==
LOC: DI 12:57
PROVIDERS: PCP Family Medicine; Visit Provider Preventive Medicine Occupational Medicine
DX: M54.16 Radiculopathy, lumbar region (principal)
CPT/HCPCS: 72148

== ENCOUNTER 2024-04-24 15:49 | Outpatient (CLI) | payer MEDICAID, SELFPAY ==
--- NOTE | 2024-04-24 15:09 | DI.RAD_ITS ---
Exam(s) XR KNEE RT 4V AP,LAT,KATE,PAT EXAM: XR KNEE RT 4V AP,LAT,KATE,PAT CLINICAL HISTORY: R knee pain. TECHNIQUE: 2D digital imaging was performed. Three views. COMPARISON: None FINDINGS: BONES: No acute fracture is present. No bony destructive lesion is seen. JOINTS: Moderate to severe narrowing of the medial femoral tibial joint space causing mild varus angu lation. Periarticular spurring. Spurring is also noted at the patellofemoral joint. Patellofemoral joint space is maintained. No joint effusion is seen. SOFT TISSUE: Normal. IMPRESSION: Advanced degenerative changes of the medial femoral tibial joint. DATA REPOSITORY: RADIATION DOSE DELIVERED:
== END 2024-04-24 15:50 | disposition home or self-care (01) ==
LOC: DIORS 15:49
PROVIDERS: PCP Family Medicine; Visit Provider Physician Assistant
DX: M25.561 Pain in right knee (principal)
CPT/HCPCS: 73564

== ENCOUNTER 2024-04-30 10:07 | Outpatient (CLI) | payer MEDICAID, SELFPAY ==
[2024-04-30] VITALS (7 sets, daily range): BP systolic 118–155; BP diastolic 77–108; PULSE 78–93; RESP 16–21; TEMP 36.7; O2SAT 96–98
--- NOTE | 2024-04-30 06:00 | DI.RAD_ITS ---
Exam(s) XR PAIN CLINIC LUMBAR SP 2V EXAM: XR PAIN CLINIC LUMBAR SP 2V CLINICAL HISTORY: DX: Lumbar Radiculopathy TECHNIQUE: 2D and realtime digital imaging was performed. Radiologist not present. CONTRAST MATERIAL: None. COMPARISON: No exams were available for comparison FINDINGS: Fluoroscopy was provided for pain management therapy. Please refer to procedure report or details. Radiation Exposure Index: Ka,r=10.18 mGy IMPRESSION: As above. RADIATION DOSE DELIVERED:
--- NOTE | 2024-04-30 10:46 | PDOC.PAIN ---
Date of service: 04/30/24 Time of Service: 10:47 Pain Managment Procedure Note Procedure Note Procedure Note: PROCEDURE NOTE LUMBAR EPIDURAL STEROID INJECTION Date of Service: April 30, 2024 Patient:Marco Antonio Ruiz? Provider: Stephen Adorno DO, MPH Marco Antonio Harris has been referred to the [facility] for a lumbar epidural steroid injection. Pre-operative diagnosis: Lumbosacral Radiculopathy ICD-10 M54.16 Post-operative diagnosis: Same Pre-Procedure Pain: VAS= 7 /10 Comments: I previously evaluated him in the office and reviewed his lumbar spine MRI prior to recommending this procedure. He last had this procedure in 2019. Marco Antonio was interviewed and the medical record was reviewed.? There were no medical, pharmacologic, radiographic or other structural contraindications to attempting fluoroscopically guided Lumbar epidural steroid injection.? Risks, potential side effects, indications, and potential benefits of the procedure were reviewed with Marco Antonio.? Questions and concerns were addressed.? After it was clear that Marco Antonio was fully informed about the procedure, the printed consent form was signed by the patient and myself.? Marco Antonio was placed in the prone position on the fluoroscopy table and automated blood pressure cuff and pulse oximeter applied. The skin entry point for entering/approaching the epidural space for the lumbar epidural steroid injection was marked. Following thorough [chlorhexadine] preparation of the skin and draping and 1% lidocaine infiltration of the skin entry point and subcutaneous tissues, an 18 gauge Touhy needle was placed and advanced under fluoroscopic guidance and with loss of resistance technique into the [L5-S1] epidural space. Needle tip placement and depth were aided and confirmed by fluoroscopy. There was no paresthesia or return of blood or CSF through the needle. 1 mls of Omnipaque 240 was injected with clear epidural spread confirmed with fluoroscopy. 80 mg of Depo-Medrol was? injected. This was followed by 1 ml of preservative-free normal saline to flush the steroid out of the needle. There was no unusual discomfort expressed by Marco Antonio. The needle was withdrawn without difficulty. (49 mls of Omnipaque was wasted) Marco Antonio was observed and was without hemodynamic, neurologic, or allergic reactions.? Fluoroscopic images were digitally archived. Marco Antonio's vital signs were stable throughout the procedure and were as recorded in nursing records. Follow up plans and appointments were discussed with Marco Antonio. Post procedure instruction was given as documented in nursing records and having met discharge criteria Marco Antonio was discharged from the [facility]. COMMENTS: No apparent complications. Post-procedure pain: VAS= 2/10. Marco Antonio to contact [facility] as needed. If at least 50% improvement in pain and/or function for at least 3 months is achieved, this procedure can be repeated. I personally performed this entire procedure. STEPHEN ADORNO DO, MPH ABPMR-subspecialty board certification in Pain Medicine [facility]
[2024-04-30] MEDS: methylPREDNISolone ACETATE 40 MG/ML VIAL IJ (11:07)
[2024-04-30] MEDS: Omnipaque 240 MG/ML 50 ML BTL IJ (11:07)
[2024-04-30] MEDS: Epidural Tray 1 EACH MC (11:07)
== END 2024-04-30 10:08 | disposition home or self-care (01) ==
LOC: PC 10:07
PROVIDERS: PCP Family Medicine; Visit Provider Preventive Medicine Occupational Medicine
DX: M54.16 Radiculopathy, lumbar region (principal)
CPT/HCPCS: 62323; 72100; J1010; Q9967

== ENCOUNTER 2024-07-31 15:29 | Outpatient (CLI) | payer MEDICAID, SELFPAY ==
--- NOTE | 2024-07-31 15:00 | DI.RAD_ITS ---
Exam(s) XR STANDING ALIGNMENT EXAM: XR STANDING ALIGNMENT CLINICAL HISTORY: RIGHT KNEE PAIN. TECHNIQUE: 2D digital imaging was performed. COMPARISON: CR XR KNEE RT 4V AP,LAT,KATE,PAT from 04/24/2024 FINDINGS: There is a left knee prosthesis. Femoral component appears intact. There is some linear lucency sub jacent to the medial aspect of the tibial component, possibly significant. There are significant degenerative changes in the medial compartment of the opposite-right knee which appear unchanged from 04/24/2024. Lateral compartment of the right knee continues to exhibit normal height. Hips appear un remarkable. Ankles unremarkable. Bone density normal. No osseous lesions. Sacroiliac joints unremarkable IMPRESSION: Moderate degenerative changes noted in the medial compartment of the right knee. Left knee prosthesis with linear lucency sub adjacent to the medial aspect of the tibial component. Correlation any clinical signs of loosening is recommended. DATA REPOSITORY: RADIATION DOSE DELIVERED:
== END 2024-07-31 15:30 | disposition home or self-care (01) ==
LOC: DIORS 15:30
PROVIDERS: PCP Family Medicine; Visit Provider Physician Assistant
DX: M17.11 Unilateral primary osteoarthritis, right knee (principal)
CPT/HCPCS: 77073

== ENCOUNTER 2024-08-21 10:23 | Outpatient (CLI) | payer MEDICAID, SELFPAY ==
[2024-08-21 10:39] VITALS: BP 142/87; PULSE 87; RESP 18; TEMP 36.6; O2SAT 98
[2024-08-21 11:00] VITALS: PULSE 106; O2SAT 96
[2024-08-21 11:10] VITALS: PULSE 87; O2SAT 86
--- NOTE | 2024-08-21 11:15 | PDOC.PAIN ---
Date of service: 08/21/24 Time of Service: 11:15 US Guided Nerve Blocks Procedure Performed Right Lateral Femoral Cutaneous Nerve Block Pre-Procedural Evaluation Pain to the right anterior thigh Referral Patient has been referred to the [facility] for Right Lateral Femoral Cutaneous Nerve Block for a chief complaint of Pain to the right anterior thigh Pre-Procedural Pain Score 6/10 Reason for Exam Right anterior thigh pain Patient Interview Patient was interviewed and medical record reviewed: Yes There were no contraindications to performing an US guided procedure. Risks,expected side effects, potential benefits were reviewed. The patient consent form was signed and witnessed. Standard time out procedure was performed. Patient Safety No skin issues at the proposed injection site. Procedure Description No sedation given for the procedure Patient was placed in the supine position and the following monitors: Pulse Ox applied. Pre-procedure ultrasound scanning perfomed using a Linear 9 MHz probe Site Preparation Chloroprep Local Anesthesia Skin and subcutaneous tissues were anesthetized with: 3 mL of Lidocaine 2%. A 21 G 3.5 Pajunk ultrasound needle was placed under live US guidance using an in plane approach to the target area. After visualization of the needle tip at at the target area the following meds: Bupivacaine 0.5% were used. Total of injectate/medication mixture note: 4 cc Negative aspiration for blood. Garfield were removed without difficulty. Ultrasound images captured and stored. Patient Mental Status Patient was alert during procedure. Vital Signs Vital signs were stable throughout the procedure and recorded by nursing. Follow Up/Discharge Follow up plans and appointments were discussed with patient. Post procedure instruction was given as documented in nursing documentation. Discharge criteria met and discharged from the [facility]: Yes Post Procedure Post Procedure Pain: 1/10 Patient tolerated procedure well Procedure outcome: Successful Lateral Femoral Cutaneous Nerve Block
[2024-08-21] MEDS: Bupivacaine 0.5% Pres-Free 10 ML VIAL IJ (11:22)
[2024-08-21] MEDS: Nerve Block Tray 1 EACH MC (11:22)
[2024-08-21] MEDS: methylPREDNISolone ACETATE 40 MG/ML VIAL IJ (11:22)
== END 2024-08-21 10:24 | disposition home or self-care (01) ==
LOC: PC 10:23
PROVIDERS: PCP Family Medicine; Visit Provider Preventive Medicine Occupational Medicine
DX: M79.18 Myalgia, other site (principal)
CPT/HCPCS: 64447; J0665; J1010

== ENCOUNTER 2024-11-05 19:53 | Outpatient (REF) | payer MEDICAID, SELFPAY ==
[2024-11-05 20:45] LABS: Hemoglobin A1C 7.1 % (<5.7)
== END 2024-11-05 19:54 | disposition home or self-care (01) ==
LOC: NCHCN 19:53
PROVIDERS: PCP Family Medicine; Visit Provider Nurse Practitioner Family
DX: E11.42 Type 2 diabetes mellitus with diabetic polyneuropathy (principal); Z79.4 Long term (current) use of insulin
CPT/HCPCS: 83036

== ENCOUNTER 2025-02-02 03:00 | Outpatient (CLI) | payer MEDICAID, SELFPAY ==
[2025-02-02 09:43] LABS: HCT 51.2 % (40.0-50.0); HGB 17.0 g/dL (13.5-17.5); MCH 29.5 pg (27.0-33.0); MCHC 33.2 % (32.0-36.0); MCV 89 fL (80-95); MPV 9.5 fL (8.0-11.0); Platelet Count 232 10^3/uL (130-400); RBC 5.76 10^6/uL (4.36-5.78); RDW 13.2 % (11.8-14.1); RDW-SD 42.7 fL; WBC 9.71 10^3/uL (4.4-10.8)
[2025-02-02 10:43] LABS: Anion Gap 9.0 mmol/L (3-11); BUN 19 mg/dL (7-18); CO2 29.0 mmol/L (21.0-32.0); Calcium 9.2 mg/dL (8.5-10.1); Chloride 103 mmol/L (98-107); Estimated GFR 74.96 (mL/min/1.73m2); Glucose 98 mg/dL (74-106); Potassium 4.1 mmol/L (3.5-5.1); Sodium 141 mmol/L (136-145)
[2025-02-02 10:44] LABS: Magnesium 2.1 mg/dL (1.8-2.4)
== END 2025-02-02 03:01 | disposition home or self-care (01) ==
LOC: LBO 03:00
PROVIDERS: PCP Family Medicine; Visit Provider Student in an Organized Health Care Education/Training Program
DX: Z51.81 Encounter for therapeutic drug level monitoring (principal); Z01.818 Encounter for other preprocedural examination; M17.11 Unilateral primary osteoarthritis, right knee; E11.9 Type 2 diabetes mellitus without complications
CPT/HCPCS: 36415; 80048; 85027; 82985; 83735

== ENCOUNTER 2025-02-16 02:28 | Outpatient (CLI) | payer MEDICAID, SELFPAY | END 2025-02-16 02:48 | LOC: DI 02:28 | PROVIDERS: PCP Family Medicine; Visit Provider Internal Medicine Cardiovascular Disease | DX: I25.10 Atherosclerotic heart disease of native coronary artery without angina pectoris (principal); R06.09 Other forms of dyspnea | CPT/HCPCS: 93306 ==

== ENCOUNTER 2025-02-17 11:10 | Day surgery (SDC) | payer MEDICAID, SELFPAY ==
[2025-02-17] VITALS (37 sets, daily range): BP systolic 93–160; BP diastolic 40–98; PULSE 78–158; RESP 12–26; TEMP 36.1–36.6; TEMPC 36.5; O2SAT 90–98; BMI 31.8
--- NOTE | 2025-02-17 07:32 | W.PM.DSUDISC ---
Date of service: 02/17/25 Discharge Plan Disposition Patient Disposition: Home Condition: Good Discharge Details Reason For Visit: R TKR Attending Provider: Wesly Sanchez Primary Care Provider: Scott Valdes Adkins Meds and New Rx's Prescriptions: New celecoxib 200 mg capsule 200 mg PO BID Qty: 60 0RF aspirin 81 mg tablet,delayed release (DR/EC) 81 mg PO BID Qty: 60 0RF acetaminophen 500 mg tablet 1,000 mg PO TID Qty: 90 3RF dexamethasone 4 mg tablet 4 mg PO DAILY Qty: 2 0RF docusate sodium 100 mg capsule 100 mg PO BID PRNQty: 28 0RF gabapentin 300 mg capsule 300 mg PO QHS Qty: 14 0RF oxycodone 5 mg tablet 5 mg PO Q4H PRNQty: 18 0RF Continued lidocaine HCl 2 % jelly 1 applic TP BID-QID PRN simethicone [Gas Relief (simethicone)] 125 mg capsule 250 mg PO TID-QID PRN Patient Comments: Pt takes 2 capsules after meals and before bed usually, has taken as many as 4 capsules at a time though. Pepto-Bismol Max St 525 mg/15 mL suspension 525 mg PO Q30-60M PRN Patient Comments: Pt uses when feeling bloated as well Rx Instructions: do not exceed 8 doses in a 24 hour period cetirizine [All Day Allergy (cetirizine)] 10 mg tablet 10 mg PO DAILY omeprazole 40 mg capsule,delayed release(DR/EC) 40 mg PO DAILY Qty: 90 3RF pramipexole 0.25 mg tablet 0.25 mg PO QHS Qty: 90 3RF metformin 500 mg tablet extended release 24 hr 1,000 mg PO BID Qty: 120 3RF montelukast 10 mg tablet 10 mg PO DAILY 90 Days Qty: 90 3RF magnesium oxide 500 mg capsule 500 mg PO DAILY Qty: 90 3RF semaglutide 0.25 mg or 0.5 mg (2 mg/3 mL) pen injector 0.25 mg subcut QWEEK 28 Days Qty: 3 4RF Rx Instructions: Inject 0.25 mg subcutaneously once weekly as directed. Washout Januvia 3 days before start. insulin degludec [Tresiba FlexTouch U-200] 200 unit/mL (3 mL) insulin pen 60 unit subcut QHS Qty: 12 6RF Patient Comments: 30 units 02/15/25 insulin lispro [Humalog KwikPen Insulin] 100 unit/mL insulin pen See Rx Instructions SC BID Qty: 15 6RF Rx Instructions: 10 units in AM 8 units at Dinner 11/16/20 multivitamin [Multi-Day] 1 EACH tablet 1 ea PO DAILY botox Patient Comments: q 6 weeks,pt repors last had botox mid july 2021 Rx Instructions: q 6-8w (Chiara Massey) fluticasone propionate 50 mcg/actuation spray,suspension 2 spray THEO DAILY PRN Patient Comments: 01/27/19 Dr. Smith RH hydroxyzine HCl 25 mg tablet 25 mg PO Q6H PRN PRN (Reason: headache) Qty: 90 3RF Rx Instructions: Take 1-2 tabs every 6 hours as needed for headache. fexofenadine 60 mg tablet 180 mg PO DAILY Qty: 90 3RF pregabalin 75 mg capsule 75 mg PO BID Qty: 180 3RF albuterol sulfate 90 mcg/actuation HFA aerosol inhaler 1 - 2 puff Inhalation Q4H PRN PRN (Reason: bronchospasm) Qty: 8.5 3RF (DME) pen needle, diabetic 31 gauge x 3/16 needle See Rx Instructions .ROUTE .MEDSUPPLY Qty: 100 6RF Rx Instructions: Use QID, Dx:E11.9, to keep HbA1c less than 6.5% dapagliflozin propanediol [Farxiga] 10 mg tablet 10 mg PO DAILY Qty: 90 3RF rosuvastatin 5 mg tablet 5 mg PO DAILY Qty: 90 3RF (DME) blood-glucose meter [FreeStyle Lite Meter] Kit See Rx Instructions .Route Qty: 1 0RF Rx Instructions: Test Blood Sugar three times a day. DX:E11.9. Keep A1c below 7 (DME) FreeStyle Lite Strips Strip See Rx Instructions .Route Qty: 100 3RF Rx Instructions: Check Blood Sugar three times day. DX:E11.9. Keep A1c below 7 (DME) lancets 32 gauge misc See Rx Instructions .Route Qty: 100 3RF Rx Instructions: Check Blood sugar three times a day. DX:E11.9. Keep A1c below 7. glucagon 3 mg/actuation spray,non-aerosol 3 mg intranasal ONCE PRN (Reason: hypoglycemia) Qty: 2 12RF Rx Instructions: as a single dose. FILL WITH WHATEVER INSURANCE WILL COVER (DME) Dexcom G7 Sensor Device See Rx Instructions .Route Qty: 3 6RF Rx Instructions: Dx: E11.9; On insulin, to keep HbA1c less than 7%; Test TID and prn (DME) Dexcom G7 Technology Methodology Consultant Misc See Rx Instructions .Route Qty: 1 6RF Rx Instructions: E11.9, on insulin; To keep HbA1c less than 7%; Test TID and prn (DME) Allergy Syringe 1 EACH syringe 1 ea Miscellaneous Patient Comments: pt. reports he gets a weekly allergy shot Discontinued hydrocodone-acetaminophen 5-325 mg tablet 1 tab PO Q8H MDD 15 mg PRN (Reason: pain) Qty: 15 0RF Excedrin Migraine 250-250-65 mg tablet 1 tab PO ONCE ibuprofen 800 mg tablet 800 mg PO Q12H PRN (Reason: pain) Qty: 90 3RF aspirin [Breana Low Dose Aspirin] 81 mg Tablet,Delayed Release (Dr/Ec) 81 mg PO DAILY Discharge Instructions Additional Instructions: Total Knee Discharge Instructions Activity: The most important activity is to walk and to work on gentle motion (both flexion and extension). You should try to take short walks a few times a day. It is important that when resting you work on keeping the knee straight. Avoid putting a pillow behind the knee as this will encourage flexion. Work on range of motion exercises as provided by Physical Therapy. - Start outpatient physical therapy within 2 weeks. - You should wear the AMANDA hose on both legs for 2 weeks. You may remove these at night. You may also use any compression sock in place of the AMANDA hose. - Utilize [employer] to review exercises, see videos on exercises and obtain basic information pertaining to your surgery and your recovery. Dressing: Remove the Williams wrap by 2 days after your surgery and put on the AMANDA stocking given to you from the hospital. Keep the surgical dressing (underneath the WILLIAMS wrap) in place for at least one week. After the first week it may be removed and replaced with light gauze and tape or nothing. The wound and dressing may get wet after 3 days but avoid soaking the dressing or otherwise it will need to be changed. Many people prefer covering the dressing with cling wrap (edie wrap) to minimize it from getting soaked. If it gets wet, just pat dry. If it starts to peel off then it will need to be changed. Medications: - You should take Tylenol and anti-inflammatory Celebrex as your primary pain control medications. If the Celebrex is too expensive or not covered, please call the office for another alternative (Advil/Ibuprofen or Naproxen/Aleve) - You have been prescribed a stronger pain medication Oxycodone for breakthrough pain, take as needed as prescribed. - You will continue your stomach acid reduction agent omeprazole to help reduce stomach acid and reflux. - You have been prescribed Gabapentin to take at night for restlessness and nerve pain. - You will be taking Aspirin 81mg twice a day for DVT prevention unless instructed otherwise. - You have also been prescribed Decadron to take to control post-operative nausea and pain. You will start this tomorrow. - If you have constipation you should take Colace or Miralax (both [id number]). It takes most people 3-4 days to have a bowel movement. Follow-up: 2 weeks If you have any acute concerns or questions, please do not hesitate to contact the office at [phone]. You may contact Dr. Sanchez with any questions after hours through the hospital at [phone] or on his cell phone at [phone]. Referrals: Wesly Sanchez MD [ [facility] STAFF PHYSICIAN, Orthopaedic Surgical] Equipment/Supplies: Walker Activity:: Activity as Tolerated Shower/Bathe:: 72 hours Diet:: As Tolerated Discharge Orders Discharge Orders: Discharge Order (Routine); Ordered 02/17/25 Ordered By: Mina Lombardo DS: Diagnosis Discharge Diagnosis (1) Osteoarthritis of right knee: Status: Acute
[2025-02-17] MEDS: Acetaminophen 500 MG TAB 1000 MG PO ×2 (12:32→12:56)
[2025-02-17] MEDS: Celecoxib 200 MG CAP 400 MG PO (12:32)
[2025-02-17] MEDS: Gabapentin 300 MG CAP PO (12:32)
[2025-02-17] MEDS: Lactated Ringers 1,000 ML 80 ML IV (12:56)
--- NOTE | 2025-02-17 13:23 | W.ANESPRE ---
General Info Date of Service Date Performed: 02/17/25 Height: 5 ft 9.5 in Weight: 99.1 kg Body Mass Index (BMI): 31.8 Surgical Procedure: Operation Date: 02/17/25 15:25 Proposed Procedure Side Surgeon p Knee Total Arthroplasty, Cementless CR Right Wesly Sanchez MD Meds Allergies and Home Medications Allergies Allergy/AdvReac Type Severity Reaction Status Date / Time procaine Allergy Severe swelling Verified 02/17/25 12:15 prednisone AdvReac Severe gets Verified 02/17/25 12:15 violent alprazolam AdvReac Intermediate Dizzy Verified 02/17/25 12:15 Home Medication ?Medication ?Instructions ?Recorded multivitamin (Multi-Day tablet) 1 ea PO DAILY 10/15/12 Botox 05/09/17 syringe with needle 1 mL 27 x 1/2 02/27/18 (Allergy Syringe) fluticasone propionate 50 2 spray intranasal DAILY PRN 01/27/19 mcg/actuation nasal spray,suspension lidocaine HCl 2 % mucosal jelly 1 applic topical BID-QID PRN 09/29/19 hydroxyzine HCl 25 mg tablet 25 mg PO Q6H PRN PRN headache #90 05/31/20 tab-caps bismuth subsalicylate 525 mg/15 mL 525 mg PO Q30-60M PRN 11/16/20 oral suspension (Pepto-Bismol Max St) simethicone 125 mg capsule (Gas 250 mg PO TID-QID PRN 11/16/20 Relief (simethicone)) cetirizine 10 mg tablet (All Day 10 mg PO DAILY 05/15/22 Allergy (cetirizine)) fexofenadine 60 mg tablet 180 mg (3 x 60 mg) PO DAILY #90 09/03/23 tabs omeprazole 40 mg capsule,delayed 40 mg PO DAILY #90 caps 02/29/24 release pramipexole 0.25 mg tablet 0.25 mg PO QHS #90 tabs 02/29/24 pregabalin 75 mg capsule 75 mg PO BID #180 caps 05/27/24 magnesium oxide 500 mg capsule 500 mg PO DAILY #90 caps 05/30/24 montelukast 10 mg tablet 10 mg PO DAILY 90 days #90 tabs 05/30/24 albuterol sulfate 90 mcg/actuation 1 - 2 puff inhalation Q4H PRN PRN 07/25/24 aerosol inhaler bronchospasm #8.5 grams pen needle, diabetic 31 gauge x #100 ea 10/13/2410/05 metformin 500 mg tablet,extended 1,000 mg (2 x 500 mg) PO BID 11/05/24 release 24 hr diabetes #120 tabs dapagliflozin propanediol 10 mg 10 mg PO DAILY #90 tabs 11/17/24 tablet (Farxiga) semaglutide 0.25 mg or 0.5 mg (2 0.25 mg (0.368 mL) subcut QWEEK 28 11/28/24 mg/3 mL) subcutaneous pen injector days #3 mL rosuvastatin 5 mg tablet 5 mg PO DAILY #90 tabs 12/18/24 blood sugar diagnostic (FreeStyle #100 ea 01/05/25 Lite Strips) blood-glucose meter (FreeStyle #1 ea 01/05/25 Lite Meter kit) lancets 32 gauge #100 ea 01/05/25 insulin degludec 200 unit/mL (3 60 unit (0.3 mL) subcut QHS #12 mL 01/26/25 mL) subcutaneous pen (Tresiba FlexTouch U-200 insulin) insulin lispro 100 unit/mL See Rx Instructions subcut BID #15 01/26/25 subcutaneous pen (Humalog KwikPen mL (U-100) Insulin) glucagon 3 mg/actuation nasal spray 3 mg intranasal ONCE PRN 02/03/25 hypoglycemia #2 ea blood-glucose sensor (Dexcom G7 #3 ea 02/09/25 Sensor device) blood-glucose,telephone solicitor supervisor,cont #1 ea 02/09/25 (Dexcom G7 Receiving Manager) acetaminophen 500 mg tablet 1,000 mg (2 x 500 mg) PO TID #90 02/17/25 tabs aspirin 81 mg tablet,delayed 81 mg PO BID #60 tabs 02/17/25 release celecoxib 200 mg capsule 200 mg PO BID #60 caps 02/17/25 dexamethasone 4 mg tablet 4 mg PO DAILY #2 tabs 02/17/25 docusate sodium 100 mg capsule 100 mg PO BID PRN #28 caps 02/17/25 gabapentin 300 mg capsule 300 mg PO QHS #14 caps 02/17/25 oxycodone 5 mg tablet 5 mg PO Q4H PRN #18 tabs 02/17/25 Current Visit Medications: Current Medications Generic Name Dose Route Start Last Admin Trade Name Freq PRN Reason Stop Dose Admin Acetaminophen 1,000 mg 02/17/25 06:00 02/17/25 12:56 Acetaminophen 500 Mg Tab PO 02/17/25 23:59 1,000 mg PREOP GERI Administration Acetaminophen 1,000 mg 02/17/25 07:30 Acetaminophen 500 Mg Tab PO 03/19/25 07:29 TID PRN PRN Analgesia Celecoxib 400 mg 02/17/25 06:00 02/17/25 12:32 Celecoxib 200 Mg Cap PO 02/17/25 23:59 400 mg PREOP GERI Administration Docusate Sodium 100 mg 02/17/25 07:30 Docusate Sodium 100 Mg Cap PO 03/19/25 07:29 BID PRN PRN Constipation Gabapentin 300 mg 02/17/25 06:00 02/17/25 12:32 Gabapentin 300 Mg Cap PO 02/17/25 23:59 300 mg PREOP GERI Administration Ringer's Solution 1,000 mls @ 80 mls/hr 02/17/25 06:00 02/17/25 12:56 IV 02/17/25 23:59 80 mls/hr INFUSION GERI Administration Cefazolin Sodium/Dextrose 2 gm in 50 mls @ 100 mls/hr 02/17/25 06:00 Ancef Duplex IVPB 02/17/25 23:59 PREOP GERI Tranexamic Acid/Sodium Chloride 1,000 mg in 100 mls @ 600 mls/hr 02/17/25 06:00 IVPB 02/17/25 23:59 PREOP GERI IV Miscellaneous Supplies 1 each 02/17/25 06:00 Iv Access IV 02/17/25 23:59 DIRECTED GERI Ondansetron HCl 4 mg 02/17/25 07:30 Ondansetron 4 Mg/2 Ml Vial IVP 03/19/25 07:29 Q6H PRN PRN Nausea Oxycodone HCl 0 mg 02/17/25 07:30 Oxycodone 5 Mg Tab PO 03/19/25 07:29 Q3H PRN PRN Pain Polyethylene Glycol 17 gm 02/17/25 07:30 Polyethylene Glycol 3350 17 Gm Packet PO 03/19/25 07:29 BID PRN PRN Constipation Sodium Chloride 0 ml 02/17/25 06:00 Normal Saline Flush 10 Ml Syr IV 02/17/25 23:59 PRN PRN Sodium Chloride 0 ml 02/17/25 06:00 Normal Saline 10 Ml Vial IJ 02/17/25 23:59 DIRECTED PRN Sterile Water 0 ml 02/17/25 06:00 Water,Injection,Sterile 10 Ml Vial IJ 02/17/25 23:59 DIRECTED PRN PFSH Active Problems Active Problems: Problem Status Onset Code History of total right knee replacement Acute 02/17/25 Z96.651 Cerumen impaction Acute H61.20 Age-related nuclear cataract of both eyes Acute H25.13 Meralgia paresthetica of right side Acute G57.11 Cough Acute R05.9 Lumbar radiculopathy Acute M54.16 Open angle with borderline findings, low risk, bilateral Acute 02/02/21 H40.013 Cerumen impaction Acute H61.20 Nocturnal leg cramps Acute G47.62 Hypoglycemia Acute E16.2 COVID Acute ~05/09/23 U07.1 Lumbosacral spondylosis without myelopathy Acute M47.817 Spondylolisthesis at L5-S1 level Acute M43.17 DM (diabetes mellitus) Acute Allergic rhinitis due to pollen Acute J30.1 Chronic migraine Acute G43.709 Anorexia Acute R63.0 Constipation Acute K59.00 Tensor fascia laura syndrome Acute M62.89 Environmental allergies Acute Z91.09 Pes anserinus bursitis of left knee Acute M70.52 Tendinitis of left quadriceps tendon Acute M76.892 Painful total knee replacement, left Acute T84.84XA, Z96.652 Arthrofibrosis of total knee arthroplasty Acute T84.82XA Strain of left quadriceps muscle Acute S76.112A Deviated nasal septum Acute J34.2 Hypertrophy of nasal turbinates Acute J34.3 Chronic maxillary sinusitis Acute J32.0 Traumatic tear of right rotator cuff Acute ~07/2021 S46.011A Statin myopathy Acute G72.0, T46.6X5A Diabetes mellitus Chronic E11.9 Exertional angina Acute I20.8 CAD (coronary artery disease) Chronic I25.10 Medical History Medical History Past heart attack Pt reports silent heart attack found after stress test. Resulting in stent placement. Asthma Bursitis of right shoulder Tendonitis of long head of biceps brachii of right shoulder Arthritis of knee, left Gangrenous cholecystitis Abscess of upper gum Canker sore Peripheral neuropathy 07/01/19 Dr Zaldivar, w f/u 07/30/19 Acute recurrent maxillary sinusitis Pre-ulcerative calluses 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 Acute ethmoidal sinusitis 04/14/[address] Smith (ENT) Restless leg syndrome Environmental allergies Migraine headache without aura Allergic rhinitis due to food Dermatitis due to ingested food Pain of left lower extremity (04/11/17) Meralgia paresthetica of left side Lumbar radiculitis SHARRI (obstructive sleep apnea) (09/02/14) Myositis (05/07/13) Gastroesophageal reflux disease with esophagitis (09/21/11) Cardiomyopathy (11/21/12) cath 2008 45%EF; 50%LAD, prior apical infarct echo 2009 EF 50%; MPI 2009 fixed A/S defect EF 49% F/U with PCP Dr. Valdes 03/2020-states that he was told by Dr. Massey told patient if he has symptoms he should f/u with cardiology but othersise to f/u with PCP Nonintractable episodic headache (01/20/16) Leg cramps (03/14/18) Insomnia, unspecified (11/20/12) Hyperlipidemia (09/11/13) PCEq risk 7.8% LDL baseline 127 LEAH (generalized anxiety disorder) (03/19/15) Erectile dysfunction (11/20/12) Diabetic polyneuropathy associated with type 2 diabetes mellitus (03/14/18) Diabetes mellitus type 2 in obese (05/08/13) A1C goal 7.5 BPH loc w urin obs/LUTS (01/16/18) Asthma (05/08/13) Obesity Shortness of breath Medical History Comments:: glucometer patch in upper (L) arm. Only 6 teeth, lower. Doesn't use CPAP. Surgical History Surgical History History of total left knee replacement (TKR) (05/24/20) History of arthroscopic surgery of shoulder Rupture of right distal biceps tendon S/P reconstruction with allograft: 10/28/2021 S/P nasal septoplasty (08/18/21) Osteoarthritis of left acromioclavicular joint (02/27/18) Status post excision of left distal clavicle History of cardiac catheterization x2 1980s History of repair of anterior cruciate ligament of left knee Status post arthroscopy of left knee S/P laparoscopic cholecystectomy (~11/25/19) acute hemorrhagic, gangrenous cholecystitis H/O chest tube placement per pt. this was when he had his gall bladder out cortisone injection (03/17/14) lumbar Colonoscopy - MAC (07/27/17) Tobacco Smoking/Tobacco Use Status: Never Passive smoking exposure: No Alcohol Alcohol Intake: current Alcohol intake frequency: a few times a month Alcohol type: beer and hard liquor Substance Use Substance use: Never Substance use type: does not use Vital Signs and Lab Results Vital Signs Most Recent Vital Signs in EMR: Most Recent Vital Signs Temp Pulse Resp BP Pulse Ox 36.8 C 85 21 151/83 H 97 02/17/25 12:58 02/17/25 12:58 02/17/25 12:58 02/17/25 12:58 02/17/25 12:58 Lab Results Complete Blood Count: WBC, (4.4-10.8) 9.71 10^3/uL 02/02/25, 09:37 RBC, (4.36-5.78) 5.76 10^6/uL 02/02/25, 09:37 Hgb, (13.5-17.5) 17.0 g/dL 02/02/25, 09:37 Hct, (40.0-50.0) 51.2 % H 02/02/25, 09:37 Plt Count, (130-400) 232 10^3/uL 02/02/25, 09:37 Complete Metabolic Panel: Sodium, (136-145) 141 mmol/L 02/02/25, 09:37 Potassium, (3.5-5.1) 4.1 mmol/L 02/02/25, 09:37 Chloride, (98-107) 103 mmol/L 02/02/25, 09:37 Carbon Dioxide, (21.0-32.0) 29.0 mmol/L 02/02/25, 09:37 BUN, (7-18) 19 mg/dL H 02/02/25, 09:37 Creatinine, (0.70-1.30) 1.1 mg/dL 02/02/25, 09:37 Est GFR (CKD-EPI 2020), (mL/min/1.73m2) 74.96 02/02/25, 09:37 Magnesium, (1.8-2.4) 2.1 mg/dL 02/02/25, 09:37 Calcium, (8.5-10.1) 9.2 mg/dL 02/02/25, 09:37 Glucose, (74-106) 98 mg/dL 02/02/25, 09:37 Hemoglobin A1c, (4.5-5.7) 6.1 % H 01/26/25, 13:05 Imaging and Studies Imaging and Studies Study information below may be from another EMR and interpreted by another provider. Please see original notes in EMR for more complete details. EKG Summary: 09/05/22: sinus tach Stress Test Summary: 08/31/22: 6.25 METS, EKG negative for ischemia. EF 32%. Anteroapical/apical WMA/infarction Echocardiogram Summary: January 2025 EF 45%, no significant valvular disease Anesthesia Assessment and Plan Anesthesia History Personal History: No History of Anesthesia Complications Family History: No Family History of Anesthesia Complications Exercise Tolerance Exercise Tolerance: Metabolic Equivalents>4 Pertinent Negatives Pertinent Negatives: No Symptoms of GERD, No Major Pulmonary Symptoms or Complaints and No History of CVA/TIA Cardiac & Pulmonary Exam Cardiac Exam: Normal S1/S2 Heart Sounds Pulmonary Exam: Clear Bilateral Breath Sounds Implantable Cardiac Device Does patient have a Pacemaker or an ICD?: No Airway Exam Known Difficult Airway: No Mallampati Class: 3 Mouth Opening: Normal (> 3cm) Thyromental Distance: Greater than 3 cm Neck Range of Motion: Full ROM Neck Circumference: Thick Teeth Condition: Generalized Poor Dentition (missing upper teeth; 6 lower teeth with none loose per pt ) Airway Comments: Multiple missing teeth- no uppers , missing bilateral lowers Remaining teeth broken and chipped ASA Classification ASA Score: ASA 3 Emergency Case?: No NPO Status NPO Status: NPO Clears >2 hours, Solids >8 hours Anesthesia Plan Resuscitation Status: Full Code Anesthesia Technique: General Anesthesia Airway Planned: Endotracheal Tube Pain Management: Surgeon and patient request nerve block Monitors Used: Standard Monitors
--- NOTE | 2025-02-17 13:25 | W.ANESNERVE ---
Nerve Block Single Injection Procedure Date and Time Date Performed: 02/17/25 Procedure Start: 12:58 Location Where Procedure Performed Procedure Location: Day Surgery Unit Reason Performed: Postoperative Analgesia Requesting Provider: Wesly Sanchez Timeout Performed Timeout Performed: Yes Monitoring Used ECG, Blood Pressure, SpO2 and See EMR for corresponding vital signs Sterility Sterility: Hand Hygiene, Surgical Cap, Surgical Mask, Sterile Gloves and Chlorhexidine Sedation Given During Procedure Sedation Given (Indicate Dose Given): Versed IV Dose:: 2mg Patient Mental Status Patient Mental Status: Sedate with meaningful communication Nerve Block 1st Nerve Block: Laterality: Right Block Type: Adductor Canal Ultrasound Image Saved?: Yes Needle / Catheter Used: 100mm SonoPlex II Local Anesthetic Bolus (Indicate Dose Given): Lidocaine used for local infiltration of skin, Injected in 3-5ml increments after negative blood aspiration, Bupivacaine 0.25% Dose:: 10mL and Exparel Dose:: 10mL Additives (Indicate Dose Given): None Ultrasound: Sterile probe cover and gel used Nerve Stimulator: Supplement to Ultrasound use and No twitch or parasthesia noted < 0.5 mA Paresthesia: None Procedure Tolerated: No Complications and Patient tolerated well Procedure Outcome: Successful Performed By: Linnette Goodman Supervised By: Klaudia Ramesh
[2025-02-17] MEDS: ceFAZolin 2 GM/50 ML BAG IVPB (13:35)
--- NOTE | 2025-02-17 13:43 | W.PM.OP ---
Operative Note Operative Note PRE-OP DIAGNOSIS: Right Knee Osteoarthritis POST-OP DIAGNOSIS: same PROCEDURE: Right Total Knee Replacement SURGEON: Wesly Sanchez PROGRAMMING DEVELOPMENT PROJECT MANAGER: Jeimy Lombardo ANESTHESIA TYPE: General LMA/ETT Refer to Anesthesia Record ESTIMATED BLOOD LOSS: 150 PATHOLOGY: none sent TOURNIQUET TIME: 0 COMPLICATIONS: None Patient was transported to: PACU Patient's condition: stable Implants: 1. Depuy Attune Cementless Cruciate Retaining Femoral Component, Size 7 2. Depuy Attune Cementless Fixed Bearing Tibial Component, Size 6 3. Depuy Attune 7x6mm CR/FB Poly Indications: I have seen Marco Antonio in clinic for symptoms of knee arthritis, confirmed with radiographic findings. He has exhausted nonoperative methods and was having significant limitations in daily function and desired better function and less pain. I discussed the technical details of a knee replacement. I explained the risks of the procedure to include, but not limited to, bleeding, infection, pain, stiffness, fracture, damage to nerves and vessels, damage to muscles and tendons, loosening, need for repeat procedure, blood clot and cardiopulmonary demise. Despite these risks, Marco Antonio elected to proceed. Findings: There was significant signs of arthritis throughout the knee, mostly in the medial compartment and trochlea. Procedure Description: Marco Antonio was greeted in the preoperative holding area where the correct side was identified and marked. The consent was reviewed with the patient and signed. The history and physical was updated. All questions were answered. Preoperative medications were administered: Acetaminophen 1000mg, Celebrex 400mg, and Gabapentin 300mg. An adductor canal block was then administered by the anesthesia team in the DSU. He was taken back to the operating room. A sg==general anesthestic was then administered. The patient was placed into the supine position on the operating room table. Posts were placed for positioning during the procedure. All bony prominences were well padded. Prophylactic antibiotics in the form of Cefazolin were administered. 1g of Tranxemic Acid was given intravenously within 30 minutes of incision. The right leg was then prepped with Chloraprep and draped in a standard fashion with impervious stockinette. A second prep with Chloraprep was performed prior to application of Iodine impregnated skin protection. A timeout to confirm correct identity, side and site, procedure, allergies, anesthesia, and medical concerns was performed. With the knee in some flexion, a midline incision was made overlying the knee. Full thickness skin flaps were raised once the extensor mechanism was encountered. These were raised medially and laterally. Any bleeding was controlled with electrocautery. Once the extensor mechanism was fully exposed, a medial parapatellar arthrotomy was performed in a flexed position. All bleeding from the arthrotomy and the geniculate arteries was coagulated. A medial subperiosteal peel was performed with electrocautery to the midcoronal plane. Due to the significant varus deformity the entire medial tibial plateau was exposed. The fat pad was removed while keeping the patellar tendon protected. The anterior distal femur synovium was removed for later visualization. The ACL and PCL were resected and the anterior horn of the lateral meniscus was transected. The knee was then flexed with the patella everted. Large osteophytes from the tibia were removed. Large osteophytes from the femur were removed. Using a step drill, and based on preoperative templating, the femoral canal was entered. This was done with a step drill without any difficulty. The intramedullary distal femoral cut guide was inserted, set to a 4 degree valgus cut and 9mm cut thickness. The distal femoral cut guide was then held in position and pinned. With the soft tissues protected, the distal cut was performed. This was passed over a few times to ensure a planar cut. I then turned attention to the tibia. The extramedullary guide was placed onto the leg. The distal aspect was slid medial to adjust for position of center of ankle and stay in line with shaft of the tibia. Approximately 3-5 degrees of posterior slope was kept in the proximal cutting guide. The center of the guide was aligned with the PCL. The stylus was used to assess cut thickness. The medial side, most involved side, was set for a 3mm cut. This was then held in position and pinned into place with 2 additional pins and a cross pin for stability. The medial and lateral collateral ligaments were protected and the cut was performed. With this completed, it was assessed and noted to be of appropriate dimensions. The guide was removed. A spacer block was inserted and the knee was brought into extension. The 6mm spacer block provided full extension, without hyperextension and with stability of both the medial and lateral collateral ligaments was assessed. The pins from the femur and the tibia were then removed. The distal femur was then sized. The anterior stylus was placed onto the lateral ridge of the anterior femur. This indicated a size 7 femur. The external rotation of the guide was adjusted to 5 degrees to match the epicondylar axis, perpendicular to [place]?s line. The 4-in-1 cutting guide was the placed. The posterior medial femur cut was evaluated and appeared of good thickness. The spacer block was inserted underneath the cutting guide and stability was confirmed in 90 degrees of flexion. An bharati wing was used to confirm appropriate position of the anterior cut to avoid notching. This cutting guide was ensured to be flush on the cut surface and then pinned into place with headed pins. While protecting the soft tissues, quad tendon, and collateral ligaments, the anterior and posterior cuts were performed with a saw. The central two pins were removed and the posterior and anterior chamfers were cut next. The notch-cutting guide was placed. This was pinned to lateralize the femoral component as much as possible while keeping it flush on the cut surface. This was then pinned into position. A reciprocating saw was used to make the notch cut. A rasp smoothed the cut surfaces. The medial and lateral menisci were removed. A trial femoral component was then inserted, impacted down to the cut surfaces, and the lug holes were drilled. A provisional trial tibial component was placed and the knee was brought through range of motion. There was noted to be excellent extension and flexion. There was no significant instability. The patella was tracking without thumbs. A size 6mm polyethylene component provided the best range of motion and stability with less than 2mm gapping with medial and lateral stress and full extension without significant hyperextension. The tibial cut surface was fully exposed. The tibia was then sized as a 6. The tibia had been previously marked during trialing to correspond to the center of the tibial component to help with rotation. The trial was aligned to this jeimy, approximately rotated to the medial 1/3rd of the tibial tubercle. The trial was pinned into place. The tibia was prepared with a reamer and a keel punch and lug holes. The trial components were removed. The final components were opened on the back table. The periosteal and capsular tissues, especially posteriorly, around the knee were then systematically injected with a periarticular cocktail consisting of 246mg of Ropivacaine, 0.5mg of Epinephrine, 0.08mg of Clonidine, and 30mg of Ketorolac, diluted to 100cc. On the back table, with the implants opened. The cementless knee components were placed. Starting with the tibial component, the tibia was subluxed anteriorly and the lug holes of the component were lined up. The tibia was then impacted with an impactor and mallet until the tibial component was in contact with the tibia. The final polyethylene component was inserted. Then, the femoral component was inserted. The lug holes were aligned and the component was impacted into position. The knee was irrigated with Surgiphor Betadine solution. This was allowed to sit in the knee for 3 minutes and then it was irrigated out with saline. The patella was tracking with a no-thumbs technique. A complete synovectomy was performed around the circumference of the patella along with a lateral facetectomy. The capsule was then reapproximated with a No. 1 Vicryl at multiple locations. The capsule was finally closed with a No. 2 Stratafix, barbed suture. Deep tissues were then reapproximated with 0 Vicryl and 2-0 Vicryl. The skin was closed with a running 3-0 Monocryl in a subcuticular fashion. This was reinforced with skin glue. A Mepilex silver dressing was applied along with a ecgo-li-lijni TAMMY wrap. A CryoCuff was applied. Marco Antonio was transferred to the hospital bed without difficulty an suffering no apparent complication. He has a good prognosis. Physical therapy will start today and without restrictions, weight-bearing as tolerated. Aspirin 81mg BID will be used for DVT prophylaxis. Date of Procedure: 02/17/25
[2025-02-17] MEDS: TRANEXAMIC ACID/SOD. CHL. 1,000 MG/100 ML BAG 600 MG IVPB (13:45)
--- NOTE | 2025-02-17 15:38 | W.ANESPOSTOP ---
Postoperative Evaluation Date, Time and Location Date Performed: 02/17/25 Time Performed: 15:38 Patient Location: PACU Vital Signs Most Recent Imported Vital Signs: Most Recent Vital Signs Temp Pulse Resp BP Pulse Ox 36.5 C 85 24 147/92 H 95 02/17/25 15:18 02/17/25 12:58 02/17/25 12:58 02/17/25 12:58 02/17/25 12:58 Most Recent Manually Entered Vital Signs: Adult Blood Pressure: 118/65 Heart Rate: 83 Respirations: 12 Oxygen Saturation (%): 98 Temperature (C): 36.5 C Pain Score (0-10 Scale): 2 Pain Score Most Recent Pain Score: Most Recent Pain Score Pain Level 0 02/17/25 15:23 Assessment Mental Status: Awake (Alert & Oriented to Patient Baseline) Airway and Respiratory Function: Patent airway with normal (patient baseline) respiratory exam Cardiovascular Function: Hemodynamically Stable Hydration Status: Adequately Hydrated Nausea & Vomiting: No Nausea or Vomiting Pain: Pain is tolerable per patient Peripheral Nerve Block: Regional nerve block not resolved at time of post operative discharge
[2025-02-17] MEDS: fentaNYL 100 MCG/2 ML VIAL IVP (15:40)
[2025-02-17] MEDS: Tranexamic Acid 650 MG TAB 1300 MG PO (16:44)
--- NOTE | 2025-02-17 17:00 | PT.INIE ---
PT Notes Visit Reasons: R TKR Physical Therapy Day Surgery Initial Evaluation Date: 02/17/2025 Referring Doctor: ANEL Velázquez/Dr. Sanchez PT Orders: PT CONSULT: Status post Ortho surgery Precautions: WBAT RLE Patient Profile/Admitting Diagnosis: Marco Antonio is a 64-year-old male presenting status post elective right TKA under general anesthesia by Dr. Sanchez on 02/17/2025. Postop uncomplicated PMHX: Past heart attack Pt reports silent heart attack found after stress test. Resulting in stent placement.Asthma Bursitis of right shoulder Tendonitis of long head of biceps brachii of right shoulder Arthritis of knee, left Gangrenous cholecystitis Abscess of upper gum Canker sore Peripheral neuropathy 07/01/19 sylvain Rosales f/u 07/30/19Acute recurrent maxillary sinusitis Pre-ulcerative calluses 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 Acute ethmoidal sinusitis 04/14/[address] Smith (ENT)Restless leg syndrome Environmental allergies Migraine headache without aura Allergic rhinitis due to food Dermatitis due to ingested food Pain of left lower extremity (04/11/17) Meralgia paresthetica of left side Lumbar radiculitis SHARRI (obstructive sleep apnea) (09/02/14) Myositis (05/07/13) Gastroesophageal reflux disease with esophagitis (09/21/11) Cardiomyopathy (11/21/12) cath 2008 45%EF; 50%LAD, prior apical infarct echo 2009 EF 50%; MPI 2009 fixed A/S defect EF 49% F/U with PCP Dr. Valdes 03/2020-states that he was told by Dr. Massey told patient if he has symptoms he should f/u with cardiology but othersise to f/u with PCP Nonintractable episodic headache (01/20/16) Leg cramps (03/14/18) Insomnia, unspecified (11/20/12) Hyperlipidemia (09/11/13) PCEq risk 7.8% LDL baseline 127 LEAH (generalized anxiety disorder) (03/19/15) Erectile dysfunction (11/20/12) Diabetic polyneuropathy associated with type 2 diabetes mellitus (03/14/18) Diabetes mellitus type 2 in obese (05/08/13) A1C goal 7.5 BPH loc w urin obs/LUTS (01/16/18) Asthma (05/08/13) Obesity Shortness of breath Surgical History History of total left knee replacement (TKR) (05/24/20) History of arthroscopic surgery of shoulder Rupture of right distal biceps tendon S/P reconstruction with allograft: 2S/P nasal septoplasty (08/18/21) Osteoarthritis of left acromioclavicular joint (02/27/18) Status post excision of left distal clavicleHistory of cardiac catheterization x2 1980sHistory of repair of anterior cruciate ligament of left knee Status post arthroscopy of left knee S/P laparoscopic cholecystectomy (~11/25/19) acute hemorrhagic, gangrenous cholecystitisH/O chest tube placement per pt. this was when he had his gall bladder outcortisone injection (03/17/14) lumbarColonoscopy - MAC (07/27/17) Social History/Home Situation: Patient resides with his in a mobile home with ramp to enter. Bathroom is accessible with wheel in shower with grab bars. Equipment Owned/DME: Issued FWW Subjective: Patient reports he has FWW here. However he found it in the second hand store.[FWW is bent and not appropriate for use patient issued new FWW] Objective: [] General Observation: Male presenting semireclined on stretcher with Cryo/Cuff to right knee, present Mental Status: Alert and oriented x 4, talkative, cooperative, able to follow instructions, agreeable to participate in eval Pain: Right knee 3/10 ROM: [] Right Lower Extremity: Hip and ankle WFL knee 0-96 degrees Left Lower Extremity: WFL Strength: [] Right Lower Extremity: Hip flexion: 3 -/5; hip abduction: 3 -/5; hip extension: 3/5; knee extension: 3/5; knee flexion: 2+/5 ankle DF: 3/5 ; ankle PF: 3/5 Left Lower Extremity: 5/5 Sensation: Intact Bed Mobility/Transfers: [] Supine to sit supervision Sit to stand supervision with cues for hand placement Stand to sit supervision with cues for hand placement Bed to chair supervision with FWW cues for safe approach Gait: Ambulated 120 feet with FWW standby assist step to pattern reduced knee flexion on right and swing phase, foot flat at weight acceptance Balance: [] Static Sitting: Normal Dynamic Sitting: Good Static Standing: Good minus Dynamic Standing: Fair Special Tests: [] Mobility Limitations Standardized Measure [] [facility] 6 clicks Basic Mobility Inpatient Short Form: [] Raw Score: 23 CMS Score: 11.20% Informed Consent/Education: Patient instructed in purpose of PT consult. Treatment: 46509: Packet containing TKA exercise protocol has been given to patient. Education and training on initial set of 10 reps of exercises that can be done at home have been completed with patient. Assessment: Patient is a 64-year-old male who presents with clinical signs and symptoms consistent with current/admitting diagnoses that have resulted to mobility limitations, gait instability, generalized weakness, and impairment of motor control as demonstrated by the following impairment level findings: 1. Decreased strength to right knee major muscle groups 2. Impaired standing balance 3. Limitation of joint range of motion in right knee 4. Pain right knee 5. Impaired functional activity tolerance Impairments are contributing to the following functional limitations: 1. Inability to safely ambulate without assistive device 2. Increase completion time for mobility ADL performance 3. Increased fall risk Patient is assessed as a male complexity based on the following: History: 64-year-old male with impairment level findings, functional limitations, and past medical history as indicated above Examination: Demonstrable impairment in strength, balance, and mobility level with underlying impairments and functional limitations as documented above Presentation: Evolving Decision Making: Moderate Goals: N/A. PT evaluation and 1-2 treatment sessions only for functional mobility training using recommended AD and for HEP instruction. Plan of Care/Treatment Plan: N/A. PT evaluation and 1-2 treatment session only for functional mobility training using recommended AD and for HEP instruction. DISCHARGE RECOMMENDATIONS: Home with HEP and outpatient PT as scheduled TREATMENT CODE/TIME: 63126, [id number] Thank you for the opportunity to participate in the care of this patient. Emerald Sutherland, PT [facility]
[2025-02-17] MEDS: Insulin Aspart 100 UNITS/ML UNIT 6 UNITS SC (17:17)
== END 2025-02-17 18:04 | disposition home or self-care (01) ==
LOC: SUR 11:11
PROVIDERS: PCP Family Medicine; Visit Provider Student in an Organized Health Care Education/Training Program
PROC: (CPT 27447; principal; 2025-02-17 15:15)
DX: M17.11 Unilateral primary osteoarthritis, right knee (principal); G89.18 Other acute postprocedural pain
CPT/HCPCS: 27447; 64447; 97110; 97162; C1776; J0665; J0666; J0690; J1100; J1171; J1815; J2003; J2250; J2371; J2405; J2704; J3010; J3475

== ENCOUNTER 2025-03-02 08:46 | Outpatient (CLI) | payer MEDICAID, SELFPAY ==
--- NOTE | 2025-03-02 08:45 | RT.EKG_ITS ---
APPROVED REPORT Exam: Resting ECG Reason for Exam: Surveillance Patient Location: O HR:95 bpm ECG Measurements Heart Rate 95 AXIS CA 166 P 45 QRSd 88 QRS -10 QT 342 T 35 QTc 430 Conclusion Sinus rhythm...normal P axis, V-rate 50- 99 Anterior infarct, old...Q >40mS, abnormal ST-T, V2-V5 Baseline wander in lead(s) V4
== END 2025-03-02 08:47 | disposition home or self-care (01) ==
LOC: DI.KIM 08:47
PROVIDERS: PCP Family Medicine; Visit Provider Family Medicine
DX: I25.10 Atherosclerotic heart disease of native coronary artery without angina pectoris (principal)
CPT/HCPCS: 93010

== ENCOUNTER 2025-03-02 10:20 | Outpatient (CLI) | payer MEDICAID, SELFPAY ==
--- NOTE | 2025-03-02 09:45 | DI.RAD_ITS ---
Exam(s) XR STANDING ALIGNMENT XR KNEE RT 1V EXAM: XR STANDING ALIGNMENT and XR knee RT 1 V CLINICAL HISTORY: 1ST POST OP S/P R TKA. TECHNIQUE: 2D digital imaging was performed. Five images were obtained. COMPARISON: CR XR STANDING ALIGNMENT from 07/31/2024 FINDINGS: BONES: The hips are well maintained. The patient has bilateral knee arthroplasty. There osteophytes seen at the posterior patella. Orthopedic hardware appears stable. The ankles are well maintained.The left lower extremity is almost 2 cm longer than the right lower extremity. SOFT TISSUE: Normal. IMPRESSION: Bilateral total knee arthroplasties as described above. DATA REPOSITORY: RADIATION DOSE DELIVERED:
== END 2025-03-02 10:21 | disposition home or self-care (01) ==
LOC: DIORS 10:21
PROVIDERS: PCP Family Medicine; Visit Provider Student in an Organized Health Care Education/Training Program
DX: Z96.653 Presence of artificial knee joint, bilateral
CPT/HCPCS: 73560; 77073

== ENCOUNTER 2025-03-30 16:06 | Outpatient (CLI) | payer MEDICAID, SELFPAY ==
--- NOTE | 2025-03-30 09:45 | DI.RAD_ITS ---
Exam(s) XR KNEE RT 3V AP,LAT,KATE EXAM: XR KNEE RT 3V AP,LAT,KATE CLINICAL HISTORY: right knee pain. TECHNIQUE: 2D digital imaging was performed. Three views. COMPARISON: CR XR KNEE RT 1V from 03/02/2025 CR XR STANDING ALIGNMENT from 03/02/2025 FINDINGS: BONES: No acute fracture is present. No bony destructive lesion is seen. JOINTS: The knee is prosthesis normally aligned. No joint effusion is seen. SOFT TISSUE: Anterior soft tissue swelling. IMPRESSION: Stable appearance of right knee prosthesis.. DATA REPOSITORY: RADIATION DOSE DELIVERED:
== END 2025-03-30 16:07 | disposition home or self-care (01) ==
LOC: DIORS 16:07
PROVIDERS: PCP Family Medicine; Visit Provider Physician Assistant
DX: Z96.651 Presence of right artificial knee joint (principal)
CPT/HCPCS: 73562

== ENCOUNTER 2025-07-12 10:48 | Emergency (ER) | payer MEDICAID, SELFPAY ==
[2025-07-12 11:03] VITALS: BP 117/78; PULSE 96; RESP 16; TEMP 36.3; O2SAT 94
[2025-07-12 11:10] VITALS: BP 117/78; PULSE 96; RESP 16; TEMP 36.3; O2SAT 94
--- NOTE | 2025-07-12 11:30 | DI.CT_ITS ---
Exam(s) CT ABDOMEN PELVIS W EXAM: CT ABDOMEN PELVIS W CLINICAL HISTORY: Abdominal pain diarrhea TECHNIQUE: Imaging Protocol: Axial computed tomography images with coronal and sagittal reformatted images were created and reviewed. CONTRAST MATERIAL: Intravenous: Omnipaque 350 Contrast volume:100 mL Oral: No COMPARISON: CT UPPER ABD WITH CONTRAST (P) from 03/18/2008 CT ABD PELVIS WITH CONTRAST from 09/11/[address] ABDOMEN PELVIS W from 12/18/2019 CT,NM,TMT NM MPI REST STRESS GRP from 08/31/2022 FINDINGS: ABDOMEN: Lung Bases: No acute abnormality. Liver: Normal density. No measurable mass. Portal, Superior Mesenteric, and Splenic Veins: Unremarkable. Gallbladder and Biliary Tract: Status post cholecystectomy. There is no significant biliary ductal dilatation. Pancreas: Normal density, no abnormal calcifications or inflammatory process. Spleen: Normal. Adrenals: No masses seen. Kidneys: Normal size, contour and axis. No radiodense stones or obstructive uropathy. There has been interval development of a 1.8 x 1.9 cm right renal mass (series 8, image 56). The mass shows heterogeneous enhancement. Abdominal Aorta: Abdominal portion non-dilated. Atherosclerotic calcification is present. Bowel: There are fluid-filled loops of small and large bowel which can be seen with a diarrheal illness/enterocolitis. There is no bowel wall thickening or obstruction. Appendix is unremarkable. Peritoneal Cavity: No ascites, collection or mesenteric inflammatory response. No free air. Lymph Nodes: Within normal limits. Bones: Within normal limits for the patient's age. There is L5 spondylolysis and grade 1 spondylolisthesis of L5 on S1. Soft Tissues: There is again seen soft tissue in the right inguinal region suggesting a prior right inguinal hernia repair. This is unchanged dating back to 2016. There is a fat containing left inguinal hernia. There is also a small fat containing recurrent right inguinal hernia which is unchanged. PELVIS: Bladder: Symmetric distention, no gross wall thickening. Reproductive Organs: The prostate gland is enlarged. Lymph Nodes: Within normal limits. Bones: Within normal limits for the patient's age. IMPRESSION: 1. Fluid-filled loops of small and large bowel which can be seen with a diarrheal illness/enterocolitis. 2. New 1.8 x 1.9 cm right renal mass suspicious for neoplasm. MRI with and without IV contrast is recommended for further characterization. 3. The preliminary [facility] report was reviewed. RADIATION DOSE DELIVERED: 693.72mGy.cm Total DLP DATA REPOSITORY: All CT scans at this facility are submitted to the National Radiology Data Registry (NRDR) Dose Index Registry (DIR) with the [employer] (ACR). RADIATION OPTIMIZATION: All CT scans at this facility use at least one of these dose optimization techniques: automated exposure control; mA and/or kV adjustment per patient size (includes targeted exams where dose is matched to clinical indication); or iterative reconstruction.
--- NOTE | 2025-07-12 11:31 | W.ED.GENAD ---
Discharge Plan Disposition Patient Disposition: Home Discharge Details Clinical Impression: Nausea & vomiting, Cyst of right kidney Primary Care Provider: Scott Valdes ED Provider: Britton Bernard Home Meds and New Rx's Prescriptions: New ondansetron 4 mg tablet,disintegrating 4 mg PO BID 5 Days Qty: 10 0RF Continued simethicone [Gas Relief (simethicone)] 125 mg capsule 250 mg PO TID-QID PRN Patient Comments: Pt takes 2 capsules after meals and before bed usually, has taken as many as 4 capsules at a time though. Pepto-Bismol Max St 525 mg/15 mL suspension 525 mg PO Q30-60M PRN Patient Comments: Pt uses when feeling bloated as well Rx Instructions: do not exceed 8 doses in a 24 hour period cetirizine [All Day Allergy (cetirizine)] 10 mg tablet 10 mg PO DAILY ibuprofen 800 mg tablet 800 mg PO Q12H PRN lisinopril 2.5 mg tablet 2.5 mg PO DAILY Qty: 90 3RF aspirin 81 mg tablet,delayed release (DR/EC) 81 mg PO QDAY montelukast 10 mg tablet 10 mg PO DAILY insulin lispro [Humalog KwikPen Insulin] 100 unit/mL insulin pen See Rx Instructions SC BID Qty: 15 6RF Rx Instructions: 5 units in AM 4 units at Dinner 11/16/20 multivitamin [Multi-Day] 1 EACH tablet 1 ea PO DAILY botox Patient Comments: q 6 weeks,pt repors last had botox mid july 2021 Rx Instructions: q 6-8w (Chiara Massey) fluticasone propionate 50 mcg/actuation spray,suspension 2 spray THEO DAILY PRN Patient Comments: 01/27/19 Dr. Smith RH hydroxyzine HCl 25 mg tablet 25 mg PO Q6H PRN PRN (Reason: headache) Qty: 90 3RF Rx Instructions: Take 1-2 tabs every 6 hours as needed for headache. fexofenadine 60 mg tablet 180 mg PO DAILY Qty: 90 3RF albuterol sulfate 90 mcg/actuation HFA aerosol inhaler 1 - 2 puff Inhalation Q4H PRN PRN (Reason: bronchospasm) Qty: 8.5 3RF (DME) pen needle, diabetic 31 gauge x 3/16 needle See Rx Instructions .ROUTE .MEDSUPPLY Qty: 100 6RF Rx Instructions: Use QID, Dx:E11.9, to keep HbA1c less than 6.5% rosuvastatin 5 mg tablet 5 mg PO DAILY Qty: 90 3RF (DME) blood-glucose meter [FreeStyle Lite Meter] Kit See Rx Instructions .Route Qty: 1 0RF Rx Instructions: Test Blood Sugar three times a day. DX:E11.9. Keep A1c below 7 (DME) FreeStyle Lite Strips Strip See Rx Instructions .Route Qty: 100 3RF Rx Instructions: Check Blood Sugar three times day. DX:E11.9. Keep A1c below 7 (DME) lancets 32 gauge misc See Rx Instructions .Route Qty: 100 3RF Rx Instructions: Check Blood sugar three times a day. DX:E11.9. Keep A1c below 7. glucagon 3 mg/actuation spray,non-aerosol 3 mg intranasal ONCE PRN (Reason: hypoglycemia) Qty: 2 12RF Rx Instructions: as a single dose. FILL WITH WHATEVER INSURANCE WILL COVER (DME) Dexcom G7 Sensor Device See Rx Instructions .Route Qty: 3 6RF Rx Instructions: Dx: E11.9; On insulin, to keep HbA1c less than 7%; Test TID and prn (DME) Dexcom G7 Pilot Captain Misc See Rx Instructions .Route Qty: 1 6RF Rx Instructions: E11.9, on insulin; To keep HbA1c less than 7%; Test TID and prn semaglutide 0.25 mg or 0.5 mg (2 mg/3 mL) pen injector 0.5 mg subcut QWEEK 28 Days Qty: 3 12RF Rx Instructions: Inject 0.5 mg subcutaneously once weekly as directed. pregabalin 75 mg capsule 75 mg PO BID Qty: 180 3RF pramipexole 0.25 mg tablet 0.25 mg PO QHS Qty: 90 3RF omeprazole 40 mg capsule,delayed release(DR/EC) See Rx Instructions .ROUTE .COMPLEX Qty: 90 3RF Dose Instruction: TAKE ONE CAPSULE BY MOUTH EVERY DAY Rx Instructions: TAKE ONE CAPSULE BY MOUTH EVERY DAY magnesium oxide 500 mg capsule 500 mg PO DAILY Qty: 90 3RF Ozempic 1 mg/dose (4 mg/3 mL) pen injector 1 mg subcut QWEEK 28 Days Qty: 3 4RF Rx Instructions: Inject 1.0 mg subcutaneously once weekly as directed. metformin 500 mg tablet extended release 24 hr 1,000 mg PO BID Qty: 120 3RF insulin degludec [Tresiba FlexTouch U-200] 200 unit/mL (3 mL) insulin pen 60 unit subcut QHS Qty: 9 6RF Patient Comments: 30 units 02/15/25 acetaminophen 500 mg tablet 1,000 mg PO TID Qty: 90 3RF (DME) Allergy Syringe 1 EACH syringe 1 ea Miscellaneous Patient Comments: pt. reports he gets a weekly allergy shot Discharge Instructions Additional Instructions: You were seen in the emergency department for your nausea and vomiting. As we discussed you do not have any signs of any dangerous processes in your stomach. You do have a cyst on your right kidney for which radiology advises an MRI. Please follow-up with primary care provider concerning this unexpected result. If you develop any worsening pain cannot eat or drink or if you have any other concerns please return to the emergency department. A prescription for nausea medicines has been sent to your pharmacy. Stand Alone Forms: Portal Information Discharge Data Discharge Date/Time-TO BE ENTERED AT DEPARTURE: 07/12/25 14:54 HPI General Date/Time Provider Initiated Documentation: 07/12/25 11:31. HPI Narrative: MDM This is a very well-appearing afebrile and not tachycardic male with nausea vomiting diarrhea for which patient underwent CT scan labs. Emergent differential was appendicitis versus diverticulitis versus ruptured AAA versus gastroenteritis. Less likely zoster given no rash. No chest pain to suggest ACS but did not obtain ECG. No cough to suggest referred pain from pneumonia. No right upper quadrant tenderness to suggest acute cholecystitis. No testicular pain to suggest torsion. No dysuria or frequency to suggest UTI. Patient has been having diarrhea and not vomiting so my suspicion is low for small bowel obstruction. Patient had reassuring CBC no anemia thrombocytopenia no leukocytosis. He had a reassuring comprehensive metabolic panel with no RUTHIE no acute electrolyte abnormalities. His lipase was reassuring against pancreatitis. He did have a CT scan showing fluid-filled loops of small and large bowel. He had new right renal mass which radiology noted was suspicious for neoplasm. I advised patient that this unexpected finding with recommendation for MRI. I advised him to follow-up with his primary care provider. He will benefit from an MRI with and without contrast. Patient felt improved following IV fluids. He did not vomit in the emergency department. We discussed that he should return if symptoms worsened if he develops fever chest pain or shortness of breath. In the absence of a cough that was not suspicious for legionnaires disease. No recent antibiotics to suggest increased risk for C. difficile so I did not send stool testing. No recent travel to suggest atypical infection. Not immunocompromise to suggest opportunistic infection. No cough no shortness of breath I do not feel patient required respiratory viral swab. No lateralizing flank pain to suggest ureteral lithiasis. Patient felt improved. We discussed that he should return if he developed any worsening abdominal pain or any fevers or chills. He understood his return indications and was discharged with an empiric trial of expectant outpatient management. HPI This is a patient presenting with abdominal pain. The patient reports experiencing intermittent abdominal discomfort for the past 2 to 3 weeks, which is accompanied by nausea after meals. He also reports episodes of diarrhea on Sunday and , describing the stool as clear. A noticeable bulge in his abdomen was observed by the nursing staff, which he had not previously detected. He is uncertain if these symptoms are indicative of a viral infection. His recently experienced a similar illness, characterized by fatigue and sleepiness, but without the same severity of symptoms. He has not taken any antibiotics recently. He initiated Ozempic therapy at a dose of 2.5 mg per week during the summer but was advised by Dr. Hamilton to reduce the dosage to 1 mg due to potential side effects. He is scheduled for a follow-up appointment with Dr. Hamilton next week. He experienced significant discomfort last night, including a sensation of impending vomiting, although no actual emesis occurred. He reports no dysuria or testicular pain. He has a history of passing 3 kidney stones but does not believe his current symptoms are related to this condition. PAST SURGICAL HISTORY: The patient has no history of abdominal surgeries but has undergone bilateral knee and shoulder surgeries. His last colonoscopy was performed a long time ago and yielded normal results. Exam General: Well-appearing in no acute distress speaking in complete sentences. Head: Normocephalic, atraumatic. Eye: Extraocular eye movements intact. No conjunctival injection. No scleral icterus. Ear, nose, mouth, throat: Grossly normal inspection. Normal voice, handling secretions normally. Neck: Trachea midline. Cardiovascular: Well-perfused distal extremities. Respiratory: Nonlabored respiration. Gastrointestinal: Nondistended abdomen. Soft. Left lower quadrant tenderness. Diastases recti. Musculoskeletal: No edema. Moving all 4 extremities spontaneously. Skin: Normal for age and race, grossly normal temperature and turgor. No acute rash. Neurologic: Alert and appropriate, no apparent acute deficits. Psychiatric: Mood and manner are appropriate. Grooming and personal hygiene are appropriate. Related Data Home Medications ?Medication ?Instructions ?Recorded ?Confirmed multivitamin (Multi-Day tablet) 1 ea PO DAILY 10/15/12 06/15/25 Botox 05/09/17 06/15/25 syringe with needle 1 mL 27 x 1/2 02/27/18 05/19/25 (Allergy Syringe) fluticasone propionate 50 2 spray intranasal DAILY PRN 01/27/19 06/15/25 mcg/actuation nasal spray,suspension hydroxyzine HCl 25 mg tablet 25 mg PO Q6H PRN PRN headache #90 05/31/20 06/15/25 tab-caps bismuth subsalicylate 525 mg/15 mL 525 mg PO Q30-60M PRN 11/16/20 06/15/25 oral suspension (Pepto-Bismol Max St) simethicone 125 mg capsule (Gas 250 mg PO TID-QID PRN 11/16/20 06/15/25 Relief (simethicone)) cetirizine 10 mg tablet (All Day 10 mg PO DAILY 05/15/22 06/15/25 Allergy (cetirizine)) fexofenadine 60 mg tablet 180 mg (3 x 60 mg) PO DAILY #90 09/03/23 06/15/25 tabs albuterol sulfate 90 mcg/actuation 1 - 2 puff inhalation Q4H PRN PRN 07/25/24 06/15/25 aerosol inhaler bronchospasm #8.5 grams pen needle, diabetic 31 gauge x #100 ea 10/13/24 06/15/2510/05 rosuvastatin 5 mg tablet 5 mg PO DAILY #90 tabs 12/18/24 06/15/25 blood sugar diagnostic (FreeStyle #100 ea 01/05/25 05/19/25 Lite Strips) blood-glucose meter (FreeStyle #1 ea 01/05/25 05/19/25 Lite Meter kit) lancets 32 gauge #100 ea 01/05/25 05/19/25 glucagon 3 mg/actuation nasal spray 3 mg intranasal ONCE PRN 02/03/25 06/15/25 hypoglycemia #2 ea blood-glucose sensor (Dexcom G7 #3 ea 02/09/25 06/15/25 Sensor device) blood-glucose,business support associate,cont #1 ea 02/09/25 06/15/25 (Dexcom G7 Pilot Captain) acetaminophen 500 mg tablet 1,000 mg (2 x 500 mg) PO TID #90 02/17/25 06/15/25 tabs aspirin 81 mg tablet,delayed 81 mg PO QDAY 03/02/25 06/15/25 release ibuprofen 800 mg tablet 800 mg PO Q12H PRN 03/02/25 06/15/25 lisinopril 2.5 mg tablet 2.5 mg PO DAILY #90 tabs 03/02/25 06/15/25 semaglutide 0.25 mg or 0.5 mg (2 0.5 mg (0.736 mL) subcut QWEEK 28 03/31/25 06/15/25 mg/3 mL) subcutaneous pen injector days #3 mL pregabalin 75 mg capsule 75 mg PO BID #180 caps 04/20/25 06/15/25 pramipexole 0.25 mg tablet 0.25 mg PO QHS #90 tabs 04/30/25 06/15/25 insulin lispro 100 unit/mL See Rx Instructions subcut BID #15 05/19/25 06/15/25 subcutaneous pen (Humalog KwikPen mL (U-100) Insulin) magnesium oxide 500 mg capsule 500 mg PO DAILY #90 caps 05/25/25 06/15/25 omeprazole 40 mg capsule,delayed See Rx Instructions .Route 05/25/25 06/15/25 release .COMPLEX #90 caps semaglutide 1 mg/dose (4 mg/3 mL) 1 mg (0.75 mL) subcut QWEEK 28 05/26/25 06/15/25 subcutaneous pen injector (Ozempic) days #3 mL montelukast 10 mg tablet 10 mg PO DAILY 06/15/25 06/15/25 insulin degludec 200 unit/mL (3 60 unit (0.3 mL) subcut QHS #9 mL 06/29/25 mL) subcutaneous pen (Tresiba FlexTouch U-200 insulin) metformin 500 mg tablet,extended 1,000 mg (2 x 500 mg) PO BID 06/29/25 release 24 hr diabetes #120 tabs ondansetron 4 mg disintegrating 4 mg PO BID 5 days #10 tabs 07/12/25 tablet Previous Rx's ?Medication ?Instructions ?Recorded hydroxyzine HCl 25 mg tablet 25 mg PO Q6H PRN PRN headache #90 05/31/20 tab-caps fexofenadine 60 mg tablet 180 mg (3 x 60 mg) PO DAILY #90 09/03/23 tabs albuterol sulfate 90 mcg/actuation 1 - 2 puff inhalation Q4H PRN PRN 07/25/24 aerosol inhaler bronchospasm #8.5 grams pen needle, diabetic 31 gauge x #100 ea 10/13/2410/05 rosuvastatin 5 mg tablet 5 mg PO DAILY #90 tabs 12/18/24 blood sugar diagnostic (FreeStyle #100 ea 01/05/25 Lite Strips) blood-glucose meter (FreeStyle #1 ea 01/05/25 Lite Meter kit) lancets 32 gauge #100 ea 01/05/25 glucagon 3 mg/actuation nasal spray 3 mg intranasal ONCE PRN 02/03/25 hypoglycemia #2 ea blood-glucose sensor (Dexcom G7 #3 ea 02/09/25 Sensor device) blood-glucose,business support associate,cont #1 ea 02/09/25 (Dexcom G7 Pilot Captain) acetaminophen 500 mg tablet 1,000 mg (2 x 500 mg) PO TID #90 02/17/25 tabs lisinopril 2.5 mg tablet 2.5 mg PO DAILY #90 tabs 03/02/25 semaglutide 0.25 mg or 0.5 mg (2 0.5 mg (0.736 mL) subcut QWEEK 28 03/31/25 mg/3 mL) subcutaneous pen injector days #3 mL pregabalin 75 mg capsule 75 mg PO BID #180 caps 04/20/25 pramipexole 0.25 mg tablet 0.25 mg PO QHS #90 tabs 04/30/25 insulin lispro 100 unit/mL See Rx Instructions subcut BID #15 05/19/25 subcutaneous pen (Humalog KwikPen mL (U-100) Insulin) magnesium oxide 500 mg capsule 500 mg PO DAILY #90 caps 05/25/25 omeprazole 40 mg capsule,delayed See Rx Instructions .Route 05/25/25 release .COMPLEX #90 caps semaglutide 1 mg/dose (4 mg/3 mL) 1 mg (0.75 mL) subcut QWEEK 28 05/26/25 subcutaneous pen injector (Ozempic) days #3 mL insulin degludec 200 unit/mL (3 60 unit (0.3 mL) subcut QHS #9 mL 06/29/25 mL) subcutaneous pen (Tresiba FlexTouch U-200 insulin) metformin 500 mg tablet,extended 1,000 mg (2 x 500 mg) PO BID 06/29/25 release 24 hr diabetes #120 tabs ondansetron 4 mg disintegrating 4 mg PO BID 5 days #10 tabs 07/12/25 tablet Allergies Allergy/AdvReac Type Severity Reaction Status Date / Time procaine Allergy Severe swelling Verified 07/12/25 11:09 prednisone AdvReac Severe gets Verified 07/12/25 11:09 violent alprazolam AdvReac Intermediate Dizzy Verified 07/12/25 11:09 General Stated Complaint: Nausea/Vomit/Diar [place]: 3 Course Vital Signs Vital signs: Vital Signs Temperature 36.3 C L 07/12/25 11:03 Pulse 96 H 07/12/25 11:03 Respiratory Rate 16 07/12/25 11:03 Blood Pressure 117/78 07/12/25 11:03 Pulse Oximetry 94 07/12/25 11:03 Temperature 36.3 C L 07/12/25 11:10 Temperature Source Oral 07/12/25 11:10 Pulse 96 H 07/12/25 11:10 Respiratory Rate 16 07/12/25 11:10 Blood Pressure 117/78 07/12/25 11:10 Blood Pressure Position Sitting 07/12/25 11:10 Pulse Oximetry 94 07/12/25 11:10 Oxygen Delivery Method Room Air 07/12/25 11:10 Oxygen Flow Rate 0 07/12/25 11:10 Pain Level 9 07/12/25 11:10 Comment taking pepto-bismol and drinking kristan angi 07/12/25 11:10 PFSH All Active Problems (Updated 07/12/25 @ 14:37 by Britton Bernard MD) Cyst of right kidney (Acute) Nausea & vomiting (Acute) History of total right knee replacement (Acute 02/17/25) Cerumen impaction (Acute) Age-related nuclear cataract of both eyes (Acute) Meralgia paresthetica of right side (Acute) Cough (Acute) Lumbar radiculopathy (Acute) Open angle with borderline findings, low risk, bilateral (Acute 02/02/21) Monitored by [facility] (Dr Mcconnell) Cerumen impaction (Acute) Nocturnal leg cramps (Acute) Hypoglycemia (Acute) COVID (Acute ~05/09/23) Lumbosacral spondylosis without myelopathy (Acute) Spondylolisthesis at L5-S1 level (Acute) DM (diabetes mellitus) (Acute) Pt. states he blood sugars are all over the place, states they can go as high as 300, and low as 48. Allergic rhinitis due to pollen (Acute) Allergy Injections - Dr. Smith Chronic migraine (Acute) Receives therapeutic Botox by Dr Smith at [facility] Anorexia (Acute) Constipation (Acute) Tensor fascia laura syndrome (Acute) Environmental allergies (Acute) Pes anserinus bursitis of left knee (Acute) Tendinitis of left quadriceps tendon (Acute) Painful total knee replacement, left (Acute) Arthrofibrosis of total knee arthroplasty (Acute) s/p arthroscopic synovectomy of left TKA DOS: 02/09/21 Strain of left quadriceps muscle (Acute) Deviated nasal septum (Acute) Repair done w/removal of turbinate bones/Dr. Smith 08/18/21 Hypertrophy of nasal turbinates (Acute) Chronic maxillary sinusitis (Acute) Traumatic tear of right rotator cuff (Acute ~07/2021) s/p right arthroscopic RTC repair on 09/14/22 Statin myopathy (Acute) Resolved after stopping atorvastatin, trial of rosuvastatin Diabetes mellitus (Chronic) Exertional angina (Acute) CAD (coronary artery disease) (Chronic) Medical History Past heart attack Pt reports silent heart attack found after stress test. Resulting in stent placement. Asthma Bursitis of right shoulder Tendonitis of long head of biceps brachii of right shoulder Arthritis of knee, left Gangrenous cholecystitis Abscess of upper gum Canker sore Peripheral neuropathy 07/01/19 Dr Zaldivar, w f/u 07/30/19 Acute recurrent maxillary sinusitis Pre-ulcerative calluses 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 Acute ethmoidal sinusitis 04/14/[address] Smith (ENT) Restless leg syndrome Environmental allergies Migraine headache without aura Allergic rhinitis due to food Dermatitis due to ingested food Pain of left lower extremity (04/11/17) Meralgia paresthetica of left side Lumbar radiculitis SHARRI (obstructive sleep apnea) (09/02/14) Myositis (05/07/13) Gastroesophageal reflux disease with esophagitis (09/21/11) Cardiomyopathy (11/21/12) cath 2008 45%EF; 50%LAD, prior apical infarct echo 2009 EF 50%; MPI 2009 fixed A/S defect EF 49% F/U with PCP Dr. Valdes 03/2020-states that he was told by Dr. Massey told patient if he has symptoms he should f/u with cardiology but othersise to f/u with PCP Nonintractable episodic headache (01/20/16) Leg cramps (03/14/18) Insomnia, unspecified (11/20/12) Hyperlipidemia (09/11/13) PCEq risk 7.8% LDL baseline 127 LEAH (generalized anxiety disorder) (03/19/15) Erectile dysfunction (11/20/12) Diabetic polyneuropathy associated with type 2 diabetes mellitus (03/14/18) Diabetes mellitus type 2 in obese (05/08/13) A1C goal 7.5 BPH loc w urin obs/LUTS (01/16/18) Asthma (05/08/13) Obesity Shortness of breath Surgical History History of total left knee replacement (TKR) (05/24/20) History of arthroscopic surgery of shoulder Rupture of right distal biceps tendon S/P reconstruction with allograft: 10/28/2021 S/P nasal septoplasty (08/18/21) Osteoarthritis of left acromioclavicular joint (02/27/18) Status post excision of left distal clavicle History of cardiac catheterization x2 History of repair of anterior cruciate ligament of left knee Status post arthroscopy of left knee S/P laparoscopic cholecystectomy (~11/25/19) acute hemorrhagic, gangrenous cholecystitis H/O chest tube placement per pt. this was when he had his gall bladder out cortisone injection (03/17/14) lumbar Colonoscopy - MAC (07/27/17) Family History Mother , LUNG CA at age 65. Hyperlipidemia Diabetes Lung cancer Father , LUNG CA at age 58. Hypertension Coronary artery disease Alcohol abuse Lung cancer Social History Smoking/Tobacco Use Status: Never Smoking risk assessment performed?: Yes Alcohol Intake: current Alcohol Intake frequency: a few times a month Alcohol type: beer and hard liquor Drug use: Never Substance use type: does not use Counseling given: No (N/A) Adopted: No Caregiver/Support person: No (for grandson) Foster care: No Household members: spouse Housing: house Number of Children: 3 number of grandchildren: 12 Communication Needs: None Education Level: college Details: Associate's Degree Do you need help understanding health information?: Often current occupation: disabled Pets and animals: Yes (2; 2) Pets and animals: cat(s) and dog(s) Sexually active: No Do you think of yourself as: straight/heterosexual Current gender identity: male What is your relationship status?: How often do you talk on the phone with friends or family?: three or more times per week How often do you get together with friends or relatives?: three or more times per week Do you belong to any clubs or organized social groups?: no Panel score (0-1 are the most socially isolated patients): 2 What type of physical activity do you participate in: other Details: Physical Therapy Duration: 45-60 minutes/day Frequency: 3-4 times per week Marimar/Presybeterian: [facility] Special marimar needs: No Seatbelt use: always Helmet use: No (Never) Drive intox or ride w/intox otr company truck driver: No Water heater temp set <120 deg: Yes Working smoke detector in home: Yes Fire extinguisher in home: No Carbon monox detector in home: Yes Firearms in home: No Do you feel safe at home: Yes Do you feel safe in your relationship?: Yes Victim of physical abuse: No Victim of emotional abuse: No Victim of sexual abuse: No
[2025-07-12] MEDS: Normal Saline 500 ML IV (12:02)
[2025-07-12 12:29] LABS: Abs Immature Grans 0.03 10^3/uL (0.0-0.06); HCT 50.3 % (40.0-50.0); HGB 16.3 g/dL (13.5-17.5); Immature Grans % 0.3 %; MCH 29.1 pg (27.0-33.0); MCHC 32.4 % (32.0-36.0); MCV 90 fL (80-95); MPV 9.6 fL (8.0-11.0); Platelet Count 252 10^3/uL (130-400); RBC 5.61 10^6/uL (4.36-5.78); RDW 13.1 % (11.8-14.1); RDW-SD 43.1 fL; WBC 10.57 10^3/uL (4.4-10.8)
[2025-07-12 12:38] LABS: Lipase 37 U/L (<53)
[2025-07-12 12:41] LABS: ALT 42 U/L (10-49); AST 35 U/L (<34); Albumin 4.6 g/dL (3.2-5.0); Alkaline Phosphatase 93 U/L (46-116); Anion Gap 8.7 mmol/L (3-11); BUN 18 mg/dL (9-23); Bilirubin, Total 0.9 mg/dL (0.2-1.2); CO2 31.3 mmol/L (20.0-31.0); Calcium 9.6 mg/dL (8.3-10.6); Chloride 105 mmol/L (98-107); Glucose 84 mg/dL (74-106); Potassium 4.2 mmol/L (3.5-5.1); Sodium 145 mmol/L (136-145); Total Protein 7.7 g/dL (5.7-8.2)
[2025-07-12] MEDS: Omnipaque 350 MG/ML 100 ML BTL IJ (13:45)
[2025-07-12] MEDS: Normal Saline - Diluent 50 ML VIAL IJ (13:46)
[2025-07-12] MEDS: Normal Saline Flush 10 ML SYR IVP (13:46)
--- NOTE | 2025-07-12 14:19 | DI.VRAD_ITS ---
PROCEDURE INFORMATION: Exam: CT Abdomen And Pelvis With Contrast Exam date and time: 07/12/2025 12:54 PM Age: 64 years old Clinical indication: Other: Abdominal pain diarrhea TECHNIQUE: Imaging protocol: Computed tomography of the abdomen and pelvis with contrast. Radiation optimization: All CT scans at this facility use at least one of these dose optimization techniques: automated exposure control; mA and/or kV adjustment per patient size (includes targeted exams where dose is matched to clinical indication); or iterative reconstruction. Contrast material: OMNIPAQUE 350; Contrast volume: 100 ml; Contrast route: INTRAVENOUS (IV); COMPARISON: CT ABDOMEN PELVIS W 12/18/2019 8:41 AM FINDINGS: Liver: Mild hepatic steatosis. Gallbladder and biliary ducts: Cholecystectomy. Pancreas: Normal. No ductal dilation. Spleen: Normal. No splenomegaly. Adrenal glands: Normal. No mass. Kidneys and ureters: There is 1.6 cm cyst in the right posterolateral kidney. There is a 1.5 cm cyst in the posterior left upper pole kidney. Additional subcentimeter hypodensities in the kidneys, too small to be characterized and likely cysts.There is 1.6 x 1.9 cm axial x 2.2 cm craniocaudal indeterminate hypoenhancing lesion in the posterior medial right lower pole kidney, new since prior. Stomach and bowel: There is no significant mucosal thickening. There is no bowel obstruction. There is semi-solid fecal matter in the large bowel suspicious of gastroenteritis or diarrhea. Appendix: No evidence of appendicitis. Intraperitoneal space: Unremarkable. No free air. No significant fluid collection. Vasculature: There is stable indeterminate hypodense lesion in the right anterior pelvis along the right external iliac artery (98 series 8). Lymph nodes: Unremarkable. No enlarged lymph nodes. Urinary bladder: Unremarkable as visualized. Reproductive: Prostate is enlarged. Bones/joints: Disc degenerative changes with moderate to marked loss disc height at L5-S1. There is grade 1 anterolisthesis of L5 on S1 with bilateral pars interarticularis defects. Soft tissues: Small fat containing umbilical hernia. IMPRESSION: 1. Semi-solid fecal matter in the large bowel suspicious of diarrhea or gastroenteritis. There is no significant mucosal thickening or bowel obstruction. No abscess or free air. 2. 2.2 cm indeterminate hypoenhancing lesion in the posteromedial right lower pole kidney, new since prior CT exam. Further evaluation is suggested with MRI with IV contrast to exclude neoplasm. 3. Stable indeterminate hypodense lesion in the right anterior pelvis along the external iliac artery. Given this is stable since 2019 CT abdomen pelvis exam , it is probably benign. 4. Small fat containing bilateral inguinal hernias. 5. Cholecystectomy. Dictated and Authenticated by: Efrain Kwon MD. Orderin Joana Jarquin MD
== END 2025-07-12 14:54 | disposition home or self-care (01) ==
PROVIDERS: Emergency Provider Emergency Medicine; PCP Family Medicine
DX: N28.1 Cyst of kidney, acquired (principal); R11.2 Nausea with vomiting, unspecified
CPT/HCPCS: 99284; 99285; 36415; 80053; 83690; 74177; 85025; J3490